=== PATIENT | female | born 1965 | race Caucasian/White ===

== ENCOUNTER 2018-02-27 11:59 | Outpatient (RCR) | payer OTHER, SELFPAY ==
--- NOTE | 2018-02-27 11:30 | IE_ITS ---
Date: February 27, 2018 Referring: Sam Stubbs M.D. Diagnosis: R shoulder pain P.T. Diagnosis: SUBJECTIVE: History of Present Illness: Patient is currently being seen for L shoulder pain after L bicep tenodesis performed in July. Over the last 2 months she has begun experiencing R shoulder pain. Patient feels that the R shoulder has become more problematic as she is using it more while she rehabs her L shoulder. She states she she seems to rely significantly on the R UE and uses it more than she had previously that has created stress. She particularly notices this during work duties where she performs all reaching and lifting activities with the R UE. She states she has a distance history of issues with that shoulder back in 2010. She had a rotator cuff repair performed by Dr. Jackson. She states she had no pain to speak of since surgery, however about 2 months ago she began noticing discomfort through the front of the shoulder, which seem to worsen as time has gone on. She has been performing a strengthening program to rehabilitate the L shoulder and states that after exercise she does note some muscle fatigue, although no significant pain. Pain symptoms with sustained mousing at her desk despite multiple alterations to her work station set up. She also has pain when reaching overhead, and reaching behind her back. Pain Rating: Moderate and consistent pain Pain Location: R anterior shoulder, extending down through the biceps region. She also reports pain through the superior shoulder, extending up into her neck. She denies numbness or tingling. Prior Level of Function: Active and independent. 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 She is currently on modified duty doing primarily office tasks due to her L shoulder injury. Current Level of Function: Patient unable to reach behind her back to tuck in her shirt, has pain with any overhead activity including putting items on shelves, donning/doffing a shirt, etc. . . Previous Treatment: Extensive PT intervention with regards to L shoulder, on the R she had a R rotator cuff repair in 2010 without problem in the meantime. Social: Comorbidities: Chronic headaches, anxiety, Latex allergy, osteoporosis. Falls in the last year: __X__ No ____Yes - How many? ____ - (if over 2, balance SM needs to be completed) Reported hospitalizations in the last year - __X__ No ____ Yes - Dates of admission/reason: Medications: Prozac, Lovastatin. The patient had been placed on a Prednisone dose by Dr. Jackson about 4 weeks ago, and states while on the medication both of her shoulders felt significantly better. OBJECTIVE: Posture: In static standing, the patient has moderate rounded shoulder, forward head posturing. No protective positioning noted of either UE. Observation: (behavior, atrophy, skin color, etc.) Gait: Non-antalgic, non-ataxic Palpation: Patient has healed surgical incisions over both shoulders. She is exquisitely tender to palpation over the R longhead of the bicep tendon, and at the greater tuberosity. She has significant tightness noted through the R upper trap, she has exacerbation of headache symptoms with manipulation of the suboccipitals. ROM: Cervical flexion/extension are normal. Rotation allows 65 degrees bilaterally with R sided neck pain and end range R rotation. Cervical sidebending reproduces R sided neck pain to both sides, although allows 20 degrees bilaterally. Strength: Shoulder flexion 4/5 bilaterally with pain reproduction on the R. Abduction is 4-/5 R, 4/5 L, IR is 4/5 bilaterally, ER 4/5 bilaterally with (+) pain reproduction on the R. Biceps 4+/5 bilaterally without pain. Cooper Apprentice is strong and equal. Neuro: Dermatomes and myotomes are WNL. DTR's 2+ for biceps, triceps and brachioradialis. Special Test: Patient has a (+) empty can test for both pain and weakness, (+) Hawkin's Raymundo test on R, (+) Neer impingement sign, (+) painful arc, (+) cervical compression test for exacerbation of localized neck pain. Treatment: Consisted of evaluation of the R shoulder followed by manual mobilization. The patient received PROM through all planes, she does have impingement symptoms at 140 degrees of shoulder flexion. She received cross friction massage along the longhead of bicep tendon followed by grade 2 AP GH joint mobilizations. She received suboccipital release and trigger point release to the R upper trap. Post mobilization, she has improved symptoms with L rotation and sidebending, although continues with exacerbation of neck pain with R sidebending and R rotation. We reviewed appropriate treatment planning and goals, which patient is in agreement with. IE: [id number] Direct treatment time: 40 MINS Total treatment time: 40 MINS ASSESSMENT: Patient is a 52-year-old female, referred for PT services with the diagnosis of R shoulder pain. Patient presents with clinical signs and symptoms consistent with R rotator cuff tendinopathy and long head of bicep tendinitis. She does have a distance history of rotator cuff repair and is currently rehabilitating her L shoulder in a worker's compensation injury. She has demonstrated excellent compliance throughout her rehabilitation and is performing a strengthening based program at this time with good tolerance. She requires PT intervention to address R shoulder with modification to her L shoulder program as necessary to reduce further stress, as demonstrated by the following impairment level findings: 1: Decreased R shoulder ROM. 2: Decreased R UE strength 3: Soft tissue dysfunction. Impairments are contributing to the following functional limitations: 1: Decreased functional reach of the R UE. 2: Pain when reaching behind back limiting ADL's, particularly tucking in shirt. 3: Unable to perform overhead activities. 4: Sleep disruption. 5: Difficulty with work duties, particularly utilizing her mouse. Patient is assessed as: ____ Low 07941 __X__ Moderate [id number] ____ High 05585 complexity, based on the following: History: (list): Insidious onset of R shoulder pain, developing as she rehabilitates the L shoulder after a biceps tenodesis in a [employer] case. See comorbidities and social history. Examination: (list): X See above for functional limitations and impairments. Presentation: Stable . X Evolving Unstable Decision-Making: Low complexity X Moderate complexity High complexity % Disability based on . STG: __6__ weeks. 1: Full AROM of the R shoulder. 2: Patient able to tolerate introduction of strengthening efforts of R UE without exacerbation of pain. LTG: __12__ weeks. 1: Painfree work duties. 2: Patient able to sleep through the night. 3: Patient able to perform all ADL's without pain. PLAN: Will plan to continue with L shoulder rehabilitation. Patient has been completing a minimally supervised program (MSP) 2x a week and following up with me every 2 weeks for mobilization and progression. I would like to continue with this plan, however will begin addressing her R shoulder during this time as well, strengthening efforts which will be focused on scapular stabilization, and reducing stress to the rotator cuff with gentle strengthening as she is able to tolerate. Will also incorporate manual mobilizations to the R shoulder including GH and scap thoracic joint mobilizations, deep tissue mobilization techniques throughout the shoulder and scapular musculature, and ROM activities. She also follows up with Dr. Jackson next week. Thank you for this referral. Please do not hesitate to contact me with any questions or concerns regarding this patient's plan of care.
--- NOTE | 2018-03-03 13:30 | NT_ITS ---
03/03/18 Did not show for her scheduled appt SS/dl
== END 2018-03-14 23:59 | disposition home or self-care (01) ==
LOC: PT 11:59
PROVIDERS: PCP Nurse Practitioner Family; Referring Provider Orthopaedic Surgery; Visit Provider Orthopaedic Surgery
DX: Z47.89 Encounter for other orthopedic aftercare (principal); M75.22 Bicipital tendinitis, left shoulder; M25.511 Pain in right shoulder
CPT/HCPCS: 97162

== ENCOUNTER 2018-03-11 08:35 | Emergency (ER) | payer OTHER, SELFPAY ==
[2018-03-11] VITALS (29 sets, daily range): BP systolic 131–162; BP diastolic 74–96; PULSE 68–89; RESP 9–25; TEMP 36.6–36.9; O2SAT 93–99
--- NOTE | 2018-03-11 09:00 | DI.RPTCT_ITS ---
SYMPTOM/DIAGNOSIS: RETROSTERNAL CHEST PAIN, RT FLANK PAIN CTA CHEST,. ABDOMEN AND PELVIS: CT angiography was performed with multi slice acquisition and multi planar and 3D reconstruction. CT angiography of the chest, abdomen and pelvis was performed from the level of the aortic arch to the inguinal region. ABDOMEN AND PELVIS: Comparison is made with 09/29/16. There is diffuse decreased attenuation of the liver consistent with hepatic steatosis. The homogeneously hyperdense lesion in the caudal aspect of the right lobe of the liver appears stable. This likely reflects a hepatic hemangioma. No suspicious hepatic masses are seen. The gallbladder is negative. No biliary ductal dilatation is present. The pancreas and peripancreatic soft tissues are unremarkable as are the spleen and adrenal glands. The kidneys show normal and symmetric enhancement. No suspicious solid renal mass or obstruction is identified. The urinary bladder is intact. The patient appears to be status post hysterectomy. No significant abdominal or pelvic adenopathy, ascites or pneumoperitoneum is present. There is diverticulosis of the sigmoid colon but no evidence of acute diverticulitis. No evidence of bowel obstruction or inflammation is seen. No findings to suggest an acute appendicitis are present. There is mild atherosclerosis of the abdominal aorta but no aneurysmal dilatation is seen. No evidence of dissection is present. The celiac axis and mesenteric arteries are patent. The renal arteries are unremarkable. Mild degenerative changes are seen in the spine. Incidental note is a made of a small fat containing umbilical hernia. IMPRESSION: No evidence of arterial dissection or aneurysm. No evidence of an acute abdomen. Incidental findings in the abdomen and pelvis as described above. CHEST: There is mild atherosclerosis of the thoracic aorta but no aneurysmal dilatation or dissection is present. Heart size is within normal limits. No significant pericardial effusion is seen. The central pulmonary arteries are unremarkable without evidence of an embolus. The lung apices were not included. Dependent atelectatic changes are seen in the lungs. No focal consolidating infiltrates are seen. No pneumothorax or pleural effusion is identified. The tracheobronchial tree is unremarkable. Mild degenerative changes are seen in the spine. IMPRESSION: 1. No evidence of thoracic aortic dissection or aneurysm. 2. No evidence of a central pulmonary embolus. 3. No acute pulmonary process. These findings were discussed with the ER on the date of the examination.
[2018-03-11 09:25] LABS: Abs Immature Grans 0.08 k/cumm (0.0-0.09); HCT 44.9 % (36.0-46.0); HGB 14.9 g/dL (12.0-15.5); Mean Corp. HGB Concentration 33.2 g/dL (32.0-36.0); Mean Corpuscular Hemoglobin 31.8 pg (27.0-33.0); Mean Corpuscular Volume 95.9 fL (80-95); Mean Platelet Volume 10.3 fL (8.0-11.0); RBC 4.68 m/cumm (4.00-5.20); RBC Distribution Width 12.2 % (11.7-14.6); White Blood Cell Count 15.92 k/cumm (4.4-10.8)
--- NOTE | 2018-03-11 09:30 | ED.GENADUL_ITS ---
Disposition Clinical Impression: Chest pain Disposition: HOME Instructions: Chest Pain (ED) Additional Instructions: Please take tylenol (acetaminophen) 650 mg every 6 hours as needed for pain. Please follow-up with your primary care physician. He should have a stress test performed as soon as possible and ideally within the next 72 hours. Please call to schedule. Return to the emergency department immediately for any worsening or new concerning symptoms. Referrals: Martha Marrufo [Primary Care Provider] - Forms: Work Release Medical Decision Making - Lab Data Laboratory Tests 03/11/18 03/11/18 03/11/18 08:45 08:45 11:50 WBC 15.92 H RBC 4.68 Hgb 14.9 Hct 44.9 MCV 95.9 H MCH 31.8 MCHC 33.2 RDW 12.2 Plt Count 393 MPV 10.3 Immature Gran % 0.0 Neutrophils % 58.0 Lymphocytes % 30.0 Monocytes % 7.0 Eosinophils % 1.0 Basophils % 0.0 Absolute Neutrophils 9.23 H Absolute Lymphocytes 5.41 H Absolute Monocytes 1.11 H Absolute Eosinophils 0.16 Absolute Basophils 0.00 Differential Comment Manual differential Atypical Lymphocytes 4 RBC Morphology Normal Sodium 135 L Potassium 3.9 Chloride 100 Carbon Dioxide 29.1 Anion Gap 5.9 BUN 12 Creatinine 0.80 Estimated GFR/1.73 m2 >= 60.00 Glucose 91 Calcium 9.1 Magnesium 1.9 Total Bilirubin 0.4 AST 29 ALT 76 Alkaline Phosphatase 104 Troponin I < 0.02 < 0.02 Total Protein 7.8 Albumin 3.8 Results reviewed for labs ordered during visit: Yes - Medical Decision Making 10:00 --52-year-old female with history of gastric reflux and hyperlipidemia, smoker, presents with retrosternal chest pain over the past 3 days, pain is sharp and somewhat pleuritic, also with pain in her right upper abdomen/lateral flank. Patient is hypertensive. Patient saturating well in no respiratory distress. Consider aortic dissection versus gastric ulcer versus less likely pulmonary embolism. ECG reviewed and interpreted by me: Normal sinus rhythm 86 bpm, normal axis, no STEMI, nondiagnostic. 11:10 --CTA of the chest and abdomen pelvis interpreted by radiology: Negative. Labs reviewed: Leukocytosis noted, normal LFTs. Nondiagnostic. Suspect musculoskeletal etiology versus gastric reflux. Patient to be given Toradol IV for pain as well as Pepcid. 12:45 -- Labs reviewed and second trop neg. Pt reassessed and remains stable. --Pt advised to f/u with pcp and rter for any worsening or new concerning symptoms. Pt understands importance of timely followup. Pt verbalized understanding of instructions. History of Present Illness - General Chief complaint: Chest Pain Stated complaint: CHEST PAIN Time Seen by Provider: 03/11/18 08:45 Source: patient, RN notes reviewed Mode of arrival: ambulatory Limitations: no limitations - History of Present Illness Initial comments: 52yo f with multiple medical problems including COPD, gastric reflux, hyperlipidemia, presents with chief complaint of chest pain. Patient notes that 3 days ago she developed a headache, some dizziness and nausea as well as retrosternal chest pain and right lateral upper abdominal/flank pain. Headache resolved. 8 in her chest and flank has persisted. Pain in her chest is described as sharp, waxing and waning but persistent. Worse with deep inspiration. Pain is rated 8/10. Patient denies headache at this time. No numbness or weakness. - Related Data Inspirease 1 each MC Q4H PRN #1 each 11/19/13 Pantoprazole Sodium [Protonix] 40 mg PO daily prn #90 tab-cap 01/06/15 Fluticasone/Salmeterol [Advair HFA 115-21] 2 puff IH BID #3 inhaler 05/05/15 Atorvastatin Calcium 80 mg PO HS #90 tab-cap 07/14/15 Fluoxetine HCl [Prozac] 40 mg PO DAILY tab-cap 11/29/16 Acetaminophen [Tylenol Extra Strength] 1,000 mg PO Q6H PRN tab-cap 03/21/17 Levalbuterol [Xopenex Hfa] 200 puff IH PRN PRN 08/12/17 LamoTRIgine [LaMICtal] 25 mg PO DAILY 01/22/18 Allergies Allergy/AdvReac Type Severity Reaction Status Date / Time nicotine Allergy Severe PATCHES-REDNESS Unverified 03/11/18 08:48 & SWELLING chlorhexidine Allergy Mild Skin Rash Unverified 03/11/18 08:48 adhesive Allergy Skin Rash Unverified 03/11/18 08:48 bupropion AdvReac Severe AGITATION Unverified 03/11/18 08:48 duloxetine AdvReac Intermediate HEARING Unverified 03/11/18 08:48 THINGS hydrocodone AdvReac Intermediate Itching Unverified 03/11/18 08:48 pregabalin [From Lyrica] AdvReac Intermediate foggy brain Unverified 03/11/18 08 :48 trazodone AdvReac Intermediate ANXIETY Unverified 03/11/18 08:48 pravastatin AdvReac Mild HEADACHE Unverified 03/11/18 08:48 simvastatin AdvReac Mild LEG Unverified 03/11/18 08:48 CRAMPS; HEADACHE varenicline AdvReac Mild BEHAVIOR Unverified 03/11/18 08:48 CHANGES promethazine AdvReac Unknown ANXIETY Unverified 03/11/18 08:48 zolpidem AdvReac Unknown INCREASED Unverified 03/11/18 08:48 DEPRESSION Review of Systems Constitutional: denies: chills, fever Respiratory: denies: cough, shortness of breath Cardiovascular: chest pain. denies: palpitations, syncope Gastrointestinal: abdominal pain. denies: nausea, vomiting Neurological: as per HPI. denies: headache Comment: All other systems reviewed and negative Past Medical History - Past Medical History Medical history: COPD, GERD, hyperlipidemia fibromyalgia - Social History Smoking status: current everyday smoker Alcohol use: none Drug use: none General Exam - General Limitations: no limitations General appearance: alert, in no apparent distress - Eye Eye exam: Absent: scleral icterus, conjunctival injection - ENT ENT exam: Present: normal orophraynx, mucous membranes moist - Respiratory Respiratory exam: Present: normal lung sounds bilaterally - Cardiovascular Cardiovascular Exam: Present: regular rate, normal rhythm, normal heart sounds - GI/Abdominal GI/Abdominal exam: Present: soft, tenderness (Minimal epigastric), normal bowel sounds. Absent: distended, guarding, rebound, rigid - Extremities Exam Extremities exam: Absent: pedal edema, calf tenderness - Neurological Exam Neurological exam: Present: alert, normal gait. Absent: altered - Psychiatric Psychiatric exam: Present: normal affect - Skin Skin exam: Present: warm, dry, intact Course Vital Signs - 24 hr 03/11/18 03/11/18 03/11/18 08:41 08:42 08:46 Temperature 36.6 C Pulse 83 85 Respiratory 18 Rate Blood Pressure 162/93 157/93 Pulse Oximetry 97 97 97 03/11/18 03/11/18 03/11/18 08:50 09:00 09:01 Temperature Pulse 77 Respiratory 12 16 Rate Blood Pressure 136/91 Pulse Oximetry 97 93 L 96
[2018-03-11 09:36] LABS: ALT 76 U/L (12-78); AST 29 U/L (15-37); Albumin 3.8 g/dL (3.4-5.0); Alkaline Phosphatase 104 U/L (46-116); Anion Gap 5.9 mmol/L (3-11); BUN 12 mg/dL (7-18); Bilirubin, Total 0.4 mg/dL (0.2-1.0); CO2 29.1 mmol/L (21.0-32.0); Calcium 9.1 mg/dL (8.5-10.1); Chloride 100 mmol/L (98-107); Glucose 91 mg/dL (70-100); Magnesium 1.9 mg/dL (1.8-2.4); Potassium 3.9 mmol/L (3.5-5.1); Sodium 135 mmol/L (136-145); Total Protein 7.8 g/dL (6.4-8.2)
[2018-03-11 09:38] LABS: Absolute Eosinophil Count 0.16 k/cumm (0.0-0.7); Absolute Lymphocyte Count 5.41 k/cumm (1.2-3.4); Absolute Monocyte Count 1.11 k/cumm (0.11-0.7); Absolute Neutrophil Count 9.23 k/cumm (1.2-6.7); Atypical Lymphocytes % 4; Troponin I < 0.02 ng/mL (0.00-0.06)
[2018-03-11 09:39] LABS: Diff Comment Manual Differential; Platelet Count 393 x1000/uL (130-400); RBC Morphology Normal
[2018-03-11] MEDS: Omnipaque 350 MG/ML 100 ML BTL IJ (10:15)
[2018-03-11] MEDS: Ketorolac 15 MG/ML VIAL IVP (10:55)
[2018-03-11] MEDS: FAMOTIDINE 20 MG/50 ML BAG 100 MG IVPB (10:56)
[2018-03-11 12:16] LABS: Troponin I < 0.02 ng/mL (0.00-0.06)
== END 2018-03-11 13:24 | disposition home or self-care (01) ==
PROVIDERS: Emergency Provider Student in an Organized Health Care Education/Training Program; PCP Nurse Practitioner Family
DX: R07.9 Chest pain, unspecified (principal); R03.0 Elevated blood-pressure reading, without diagnosis of hypertension; J44.9 Chronic obstructive pulmonary disease, unspecified; F17.210 Nicotine dependence, cigarettes, uncomplicated
CPT/HCPCS: 36415; 74177; 80053; 93005; 96365; 96375; 99285; 83735; 84484; 85025; 93010; 99284; J1885; J3490

== ENCOUNTER 2018-03-13 00:41 | Outpatient (CLI) | payer OTHER, SELFPAY ==
--- NOTE | 2018-03-13 08:30 | ETT_ITS ---
*[facility]* [address] [place] [address] Stress Electrocardiography Silvano protocol Date of study: 03/13/2018 *PATIENT PRESENTATION* Height: 154.9cm (61in) Blood Pressure: Weight: 60.9kg (134lb) BSA: 1.63m^2 Ordering physician: Eulalio Carias Impressions: Normal study after maximal exercise. Summary: 1. Stress ECG conclusions: Wells treadmill score: 6. This score predicts a low risk of cardiac events. Indication: R07.9. History: Patient's presenting symptoms: atypical angina. REASON FOR VISIT: PATIENT VISIT TO ER ON TUESDAY 03/13 FOR C/O 8/10 SHARP AND DULL STERNAL CHEST PAIN. PAIN HAS BEEN VARIABLE SINCE SATURDAY, OCCURING AT REST AND WITH EXERTION, LASTING A MINUTE AT MOST WITH EACH OCCURENCE, RESOLVING WITHOUT INTERVENTION. ASSOCIATED SYMPTOMS INCLUDE HEADACHE, JAW PAIN, AND NAUSEA. ONE EPISODE OF VOMITING WITH CHEST PAIN ON SATURDAY. PAIN IS WORSE WITH DEEP BREATHING. TODAY PATIENT REPORTS 3/10 DULL, ACHY CHEST PAIN WORSE WITH DEEP INSPIRATION. PAST MEDICAL HISTORY: HYPERTENSION, COPD W/ EMPHYSEMA, GERD, DEPRESSION, HX OF CHRONIC LEUKOCYTOSIS. FAMILY HISTORY: FATHER AT 41 FROM MYOCARDIAL INFARCTION. SMOKING STATUS: 19 PACK YEAR HISTORY. EXERCISE ROUTINE: PHYSICAL THERAPY 2X/WEEK. PMH: COPD. Risk factors: Family history of coronary artery disease. Current tobacco use. Hypertension. Dyslipidemia. Cholesterol: 190mg/dl. HDL: 36mg/dl. LDL: 107mg/dl. Triglycerides: 214mg/dl. ALLERGIES: ADHESIVE, BUPROPION, CHLORHEXIDINE, DULOXETINE, HYDROCODONE, NICOTINE PATCH, PRAVASTATIN, PREGABALIN, PROMETHAZINE, SIMVASTATIN, TRAZODONE, VARENICLINE, ZOLPIDEM. MEDICATIONS: PREDNISONE TAPER 25MG, DAILY. ACETAMINOPHEN 1000MG PRN. ATORVASTATIN CALCIUM 80MG, DAILY. FLUOXETINE HCL 40MG, DAILY. FLUTICASONE/SALMETEROL 2 PUFF, BID. INSPIREASEL 1 EACH, PRN. LAMOTRIGINE 25MG, DAILY. LEVALBUTEROL INHALER, PRN. PANTOPRAZOLE SODIUM 40MG, DIALY. Protocol: Silvano protocol. Baseline ECG: SINUS RHYTHM. HEART RATE 76 BPM. Stress protocol: + +---+ + + !Stage !HR !BP (mmHg) !Symptoms ! + +---+ + + !Baseline supine !76 !136/82 (100)!3 out of 10 chest ! ! ! ! !discomfort ! + +---+ + + !Baseline standing !83 !132/80 (97) ! ! + +---+ + + !Stage I; 1.7mph, !110!142/88 (106)! ! !10degrees; 3 min ! ! ! ! + +---+ + + !Stage II; 2.5mph, !114!170/70 (103)! ! !12degrees; 3 min ! ! ! ! + +---+ + + !Stage III; 3.4mph, !124!182/84 (117)! ! !14degrees; 3 min ! ! ! ! + +---+ + + !Peak stress !162! ! ! + +---+ + + !Recovery; 1 min !128!192/90 (124)! ! + +---+ + + !Recovery; 3 min !88 !164/82 (109)! ! + +---+ + + !Recovery; 6 min !90 !140/74 (96) !Same as above ! + +---+ + + * Stress results: Maximal heart rate during stress was 162bpm (96% of maximal predicted heart rate). The maximal predicted heart rate was 169bpm. The target heart rate was achieved. The rate-pressure product for the peak heart rate and blood pressure was 57444rj Hg/min. Stress ECG: TREADMILL PORTION OF EXERCISE STRESS TEST ENDED IN 9MIN 58SEC DUE TO PATIENT FATIGUE. APPROPRIATE HEART RATE AND BLOOD PRESSURE RESPONSE TO EXERCISE. MAX HEART RATE 162BPM, 95% OF TARGET HEART RATE. APPROXIMATE METS ACHIEVED 11.74. 3/10 DULL, ACHY CHEST PAIN REPORTED AT BASELINE PRIOR TO TESTING. 3/10 CHEST PAIN CONTINUED THROUGH TESTING AND DURING RECOVERY. NO INCREASE IN CHEST PAIN REPORTED. NO SIGNIFICANT ST SEGMENT CHANGES NOTED. ABOVE AVERAGE FUNCTIONAL CAPACITY. Wells treadmill score: 6. This score predicts a low risk of cardiac events. Study data: Jaz Boucher MD supervised and was readily available during the procedure. This study was interpreted by [facility]. Study status: Routine. Consent: The risks, benefits, and alternatives to the procedure were explained to the patient and informed consent was obtained. Procedure: Initial setup. A baseline ECG was recorded. Surface ECG leads and manual cuff blood pressure measurements were monitored. Heart sounds: Murmur. Lung sounds: Normal. Treadmill exercise testing was performed using the Silvano protocol. Study completion: The patient tolerated the procedure well and was discharged from the lab. Discharge: The patient left the laboratory in stable condition. Birthdate: Patient birthdate: 1965. Sex: Gender: female. Study date: Study date: 03/13/2018. Study time: 08:30 AM. Signature Documentation: The Stress ECG portion of this study was interpreted by Jaz Boucher MD. Electronically signed by Jaz Boucher 03/13/2018 09:41
== END 2018-03-13 00:42 ==
PROVIDERS: PCP Nurse Practitioner Family; Visit Provider Student in an Organized Health Care Education/Training Program
DX: R07.89 Other chest pain (principal)
CPT/HCPCS: 93017

== ENCOUNTER 2018-04-20 12:11 | Emergency (ER) | payer OTHER, SELFPAY ==
[2018-04-20 12:17] VITALS: BP 163/89; PULSE 89; RESP 18; TEMP 36.7; O2SAT 98
--- NOTE | 2018-04-20 12:35 | W.ED.GENAD ---
Discharge Plan Disposition Patient Disposition: HOME Condition: Fair Discharge Details Chief Complaint: EarProblem Clinical Impression: Otitis externa Primary Care Provider: Martha Marrufo ED Provider: Yojana Ceja Home Meds and New Rx's Prescriptions: New ciprofloxacin-dexamethasone [Ciprodex] 0.3-0.1 % drops,suspension 3 drp OT TID Qty: 7.5 RF: 0 Continue INSPIREASE 1 EACH spacer 1 ea Miscellaneous Q4H PRN Qty: 1 RF: 1 pantoprazole [Protonix] 40 MG tablet,delayed release (DR/EC) 40 mg PO daily prn Qty: 90 RF: 3 fluticasone-salmeterol [Advair HFA] 8 GM HFA aerosol inhaler 2 puff Inhalation BID Qty: 3 RF: 4 atorvastatin 80 MG tablet 80 mg PO HS Qty: 90 RF: 4 fluoxetine [Prozac] 20 MG capsule 20 mg PO DAILY RF: 0 acetaminophen [Tylenol Extra Strength] 500 MG tablet 1,000 mg PO Q6H PRN RF: 0 lamotrigine [Lamictal] 25 MG tablet 50 mg PO DAILY RF: 0 levalbuterol tartrate [Xopenex HFA] 200 PUFF HFA aerosol inhaler 200 puff Inhalation PRN PRNRF: 0 Discharge Instructions Instructions: Otitis Externa (ED) Additional Instructions: Encourage hydration. Use Ciprodex drops as prescribed. When using these, please lie on your side for 15 minutes after instilling the medication. Please follow up with primary care in the next 2 days. If you develop increased pain, discharge, fevers/chills, redness of surrounding tissue or other new/worsening symptoms please seek care urgently once again. Referrals: Martha Marrufo [Primary Care Provider] - ([phone]) Discharge Data Discharge Date/Time-TO BE ENTERED AT DEPARTURE: 04/20/18 12:49 Medical Decision Making Patient is a 52 year old female with chief complaint of left ear pain. States that it began 3 days ago and has been progressively getting worse. Denies known fevers but states that she has felt slight chills. States that she has been having pain around the ear but that it primarily feels to be the inner ear. Prior to arrival, patient had been using Vicks in her ear and instilling with warm water. Denies change in hearing. No recent travel, no recent trauma. On exam, external canal is noted to be erythematous. No exudate. No swelling of the canal. TM is WNL. No pain over the mastoid process. Plan to treat for otitis externa. Patient will be treated with Ciprodex. Discussed new/worsening symptoms and when to seek care urgently once again. Encourage hydration. I am concerned that her pain seems to be out of proportion with findings of exam. No mastoid tenderness, no fevers, patient appears nontoxic. I have asked that she follow up closely with primary care for reevaluation. Was given strict return precautions. Just after the patient was discharged, we were contacted by the patient who advised she was unable to get the Ciprodex filled. Contacted her local pharmacy and called in a prescription for polymyxinB/neomycin/hydrocortisone instead as this was available and will cover for otitis externa. HPI General Mode of arrival: ambulatory. Date/Time Provider Initiated Documentation: 04/20/18 12:24. Limitations to Documentation: no limitations. Information obtained by: patient. History of Present Illness 52 year old F presents to the emergency department with the chief complaint of right ear pain, described as moderate, Quality is described as aching, and is localized to the face. Patient neck. Patient started experiencing this day(s) (3) and it has been constant. No relieving factors improve symptom(s), No exacerbating factors reported . Patient notes fever/chills; denies chest pain, cough, headaches, loss of appetite, nausea/vomiting, rash and shortness of breath. Patient did receive the following treatments prior to arrival, other (has been putting Vicks in her ear) Related Data Home Medications Medication Instructions Recorded Confirmed pantoprazole [Protonix] 40 mg PO daily prn #90 tab-cap 01/06/15 04/20/18 fluticasone-salmeterol [Advair HFA] 2 puff INHALATION BID #3 inhaler 05/05/15 04/20/18 atorvastatin 80 mg PO HS #90 tab-cap 07/14/15 04/20/18 fluoxetine [Prozac] 20 mg PO DAILY tab-cap 11/29/16 04/20/18 acetaminophen [Tylenol Extra 1,000 mg PO Q6H PRN tab-cap 03/21/17 04/20/18 Strength] levalbuterol tartrate [Xopenex HFA] 200 puff INHALATION PRN PRN 08/12/17 04/20/18 lamotrigine [Lamictal] 50 mg PO DAILY 01/22/18 04/20/18 ciprofloxacin-dexamethasone 3 drp OT TID #7.5 ml 04/20/18 [Ciprodex] Previous Rx's Medication Instructions Recorded ciprofloxacin-dexamethasone 3 drp OT TID #7.5 ml 04/20/18 [Ciprodex] Allergies Allergy/AdvReac Type Severity Reaction Status Date / Time nicotine Allergy Severe PATCHES-REDNESS Unverified 04/20/18 12:22 & SWELLING chlorhexidine Allergy Mild Skin Rash Unverified 04/20/18 12:22 adhesive Allergy Skin Rash Unverified 04/20/18 12:22 bupropion AdvReac Severe AGITATION Unverified 04/20/18 12:22 duloxetine AdvReac Intermediate HEARING Unverified 04/20/18 12:22 THINGS hydrocodone AdvReac Intermediate Itching Unverified 04/20/18 12:22 pregabalin [From Lyrica] AdvReac Intermediate foggy brain Unverified 04/20/18 12:22 trazodone AdvReac Intermediate ANXIETY Unverified 04/20/18 12:22 pravastatin AdvReac Mild HEADACHE Unverified 04/20/18 12:22 simvastatin AdvReac Mild LEG Unverified 04/20/18 12:22 CRAMPS; HEADACHE varenicline AdvReac Mild BEHAVIOR Unverified 04/20/18 12:22 CHANGES promethazine AdvReac Unknown ANXIETY Unverified 04/20/18 12:22 zolpidem AdvReac Unknown INCREASED Unverified 04/20/18 12:22 DEPRESSION General Stated Complaint: EarProblem NICOLAS: 3 Review of Systems Constitutional Reports as per HPI, Reports chills, Denies difficulty sleeping, Denies fever(s), Denies headache(s) and Denies poor appetite Eyes Denies change in vision, Denies irritation and Denies itchy eyes ENT Reports as per HPI, Denies vertigo, Denies dizziness, Denies ear discharge, Reports otalgia, Denies facial pain, Denies headache(s), Denies hearing loss, Denies nasal congestion, Denies nasal discharge, Reports neck pain (states that pain from right ear can radiate into the right lateral side of her neck), Denies nose pain, Denies post nasal drip, Denies sinus pain, Denies sinus pressure and Denies sore throat Cardiovascular Denies chest pain, Denies chest pain at rest, Denies dyspnea and Denies dyspnea on exertion Respiratory Denies cough, Denies dyspnea, Denies dyspnea on exertion and Denies wheezing Gastrointestinal Reports as per HPI, Denies abdominal pain, Denies change in stool character, Reports nausea and Denies vomiting Musculoskeletal Reports neck pain (states that pain from right ear can radiate into the right lateral side of her neck) Integumentary/Breasts Denies rash, Denies skin pain, Denies sores and Denies wounds Neurologic Denies vertigo, Denies dizziness and Denies headache(s) Allergic/Immunologic Denies itchy eyes and Denies wheezing PFSH Family History Mother Essential hypertension Diabetes Hyperlipidemia Father Heart disease Hyperlipidemia Myocardial infarction Sister Hyperlipidemia Brother No problems noted. Grandfather No problems noted. Grandfather No problems noted. Grandmother Personal history of malignant neoplasm Grandmother No problems noted. Social History Smoking/Tobacco Use Status: Current every day Surgical History Bilateral salpingectomy with oophorectomy Biopsy of breast (~2007) EGD - MAC Hysterectomy, Laproscopic Oophrectomy, Left Exam Const General: cooperative, healthy appearing, comfortable, no acute distress, well developed and well groomed Nutritional Appearance: average body habitus and well nourished Orientation: alert and awake [facility] Head: normal to inspection, normocephalic and atraumatic Ears: hearing grossly normal bilaterally, external ears abnormal (patient has erythema of the external canal, no discharge. No swelling noted. TM without abnormality.), TM's normal bilaterally, mastoids normal (no tenderness with palpation) and no periauricular adenopathy General nose exam: external nose normal and nares normal Face and sinus: normal facial exam, sinuses nontender and face symmetric Mouth: oral mucosae normal, lip normal, tongue normal, oropharynx normal, moist mucous membranes and no trismus Teeth and gingiva: dentition normal Throat: posterior oropharynx normal, tonsils normal and uvula midline Eyes General: appearance normal, both eyes and all related structures Neck Neck: normal visual inspection, full ROM, no lymphadenopathy and no meningeal signs Resp Effort & Inspection: normal respiratory effort, able to speak in complete sentences and no respiratory distress Auscultation: clear to auscultation bilaterally, no rales, no rhonchi and no wheezes Cardio Rate: regular rate Rhythm: regular rhythm Heart Sounds: S1 normal and S2 normal Skin General skin exam: no rashes or lesions noted Lesions: no lesions Rashes: no rashes Trauma: no lacerations or abrasions Neuro General: alert, awake and oriented x3 Cognition: normal cognition Speech: speech normal Gait: normal gait Psych Appearance: grossly normal and well kempt Mental Status: mental status grossly normal Speech and Movement: speech and movement normal Mood: congruent mood Course Vital Signs Temperature 36.7 C 04/20/18 12:17 Pulse 89 04/20/18 12:17 Respiratory Rate 18 04/20/18 12:17 Blood Pressure 163/89 H 04/20/18 12:17 Pulse Oximetry 98 04/20/18 12:17 Temperature 36.7 C 04/20/18 12:17 Temperature Source Temporal Artery Scan 04/20/18 12:17 Pulse 89 04/20/18 12:17 Respiratory Rate 18 04/20/18 12:17 Respiratory Effort Non-Labored 04/20/18 12:20 Blood Pressure 163/89 H 04/20/18 12:17 Blood Pressure Position Sitting 04/20/18 12:17 Pulse Oximetry 98 04/20/18 12:17 Oxygen Delivery Method Room Air 04/20/18 12:17 Oxygen Flow Rate 0 04/20/18 12:17 Pain Level 6 04/20/18 12:20 Comment 04/20/18 12:17
--- NOTE | 2018-04-20 14:55 | ED.GENADUL_ITS ---
Discharge Plan Disposition Patient Disposition: HOME Condition: Fair Discharge Details Chief Complaint: EarProblem Clinical Impression: Otitis externa Primary Care Provider: Martha Marrufo ED Provider: Yojana Ceja Home Meds and New Rx's Prescriptions: New ciprofloxacin-dexamethasone [Ciprodex] 0.3-0.1 % drops,suspension 3 drp OT TID Qty: 7.5 RF: 0 Continue INSPIREASE 1 EACH spacer 1 ea Miscellaneous Q4H PRN Qty: 1 RF: 1 pantoprazole [Protonix] 40 MG tablet,delayed release (DR/EC) 40 mg PO daily prn Qty: 90 RF: 3 fluticasone-salmeterol [Advair HFA] 8 GM HFA aerosol inhaler 2 puff Inhalation BID Qty: 3 RF: 4 atorvastatin 80 MG tablet 80 mg PO HS Qty: 90 RF: 4 fluoxetine [Prozac] 20 MG capsule 20 mg PO DAILY RF: 0 acetaminophen [Tylenol Extra Strength] 500 MG tablet 1,000 mg PO Q6H PRN RF: 0 lamotrigine [Lamictal] 25 MG tablet 50 mg PO DAILY RF: 0 levalbuterol tartrate [Xopenex HFA] 200 PUFF HFA aerosol inhaler 200 puff Inhalation PRN PRNRF: 0 Discharge Instructions Instructions: Otitis Externa (ED) Additional Instructions: Encourage hydration. Use Ciprodex drops as prescribed. When using these, please lie on your side for 15 minutes after instilling the medication. Please follow up with primary care in the next 2 days. If you develop increased pain, discharge, fevers/chills, redness of surrounding tissue or other new/worsening symptoms please seek care urgently once again. Referrals: Martha Marrufo [Primary Care Provider] - ([phone]) Discharge Data Discharge Date/Time-TO BE ENTERED AT DEPARTURE: 04/20/18 12:49 Medical Decision Making Patient is a 52 year old female with chief complaint of left ear pain. States that it began 3 days ago and has been progressively getting worse. Denies known fevers but states that she has felt slight chills. States that she has been having pain around the ear but that it primarily feels to be the inner ear. Prior to arrival, patient had been using Vicks in her ear and instilling with warm water. Denies change in hearing. No recent travel, no recent trauma. On exam, external canal is noted to be erythematous. No exudate. No swelling of the canal. TM is WNL. No pain over the mastoid process. Plan to treat for otitis externa. Patient will be treated with Ciprodex. Discussed new/ worsening symptoms and when to seek care urgently once again. Encourage hydration. I am concerned that her pain seems to be out of proportion with findings of exam. No mastoid tenderness, no fevers, patient appears nontoxic. I have asked that she follow up closely with primary care for reevaluation. Was given strict return precautions. Just after the patient was discharged, we were contacted by the patient who advised she was unable to get the Ciprodex filled. Contacted her local pharmacy and called in a prescription for polymyxinB/neomycin/hydrocortisone instead as this was available and will cover for otitis externa. HPI General Mode of arrival: ambulatory . Date/Time Provider Initiated Documentation: 04/20/18 12:24 . Limitations to Documentation: no limitations . Information obtained by: patient . History of Present Illness 52 year old F presents to the emergency department with the chief complaint of right ear pain, described as moderate, Quality is described as aching, and is localized to the face. Patient neck. Patient started experiencing this day(s) (3) and it has been constant. No relieving factors improve symptom(s), No exacerbating factors reported . Patient notes fever/chills; denies chest pain, cough, headaches, loss of appetite, nausea/vomiting, rash and shortness of breath. Patient did receive the following treatments prior to arrival, other (has been putting Vicks in her ear) Related Data Home Medications Medication Instructions Recorded Confirmed pantoprazole [Protonix] 40 mg PO daily prn #90 tab-cap 01/06/15 04/20/18 fluticasone-salmeterol [Advair HFA] 2 puff INHALATION BID #3 inhaler 05/05/15 atorvastatin 80 mg PO HS #90 tab-cap 07/14/15 04/20/18 fluoxetine [Prozac] 20 mg PO DAILY tab-cap 11/29/16 04/20/18 acetaminophen [Tylenol Extra 1,000 mg PO Q6H PRN tab-cap 03/21/17 04/20/18 Strength] levalbuterol tartrate [Xopenex HFA] 200 puff INHALATION PRN PRN 08/12/17 lamotrigine [Lamictal] 50 mg PO DAILY 01/22/18 04/20/18 ciprofloxacin-dexamethasone 3 drp OT TID #7.5 ml 04/20/18 [Ciprodex] Previous Rx's Medication Instructions Recorded ciprofloxacin-dexamethasone 3 drp OT TID #7.5 ml 04/20/18 [Ciprodex] Allergies Allergy/AdvReac Type Severity Reaction Status Date / Time nicotine Allergy Severe PATCHES-REDNESS Unverified 04/20/18 12:22 & SWELLING chlorhexidine Allergy Mild Skin Rash Unverified 04/20/18 12:22 adhesive Allergy Skin Rash Unverified 04/20/18 12:22 bupropion AdvReac Severe AGITATION Unverified 04/20/18 12:22 duloxetine AdvReac Intermediate HEARING Unverified 04/20/18 12:22 THINGS hydrocodone AdvReac Intermediate Itching Unverified 04/20/18 12:22 pregabalin [From Lyrica] AdvReac Intermediate foggy brain Unverified 04/20/18 12 :22 trazodone AdvReac Intermediate ANXIETY Unverified 04/20/18 12:22 pravastatin AdvReac Mild HEADACHE Unverified 04/20/18 12:22 simvastatin AdvReac Mild LEG Unverified 04/20/18 12:22 CRAMPS; HEADACHE varenicline AdvReac Mild BEHAVIOR Unverified 04/20/18 12:22 CHANGES promethazine AdvReac Unknown ANXIETY Unverified 04/20/18 12:22 zolpidem AdvReac Unknown INCREASED Unverified 04/20/18 12:22 DEPRESSION General Stated Complaint: EarProblem NICOLAS: 3 Review of Systems Constitutional Reports as per HPI, Reports chills, Denies difficulty sleeping, Denies fever(s) , Denies headache(s) and Denies poor appetite Eyes Denies change in vision, Denies irritation and Denies itchy eyes ENT Reports as per HPI, Denies vertigo, Denies dizziness, Denies ear discharge, Reports otalgia, Denies facial pain, Denies headache(s), Denies hearing loss, Denies nasal congestion, Denies nasal discharge, Reports neck pain (states that pain from right ear can radiate into the right lateral side of her neck), Denies nose pain, Denies post nasal drip, Denies sinus pain, Denies sinus pressure and Denies sore throat Cardiovascular Denies chest pain, Denies chest pain at rest, Denies dyspnea and Denies dyspnea on exertion Respiratory Denies cough, Denies dyspnea, Denies dyspnea on exertion and Denies wheezing Gastrointestinal Reports as per HPI, Denies abdominal pain, Denies change in stool character, Reports nausea and Denies vomiting Musculoskeletal Reports neck pain (states that pain from right ear can radiate into the right lateral side of her neck) Integumentary/Breasts Denies rash, Denies skin pain, Denies sores and Denies wounds Neurologic Denies vertigo, Denies dizziness and Denies headache(s) Allergic/Immunologic Denies itchy eyes and Denies wheezing PFSH Family History Mother Essential hypertension Diabetes Hyperlipidemia Father Heart disease Hyperlipidemia Myocardial infarction Sister Hyperlipidemia Brother No problems noted. Grandfather No problems noted. Grandfather No problems noted. Grandmother Personal history of malignant neoplasm Grandmother No problems noted. Social History Smoking/Tobacco Use Status: Current every day Surgical History Bilateral salpingectomy with oophorectomy Biopsy of breast (~2007) EGD - MAC Hysterectomy, Laproscopic Oophrectomy, Left Exam Const General: cooperative, healthy appearing, comfortable, no acute distress, well developed and well groomed Nutritional Appearance: average body habitus and well nourished Orientation: alert and awake [facility] Head: normal to inspection, normocephalic and atraumatic Ears: hearing grossly normal bilaterally, external ears abnormal (patient has erythema of the external canal, no discharge. No swelling noted. TM without abnormality.), TM's normal bilaterally, mastoids normal (no tenderness with palpation) and no periauricular adenopathy General nose exam: external nose normal and nares normal Face and sinus: normal facial exam, sinuses nontender and face symmetric Mouth: oral mucosae normal, lip normal, tongue normal, oropharynx normal, moist mucous membranes and no trismus Teeth and gingiva: dentition normal Throat: posterior oropharynx normal, tonsils normal and uvula midline Eyes General: appearance normal, both eyes and all related structures Neck Neck: normal visual inspection, full ROM, no lymphadenopathy and no meningeal signs Resp Effort & Inspection: normal respiratory effort, able to speak in complete sentences and no respiratory distress Auscultation: clear to auscultation bilaterally, no rales, no rhonchi and no wheezes Cardio Rate: regular rate Rhythm: regular rhythm Heart Sounds: S1 normal and S2 normal Skin General skin exam: no rashes or lesions noted Lesions: no lesions Rashes: no rashes Trauma: no lacerations or abrasions Neuro General: alert, awake and oriented x3 Cognition: normal cognition Speech: speech normal Gait: normal gait Psych Appearance: grossly normal and well kempt Mental Status: mental status grossly normal Speech and Movement: speech and movement normal Mood: congruent mood Course Vital Signs Temperature 36.7 C 04/20/18 12:17 Pulse 89 04/20/18 12:17 Respiratory Rate 18 04/20/18 12:17 Blood Pressure 163/89 H 04/20/18 12:17 Pulse Oximetry 98 04/20/18 12:17 Temperature 36.7 C 04/20/18 12:17 Temperature Source Temporal Artery Scan 04/20/18 12:17 Pulse 89 04/20/18 12:17 Respiratory Rate 18 04/20/18 12:17 Respiratory Effort Non-Labored 04/20/18 12:20 Blood Pressure 163/89 H 04/20/18 12:17 Blood Pressure Position Sitting 04/20/18 12:17 Pulse Oximetry 98 04/20/18 12:17 Oxygen Delivery Method Room Air 04/20/18 12:17 Oxygen Flow Rate 0 04/20/18 12:17 Pain Level 6 04/20/18 12:20 Comment 04/20/18 12:17
== END 2018-04-20 12:49 | disposition home or self-care (01) ==
PROVIDERS: Emergency Provider Physician Assistant; PCP Nurse Practitioner Family
DX: H60.92 Unspecified otitis externa, left ear (principal); F17.210 Nicotine dependence, cigarettes, uncomplicated
CPT/HCPCS: 99283

== ENCOUNTER 2018-04-21 11:27 | Emergency (ER) | payer OTHER, SELFPAY ==
--- NOTE | 2018-04-21 11:44 | DI.CT_ITS ---
SYMPTOM/DIAGNOSIS: MASTOID TENDERNESS WITH ASSOCIATED OTITIS EXTERNA NONCONTRAST HEAD CT: Comparison is made with 10/11/2006. A noncontrast cranial CT was performed. The ventricular system is normal in appearance. There is no evidence of an intracranial mass lesion. There is no evidence of a subdural or epidural hematoma. No focal areas of decreased attenuation are seen. CONCLUSION: Normal noncontrast Cranial CT. SINUS CT: The visualized paranasal sinuses are clear. The nasal septum is midline. The turbinates are unremarkable except for a left middle turbinate isai bullosa. The ostiomeatal complexes are unremarkable. The bones are intact. The mastoid air cells are well pneumatized. The middle ears are unremarkable as are the external ears. IMPRESSION: Negative CT of the sinuses. The findings were discussed with the ER on the date of the examination.
[2018-04-21 11:47] VITALS: BP 152/83; PULSE 89; RESP 16; TEMP 36.6; O2SAT 96
--- NOTE | 2018-04-21 11:47 | W.ED.GENAD ---
Discharge Plan Disposition Patient Disposition: HOME Condition: Fair Discharge Details Chief Complaint: EarProblem Clinical Impression: Otitis externa, Lymphadenopathy Primary Care Provider: Martha Marrufo ED Provider: Yojana Ceja Home Meds and New Rx's Prescriptions: Continue pantoprazole [Protonix] 40 MG tablet,delayed release (DR/EC) 40 mg PO daily prn Qty: 90 RF: 3 fluticasone-salmeterol [Advair HFA] 8 GM HFA aerosol inhaler 2 puff Inhalation BID Qty: 3 RF: 4 atorvastatin 80 MG tablet 80 mg PO HS Qty: 90 RF: 4 fluoxetine [Prozac] 20 MG capsule 20 mg PO DAILY RF: 0 acetaminophen [Tylenol Extra Strength] 500 MG tablet 1,000 mg PO Q6H PRN RF: 0 lamotrigine [Lamictal] 25 MG tablet 50 mg PO DAILY RF: 0 levalbuterol tartrate [Xopenex HFA] 200 PUFF HFA aerosol inhaler 200 puff Inhalation PRN PRNRF: 0 ciprofloxacin-dexamethasone [Ciprodex] 0.3-0.1 % drops,suspension 3 drp OT TID Qty: 7.5 RF: 0 No Action prednisone 5 mg tablet 5 mg PO DAILY RF: 0 Discharge Instructions Instructions: Otitis Externa (ED) Additional Instructions: Encourage hydration. Please continue with polymyxin drops as prescribed. Tylenol and/or ibuprofen as needed for discomfort. You may take your next dose of ibuprofen 8 PM please follow-up with primary care within the next week for reevaluation. If you develop fever/chills, increased pain no visual changes, discharge from the ear or other new/worsening symptoms please seek care urgently once again. Laboratory evaluation and CT of your head are all reassuring at this time Stand Alone Forms: Work Release Referrals: Martha Marrufo [Primary Care Provider] - Discharge Data Discharge Date/Time-TO BE ENTERED AT DEPARTURE: 04/21/18 14:22 Medical Decision Making Presents today with chief complaint of increased right ear pain. Patient was seen by myself yesterday with chief complaint of right ear pain. At that point, I noted the external canal to be erythematous concerning for otitis externa. No discharge or swelling was noted. At that point, patient was not exhibiting any mastoid tenderness. Patient was begun on antibiotics. Today, the patient presents for increased discomfort. She is reporting that the pain is particularly worse over the scalp. She is indicating the superior right side of the scalp is area of discomfort. Reports it is stabbing and comes electric shocks. At the time of my exam, no pain is elicited. No visualize any rash. No skin tenderness on the face. No cranial nerve abnormality. Patient is afebrile and nontoxic-appearing. She denies any fevers at home. Patient does appear quite anxious. Ear remains unchanged from yesterday. No mastoid tenderness. However, given the severity with which the patient is describing, I feel that imaging and laboratory evaluation is appropriate at this time. Will obtain CT of the patient's head and face to evaluate for any infectious spreading as well as baseline labs. Discussed this plan with the patient who is in agreement. We will give IV Toradol to help with discomfort Patient taken extra strength Tylenol this morning with no alleviation of her discomfort. She received 30 mg of IV Toradol today. However, she reports that this did not help with her discomfort. We will augment this with 2 mg of IV morphine. She was able to have a friend come to pick her up Improved after IV morphine. Was contacted by radiologist who advised no acute abnormality noted in the imaging Laboratory evaluation significant for slight elevation of the AST and ALT. AST is 76, ALT 149. White count is minimally elevated at 11.08. Advised that she would need follow-up regarding her liver enzymes with her primary care provider. At this point, I do not note any acute abnormalities. Unclear as to why the patient is having this sharp pain in her scalp. This discomfort did just begin today. Pain in the ear has remained unchanged. She did just begin the antibiotics yesterday afternoon. I feel that she should continue with the Ciprodex treatment. Advise close follow-up with her primary care particular given the level of discomfort. She will contact them today to schedule appointment. Patient did have singular enlarged node. I did advise that this may be some the source of her discomfort. Patient is frequently pressing on this area and palpating of the area of discomfort. Advised that she try to hold off on this as this may cause further irritation of the lymph node. We discussed new/worsening symptoms when to seek care urgently once again. All of her questions and concerns were addressed and she is in agreement this plan HPI General Mode of arrival: ambulatory. Date/Time Provider Initiated Documentation: 04/21/18 11:36. Limitations to Documentation: no limitations. Information obtained by: patient. History of Present Illness 52 year old F presents to the emergency department with the chief complaint of right ear pain, described as moderate, with intensity rated at 8. Quality is described as aching, and is localized to the head. Patient reports radiation to (radiates into her scalp). Patient started experiencing this day(s) (3) and it has been constant. No relieving factors improve symptom(s), No exacerbating factors reported . Patient notes no other symptoms.; denies confusion, chest pain, cough, fever/chills, headaches (endorses scalp pain but denies any HARRIS), loss of appetite, nausea/vomiting, rash and shortness of breath. Patient did receive the following treatments prior to arrival, NSAID Related Data Home Medications Medication Instructions Recorded Confirmed pantoprazole [Protonix] 40 mg PO daily prn #90 tab-cap 01/06/15 04/22/18 fluticasone-salmeterol [Advair HFA] 2 puff INHALATION BID #3 inhaler 05/05/15 04/22/18 atorvastatin 80 mg PO HS #90 tab-cap 07/14/15 04/22/18 fluoxetine [Prozac] 20 mg PO DAILY tab-cap 11/29/16 04/22/18 acetaminophen [Tylenol Extra 1,000 mg PO Q6H PRN tab-cap 03/21/17 04/22/18 Strength] levalbuterol tartrate [Xopenex HFA] 200 puff INHALATION PRN PRN 08/12/17 04/22/18 lamotrigine [Lamictal] 50 mg PO DAILY 01/22/18 04/22/18 ciprofloxacin-dexamethasone 3 drp OT TID #7.5 ml 04/20/18 04/22/18 [Ciprodex] prednisone 5 mg tablet 5 mg PO DAILY 04/22/18 04/22/18 Previous Rx's Medication Instructions Recorded ciprofloxacin-dexamethasone 3 drp OT TID #7.5 ml 04/20/18 [Ciprodex] Allergies Allergy/AdvReac Type Severity Reaction Status Date / Time nicotine Allergy Severe PATCHES-REDNESS Unverified 04/22/18 11:28 & SWELLING chlorhexidine Allergy Mild Skin Rash Unverified 04/22/18 11:28 adhesive Allergy Skin Rash Unverified 04/22/18 11:28 bupropion AdvReac Severe AGITATION Unverified 04/22/18 11:28 duloxetine AdvReac Intermediate HEARING Unverified 04/22/18 11:28 THINGS hydrocodone AdvReac Intermediate Itching Unverified 04/22/18 11:28 pregabalin [From Lyrica] AdvReac Intermediate foggy brain Unverified 04/22/18 11:28 trazodone AdvReac Intermediate ANXIETY Unverified 04/22/18 11:28 pravastatin AdvReac Mild HEADACHE Unverified 04/22/18 11:28 simvastatin AdvReac Mild LEG Unverified 04/22/18 11:28 CRAMPS; HEADACHE varenicline AdvReac Mild BEHAVIOR Unverified 04/22/18 11:28 CHANGES promethazine AdvReac Unknown ANXIETY Unverified 04/22/18 11:28 zolpidem AdvReac Unknown INCREASED Unverified 04/22/18 11:28 DEPRESSION General NICOLAS: 3 Review of Systems Constitutional Reports as per HPI and Denies headache(s) Eyes Denies blurry vision and Denies change in vision ENT Reports as per HPI, Denies vertigo, Denies dizziness, Denies dry mouth, Reports otalgia, Denies facial pain, Denies headache(s), Denies hearing loss, Denies epistaxis, Denies nasal congestion, Denies nasal discharge, Denies sinus pain, Denies sinus pressure and Denies sore throat Cardiovascular Denies chest pain and Denies dyspnea Respiratory Denies cough and Denies dyspnea Gastrointestinal Denies abdominal pain, Denies change in stool character, Denies nausea and Denies vomiting Musculoskeletal Denies back pain Integumentary/Breasts Denies rash and Reports skin pain Neurologic Denies vertigo, Denies dizziness and Denies headache(s) PFSH Family History Mother Essential hypertension Diabetes Hyperlipidemia Father Heart disease Hyperlipidemia Myocardial infarction Sister Hyperlipidemia Brother No problems noted. Grandfather No problems noted. Grandfather No problems noted. Grandmother Personal history of malignant neoplasm Grandmother No problems noted. Social History Smoking/Tobacco Use Status: Current every day Surgical History Bilateral salpingectomy with oophorectomy Biopsy of breast (~2007) EGD - MAC Hysterectomy, Laproscopic Oophrectomy, Left Exam Const General: cooperative, healthy appearing, comfortable, no acute distress, well developed and well groomed Nutritional Appearance: average body habitus and well nourished Orientation: alert and awake [facility] Head: normal to inspection, no palpable skull fracture, atraumatic, abrasion, no Rees's sign, no contusions and scalp tenderness Ears: hearing grossly normal bilaterally, external ears abnormal (Patient continues to have mild erythema in the posterior wall of the canal. Unable to appreciate any swelling, no discharge or exudate.), TM's normal bilaterally, mastoids normal and periauricular adenopathy noted (Singular enlarged node is palpable) General nose exam: external nose normal and nares normal Face and sinus: normal facial exam and sinuses nontender Mouth: oral mucosae normal, lip normal, tongue normal, oropharynx normal and moist mucous membranes Teeth and gingiva: dentition normal Throat: posterior oropharynx normal, tonsils normal and uvula midline Eyes General: appearance normal, both eyes and all related structures Alignment and Position: alignment normal Periorbital: periorbital findings normal Eyelids: eyelids normal Sclera: sclerae normal Cornea: corneas normal Pupils: PERRL EOM: EOM intact bilaterally Neck Neck: normal visual inspection, full ROM and no lymphadenopathy Resp Effort & Inspection: normal respiratory effort, able to speak in complete sentences and no respiratory distress Auscultation: clear to auscultation bilaterally, no rales, no rhonchi and no wheezes Cardio Rate: regular rate Rhythm: regular rhythm Heart Sounds: S1 normal and S2 normal Skin General skin exam: no rashes or lesions noted Lesions: no lesions Rashes: no rashes Trauma: no lacerations or abrasions Neuro General: alert, awake and oriented x3 Cranial Nerves: CN's II-XI intact bilaterally Cognition: normal cognition Speech: speech normal Gait: normal gait Motor: muscle tone normal throughout Sensory Exam: no sensory deficits noted Psych Appearance: grossly normal and well kempt Mental Status: mental status grossly normal Speech and Movement: speech and movement normal Mood: congruent mood
[2018-04-21] MEDS: Ketorolac 30 MG/ML VIAL IVP (12:45)
[2018-04-21] MEDS: Normal Saline 1,000 ML 1000 ML IV (12:45)
[2018-04-21 12:48] LABS: Abs Immature Grans 0.05 k/cumm (0.0-0.09); Absolute Lymphocyte Count 4.22 k/cumm (1.2-3.4); Absolute Monocyte Count 0.82 k/cumm (0.11-0.7); Basophils % 0.5; Eosinophils % 1.8; HCT 43.2 % (36.0-46.0); HGB 14.5 g/dL (12.0-15.5); Immature Grans % 0.5; Lymphocytes % 38.1; Mean Corp. HGB Concentration 33.6 g/dL (32.0-36.0); Mean Corpuscular Hemoglobin 32.2 pg (27.0-33.0); Mean Corpuscular Volume 95.8 fL (80-95); Mean Platelet Volume 9.9 fL (8.0-11.0); Monocytes % 7.4; Neutrophils % 51.7; Platelet Count 364 x1000/uL (130-400); RBC 4.51 m/cumm (4.00-5.20); RBC Distribution Width 12.4 % (11.7-14.6); White Blood Cell Count 11.08 k/cumm (4.4-10.8)
[2018-04-21 12:50] LABS: Absolute Basophil Count 0.06 k/cumm (0.0-0.2); Absolute Neutrophil Count 5.73 k/cumm (1.2-6.7)
[2018-04-21 13:03] LABS: ALT 149 U/L (12-78); AST 76 U/L (15-37); Albumin 3.8 g/dL (3.4-5.0); Alkaline Phosphatase 136 U/L (46-116); BUN 10 mg/dL (7-18); Bilirubin, Total 0.3 mg/dL (0.2-1.0); CREATININE 0.82 mg/dL (0.55-1.02); Calcium 9.2 mg/dL (8.5-10.1); Chloride 102 mmol/L (98-107); Glucose 103 mg/dL (70-100); Potassium 4.3 mmol/L (3.5-5.1); Sodium 138 mmol/L (136-145); Total Protein 7.7 g/dL (6.4-8.2)
--- NOTE | 2018-04-21 13:05 | ED.GENADUL_ITS ---
Discharge Plan Disposition Patient Disposition: HOME Condition: Fair Discharge Details Chief Complaint: EarProblem Clinical Impression: Otitis externa, Lymphadenopathy Primary Care Provider: Martha Marrufo ED Provider: Yojana Ceja Home Meds and New Rx's Prescriptions: Continue pantoprazole [Protonix] 40 MG tablet,delayed release (DR/EC) 40 mg PO daily prn Qty: 90 RF: 3 fluticasone-salmeterol [Advair HFA] 8 GM HFA aerosol inhaler 2 puff Inhalation BID Qty: 3 RF: 4 atorvastatin 80 MG tablet 80 mg PO HS Qty: 90 RF: 4 fluoxetine [Prozac] 20 MG capsule 20 mg PO DAILY RF: 0 acetaminophen [Tylenol Extra Strength] 500 MG tablet 1,000 mg PO Q6H PRN RF: 0 lamotrigine [Lamictal] 25 MG tablet 50 mg PO DAILY RF: 0 levalbuterol tartrate [Xopenex HFA] 200 PUFF HFA aerosol inhaler 200 puff Inhalation PRN PRNRF: 0 ciprofloxacin-dexamethasone [Ciprodex] 0.3-0.1 % drops,suspension 3 drp OT TID Qty: 7.5 RF: 0 No Action prednisone 5 mg tablet 5 mg PO DAILY RF: 0 Discharge Instructions Instructions: Otitis Externa (ED) Additional Instructions: Encourage hydration. Please continue with polymyxin drops as prescribed. Tylenol and/or ibuprofen as needed for discomfort. You may take your next dose of ibuprofen 8 PM please follow-up with primary care within the next week for reevaluation. If you develop fever/chills, increased pain no visual changes, discharge from the ear or other new/worsening symptoms please seek care urgently once again. Laboratory evaluation and CT of your head are all reassuring at this time Stand Alone Forms: Work Release Referrals: Martha Marrufo [Primary Care Provider] - Discharge Data Discharge Date/Time-TO BE ENTERED AT DEPARTURE: 04/21/18 14:22 Medical Decision Making Presents today with chief complaint of increased right ear pain. Patient was seen by myself yesterday with chief complaint of right ear pain. At that point , I noted the external canal to be erythematous concerning for otitis externa. No discharge or swelling was noted. At that point, patient was not exhibiting any mastoid tenderness. Patient was begun on antibiotics. Today, the patient presents for increased discomfort. She is reporting that the pain is particularly worse over the scalp. She is indicating the superior right side of the scalp is area of discomfort. Reports it is stabbing and comes electric shocks. At the time of my exam, no pain is elicited. No visualize any rash. No skin tenderness on the face. No cranial nerve abnormality. Patient is afebrile and nontoxic-appearing. She denies any fevers at home. Patient does appear quite anxious. Ear remains unchanged from yesterday. No mastoid tenderness. However, given the severity with which the patient is describing, I feel that imaging and laboratory evaluation is appropriate at this time. Will obtain CT of the patient's head and face to evaluate for any infectious spreading as well as baseline labs. Discussed this plan with the patient who is in agreement. We will give IV Toradol to help with discomfort Patient taken extra strength Tylenol this morning with no alleviation of her discomfort. She received 30 mg of IV Toradol today. However, she reports that this did not help with her discomfort. We will augment this with 2 mg of IV morphine. She was able to have a friend come to pick her up Improved after IV morphine. Was contacted by radiologist who advised no acute abnormality noted in the imaging Laboratory evaluation significant for slight elevation of the AST and ALT. AST is 76, ALT 149. White count is minimally elevated at 11.08. Advised that she would need follow-up regarding her liver enzymes with her primary care provider. At this point, I do not note any acute abnormalities. Unclear as to why the patient is having this sharp pain in her scalp. This discomfort did just begin today. Pain in the ear has remained unchanged. She did just begin the antibiotics yesterday afternoon. I feel that she should continue with the Ciprodex treatment. Advise close follow-up with her primary care particular given the level of discomfort. She will contact them today to schedule appointment. Patient did have singular enlarged node. I did advise that this may be some the source of her discomfort. Patient is frequently pressing on this area and palpating of the area of discomfort. Advised that she try to hold off on this as this may cause further irritation of the lymph node. We discussed new/worsening symptoms when to seek care urgently once again. All of her questions and concerns were addressed and she is in agreement this plan HPI General Mode of arrival: ambulatory . Date/Time Provider Initiated Documentation: 04/21/18 11:36 . Limitations to Documentation: no limitations . Information obtained by: patient . History of Present Illness 52 year old F presents to the emergency department with the chief complaint of right ear pain, described as moderate, with intensity rated at 8. Quality is described as aching, and is localized to the head. Patient reports radiation to (radiates into her scalp). Patient started experiencing this day( s) (3) and it has been constant. No relieving factors improve symptom(s), No exacerbating factors reported . Patient notes no other symptoms.; denies confusion, chest pain, cough, fever/chills, headaches (endorses scalp pain but denies any HARRIS), loss of appetite, nausea/vomiting, rash and shortness of breath. Patient did receive the following treatments prior to arrival, NSAID Related Data Home Medications Medication Instructions Recorded Confirmed pantoprazole [Protonix] 40 mg PO daily prn #90 tab-cap 01/06/15 04/22/18 fluticasone-salmeterol [Advair HFA] 2 puff INHALATION BID #3 inhaler 05/05/15 atorvastatin 80 mg PO HS #90 tab-cap 07/14/15 04/22/18 fluoxetine [Prozac] 20 mg PO DAILY tab-cap 11/29/16 04/22/18 acetaminophen [Tylenol Extra 1,000 mg PO Q6H PRN tab-cap 03/21/17 04/22/18 Strength] levalbuterol tartrate [Xopenex HFA] 200 puff INHALATION PRN PRN 08/12/17 lamotrigine [Lamictal] 50 mg PO DAILY 01/22/18 04/22/18 ciprofloxacin-dexamethasone 3 drp OT TID #7.5 ml 04/20/18 04/22/18 [Ciprodex] prednisone 5 mg tablet 5 mg PO DAILY 04/22/18 04/22/18 Previous Rx's Medication Instructions Recorded ciprofloxacin-dexamethasone 3 drp OT TID #7.5 ml 04/20/18 [Ciprodex] Allergies Allergy/AdvReac Type Severity Reaction Status Date / Time nicotine Allergy Severe PATCHES-REDNESS Unverified 04/22/18 11:28 & SWELLING chlorhexidine Allergy Mild Skin Rash Unverified 04/22/18 11:28 adhesive Allergy Skin Rash Unverified 04/22/18 11:28 bupropion AdvReac Severe AGITATION Unverified 04/22/18 11:28 duloxetine AdvReac Intermediate HEARING Unverified 04/22/18 11:28 THINGS hydrocodone AdvReac Intermediate Itching Unverified 04/22/18 11:28 pregabalin [From Lyrica] AdvReac Intermediate foggy brain Unverified 04/22/18 11 :28 trazodone AdvReac Intermediate ANXIETY Unverified 04/22/18 11:28 pravastatin AdvReac Mild HEADACHE Unverified 04/22/18 11:28 simvastatin AdvReac Mild LEG Unverified 04/22/18 11:28 CRAMPS; HEADACHE varenicline AdvReac Mild BEHAVIOR Unverified 04/22/18 11:28 CHANGES promethazine AdvReac Unknown ANXIETY Unverified 04/22/18 11:28 zolpidem AdvReac Unknown INCREASED Unverified 04/22/18 11:28 DEPRESSION General NICOLAS: 3 Review of Systems Constitutional Reports as per HPI and Denies headache(s) Eyes Denies blurry vision and Denies change in vision ENT Reports as per HPI, Denies vertigo, Denies dizziness, Denies dry mouth, Reports otalgia, Denies facial pain, Denies headache(s), Denies hearing loss, Denies epistaxis, Denies nasal congestion, Denies nasal discharge, Denies sinus pain, Denies sinus pressure and Denies sore throat Cardiovascular Denies chest pain and Denies dyspnea Respiratory Denies cough and Denies dyspnea Gastrointestinal Denies abdominal pain, Denies change in stool character, Denies nausea and Denies vomiting Musculoskeletal Denies back pain Integumentary/Breasts Denies rash and Reports skin pain Neurologic Denies vertigo, Denies dizziness and Denies headache(s) PFSH Family History Mother Essential hypertension Diabetes Hyperlipidemia Father Heart disease Hyperlipidemia Myocardial infarction Sister Hyperlipidemia Brother No problems noted. Grandfather No problems noted. Grandfather No problems noted. Grandmother Personal history of malignant neoplasm Grandmother No problems noted. Social History Smoking/Tobacco Use Status: Current every day Surgical History Bilateral salpingectomy with oophorectomy Biopsy of breast (~2007) EGD - MAC Hysterectomy, Laproscopic Oophrectomy, Left Exam Const General: cooperative, healthy appearing, comfortable, no acute distress, well developed and well groomed Nutritional Appearance: average body habitus and well nourished Orientation: alert and awake [facility] Head: normal to inspection, no palpable skull fracture, atraumatic, abrasion, no Rees's sign, no contusions and scalp tenderness Ears: hearing grossly normal bilaterally, external ears abnormal (Patient continues to have mild erythema in the posterior wall of the canal. Unable to appreciate any swelling, no discharge or exudate.), TM's normal bilaterally, mastoids normal and periauricular adenopathy noted (Singular enlarged node is palpable) General nose exam: external nose normal and nares normal Face and sinus: normal facial exam and sinuses nontender Mouth: oral mucosae normal, lip normal, tongue normal, oropharynx normal and moist mucous membranes Teeth and gingiva: dentition normal Throat: posterior oropharynx normal, tonsils normal and uvula midline Eyes General: appearance normal, both eyes and all related structures Alignment and Position: alignment normal Periorbital: periorbital findings normal Eyelids: eyelids normal Sclera: sclerae normal Cornea: corneas normal Pupils: PERRL EOM: EOM intact bilaterally Neck Neck: normal visual inspection, full ROM and no lymphadenopathy Resp Effort & Inspection: normal respiratory effort, able to speak in complete sentences and no respiratory distress Auscultation: clear to auscultation bilaterally, no rales, no rhonchi and no wheezes Cardio Rate: regular rate Rhythm: regular rhythm Heart Sounds: S1 normal and S2 normal Skin General skin exam: no rashes or lesions noted Lesions: no lesions Rashes: no rashes Trauma: no lacerations or abrasions Neuro General: alert, awake and oriented x3 Cranial Nerves: CN's II-XI intact bilaterally Cognition: normal cognition Speech: speech normal Gait: normal gait Motor: muscle tone normal throughout Sensory Exam: no sensory deficits noted Psych Appearance: grossly normal and well kempt Mental Status: mental status grossly normal Speech and Movement: speech and movement normal Mood: congruent mood
[2018-04-21] MEDS: MORPHine 10 MG/ML VIAL 2 MG IVP (13:09)
== END 2018-04-21 14:22 | disposition home or self-care (01) ==
PROVIDERS: Emergency Provider Physician Assistant; PCP Nurse Practitioner Family
DX: H60.91 Unspecified otitis externa, right ear (principal); R51 Headache
CPT/HCPCS: 36415; 80053; 96361; 96374; 96375; 99284; 70450; 70486; 85025; J1885; J2270

== ENCOUNTER 2018-04-30 09:01 | Outpatient (CLI) | payer OTHER, SELFPAY ==
[2018-04-30 09:41] LABS: Abs Immature Grans 0.03 k/cumm (0.0-0.09); Absolute Basophil Count 0.05 k/cumm (0.0-0.2); Absolute Eosinophil Count 0.19 k/cumm (0.0-0.7); Absolute Lymphocyte Count 3.45 k/cumm (1.2-3.4); Absolute Monocyte Count 0.77 k/cumm (0.11-0.7); Absolute Neutrophil Count 6.03 k/cumm (1.2-6.7); Basophils % 0.5; Eosinophils % 1.8; HCT 43.1 % (36.0-46.0); HGB 14.4 g/dL (12.0-15.5); Immature Grans % 0.3; Lymphocytes % 32.8; Mean Corp. HGB Concentration 33.4 g/dL (32.0-36.0); Mean Corpuscular Hemoglobin 31.6 pg (27.0-33.0); Mean Corpuscular Volume 94.7 fL (80-95); Mean Platelet Volume 9.9 fL (8.0-11.0); Monocytes % 7.3; Neutrophils % 57.3; Platelet Count 316 x1000/uL (130-400); RBC 4.55 m/cumm (4.00-5.20); RBC Distribution Width 12.5 % (11.7-14.6); White Blood Cell Count 10.52 k/cumm (4.4-10.8)
[2018-04-30 09:50] LABS: ALT 110 U/L (12-78); AST 57 U/L (15-37); Albumin 3.7 g/dL (3.4-5.0); Alkaline Phosphatase 116 U/L (46-116); BUN 13 mg/dL (7-18); Bilirubin, Total 0.4 mg/dL (0.2-1.0); CREATININE 0.95 mg/dL (0.55-1.02); Calcium 8.7 mg/dL (8.5-10.1); Chloride 102 mmol/L (98-107); Glucose 109 mg/dL (70-100); Potassium 4.5 mmol/L (3.5-5.1); Sodium 138 mmol/L (136-145); Total Protein 7.4 g/dL (6.4-8.2)
== END 2018-04-30 09:21 ==
PROVIDERS: PCP Nurse Practitioner Family; Visit Provider Internal Medicine Hematology & Oncology
DX: D72.829 Elevated white blood cell count, unspecified (principal)
CPT/HCPCS: 36415; 80053; 85025

== ENCOUNTER 2018-05-05 15:26 | Outpatient (REF) | payer OTHER, SELFPAY ==
[2018-05-05 21:36] LABS: ALT 121 U/L (12-78); AST 41 U/L (15-37); Albumin 4.1 g/dL (3.4-5.0); Alkaline Phosphatase 127 U/L (46-116); Anion Gap 10.3 mmol/L (3-11); BUN 21 mg/dL (7-18); Bilirubin, Total 0.3 mg/dL (0.2-1.0); CO2 26.7 mmol/L (21.0-32.0); CREATININE 0.97 mg/dL (0.55-1.02); Calcium 9.4 mg/dL (8.5-10.1); Chloride 99 mmol/L (98-107); Glucose 104 mg/dL (70-100); Potassium 4.4 mmol/L (3.5-5.1); Sodium 136 mmol/L (136-145); Total Protein 7.5 g/dL (6.4-8.2)
[2018-05-07 12:39] LABS: Hepatitis A Antibody IgM Negative (NEGAT); Hepatitis B Core Antibody Negative (NEGAT); Hepatitis B surface Ag Negative (NEGAT); Hepatitis C Ab w Rflx HCV PCR Negative (NEGAT)
== END 2018-05-05 15:46 ==
LOC: NCHCN 15:26
PROVIDERS: PCP Nurse Practitioner Family; Visit Provider Nurse Practitioner Family
DX: R74.0 Nonspecific elevation of levels of transaminase and lactic acid dehydrogenase [LDH] (principal); R31.21 Asymptomatic microscopic hematuria; B02.9 Zoster without complications; R03.0 Elevated blood-pressure reading, without diagnosis of hypertension; R51 Headache
CPT/HCPCS: 80053; 86704; 86709; 86803; 87340

== ENCOUNTER 2018-05-09 16:25 | Outpatient (REF) | payer OTHER, SELFPAY ==
[2018-05-12 10:23] LABS: HIV-1/2 Ag & Ab Screen Negative (NEGAT)
== END 2018-05-09 16:45 ==
LOC: NCHCN 16:25
PROVIDERS: PCP Nurse Practitioner Family; Visit Provider Nurse Practitioner
DX: Z11.4 Encounter for screening for human immunodeficiency virus [HIV] (principal)
CPT/HCPCS: 87389

== ENCOUNTER 2018-07-27 13:20 | Emergency (ER) | payer BC, SELFPAY ==
[2018-07-27 13:31] VITALS: BP 136/80; PULSE 95; RESP 17; TEMP 36.9; O2SAT 95
--- NOTE | 2018-07-27 13:32 | DI.CT_ITS ---
SYMPTOM/DIAGNOSIS: GLOSSITIS, DIFFICULTY SWALLOWING, PAIN IN ANTERIOR NECK CT NECK: A post contrast exam was performed. There is no evidence of abscess, tonsillar enlargement or mass. An incidental small nodule is seen on the right lobe of the thyroid. There is no adenopathy. The epiglottis appears normal. The visualized portions of the brain and lungs are unremarkable. IMPRESSION: Negative CT of the neck. Incidental thyroid nodule.
--- NOTE | 2018-07-27 13:34 | DI.RAD_ITS ---
SYMPTOM/DIAGNOSIS: SOB, HX COPD PORTABLE CHEST: Comparison is made with 04 Dec 2017. The heart size is normal. The lungs appear clear. No infiltrate or effusion is seen. IMPRESSION: Negative portable chest.
--- NOTE | 2018-07-27 14:06 | W.ED.GENAD ---
Discharge Plan Disposition Patient Disposition: HOME Condition: Good Discharge Details Chief Complaint: RespSymp Clinical Impression: Glossitis Primary Care Provider: Martha Marrufo ED Provider: Felix Wyman Home Meds and New Rx's Prescriptions: No Action gabapentin 300 mg capsule 300 mg PO HS RF: 0 pantoprazole [Protonix] 40 MG tablet,delayed release (DR/EC) 40 mg PO daily prn Qty: 90 RF: 3 Advair HFA 8 GM HFA aerosol inhaler 2 puff Inhalation BID Qty: 3 RF: 4 atorvastatin 80 MG tablet 80 mg PO HS Qty: 90 RF: 4 fluoxetine [Prozac] 20 MG capsule 20 mg PO DAILY RF: 0 acetaminophen [Tylenol Extra Strength] 500 MG tablet 1,000 mg PO Q6H PRN RF: 0 lamotrigine [Lamictal] 25 MG tablet 50 mg PO DAILY RF: 0 levalbuterol tartrate [Xopenex HFA] 200 PUFF HFA aerosol inhaler 200 puff Inhalation PRN PRNRF: 0 Discharge Instructions Additional Instructions: Please take a daily multivitamin. Please use Pepto-Bismol or Maalox for coating of your tongue if you have any continued burning on your tongue. Please follow-up with ENT doctor as directed when you are called for an appointment. If you notice any worsening of your symptoms, or any new symptoms such as vomiting, diarrhea, fever, chills, shortness of breath, chest pain, numbness, weakness, or fainting , please return immediately to the emergency department for reevaluation. Please follow up with your primary care provider as soon as possible for reassessment and reevaluation. As always, it was a pleasure participating in your medical care today. Referrals: Martha Marrufo [Primary Care Provider] - Medical Decision Making This is a 53-year-old female who presents with symptoms of glossitis, mild anterior neck pain as well as some symptoms of mild difficulty swallowing for the last 2-3 weeks. Symptoms are made worse with swallowing. She shows no red flags suggestive of meningitis, angioedema, airway compromise or other significant abnormality. Feel her symptoms may be secondary to vitamin deficiencies or is simply diet. However because of the patient's subjective symptoms we will get a CT scan to rule out any mass that she does have risk factors with her smoking use. 3:48 PM Patient's laboratory workup is relatively benign. She does have a slight increase in her white count however she was just on steroids for an upper respiratory infection prescribed by her PCP. The remainder of her laboratory workup was otherwise benign. She does have slight increase in AST and ALT, these levels appear to be chronic compared to old labs. Troponin negative, vitamin B12 normal. CT scan demonstrates no evidence of acute process. She does have 2 small thyroid nodules, however no acute abnormalities otherwise noted. Showing no signs of airway compromise, being able to tolerate food and drink well without any difficulty, I do feel that she can be safely discharged home with close follow-up with her PCP. We will schedule ENT follow-up as well for further evaluation. Recommending multivitamin at home, as well as coating with Pepto-Bismol at home if needed for the tongue. We discussed red flags which to return. I have extensively reviewed the treatment plan and discharge instructions with the patient. I have addressed all patient concerns at this time. The patient was made aware of what symptoms to monitor for that would warrant a return to the emergency department. Discussed the plan with the patient, they demonstrate verbal understanding and agreement with our assessment and plan at this time. EKG 13: 41 Rate 93, W[place] 152, QTc 465, sinus rhythm, no significant ST elevations or depressions, no T wave inversions, no Q waves. Normal EKG FINDINGS: Airway widely patent. No abnormal fluid collection. No radiopaque foreign body. 2 approximate 8 mm hypodensities within the right lobe of the thyroid which require no further evaluation. IMPRESSION: 1. No specific etiology identified for patient's symptoms. TECHNIQUE: XR of the chest, 1 view. COMPARISON: CR CHEST 2 VIEWS PA,LAT 12/04/2017 9:43 AM FINDINGS: The lung laws are clear bilaterally. No focal pulmonary consolidation is present. The cardiac silhouette is within normal limits. The costophrenic angles are sharp. The bony structures appear unremarkable. IMPRESSION: No evidence of acute cardiopulmonary disease. Dictated and Authenticated by: Casey Harper MD. HPI General Date/Time Provider Initiated Documentation: 07/27/18 13:22. HPI Narrative: This is a 53-year-old female with a past medical history of high cholesterol, COPD, and mood instability who presents today for evaluation of tongue pain, swelling, difficulty swallowing. The patient states that for the last 2-3 weeks since she has had mild and worsening tongue pain which she describes as a burning sensation. She has associated left anterior neck pain as well which is made worse with swallowing. She describes slight difficulty swallowing secondary to this pain. She also states that she feels like her tongue is swollen and big. She admits to a very mild headache in conjunction with this. Patient also complains of mild difficulty breathing with some shortness of breath. The symptoms are improved with her breathing treatments at home. She denies any chest pain, arm pain, or shoulder pain. Family history is positive for cardiac disease at a young age. Patient is not on an JARRETT inhibitor. She has no history of allergies at present like this. She denies any new medication changes. She has no other complaints at this time. She denies any neck stiffness, posterior neck pain, vomiting, diarrhea, fevers or chills. No other modifying factors. No other complaints at this time. Patient does smoke. She denies any IV or illicit drug use Related Data Home Medications Medication Instructions Recorded Confirmed pantoprazole [Protonix] 40 mg PO daily prn #90 tab-cap 01/06/15 07/27/18 Advair HFA 2 puff INHALATION BID #3 inhaler 05/05/15 07/27/18 atorvastatin 80 mg PO HS #90 tab-cap 07/14/15 06/03/18 fluoxetine [Prozac] 20 mg PO DAILY tab-cap 11/29/16 07/27/18 acetaminophen [Tylenol Extra 1,000 mg PO Q6H PRN tab-cap 03/21/17 06/03/18 Strength] levalbuterol tartrate [Xopenex HFA] 200 puff INHALATION PRN PRN 08/12/17 07/27/18 lamotrigine [Lamictal] 50 mg PO DAILY 01/22/18 07/27/18 gabapentin 300 mg capsule 300 mg PO HS cap 06/03/18 07/27/18 Allergies Allergy/AdvReac Type Severity Reaction Status Date / Time nicotine Allergy Severe PATCHES-REDNESS Unverified 07/27/18 13:34 & SWELLING chlorhexidine Allergy Mild Skin Rash Unverified 07/27/18 13:34 adhesive Allergy Skin Rash Unverified 07/27/18 13:34 bupropion AdvReac Severe AGITATION Unverified 07/27/18 13:34 duloxetine AdvReac Intermediate HEARING Unverified 07/27/18 13:34 THINGS hydrocodone AdvReac Intermediate Itching Unverified 07/27/18 13:34 pregabalin [From Lyrica] AdvReac Intermediate foggy brain Unverified 07/27/18 13:34 trazodone AdvReac Intermediate ANXIETY Unverified 07/27/18 13:34 pravastatin AdvReac Mild HEADACHE Unverified 07/27/18 13:34 simvastatin AdvReac Mild LEG Unverified 07/27/18 13:34 CRAMPS; HEADACHE varenicline AdvReac Mild BEHAVIOR Unverified 07/27/18 13:34 CHANGES promethazine AdvReac Unknown ANXIETY Unverified 07/27/18 13:34 zolpidem AdvReac Unknown INCREASED Unverified 07/27/18 13:34 DEPRESSION General Stated Complaint: ThroatFB NICOLAS: 3 Review of Systems Review of Systems All systems reviewed & are unremarkable except as noted in HPI and below PFSH Family History Mother Essential hypertension Diabetes Hyperlipidemia Father Heart disease Hyperlipidemia Myocardial infarction Sister Hyperlipidemia Brother No problems noted. Grandfather No problems noted. Grandfather No problems noted. Grandmother Personal history of malignant neoplasm Grandmother No problems noted. Social History Smoking/Tobacco Use Status: Current every day Exam Narrative Exam Narrative: 1.Const: Well-nourished, Well-developed, appearing stated age 2.Eyes: PERRL, no conjunctival injection, and symmetrical lids. 3.ENT: Atraumatic external nose and ears. Moist MM. Neck: Symmetric, trachea midline, No thyromegaly. Patient demonstrates good movement of cervical neck. There is no nuchal rigidity, no nuchal tenderness. Patient is able to flex the neck without any difficulty or significant pain. Negative Kernig's and Brudzinski sign. No significant swelling or evidence of angioedema on the patient's tongue. There are small little papules noted. No evidence of significant erythema in the posterior oropharynx. No evidence of tonsillar exudates. No neck stiffness. No evidence of swelling the anterior neck, or significant lymphadenopathy 4.CVS: +S1/S2, No murmurs or gallops. Peripheral pulses 2+ and equal in all extremities. Brisk capillary refill in all extremities. 5.RESP: Unlabored respiratory effort. Clear to auscultation bilaterally. No wheezes rales or rhonchi 6.GI: Soft, Nontender/Nondistended, No hepatosplenomegaly. No guarding or rebound. 7.MSK: Normocephalic/Atraumatic, Extremities w/o deformity or ttp No cyanosis or clubbing, Normal movement of all extremities 8.Skin: Warm, Dry. No rashes or lesions. 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 Sensation grossly intact, no focal neurologic deficits. 10.Psych: (AAO) x3. Appropriate mood and affect Course Vital Signs Temperature 36.9 C 07/27/18 13:31 Pulse 95 H 07/27/18 13:31 Respiratory Rate 17 07/27/18 13:31 Blood Pressure 136/80 07/27/18 13:31 Pulse Oximetry 95 07/27/18 13:31 Temperature 36.9 C 07/27/18 13:31 Temperature Source Skin 07/27/18 13:31 Pulse 95 H 07/27/18 13:31 Respiratory Rate 17 07/27/18 13:31 Blood Pressure 136/80 07/27/18 13:31 Blood Pressure Position Supine 07/27/18 13:31 Pulse Oximetry 95 07/27/18 13:31 Oxygen Delivery Method Room Air 07/27/18 13:31 Oxygen Flow Rate 0 07/27/18 13:31 Pain Level 5 07/27/18 13:31
[2018-07-27 14:30] LABS: Abs Immature Grans 0.06 k/cumm (0.0-0.09); Absolute Basophil Count 0.06 k/cumm (0.0-0.2); Absolute Eosinophil Count 0.19 k/cumm (0.0-0.7); Absolute Lymphocyte Count 4.41 k/cumm (1.2-3.4); Absolute Monocyte Count 1.13 k/cumm (0.11-0.7); Absolute Neutrophil Count 8.84 k/cumm (1.2-6.7); Basophils % 0.4; Eosinophils % 1.3; HCT 41.9 % (36.0-46.0); HGB 13.9 g/dL (12.0-15.5); Immature Grans % 0.4; Mean Corp. HGB Concentration 33.2 g/dL (32.0-36.0); Mean Corpuscular Hemoglobin 32.3 pg (27.0-33.0); Mean Corpuscular Volume 97.4 fL (80-95); Mean Platelet Volume 9.5 fL (8.0-11.0); Monocytes % 7.7; Neutrophils % 60.2; Platelet Count 354 x1000/uL (130-400); RBC Distribution Width 12.9 % (11.7-14.6); White Blood Cell Count 14.69 k/cumm (4.4-10.8)
[2018-07-27 14:45] LABS: ALT 284 U/L (12-78); AST 88 U/L (15-37); Albumin 3.7 g/dL (3.4-5.0); Alkaline Phosphatase 156 U/L (46-116); Anion Gap 8.9 mmol/L (3-11); BUN 14 mg/dL (7-18); Bilirubin, Total 0.5 mg/dL (0.2-1.0); CO2 26.1 mmol/L (21.0-32.0); CREATININE 0.98 mg/dL (0.55-1.02); Calcium 8.9 mg/dL (8.5-10.1); Chloride 100 mmol/L (98-107); Glucose 102 mg/dL (70-100); Magnesium 2.2 mg/dL (1.8-2.4); Potassium 4.1 mmol/L (3.5-5.1); Sodium 135 mmol/L (136-145); Total Protein 7.5 g/dL (6.4-8.2)
[2018-07-27 14:51] LABS: Troponin I < 0.02 ng/mL (0.00-0.06)
--- NOTE | 2018-07-27 15:05 | DI.VRAD_ITS ---
EXAM: XR Chest, 1 View EXAM DATE/TIME: 07/27/2018 1:35 PM CLINICAL HISTORY: 53 years old, female; Signs and symptoms; Other: SOB, HX copd TECHNIQUE: XR of the chest, 1 view. COMPARISON: CR CHEST 2 VIEWS PA,LAT 12/04/2017 9:43 AM FINDINGS: The lung laws are clear bilaterally. No focal pulmonary consolidation is present. The cardiac silhouette is within normal limits. The costophrenic angles are sharp. The bony structures appear unremarkable. IMPRESSION: No evidence of acute cardiopulmonary disease. Dictated and Authenticated by: Casey Harper MD. Ordering:DEYA Washington MD
[2018-07-27 15:25] LABS: Vitamin B12 730 pg/mL (193-986)
[2018-07-27] MEDS: Normal Saline Flush 10 ML SYR IVP (15:28)
[2018-07-27] MEDS: Omnipaque 350 MG/ML 100 ML BTL IJ (15:28)
--- NOTE | 2018-07-27 15:37 | DI.VRAD_ITS ---
EXAM: CT Neck With Contrast EXAM DATE/TIME: 07/27/2018 1:35 PM CLINICAL HISTORY: 53 years old, female; Signs and symptoms; Other: Glossitis, difficulty swallowing, pain in anterior neck TECHNIQUE: Axial computed tomography images of the neck with intravenous contrast. All CT scans at this facility use at least one of these dose optimization techniques: automated exposure control; mA and/or kV adjustment per patient size (includes targeted exams where dose is matched to clinical indication); or iterative reconstruction. Coronal and sagittal reformatted images were created and reviewed. CONTRAST: 100 ml of Omnipaque 350 administered intravenously. COMPARISON: No relevant prior studies available. FINDINGS: Airway widely patent. No abnormal fluid collection. No radiopaque foreign body. 2 approximate 8 mm hypodensities within the right lobe of the thyroid which require no further evaluation. IMPRESSION: 1. No specific etiology identified for patient's symptoms. Consistent with the [employer]?s Incidental Findings Committee Report (J Am Theo Radiol 2014): Unless the patient?s specific circumstances suggest otherwise, any thyroid nodule less than 1.0 cm not otherwise characterized in this report as possessing suspicious or indeterminate imaging features is highly likely to be benign and does not require follow-up imaging or biopsy Dictated and Authenticated by: Casey Harper MD. Ordering:DEYA Washington MD
[2018-07-27 15:55] VITALS: BP 135/95; PULSE 92; RESP 14; TEMP 37; O2SAT 95
--- NOTE | 2018-07-28 09:31 | PDOC.ERCMPRO ---
Care Management Progress Note 07/28-Dr. Wyman requested assistance with an ENT f/u within one month for glossitis, globus sensation. Referral faxed to ENT this am.
== END 2018-07-27 16:17 | disposition home or self-care (01) ==
PROVIDERS: Emergency Provider Student in an Organized Health Care Education/Training Program; PCP Nurse Practitioner Family
DX: K14.0 Glossitis (principal); E07.9 Disorder of thyroid, unspecified; R51 Headache; R06.9 Unspecified abnormalities of breathing; J44.9 Chronic obstructive pulmonary disease, unspecified; F17.210 Nicotine dependence, cigarettes, uncomplicated
CPT/HCPCS: 36415; 70491; 80053; 93005; 99285; 71045; 82607; 83735; 84484; 85025; 93010; 99284; J3490

== ENCOUNTER 2018-11-27 07:41 | Emergency (ER) | payer BC, SELFPAY ==
[2018-11-27] VITALS (13 sets, daily range): BP systolic 113–166; BP diastolic 67–88; PULSE 67–108; RESP 14–25; TEMP 36.8; O2SAT 98–99
--- NOTE | 2018-11-27 07:58 | W.ED.GENAD ---
Discharge Plan Disposition Patient Disposition: HOME Condition: Fair Discharge Details Chief Complaint: Abd Prob Clinical Impression: Gastritis, Acute duodenitis Primary Care Provider: Martha Marrufo ED Provider: Yojana Ceja Home Meds and New Rx's Prescriptions: New pantoprazole [Protonix] 40 mg tablet,delayed release (DR/EC) 40 mg PO DAILY Qty: 20 RF: 0 ondansetron 4 mg tablet,disintegrating 4 mg PO QID PRN (Reason: nausea and vomiting) Qty: 10 RF: 0 Continued gabapentin 300 mg capsule 300 mg PO HS RF: 0 pantoprazole [Protonix] 40 MG tablet,delayed release (DR/EC) 40 mg PO daily prn Qty: 90 RF: 3 Advair HFA 8 GM HFA aerosol inhaler 2 puff Inhalation BID Qty: 3 RF: 4 atorvastatin 80 MG tablet 80 mg PO HS Qty: 90 RF: 4 fluoxetine [Prozac] 20 MG capsule 20 mg PO DAILY RF: 0 acetaminophen [Tylenol Extra Strength] 500 MG tablet 1,000 mg PO Q6H PRN RF: 0 lamotrigine [Lamictal] 25 MG tablet 50 mg PO DAILY RF: 0 levalbuterol tartrate [Xopenex HFA] 200 PUFF HFA aerosol inhaler 200 puff Inhalation PRN PRNRF: 0 Discharge Instructions Instructions: Gastritis (ED) Additional Instructions: Encourage hydration. Please take Protonix daily as prescribed. You may use Zofran as prescribed to help with nausea. You may try Mylanta to help with symptomatic management. Please contact general surgery, number listed below to discuss follow-up appointment as soon as possible. If you are unable to stay hydrated, develop fever/chills, increased pain or other new/worsening symptoms please seek care urgently once again. Referrals: Martha Marrufo [Primary Care Provider] - Sammie Pollard MD [ [facility] STAFF PHYSICIAN] - Medical Decision Making Patient presents to the primary concern for right upper quadrant pain. Reports the pain is been over the past 4 days, worse postprandially. When patient's pain space, she reports the pain to radiate up into her chest and make her feel short of breath. At this time, she denies any chest pain or shortness of breath. On exam, she appears uncomfortable. Pain is maximal over the right upper quadrant and epigastric area. Abdomen appears slightly distended no peritoneal findings. Patient has a positive Gordon sign. Concern primarily for cholecystitis. Also considered ACS, although this seems unlikely with the postprandial increase in discomfort. Also concidered gastritis, gastroenteritis with hx of nausea and diarrhea. Will obtain ultrasound, laboratory evaluation. EKG was obtained by nursing staff, patient's normal sinus rhythm rate 79. EKG reviewed by Dr. Mondragon without acute abnormality noted. Will treat patient's pain and nausea. Patient did have a cup coffee this morning. Reports poor appetite. After having this small amount of fluid, she was pain increased. US reviewed by radiologist, discussed results. Noted fatty liver, 2.5cm unchanged lesion on liver. No GB abnormality, - murphies sign. Patient's pain unchanged after morphine. Her nausea is improved. Patient still endorses severe pain and looks uncomfortable on exam. Plan To move onto CT scan, primarily to evaluate for any abnormality with bowel, ?diverticulitis, ?gastroenteris, colitis. Labs are reassuring, patient has elevated LFT, this is typical for patient. Will give IV dilaudid. Discussed findings of the CT with the radiologist. They note thickening consistent with gastritis and duodenitis. This is consistent with the patient's history of nausea, vomiting and diarrhea. Patient is actively vomiting at this time. Will give Compazine and Benadryl as Zofran was unsuccessful and patient is allergic to Phenergan. Once this is been completed, plan to give GI cocktail as this may be of most benefit for her right upper quadrant epigastric pain. Patient reports that Compazine and Benadryl is improved. Consulted with general surgery. Discussed with the patient has melena and was for to gastroenterology and is scheduled for an endoscopy and colonoscopy in February. Per the patient's report, gastroenterology had advised stopping her Protonix. General surgeon here today recommends beginning this again and contact the office to see if the procedures may be done on a more expeditious manner here. Patient will be discharged home with a prescription for Protonix as well as Zofran. Encourage hydration. She is given strict return precautions. She will contact general surgery to schedule follow-up appointment. I have also asked our residential care facility manager help facilitate prompt follow-up. All of her questions and concerns were addressed and she is in agreement with this plan HPI General Mode of arrival: ambulatory. Date/Time Provider Initiated Documentation: 11/27/18 07:48. Limitations to Documentation: no limitations. Information obtained by: patient and RN notes reviewed. HPI Narrative: This is a 53-year-old female presents today with chief complaint of abdominal pain. She reports the pain began 4 days ago and is progressive and increasing. Ports the pain is in the right upper quadrant, particular worse after eating. Notes that she constantly has a low level of pain, rating at a 4 out of 10. However, after eating, the pain greatly increases at that time she rates the pain at a 10 out of 10. She states that the pain can radiate up into her chest and causes a feeling of shortness of breath. Surgical history pertinent for hysterectomy, appendectomy. Unclear she has had any fevers, patient reports that she is currently menopausal and often has hot flashes. Patient has history of angina, anxiety, COPD, depression, hyperlipidemia, ADELITA, fibromyalgia, leukocytosis, heart murmur, GERD. Patient is an active smoker Related Data Home Medications Medication Instructions Recorded Confirmed pantoprazole [Protonix] 40 mg PO daily prn #90 tab-cap 01/06/15 11/27/18 Advair HFA 2 puff INHALATION BID #3 inhaler 05/05/15 11/27/18 atorvastatin 80 mg PO HS #90 tab-cap 07/14/15 11/27/18 fluoxetine [Prozac] 20 mg PO DAILY tab-cap 11/29/16 11/27/18 acetaminophen [Tylenol Extra 1,000 mg PO Q6H PRN tab-cap 03/21/17 11/27/18 Strength] levalbuterol tartrate [Xopenex HFA] 200 puff INHALATION PRN PRN 08/12/17 11/27/18 lamotrigine [Lamictal] 50 mg PO DAILY 01/22/18 11/27/18 gabapentin 300 mg capsule 300 mg PO HS cap 06/03/18 11/27/18 ondansetron 4 mg PO QID PRN #10 tab 11/27/18 pantoprazole [Protonix] 40 mg PO DAILY #20 tab 11/27/18 Previous Rx's Medication Instructions Recorded ondansetron 4 mg PO QID PRN #10 tab 11/27/18 pantoprazole [Protonix] 40 mg PO DAILY #20 tab 11/27/18 Allergies Allergy/AdvReac Type Severity Reaction Status Date / Time nicotine Allergy Severe PATCHES-REDNESS Unverified 11/27/18 07:52 & SWELLING chlorhexidine Allergy Mild Skin Rash Unverified 11/27/18 07:52 adhesive Allergy Skin Rash Unverified 11/27/18 07:52 bupropion AdvReac Severe AGITATION Unverified 11/27/18 07:52 duloxetine AdvReac Intermediate HEARING Unverified 11/27/18 07:52 THINGS hydrocodone AdvReac Intermediate Itching Unverified 11/27/18 07:52 pregabalin [From Lyrica] AdvReac Intermediate foggy brain Unverified 11/27/18 07:52 trazodone AdvReac Intermediate ANXIETY Unverified 11/27/18 07:52 pravastatin AdvReac Mild HEADACHE Unverified 11/27/18 07:52 simvastatin AdvReac Mild LEG Unverified 11/27/18 07:52 CRAMPS; HEADACHE varenicline AdvReac Mild BEHAVIOR Unverified 11/27/18 07:52 CHANGES promethazine AdvReac Unknown ANXIETY Unverified 11/27/18 07:52 zolpidem AdvReac Unknown INCREASED Unverified 11/27/18 07:52 DEPRESSION General Stated Complaint: Abd Prob NICOLAS: 2 Review of Systems Constitutional Reports as per HPI, Denies chills, Denies fatigue, Denies fever(s), Denies headache(s) and Reports poor appetite ENT Denies headache(s) Cardiovascular Reports as per HPI, Reports chest pain (pain radiates into chest from RUQ after eating), Denies leg edema, Denies lightheadedness, Denies radiating jaw, neck or arm pain, Denies palpitations, Reports dyspnea (with abdominal pain) and Denies dyspnea on exertion Respiratory Reports as per HPI, Denies cough, Reports dyspnea (with abdominal pain) and Denies dyspnea on exertion Gastrointestinal Reports as per HPI, Reports abdominal pain, Reports melena (chronic, being evaluated at [facility], reports unchanged), Reports change in bowel habits (loose stools), Reports nausea and Denies vomiting Musculoskeletal Reports as per HPI and Denies back pain Integumentary/Breasts Reports as per HPI and Denies rash Neurologic Reports as per HPI and Denies headache(s) Endocrine Denies fatigue and Denies palpitations PFSH Medical History Smoker (Chronic) Shoulder pain, left (Chronic 05/25/14) Peptic reflux disease (Chronic) Low back pain with sciatica (Chronic 05/25/14) Joint pain (Chronic 07/30/14) Hyperlipidemia (Chronic) Fibromyalgia (Chronic 07/30/14) Depression (Chronic 07/30/14) COPD (chronic obstructive pulmonary disease) (Chronic 01/06/15) Surgical History Bilateral salpingectomy with oophorectomy Biopsy of breast (~2007) EGD - MAC Hysterectomy, Laproscopic Oophrectomy, Left Family History Mother Essential hypertension Diabetes Hyperlipidemia Father Heart disease Hyperlipidemia Myocardial infarction Sister Hyperlipidemia Brother No problems noted. Grandfather No problems noted. Grandfather No problems noted. Grandmother Personal history of malignant neoplasm Grandmother No problems noted. Social History Smoking/Tobacco Use Status: Current every day Drug use: Never Do you feel safe in your relationship?: Yes Exam Const General: cooperative, healthy appearing, uncomfortable (patient appears uncomfortable), no acute distress and well developed Nutritional Appearance: well nourished and overweight Orientation: alert and awake HENNE Head: normal to inspection Mouth: moist mucous membranes Resp Effort & Inspection: normal respiratory effort, able to speak in complete sentences and no respiratory distress Auscultation: clear to auscultation bilaterally, no rales, no rhonchi and no wheezes Cardio Rate: regular rate Rhythm: regular rhythm Heart Sounds: S1 normal and S2 normal GI Inspection: no abdominal wall ecchymosis, no edema, distended, obesity and no visible herniation Palpation: soft, no hepatosplenomegaly, no aortic enlargement, not firm, no guarding, no masses, no pulsatile masses, not rigid, tender in the RUQ and Gordon's sign positive; with no rebound tenderness and No ascites Percussion: normal to percussion Auscultation: normal bowel sounds Back/Spine/Pelvis Back: no CVA tenderness Skin General skin exam: no rashes or lesions noted Trauma: no lacerations or abrasions Neuro General: alert and awake Cognition: normal cognition Speech: speech normal Gait: normal gait Extrem General: normal to inspection, no pedal edema and no calf tenderness Psych Appearance: grossly normal and well kempt Mental Status: mental status grossly normal Speech and Movement: speech and movement normal Course Vital Signs Temperature 36.8 C 11/27/18 07:47 Pulse 84 11/27/18 07:47 Respiratory Rate 14 11/27/18 07:47 Temperature 36.8 C 11/27/18 07:47 Temperature Source Temporal Artery Scan 11/27/18 07:47 Pulse 84 11/27/18 07:47 Respiratory Rate 14 11/27/18 07:47 Pain Level 8 11/27/18 07:54
--- NOTE | 2018-11-27 08:11 | DI.US_ITS ---
SYMPTOM/DIAGNOSIS: RUQ PAIN, NAUSEA ABDOMEN ULTRASOUND: The visualized liver parenchyma is echogenic and shows decrease through transmission, these findings are consistent with hepatic steatosis. Portions of the liver were non visualized due to poor echo penetration. Gallbladder is normal in appearance. No gallbladder wall thickening. No cholelithiasis. No pericholecystic fluid collection. Negative sonographic Gordon's sign. The common bile duct is of normal diameter. Pancreas appears intact as visualized. Spleen appears normal. The kidneys are unremarkable in appearance bilaterally. Abdominal aorta and IVC are of normal diameter. Note is made of a focal 27 by 23 by 23 mm., low echogenicity hepatic mass in the right lobe, this appears to correspond with a mass seen on multiple previous CT examinations which date back to 2016 and the size of the lesion is unchanged in comparison with the previous examinations. The findings are nonspecific and this may represent an atypical hemangioma. Other etiologies not excluded but malignancy is unlikely due to the lack of increase in size over a 3 year period. CONCLUSION: No evidence of cholecystitis or cholelithiasis. Incidental stable liver lesion as described.
--- NOTE | 2018-11-27 08:19 | ED.GENADUL_ITS ---
Discharge Plan Disposition Patient Disposition: HOME Condition: Fair Discharge Details Chief Complaint: Abd Prob Clinical Impression: Gastritis, Acute duodenitis Primary Care Provider: Martha Marrufo ED Provider: Yojana Ceja Home Meds and New Rx's Prescriptions: New pantoprazole [Protonix] 40 mg tablet,delayed release (DR/EC) 40 mg PO DAILY Qty: 20 RF: 0 ondansetron 4 mg tablet,disintegrating 4 mg PO QID PRN (Reason: nausea and vomiting) Qty: 10 RF: 0 Continued gabapentin 300 mg capsule 300 mg PO HS RF: 0 pantoprazole [Protonix] 40 MG tablet,delayed release (DR/EC) 40 mg PO daily prn Qty: 90 RF: 3 Advair HFA 8 GM HFA aerosol inhaler 2 puff Inhalation BID Qty: 3 RF: 4 atorvastatin 80 MG tablet 80 mg PO HS Qty: 90 RF: 4 fluoxetine [Prozac] 20 MG capsule 20 mg PO DAILY RF: 0 acetaminophen [Tylenol Extra Strength] 500 MG tablet 1,000 mg PO Q6H PRN RF: 0 lamotrigine [Lamictal] 25 MG tablet 50 mg PO DAILY RF: 0 levalbuterol tartrate [Xopenex HFA] 200 PUFF HFA aerosol inhaler 200 puff Inhalation PRN PRNRF: 0 Discharge Instructions Instructions: Gastritis (ED) Additional Instructions: Encourage hydration. Please take Protonix daily as prescribed. You may use Zofran as prescribed to help with nausea. You may try Mylanta to help with symptomatic management. Please contact general surgery, number listed below to discuss follow-up appointment as soon as possible. If you are unable to stay hydrated, develop fever/chills, increased pain or other new/worsening symptoms please seek care urgently once again. Referrals: Martha Marrufo [Primary Care Provider] - Sammie Pollard MD [ [facility] STAFF PHYSICIAN] - Medical Decision Making Patient presents to the primary concern for right upper quadrant pain. Reports the pain is been over the past 4 days, worse postprandially. When patient's pain space, she reports the pain to radiate up into her chest and make her feel short of breath. At this time, she denies any chest pain or shortness of breath. On exam, she appears uncomfortable. Pain is maximal over the right upper quadrant and epigastric area. Abdomen appears slightly distended no peritoneal findings. Patient has a positive Gordon sign. Concern primarily for cholecystitis. Also considered ACS, although this seems unlikely with the postprandial increase in discomfort. Also concidered gastritis, gastroenteritis with hx of nausea and diarrhea. Will obtain ultrasound, laboratory evaluation. EKG was obtained by nursing staff, patient's normal sinus rhythm rate 79. EKG reviewed by Dr. Mondragon without acute abnormality noted. Will treat patient's pain and nausea. Patient did have a cup coffee this morning. Reports poor appetite. After having this small amount of fluid, she was pain increased. US reviewed by radiologist, discussed results. Noted fatty liver, 2.5cm unchanged lesion on liver. No GB abnormality, - murphies sign. Patient's pain unchanged after morphine. Her nausea is improved. Patient still endorses severe pain and looks uncomfortable on exam. Plan To move onto CT scan, primarily to evaluate for any abnormality with bowel, ?diverticulitis, ?gastroenteris, colitis. Labs are reassuring, patient has elevated LFT, this is typical for patient. Will give IV dilaudid. Discussed findings of the CT with the radiologist. They note thickening consistent with gastritis and duodenitis. This is consistent with the patient's history of nausea, vomiting and diarrhea. Patient is actively vomiting at this time. Will give Compazine and Benadryl as Zofran was unsuccessful and patient is allergic to Phenergan. Once this is been completed, plan to give GI cocktail as this may be of most benefit for her right upper quadrant epigastric pain. Patient reports that Compazine and Benadryl is improved. Consulted with general surgery. Discussed with the patient has melena and was for to gastroenterology and is scheduled for an endoscopy and colonoscopy in February. Per the patient's report, gastroenterology had advised stopping her Protonix. General surgeon here today recommends beginning this again and contact the office to see if the procedures may be done on a more expeditious manner here. Patient will be discharged home with a prescription for Protonix as well as Zofran. Encourage hydration. She is given strict return precautions. She will contact general surgery to schedule follow-up appointment. I have also asked our career placement specialist help facilitate prompt follow-up. All of her questions and concerns were addressed and she is in agreement with this plan HPI General Mode of arrival: ambulatory . Date/Time Provider Initiated Documentation: 11/27/18 07:48 . Limitations to Documentation: no limitations . Information obtained by: patient and RN notes reviewed . HPI Narrative: This is a 53-year-old female presents today with chief complaint of abdominal pain. She reports the pain began 4 days ago and is progressive and increasing. Ports the pain is in the right upper quadrant, particular worse after eating. Notes that she constantly has a low level of pain, rating at a 4 out of 10. However, after eating, the pain greatly increases at that time she rates the pain at a 10 out of 10. She states that the pain can radiate up into her chest and causes a feeling of shortness of breath. Surgical history pertinent for hysterectomy, appendectomy. Unclear she has had any fevers, patient reports that she is currently menopausal and often has hot flashes. Patient has history of angina, anxiety, COPD, depression, hyperlipidemia, ADELITA, fibromyalgia, leukocytosis, heart murmur, GERD. Patient is an active smoker Related Data Home Medications Medication Instructions Recorded Confirmed pantoprazole [Protonix] 40 mg PO daily prn #90 tab-cap 01/06/15 11/27/18 Advair HFA 2 puff INHALATION BID #3 inhaler 05/05/15 11/27/18 atorvastatin 80 mg PO HS #90 tab-cap 07/14/15 11/27/18 fluoxetine [Prozac] 20 mg PO DAILY tab-cap 11/29/16 11/27/18 acetaminophen [Tylenol Extra 1,000 mg PO Q6H PRN tab-cap 03/21/17 11/27/18 Strength] levalbuterol tartrate [Xopenex HFA] 200 puff INHALATION PRN PRN 08/12/17 11/27/18 lamotrigine [Lamictal] 50 mg PO DAILY 01/22/18 11/27/18 gabapentin 300 mg capsule 300 mg PO HS cap 06/03/18 11/27/18 ondansetron 4 mg PO QID PRN #10 tab 11/27/18 pantoprazole [Protonix] 40 mg PO DAILY #20 tab 11/27/18 Previous Rx's Medication Instructions Recorded ondansetron 4 mg PO QID PRN #10 tab 11/27/18 pantoprazole [Protonix] 40 mg PO DAILY #20 tab 11/27/18 Allergies Allergy/AdvReac Type Severity Reaction Status Date / Time nicotine Allergy Severe PATCHES-REDNESS Unverified 11/27/18 07:52 & SWELLING chlorhexidine Allergy Mild Skin Rash Unverified 11/27/18 07:52 adhesive Allergy Skin Rash Unverified 11/27/18 07:52 bupropion AdvReac Severe AGITATION Unverified 11/27/18 07:52 duloxetine AdvReac Intermediate HEARING Unverified 11/27/18 07:52 THINGS hydrocodone AdvReac Intermediate Itching Unverified 11/27/18 07:52 pregabalin [From Lyrica] AdvReac Intermediate foggy brain Unverified 11/27/18 07:52 trazodone AdvReac Intermediate ANXIETY Unverified 11/27/18 07:52 pravastatin AdvReac Mild HEADACHE Unverified 11/27/18 07:52 simvastatin AdvReac Mild LEG Unverified 11/27/18 07:52 CRAMPS; HEADACHE varenicline AdvReac Mild BEHAVIOR Unverified 11/27/18 07:52 CHANGES promethazine AdvReac Unknown ANXIETY Unverified 11/27/18 07:52 zolpidem AdvReac Unknown INCREASED Unverified 11/27/18 07:52 DEPRESSION General Stated Complaint: Abd Prob NICOLAS: 2 Review of Systems Constitutional Reports as per HPI, Denies chills, Denies fatigue, Denies fever(s), Denies headache(s) and Reports poor appetite ENT Denies headache(s) Cardiovascular Reports as per HPI, Reports chest pain (pain radiates into chest from RUQ after eating), Denies leg edema, Denies lightheadedness, Denies radiating jaw, neck or arm pain, Denies palpitations, Reports dyspnea (with abdominal pain) and Denies dyspnea on exertion Respiratory Reports as per HPI, Denies cough, Reports dyspnea (with abdominal pain) and Denies dyspnea on exertion Gastrointestinal Reports as per HPI, Reports abdominal pain, Reports melena (chronic, being evaluated at [facility], reports unchanged), Reports change in bowel habits (loose stools), Reports nausea and Denies vomiting Musculoskeletal Reports as per HPI and Denies back pain Integumentary/Breasts Reports as per HPI and Denies rash Neurologic Reports as per HPI and Denies headache(s) Endocrine Denies fatigue and Denies palpitations PFSH Medical History Smoker (Chronic) Shoulder pain, left (Chronic 05/25/14) Peptic reflux disease (Chronic) Low back pain with sciatica (Chronic 05/25/14) Joint pain (Chronic 07/30/14) Hyperlipidemia (Chronic) Fibromyalgia (Chronic 07/30/14) Depression (Chronic 07/30/14) COPD (chronic obstructive pulmonary disease) (Chronic 01/06/15) Surgical History Bilateral salpingectomy with oophorectomy Biopsy of breast (~2007) EGD - MAC Hysterectomy, Laproscopic Oophrectomy, Left Family History Mother Essential hypertension Diabetes Hyperlipidemia Father Heart disease Hyperlipidemia Myocardial infarction Sister Hyperlipidemia Brother No problems noted. Grandfather No problems noted. Grandfather No problems noted. Grandmother Personal history of malignant neoplasm Grandmother No problems noted. Social History Smoking/Tobacco Use Status: Current every day Drug use: Never Do you feel safe in your relationship?: Yes Exam Const General: cooperative, healthy appearing, uncomfortable (patient appears uncomfortable), no acute distress and well developed Nutritional Appearance: well nourished and overweight Orientation: alert and awake HENHI Head: normal to inspection Mouth: moist mucous membranes Resp Effort & Inspection: normal respiratory effort, able to speak in complete sentences and no respiratory distress Auscultation: clear to auscultation bilaterally, no rales, no rhonchi and no wheezes Cardio Rate: regular rate Rhythm: regular rhythm Heart Sounds: S1 normal and S2 normal GI Inspection: no abdominal wall ecchymosis, no edema, distended, obesity and no visible herniation Palpation: soft, no hepatosplenomegaly, no aortic enlargement, not firm, no guarding, no masses, no pulsatile masses, not rigid, tender in the RUQ and Gordon's sign positive; with no rebound tenderness and No ascites Percussion: normal to percussion Auscultation: normal bowel sounds Back/Spine/Pelvis Back: no CVA tenderness Skin General skin exam: no rashes or lesions noted Trauma: no lacerations or abrasions Neuro General: alert and awake Cognition: normal cognition Speech: speech normal Gait: normal gait Extrem General: normal to inspection, no pedal edema and no calf tenderness Psych Appearance: grossly normal and well kempt Mental Status: mental status grossly normal Speech and Movement: speech and movement normal Course Vital Signs Temperature 36.8 C 11/27/18 07:47 Pulse 84 11/27/18 07:47 Respiratory Rate 14 11/27/18 07:47 Temperature 36.8 C 11/27/18 07:47 Temperature Source Temporal Artery Scan 11/27/18 07:47 Pulse 84 11/27/18 07:47 Respiratory Rate 14 11/27/18 07:47 Pain Level 8 11/27/18 07:54
[2018-11-27 08:25] LABS: Abs Immature Grans 0.03 k/cumm (0.0-0.09); Absolute Basophil Count 0.05 k/cumm (0.0-0.2); Absolute Eosinophil Count 0.16 k/cumm (0.0-0.7); Absolute Lymphocyte Count 3.37 k/cumm (1.2-3.4); Absolute Monocyte Count 0.61 k/cumm (0.11-0.7); Absolute Neutrophil Count 6.58 k/cumm (1.2-6.7); Basophils % 0.5; Eosinophils % 1.5; HCT 42.5 % (36.0-46.0); HGB 14.3 g/dL (12.0-15.5); Immature Grans % 0.3; Lymphocytes % 31.2; Mean Corp. HGB Concentration 33.6 g/dL (32.0-36.0); Mean Corpuscular Volume 95.1 fL (80-95); Mean Platelet Volume 10.4 fL (8.0-11.0); Monocytes % 5.6; Neutrophils % 60.9; Platelet Count 312 x1000/uL (130-400); RBC 4.47 m/cumm (4.00-5.20); White Blood Cell Count 10.81 k/cumm (4.4-10.8)
[2018-11-27] MEDS: Normal Saline 1,000 ML 1000 ML IV (08:28)
[2018-11-27] MEDS: MORPHine 10 MG/ML VIAL 2 MG IVP (08:28)
[2018-11-27 08:34] LABS: Lipase 143 U/L (73-393); Magnesium 1.9 mg/dL (1.8-2.4)
[2018-11-27 08:41] LABS: ALT 107 U/L (12-78); AST 51 U/L (15-37); Albumin 3.8 g/dL (3.4-5.0); Alkaline Phosphatase 134 U/L (46-116); Anion Gap 10.6 mmol/L (3-11); BUN 14 mg/dL (7-18); Bilirubin, Total 0.3 mg/dL (0.2-1.0); CO2 25.4 mmol/L (21.0-32.0); CREATININE 0.85 mg/dL (0.55-1.02); Chloride 103 mmol/L (98-107); Glucose 111 mg/dL (70-100); Potassium 4.4 mmol/L (3.5-5.1); Sodium 139 mmol/L (136-145); Total Protein 7.5 g/dL (6.4-8.2)
[2018-11-27 08:42] LABS: Troponin I < 0.02 ng/mL (0.00-0.06)
[2018-11-27] MEDS: Ondansetron 4 MG/2 ML VIAL IVP (08:55)
[2018-11-27 09:05] LABS: Bilirubin Negative (Negative); Blood Trace-intact (Negative); Clarity Clear; Glucose Negative (Negative); Ketones Negative (Negative); Leukocyte Esterase Negative (Negative); Nitrite Negative (Negative); Urobilinogen 0.2 EU/dL (Up TO 0.2)
--- NOTE | 2018-11-27 09:09 | DI.CT_ITS ---
SYMPTOMS/DIAGNOSIS: RUQ PAIN ABDOMINAL AND PELVIC CT: CT examination of the abdomen and pelvis was performed with a bolus infusion of 93 cc's of Omnipaque 350. Images obtained through the lung bases are unremarkable with minimal atelectasis. There is a small hiatal hernia. There is question of wall thickening of the gastric antrum raising the possibility of gastritis. Proximal duodenal wall may be mildly thickened as well. Please correlate clinically. There is hepatic steatosis. A previously described 27 x 17 mm in diameter high attenuation lesion is seen in the right hepatic lobe unchanged in appearance in comparison with CT of 02/16/16. The gallbladder and bile ducts are CT normal. Pancreas appears normal. Spleen appears normal. The adrenals and kidneys are unremarkable in appearance with an incidental tiny right parapelvic cyst. The abdominal aorta is of normal diameter and major abdominal branches appear intact. No abdominal or pelvic adenopathy. Appendix appears normal. No evidence of diverticulitis or bowel obstruction. CONCLUSION: 1. Hepatic steatosis, stable right lobe 27 x 17 mm in diameter hepatic lesion. 2. Question gastric antral wall thickening which may represent antral gastritis. Possible duodenitis noted as well. 3. No significant additional findings.
[2018-11-27 09:17] LABS: Bacteria Few HPF (Negative); C & S Indicated? No; Casts Negative LPF (Negative); Crystals Negative HPF (Negative); Epithelial Cells Few HPF (Negative); Mucus Trace (Negative); RBC 0-2 (0-2); WBC 0-2 HPF (0-5)
[2018-11-27] MEDS: HYDROmorphone 2 MG/ML VIAL 1 MG IVP (09:30)
[2018-11-27] MEDS: Omnipaque 350 MG/ML 100 ML BTL IJ (10:24)
[2018-11-27] MEDS: diphenhydrAMINE 50 MG/ML VIAL 25 MG IVP (10:57)
[2018-11-27] MEDS: Prochlorperazine 10 MG/2 ML VIAL IVP (10:58)
--- NOTE | 2018-11-28 08:13 | PDOC.ERCMPRO ---
Care Management Progress Note 11/28-Yojana JAEGER requested assistance with a general surgery f/u in one week for epigastric pain. Referral faxed to [facility] this am.
--- NOTE | 2018-11-28 08:15 | CMPROGNOTE_ITS ---
Care Management Progress Note 11/28-Yojana JAEGER requested assistance with a general surgery f/u in one week for epigastric pain. Referral faxed to [facility] this am.
== END 2018-11-27 12:13 | disposition home or self-care (01) ==
PROVIDERS: Emergency Provider Physician Assistant; PCP Nurse Practitioner Family
DX: K29.00 Acute gastritis without bleeding (principal); K29.80 Duodenitis without bleeding; I10 Essential (primary) hypertension; J44.9 Chronic obstructive pulmonary disease, unspecified; F17.210 Nicotine dependence, cigarettes, uncomplicated
CPT/HCPCS: 36415; 80053; 83690; 93005; 96361; 96374; 96375; 99285; 74177; 76700; 81003; 81015; 83735; 84484; 85025; 93010; J0780; J1200; J2270; J2405; J3490

== ENCOUNTER 2019-03-02 08:35 | Outpatient (REF) | payer BC, SELFPAY ==
[2019-03-02 12:49] LABS: Glucose 126 mg/dL (70-100)
== END 2019-03-02 08:55 ==
LOC: NCHCN 08:35
PROVIDERS: PCP Nurse Practitioner Family; Visit Provider Nurse Practitioner Family
DX: R53.83 Other fatigue (principal); R51 Headache
CPT/HCPCS: 82947

== ENCOUNTER 2019-03-11 07:23 | Outpatient (CLI) | payer BC, SELFPAY ==
[2019-03-11 08:54] LABS: ALT 66 U/L (14-59); AST 33 U/L (15-37); Albumin 3.7 g/dL (3.4-5.0); Alkaline Phosphatase 127 U/L (46-116); Anion Gap 10.4 mmol/L (3-11); BUN 15 mg/dL (7-18); Bilirubin, Total 0.4 mg/dL (0.2-1.0); CO2 26.6 mmol/L (21.0-32.0); CREATININE 0.92 mg/dL (0.55-1.02); Calcium 9.1 mg/dL (8.5-10.1); Calculated LDL 118 mg/dL; Chloride 105 mmol/L (98-107); Cholesterol 183 mg/dL (50-200); Glucose 124 mg/dL (70-100); HDL Cholesterol 37 mg/dL (40-60); Potassium 4.7 mmol/L (3.5-5.1); Sodium 142 mmol/L (136-145); Triglyceride 143 mg/dL (30-150)
[2019-03-11 09:24] LABS: Hemoglobin A1C 6.2 % (4.5-6.2)
== END 2019-03-11 07:43 ==
PROVIDERS: PCP Nurse Practitioner Family; Visit Provider Nurse Practitioner Family
DX: R73.01 Impaired fasting glucose (principal); R74.0 Nonspecific elevation of levels of transaminase and lactic acid dehydrogenase [LDH]
CPT/HCPCS: 80053; 80061; 83721; 83036

== ENCOUNTER 2019-10-16 12:09 | Outpatient (CLI) | payer BC, SELFPAY ==
[2019-10-19 18:56] LABS: SARS-CoV-2 RNA Undetected (Undetected); SARS-CoV-2 Specimen Source Nasopharynx
== END 2019-10-16 12:29 ==
PROVIDERS: PCP Nurse Practitioner Family; Visit Provider Nurse Practitioner Family
DX: Z11.59 Encounter for screening for other viral diseases (principal)
CPT/HCPCS: U0003

== ENCOUNTER 2020-01-07 12:39 | Outpatient (REF) | payer BC, SELFPAY ==
[2020-01-07 20:50] LABS: Abs Immature Grans 0.04 k/cumm (0.0-0.09); Absolute Basophil Count 0.05 k/cumm (0.0-0.2); Absolute Lymphocyte Count 4.35 k/cumm (1.2-3.4); Absolute Monocyte Count 0.56 k/cumm (0.11-0.7); Basophils % 0.4; Eosinophils % 1.7; HCT 41.8 % (36.0-46.0); Immature Grans % 0.3 %; Lymphocytes % 36.4; Mean Corp. HGB Concentration 33.5 g/dL (32.0-36.0); Mean Corpuscular Hemoglobin 31.9 pg (27.0-33.0); Mean Corpuscular Volume 95.2 fL (80-95); Monocytes % 4.7; Neutrophils % 56.5; Platelet Count 395 x1000/uL (130-400); RBC 4.39 m/cumm (4.00-5.20); RBC Distribution Width 12.7 % (11.7-14.6); White Blood Cell Count 11.94 k/cumm (4.4-10.8)
[2020-01-07 20:52] LABS: Absolute Neutrophil Count 6.75 k/cumm (1.2-6.7)
[2020-01-07 21:12] LABS: Hemoglobin A1C 5.7 % (3.8-5.6)
[2020-01-07 21:36] LABS: ALT 56 U/L (14-59); AST 31 U/L (15-37); Albumin 4.3 g/dL (3.4-5.0); Alkaline Phosphatase 87 U/L (46-116); Anion Gap 11.5 mmol/L (3-11); BUN 13 mg/dL (7-18); Bilirubin, Total 0.3 mg/dL (0.2-1.0); CO2 26.5 mmol/L (21.0-32.0); CREATININE 1.01 mg/dL (0.55-1.02); Calcium 9.3 mg/dL (8.5-10.1); Chloride 103 mmol/L (98-107); Estimated GFR 57.34 (mL/min/1.73m2); Glucose 102 mg/dL (74-106); Magnesium 2.1 mg/dL (1.8-2.4); Potassium 4.1 mmol/L (3.5-5.1); Sodium 141 mmol/L (136-145); Total Protein 7.2 g/dL (6.4-8.2); Vitamin B12 402 pg/mL (193-986)
== END 2020-01-07 12:59 ==
LOC: NCHCN 12:39
PROVIDERS: PCP Nurse Practitioner Family; Visit Provider Nurse Practitioner Family
DX: I10 Essential (primary) hypertension (principal); R73.03 Prediabetes; D72.829 Elevated white blood cell count, unspecified; R42 Dizziness and giddiness; I45.81 Long QT syndrome; G47.33 Obstructive sleep apnea (adult) (pediatric)
CPT/HCPCS: 80053; 82607; 83036; 83735; 85025

== ENCOUNTER 2020-03-08 03:12 | Outpatient (CLI) | payer MEDICAID, SELFPAY ==
[2020-03-08 12:57] LABS: Anion Gap 8.2 mmol/L (3-11); BUN 14 mg/dL (7-18); CO2 26.8 mmol/L (21.0-32.0); CREATININE 0.98 mg/dL (0.55-1.02); Calcium 9.3 mg/dL (8.5-10.1); Chloride 104 mmol/L (98-107); Estimated GFR 59.37 (mL/min/1.73m2); Glucose 134 mg/dL (74-106); Potassium 3.4 mmol/L (3.5-5.1); Sodium 139 mmol/L (136-145)
== END 2020-03-08 03:32 ==
PROVIDERS: PCP Nurse Practitioner Family; Visit Provider Hospitalist
DX: E87.6 Hypokalemia (principal)
CPT/HCPCS: 36415; 80048

== ENCOUNTER 2020-03-08 16:02 | Outpatient (REF) | payer MEDICAID, SELFPAY ==
[2020-03-08 17:01] LABS: Bilirubin Negative (Negative); Blood Negative (Negative); Clarity Clear (Clear); Glucose Negative (Negative); Ketones Negative (Negative); Leukocyte Esterase Negative (Negative); Nitrite Negative (Negative); Urobilinogen 0.2 EU/dL (Up TO 0.2)
== END 2020-03-08 16:22 ==
LOC: LBN 16:02
PROVIDERS: PCP Nurse Practitioner Family; Visit Provider Nurse Practitioner Gerontology
DX: R31.29 Other microscopic hematuria (principal)
CPT/HCPCS: 81003

== ENCOUNTER 2020-03-16 10:13 | Emergency (ER) | payer MEDICAID, SELFPAY ==
--- NOTE | 2020-03-16 | DI.CT_ITS ---
EXAM: CT HEAD WO CLINICAL HISTORY: R/O SINUSITUS AND EVAL LYMPH NOD/MASS LEFT NECK. TECHNIQUE: Imaging Protocol: Axial computed tomography images with coronal and sagittal reformatted images were created and reviewed COMPARISON: CT CT head sinus wo from 04/21/2018 FINDINGS: Ventricles and Extra axial spaces: Normal in size and morphology for the patient's age. Hemorrhage: None. Cerebral parenchyma: Normal. Midline shift: None. Brainstem/Cerebellum: Normal. Calvarium: Normal. Visualized Paranasal sinuses/Mastoids: Clear. Soft Tissues: Unremarkable. IMPRESSION: No acute intracranial process. RADIATION DOSE DELIVERED: 643.93mGy.cm Total DLP DATA REPOSITORY: All CT scans at this facility are submitted to the National Radiology Data Registry (NRDR) Dose Index Registry (DIR) with the [employer] ([employer]). RADIATION OPTIMIZATION: All CT scans at this facility use at least one of these dose optimization te chniques: automated exposure control; mA and/or kV adjustment per patient size (includes targeted exa ms where dose is matched to clinical indication); or iterative reconstruction.
--- NOTE | 2020-03-16 10:15 | RT.EKG_ITS ---
APPROVED REPORT Exam: Resting ECG Patient Location: E HR:71 bpm ECG Measurements Heart Rate 71 AXIS LA 183 P 49 QRSd 98 QRS 86 QT 451 T 48 QTc 490 Conclusion EKG 10: 35 Rate 71, sinus rhythm, questionable incomplete right bundle branch block, nonspecific flattening of T waves in V3, inverted T wave in V1 V2, those are present on prior EKGs. No evidence of STEMI.
[2020-03-16 10:22] VITALS: BP 145/77; PULSE 83; RESP 16; TEMP 36.5; O2SAT 99
--- NOTE | 2020-03-16 10:54 | DI.CT_ITS ---
EXAM: CT NECK W CLINICAL HISTORY: R/O sinusitis and eval lymphnode/mass left neck. TECHNIQUE: Imaging Protocol: Axial computed tomography images with coronal and sagittal reformatted images were created and reviewed. CONTRAST MATERIAL: Intravenous: Omnipaque 350 Contrast volume:100 mL contrast route:IV - Oral: No COMPARISON: CT CT neck w from 07/27/2018 FINDINGS: Orbits and orbital soft tissues: Within normal limits. Visualized paranasal sinuses: Within normal limits. Nasopharynx: Within normal limits. Oropharynx: Within normal limits. Hypopharynx: Within normal limits. Larynx: Within normal limits. Retropharyngeal space: Within normal limits. Parotids/submandibular: Within normal limits. Thyroid gland: Less than 1 cm nodule in the right lobe. No further follow-up is recommended. Lymphadenopathy: There is scattered lymph nodes seen along the level one to level three all measurin g less than 8 mm in short axis diameter which are physiologic in nature. This includes a 1 cm lymph n ode in the posterior triangle on the left. This appears to account for the palpable abnormality. Trachea: Within normal limits. Lung apices: No acute abnormality. Bones: Degenerative changes in the spine. Carotids/Jugular: Atherosclerosis. Soft tissues: Within normal limits. IMPRESSION: 1 cm lymph node in the posterior triangle on the left which accounts for the palpable abnormality. Findings were discussed with the emergency department on the date of the examination. RADIATION DOSE DELIVERED: 201.56mGy.cm Total DLP 201.56mGy.cm Total DLP DATA REPOSITORY: All CT scans at this facility are submitted to the National Radiology Data Registry (NRDR) Dose Index Registry (DIR) with the [employer] (ACR). RADIATION OPTIMIZATION: All CT scans at this facility use at least one of these dose optimization te chniques: automated exposure control; mA and/or kV adjustment per patient size (includes targeted exa ms where dose is matched to clinical indication); or iterative reconstruction.
--- NOTE | 2020-03-16 10:58 | ED.GENADUL_ITS ---
Discharge Plan Disposition Patient Disposition: HOME Condition: Stable Discharge Details Chief Complaint: GenMedical Clinical Impression: Frontal sinus pain, Rash and nonspecific skin eruption Primary Care Provider: Martha Marrufo ED Provider: Yokasta Caro Home Meds and New Rx's Prescriptions: New triamcinolone acetonide 0.1 % cream 1 applic TP TID PRN (Reason: Rash and itching) 5 Days Qty: 15 RF: 0 amoxicillin-pot clavulanate [Augmentin] 875-125 mg tablet 1 tab PO BID 5 Days Qty: 10 RF: 0 No Action gabapentin 300 mg capsule 600 mg PO HS RF: 0 ondansetron 4 mg tablet,disintegrating 4 mg PO DAILY PRN (Reason: nausea and vomiting) Qty: 4 RF: 2 hydroxyzine HCl 25 mg tablet See Rx Instructions PO QID PRN (Reason: itching) Qty: 30 RF: 3 topiramate [Topamax] 50 mg tablet 50 mg PO QHS Qty: 90 RF: 3 atorvastatin 80 MG tablet 80 mg PO HS Qty: 90 RF: 4 fluoxetine [Prozac] 20 MG capsule 20 mg PO DAILY RF: 0 acetaminophen [Tylenol Extra Strength] 500 MG tablet 1,000 mg PO Q6H PRN RF: 0 meclizine 12.5 mg tablet 12.5 mg PO Q8H PRNRF: 0 hydrochlorothiazide 25 mg tablet 25 mg PO DAILY RF: 0 lamotrigine [Lamictal] 25 mg tablet 25 mg PO DAILY RF: 0 pantoprazole [Protonix] 40 mg tablet,delayed release (DR/EC) 40 mg PO QHS Qty: 90 RF: 3 benzonatate 100 mg capsule PO RF: 0 Spiriva with HandiHaler 18 mcg capsule, w/inhalation device 1 cap INHALATION DAILY RF: 0 levalbuterol tartrate [Xopenex HFA] 200 PUFF HFA aerosol inhaler 200 puff Inhalation PRN PRNRF: 0 Discharge Instructions Instructions: Acute Rash (ED), General Headache (ED) Additional Instructions: Take medications as prescribed. Please take Tylenol or Ibuprofen with food every 4-6 hours as needed for pain and swelling. Follow up with primary care provider in 3-5 days. Return to ED sooner if any worsening or concerns. Increase oral fluids. Referrals: Martha Marrufo [Primary Care Provider] - Discharge Data Discharge Date/Time-TO BE ENTERED AT DEPARTURE: 03/16/20 14:05 Medical Decision Making 54-year-old female presents to the ER with chief complaint of left-sided facial pain which is been present for approximately 1 week. Associated with cough productive of brownish thick sputum. She also reports a small tender nodule palpated to her left posterior neck and a posterior scalp rash which has been present for the same Amount of time. Patient reports using some ear antibiotic drops from her previous otitis externa last night due to the pain in her left ear. She reports to start with a C. She reports low-grade fever of 99.6. Generalized myalgias which she attributes to her history of fibromyalgia. Reports no nausea vomiting, did report diarrhea which is also at her baseline. She has a history of hyperlipidemia fibromyalgia, depression, COPD. She is a every day smoker. Time is largely benign she does have a approximately 1-1/2 cm palpable nodule to her posterior left cervical area could be a lymph node. She does have a small raised maculopapular rash noted to her posterior scalp. It is slightly erythemic. Bilateral tympanic membranes are within normal limits no erythema or bulging landmarks are identified. Posterior pharynx is somewhat erythemic no exudate noted tonsils are 1+ bilaterally uvula is midline. She is tender on her sinuses to palpation left frontal and left maxillary sinus tenderness. EXAM: CT NECK W CLINICAL HISTORY: R/O sinusitis and eval lymphnode/mass left neck. TECHNIQUE: Imaging Protocol: Axial computed tomography images with coronal and sagittal reformatted images were created and reviewed. CONTRAST MATERIAL: Intravenous: Omnipaque 350 Contrast volume:100 mL contrast route:IV - Oral: No COMPARISON: CT CT neck w from 07/27/2018 FINDINGS: Orbits and orbital soft tissues: Within normal limits. Visualized paranasal sinuses: Within normal limits. Nasopharynx: Within normal limits. Oropharynx: Within normal limits. Hypopharynx: Within normal limits. Larynx: Within normal limits. Retropharyngeal space: Within normal limits. Parotids/submandibular: Within normal limits. Thyroid gland: Less than 1 cm nodule in the right lobe. No further follow-up is recommended. Lymphadenopathy: There is scattered lymph nodes seen along the level one to level three all measuring less than 8 mm in short axis diameter which are physiologic in nature. This includes a 1 cm lymph node in the posterior triangle on the left. This appears to account for the palpable abnormality. Trachea: Within normal limits. Lung apices: No acute abnormality. Bones: Degenerative changes in the spine. Carotids/Jugular: Atherosclerosis. Soft tissues: Within normal limits. IMPRESSION: 1 cm lymph node in the posterior triangle on the left which accounts for the palpable abnormality. EXAM: XR CHEST 2V PA LATERAL CLINICAL HISTORY: Productive cough TECHNIQUE: 2D digital imaging was performed. COMPARISON: No exams were available for comparison FINDINGS: MEDIASTINUM: Normal. HEART: Normal. PULMONARY VASCULATURE: Normal. LUNGS: Clear. PLEURAL SPACE: No pleural effusion or pneumothorax. BONE:Within normal limits for the patient's age. OTHER FINDINGS:Normal. IMPRESSION: No acute pulmonary findings. EXAM: CT HEAD WO CLINICAL HISTORY: R/O SINUSITUS AND EVAL LYMPH NOD/MASS LEFT NECK. TECHNIQUE: Imaging Protocol: Axial computed tomography images with coronal and sagittal reformatted images were created and reviewed COMPARISON: CT CT head sinus wo from 04/21/2018 FINDINGS: Ventricles and Extra axial spaces: Normal in size and morphology for the patient's age. Hemorrhage: None. Cerebral parenchyma: Normal. Midline shift: None. Brainstem/Cerebellum: Normal. Calvarium: Normal. Visualized Paranasal sinuses/Mastoids: Clear. Soft Tissues: Unremarkable. IMPRESSION: No acute intracranial process. Discussed findings with patient, verbalized understanding. This time and is with her exam it is concerning for possible sinusitis although there is no mucosal thickening or fluid noted into her sinuses on CT. There is a lymph node noted on the CT of her neck which may be coming from the rash on the scalp. Prescription written for triamcinolone 1% topical cream to be applied to the rash area, will place patient on Augmentin for possible sinusitis. Differential diagnosis includes but not limited to, lupus, viral illness, migraine headache, CVA, trigeminal neuralgia, Instructed patient to follow-up with PCP and to return for any worsening. HPI General Mode of arrival: ambulatory . Date/Time Provider Initiated Documentation: 03/16/20 10:30 . Limitations to Documentation: no limitations . Information obtained by: patient . HPI Narrative: 54-year-old female presents to the ER with chief complaint of left-sided facial pain which is been present for approximately 1 week. Associated with cough productive of brownish thick sputum. She also reports a small tender nodule palpated to her left posterior neck and a posterior scalp rash which has been present for the same Amount of ti me. Patient reports using some ear antibiotic drops from her previous otitis externa last night due to the pain in her left ear. She reports to start with a C. She reports low-grade fever of 99.6. Generalized myalgias which she attributes to her history of fibromyalgia. Reports no nausea vomiting, did report diarrhea which is also at her baseline. She has a history of hyperlipidemia fibromyalgia, depression, COPD. She is a every day smoker. Related Data Home Medications Medication Instructions Recorded Confirmed atorvastatin 80 mg PO HS #90 tab-cap 07/14/15 03/16/20 fluoxetine [Prozac] 20 mg PO DAILY tab-cap 11/29/16 03/16/20 acetaminophen [Tylenol Extra 1,000 mg PO Q6H PRN tab-cap 03/21/17 03/16/20 Strength] levalbuterol tartrate [Xopenex HFA] 200 puff INHALATION PRN PRN 08/12/17 03/16/20 gabapentin 300 mg capsule 600 mg PO HS cap 06/03/18 03/16/20 hydrochlorothiazide 25 mg tablet 25 mg PO DAILY 06/08/19 03/16/20 meclizine 12.5 mg tablet 12.5 mg PO Q8H PRN tab 06/08/19 03/16/20 lamotrigine 25 mg tablet 25 mg PO DAILY tab 07/30/19 03/16/20 ondansetron 4 mg disintegrating 4 mg PO DAILY PRN #4 tab 09/07/19 03/16/20 tablet hydroxyzine HCl 25 mg tablet See Rx Instructions PO QID PRN #30 02/17/20 03/16/20 tab pantoprazole 40 mg tablet,delayed 40 mg PO QHS #90 tab-cap 02/17/20 03/16/20 release topiramate 50 mg tablet 50 mg PO QHS #90 tab 02/17/20 03/16/20 amoxicillin-pot clavulanate 1 tab PO BID 5 Days #10 tab 03/16/20 [Augmentin] benzonatate mg PO 03/16/20 tiotropium bromide [Spiriva with 1 cap INHALATION DAILY 03/16/20 03/16/20 HandiHaler] triamcinolone acetonide 1 applic TP TID PRN 5 Days #15 gm 03/16/20 Previous Rx's Medication Instructions Recorded ondansetron 4 mg disintegrating 4 mg PO DAILY PRN #4 tab 09/07/19 tablet hydroxyzine HCl 25 mg tablet See Rx Instructions PO QID PRN #30 02/17/20 tab topiramate 50 mg tablet 50 mg PO QHS #90 tab 02/17/20 amoxicillin-pot clavulanate 1 tab PO BID 5 Days #10 tab 03/16/20 [Augmentin] triamcinolone acetonide 1 applic TP TID PRN 5 Days #15 gm 03/16/20 Allergies Allergy/AdvReac Type Severity Reaction Status Date / Time nicotine Allergy Severe PATCHES-REDNESS Unverified 03/16/20 10:38 & SWELLING chlorhexidine Allergy Mild Skin Rash Unverified 03/16/20 10:38 adhesive Allergy Skin Rash Unverified 03/16/20 10:38 bupropion AdvReac Severe AGITATION Unverified 03/16/20 10:38 duloxetine AdvReac Intermediate HEARING Unverified 03/16/20 10:38 THINGS hydrocodone AdvReac Intermediate Itching Unverified 03/16/20 10:38 pregabalin [From Lyrica] AdvReac Intermediate foggy brain Unverified 03/16/20 10:38 trazodone AdvReac Intermediate ANXIETY Unverified 03/16/20 10:38 pravastatin AdvReac Mild HEADACHE Unverified 03/16/20 10:38 simvastatin AdvReac Mild LEG Unverified 03/16/20 10:38 CRAMPS; HEADACHE varenicline AdvReac Mild BEHAVIOR Unverified 02/17/20 13:04 CHANGES promethazine AdvReac Unknown ANXIETY Unverified 02/17/20 13:04 zolpidem AdvReac Unknown INCREASED Unverified 02/17/20 13:04 DEPRESSION General Stated Complaint: GenMedical NICOLAS: 3 Review of Systems Narrative: Constitutional: Negative for weight loss, alert and oriented, well groomed, normal body habitus, appears comfortable. Positive low-grade fever T- max 99. HEENT: Denies trauma, headaches, blurry vision, nasal discharge, sore throat, trouble swallowing. Chest: Denies chest pain, palpitations, irregular rhythm, hypertension. Respiratory: Denies Shortness of breath, hemoptysis. Positive cough with brown productive sputum. GI: Denies abdominal pain, nausea, vomiting, diarrhea, constipation. : Denies dysuria, hematuria, flank pain, rectal bleeding. Skin: Rash to the back of her scalp with a palpable lymph node noted to the left posterior neck. Neuro: Denies dizziness, blurry vision, weakness, syncope, or facial numbness. Positive left-sided headache Hematologic: Denies easy bruising, intolerance to heat or cold, hair loss. 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 Fibromyalgia (Chronic 07/30/14) Hyperlipidemia (Chronic) Hypertension (Chronic) Joint pain (Chronic 07/30/14) 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, recurrent [facility] [place] GARZA (nonalcoholic steatohepatitis) (Acute) Obstructive sleep apnea (Chronic) Peptic reflux disease (Chronic) 2012 EGD, mild gastritis 2014 [place] ([facility]) patchy gastritis Pre-diabetes (Acute) Shoulder pain, left (Chronic 05/25/14) 05/28 WC Smoker (Chronic) Surgical History Bilateral salpingectomy with oophorectomy Biopsy of breast (~2007) neg [place] [facility] [place] Hysterectomy, Laproscopic Oophrectomy, Left Family History Mother Essential hypertension Diabetes TYPE 2 Hyperlipidemia Father Heart disease Hyperlipidemia Myocardial infarction Sister Hyperlipidemia Brother No problems noted. Grandfather No problems noted. Grandfather No problems noted. Grandmother Personal history of malignant neoplasm BREAST Grandmother No problems noted. 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 Appears stated age. Normal body habitus. Head: Normocephalic, no trauma. Eyes: Pupils PERRLA, Red reflex noted, EOM's intact. Eyelids symmetrical without lesions, discharge, or swelling. ENT: Bilateral TM's WNL, External ear normal to inspection, no mastoid TTP, swelling, or erythema, does have a posterior cervical lymph node or nodule palpated. Tender to touch. Left-sided frontal and maxillary sinus are tender to touch. Nasal turbinates WNL, no nasal discharge. Normal dentition, Posterior pharynx erythemic no exudate. Chest: RRR, Normal S1, S2, distal pulses intact. Resp: Lungs clear to auscultation bilaterally, no wheezes, rales, or rhonchi. Musculoskeletal: Normal gait, 5/5 strength to all four extremities. Skin: No suspicious rashes or lesions. Capillary refill less than 2 sec. Neurologic: Cranial nerves II-XII intact. Alert and oriented x 3. DTR's intact. Hematologic/Lymphatic: No ecchymosis, posterior cervical lymphadenopathy noted on the left Course Vital Signs Vital signs: Vital Signs Temperature 36.5 C 03/16/20 10:22 Pulse 83 03/16/20 10:22 Respiratory Rate 16 03/16/20 10:22 Blood Pressure 145/77 H 03/16/20 10:22 Pulse Oximetry 99 03/16/20 10:22 Temperature 36.5 C 03/16/20 10:22 Temperature Source Skin 03/16/20 10:22 Pulse 83 03/16/20 10:22 Respiratory Rate 16 03/16/20 10:22 Respiratory Effort Non-Labored 03/16/20 10:43 Respiratory Depth Normal 03/16/20 10:43 Respiratory Pattern Normal 03/16/20 10:43 Blood Pressure 145/77 H 03/16/20 10:22 Blood Pressure Position Sitting 03/16/20 10:22 Pulse Oximetry 99 03/16/20 10:22 Oxygen Delivery Method Room Air 03/16/20 10:22 Oxygen Flow Rate 0 03/16/20 10:22 Pain Level 5 03/16/20 10:22 Lab/Test Results Lab/Test Results: 03/16/20 10:49 Blood Blood Culture - Pending 03/16/20 10:49 Blood Blood Culture - Pending
[2020-03-16 11:47] LABS: Abs Immature Grans 0.05 10^3/uL (0.0-0.06); Absolute Basophil Count 0.06 10^3/uL (0.0-0.2); Absolute Eosinophil Count 0.12 10^3/uL (0.0-0.7); Absolute Monocyte Count 0.58 10^3/uL (0.1-0.8); Basophils % 0.4; Eosinophils % 0.8; HCT 41.9 % (36.0-46.0); HGB 14.1 g/dL (11.2-15.7); Immature Grans % 0.3; Lymphocytes % 29.7; MCHC 33.7 % (32.0-36.0); MCV 92.1 fL (80-95); MPV 10.4 fL (8.0-11.0); Neutrophils % 64.8; Nucleated RBC 0 %; Platelet Count 323 10^3/uL (130-400); RBC 4.55 10^6/uL (3.93-5.22); RDW 11.8 % (11.7-14.6); RDW-SD 39.5 fL; WBC 14.59 10^3/uL (4.4-10.8)
[2020-03-16 11:53] LABS: Absolute Lymphocyte Count 4.33 10^3/uL (1.2-3.4); Absolute Neutrophil Count 9.45 10^3/uL (1.2-6.7)
[2020-03-16 11:55] LABS: Mono Screening Negative (Negative)
--- NOTE | 2020-03-16 12:00 | DI.RAD_ITS ---
EXAM: XR CHEST 2V PA LATERAL CLINICAL HISTORY: Productive cough TECHNIQUE: 2D digital imaging was performed. COMPARISON: No exams were available for comparison FINDINGS: MEDIASTINUM: Normal. HEART: Normal. PULMONARY VASCULATURE: Normal. LUNGS: Clear. PLEURAL SPACE: No pleural effusion or pneumothorax. BONE:Within normal limits for the patient's age. OTHER FINDINGS:Normal. IMPRESSION: No acute pulmonary findings. DATA REPOSITORY: RADIATION DOSE DELIVERED:
[2020-03-16 12:01] LABS: ALT 77 U/L (14-59); AST 34 U/L (15-37); Alkaline Phosphatase 104 U/L (46-116); Anion Gap 9.5 mmol/L (3-11); BUN 14 mg/dL (7-18); Bilirubin, Total 0.5 mg/dL (0.2-1.0); CO2 28.5 mmol/L (21.0-32.0); CREATININE 0.94 mg/dL (0.55-1.02); Calcium 9.1 mg/dL (8.5-10.1); Chloride 100 mmol/L (98-107); Glucose 117 mg/dL (74-106); Potassium 3.1 mmol/L (3.5-5.1); Sodium 138 mmol/L (136-145); Total Protein 7.6 g/dL (6.4-8.2)
[2020-03-16 12:02] LABS: Troponin I < 0.05 ng/mL (<0.06)
[2020-03-16] MEDS: Omnipaque 350 MG/ML 100 ML BTL IJ (12:44)
[2020-03-16] MEDS: cefTRIAXone 1 GM/50 ML BAG IVPB (13:10)
[2020-03-16 13:43] VITALS: BP 141/69; PULSE 69; RESP 18; TEMP 36.5; O2SAT 99
[2020-03-18 18:04] LABS: Patient Race White; SARS-CoV-2 RNA Undetected (Undetected); SARS-CoV-2 Specimen Source Nasopharynx
--- NOTE | 2020-03-22 08:17 | NUR.NOTE ---
Nursing Note: Pt left a voicemail on covid tents phone extension looking for covid results- pt was tested in the ED. Contacted patient via phone and patient states she was made aware of the negative results since then, but confirmed that patient had a negative test.
== END 2020-03-16 14:05 | disposition home or self-care (01) ==
PROVIDERS: Emergency Provider Registered Nurse Emergency; PCP Nurse Practitioner Family
DX: R51 Headache (principal); R21 Rash and other nonspecific skin eruption; J01.90 Acute sinusitis, unspecified; R50.9 Fever, unspecified; R05 Cough; Z11.59 Encounter for screening for other viral diseases; J44.9 Chronic obstructive pulmonary disease, unspecified; F17.210 Nicotine dependence, cigarettes, uncomplicated; I10 Essential (primary) hypertension
CPT/HCPCS: 36415; 70491; 80053; 87040; 87880; 93005; 96365; 99284; U0003; 70450; 71046; 83735; 84484; 85025; 86308; 87081; 93010; J0696; J3490

== ENCOUNTER 2020-06-14 00:47 | Outpatient (CLI) | payer MEDICAID, SELFPAY ==
--- NOTE | 2020-06-14 | DI.MRI_ITS ---
EXAM: MR LUMBAR SPINE WO INDICATION: LOW BACK PAIN,M54.5,PARESTHESIA,R20.2. COMPARISON: MR MRI - LUMBAR SPINE WO CONTRAST from 06/09/2013 TECHNIQUE: MR examination of the lumbosacral spine was performed according to the usual protocol. FINDINGS: MR examination lumbosacral spine was performed according to usual protocol. No significant bony sign al abnormality seen. The conus medullaris appears intact. There are facet hypertrophic changes at L5-S1. Left facet hypertrophy contributes to narrowing of th e left neural foramen at L5-S1. No bony central canal spinal stenosis identified at this level or el sewhere in the lumbar spine. No additional neural foraminal narrowing seen. There is a broad-based disc herniation at L5-S1 which is most prominent centrally but also laterally. There is posterior displacement of the left S1 nerve root by the disc herniation. Right S1 nerve r oot may also be impinged. Left disc herniation causes left lateral recess narrowing at this level an d contributes to narrowing of the neural foramen on the left at L5-S1. No additional disc herniation identified in the lumbar region. IMPRESSION: L5-S1 multi centric disc herniation, most prominent left lateral and central. Narrowing of left neur al foramen at L5-S1 secondary to facet hypertrophy and herniated disc. There is apparent impingement on the left S1 nerve root which is mildly posteriorly displaced, possib le impingement right S1 nerve root may also be present.
== END 2020-06-14 01:07 ==
PROVIDERS: PCP Nurse Practitioner Family; Visit Provider Nurse Practitioner Family
DX: M51.27 Other intervertebral disc displacement, lumbosacral region (principal)
CPT/HCPCS: 72148

== ENCOUNTER 2020-07-04 10:46 | Outpatient (CLI) | payer MEDICAID, SELFPAY ==
[2020-07-04 11:40] LABS: Abs Immature Grans 0.06 10^3/uL (0.0-0.06); Absolute Basophil Count 0.09 10^3/uL (0.0-0.2); Basophils % 0.6; Eosinophils % 1.2; HCT 43.8 % (36.0-46.0); HGB 15.1 g/dL (11.2-15.7); Immature Grans % 0.4; Lymphocytes % 36.2; MCH 30.9 pg (27.0-33.0); MCHC 34.5 % (32.0-36.0); MCV 89.8 fL (80-95); MPV 9.7 fL (8.0-11.0); Monocytes % 5.4; Neutrophils % 56.2; Nucleated RBC 0 %; Platelet Count 362 10^3/uL (130-400); RBC 4.88 10^6/uL (3.93-5.22); RDW 11.9 % (11.7-14.6); RDW-SD 38.8 fL; WBC 14.74 10^3/uL (4.4-10.8)
[2020-07-04 11:43] LABS: Absolute Eosinophil Count 0.18 10^3/uL (0.0-0.7); Absolute Lymphocyte Count 5.34 10^3/uL (1.2-3.4); Absolute Neutrophil Count 8.28 10^3/uL (1.2-6.7)
[2020-07-04 12:01] LABS: ALT 66 U/L (14-59); AST 30 U/L (15-37); Albumin 4.3 g/dL (3.4-5.0); Alkaline Phosphatase 113 U/L (46-116); Anion Gap 10.4 mmol/L (3-11); BUN 16 mg/dL (7-18); Bilirubin, Total 0.4 mg/dL (0.2-1.0); CO2 27.6 mmol/L (21.0-32.0); CREATININE 1.05 mg/dL (0.55-1.02); Calcium 9.4 mg/dL (8.5-10.1); Chloride 100 mmol/L (98-107); Estimated GFR 54.82 (mL/min/1.73m2); Glucose 113 mg/dL (74-106); Potassium 3.6 mmol/L (3.5-5.1); Sodium 138 mmol/L (136-145); TSH (W/Ref FT4) 1.45 uIU/mL (0.36-3.74); Total Protein 8.3 g/dL (6.4-8.2)
[2020-07-04 12:02] LABS: Diff Comment Diff Reviewed; RBC Morphology Normal; Troponin I < 0.05 ng/mL (<0.06)
== END 2020-07-04 11:06 ==
PROVIDERS: PCP Nurse Practitioner Family; Visit Provider Nurse Practitioner Family
DX: R07.9 Chest pain, unspecified (principal)
CPT/HCPCS: 36415; 80053; 84443; 84484; 85025

== ENCOUNTER 2020-08-08 16:08 | Outpatient (REF) | payer MEDICAID, SELFPAY ==
[2020-08-10 11:29] LABS: Hepatitis C Ab w Rflx HCV PCR Negative (Negative)
[2020-08-12 09:45] LABS: HIV-1/2 Ag & Ab Screen Negative (Negative)
== END 2020-08-08 16:28 ==
LOC: NCHCN 16:08
PROVIDERS: PCP Nurse Practitioner Family; Visit Provider Nurse Practitioner Family
DX: Z11.4 Encounter for screening for human immunodeficiency virus [HIV] (principal); Z11.59 Encounter for screening for other viral diseases; I10 Essential (primary) hypertension; R73.03 Prediabetes; R42 Dizziness and giddiness; R53.83 Other fatigue
CPT/HCPCS: 86803; 87389

== ENCOUNTER 2020-08-19 02:21 | Outpatient (CLI) | payer MEDICAID, SELFPAY ==
--- NOTE | 2020-08-19 | DI.MAMMO_ITS ---
EXAM: MG MAMMO SCREENING CLINICAL HISTORY: SCREENING, Z12.39 TECHNIQUE: Bilateral full field digital CC and MLO mammographic images were obtained with 3D tomosyn thesis and utilizing computer aided detection (CAD). COMPARISON: Available for comparison. FINDINGS: Masses/Architectural Distortion: None seen. A biopsy clip is again seen in the upper left breast. Microcalcifications: No suspicious pleomorphic-type are seen. Skin Thickening/Nipple Retraction: None. IMPRESSION: 1. No significant interval change with no specific features of malignancy noted. 2. Unless there is more urgent need, screening mammography is recommended, as per [employer] guidelines. BI-RADS Category 1 - Negative Breast Density - Category C - Heterogeneously dense Breast density category C or D implies that the patient has dense breast tissue. Dense breast tissue is very common and is not abnormal but dense breast tissue can make it harder to find cancer on a ma mmogram. Also, dense breast tissue may increase their breast cancer risk. This information about the result of the mammogram report was provided to the patient to raise their awareness. Use this report when you speak with the patient about their risks for breast cancer, which includes their family hist ory. At that time, you may recommend for more screening tests (Ultrasound or MRI) as they might be us eful based on their risk. A negative radiographic report should not delay biopsy if a dominant or clinically suspicious mass is present. Up to ten percent of cancers are not identified on mammography. A negative report may reinforce clinical impression. Adenosis and dense breasts may obscure an underlying neoplasm. False positive reports average 6 to 10%. Patient will receive a letter notifying them of these results.
== END 2020-08-19 02:22 | disposition home or self-care (01) ==
LOC: DI 02:21
PROVIDERS: PCP Nurse Practitioner Family; Visit Provider Nurse Practitioner Family
DX: Z12.31 Encounter for screening mammogram for malignant neoplasm of breast (principal)
CPT/HCPCS: 77063; 77067

== ENCOUNTER 2020-12-20 11:18 | Outpatient (REF) | payer MEDICAID, SELFPAY ==
[2020-12-20 13:35] LABS: Abs Immature Grans 0.05 10^3/uL (0.0-0.06); Absolute Basophil Count 0.08 10^3/uL (0.0-0.2); Absolute Eosinophil Count 0.08 10^3/uL (0.0-0.7); Absolute Lymphocyte Count 3.71 10^3/uL (1.2-3.4); Absolute Monocyte Count 0.62 10^3/uL (0.1-0.8); Basophils % 0.6; Eosinophils % 0.6; HCT 41.9 % (36.0-46.0); HGB 14.4 g/dL (11.2-15.7); Immature Grans % 0.4; Lymphocytes % 27.4; MCH 31.8 pg (27.0-33.0); MCHC 34.4 % (32.0-36.0); MCV 92.5 fL (80-95); MPV 10.9 fL (8.0-11.0); Monocytes % 4.6; Neutrophils % 66.4; Nucleated RBC 0 %; Platelet Count 379 10^3/uL (130-400); RBC 4.53 10^6/uL (3.93-5.22); RDW-SD 40.9 fL; WBC 13.54 10^3/uL (4.4-10.8)
[2020-12-20 13:37] LABS: Iron 65 ug/dL (50-170); Total Iron Binding Capacity 311 ug/dL (250-450); Transferrin Sat 21 % (15-50)
[2020-12-20 13:41] LABS: Absolute Neutrophil Count 8.99 10^3/uL (1.2-6.7)
[2020-12-20 13:52] LABS: Ferritin 184 ng/mL (8-252); TSH (W/Ref FT4) 0.73 uIU/mL (0.36-3.74)
== END 2020-12-20 11:19 | disposition home or self-care (01) ==
LOC: NCHCN 11:18
PROVIDERS: PCP Nurse Practitioner Family; Visit Provider Nurse Practitioner Family
DX: R74.01 Elevation of levels of liver transaminase levels (principal); R73.03 Prediabetes; F51.9 Sleep disorder not due to a substance or known physiological condition, unspecified; K21.9 Gastro-esophageal reflux disease without esophagitis; R41.3 Other amnesia; I45.81 Long QT syndrome; R42 Dizziness and giddiness
CPT/HCPCS: 82728; 83540; 83550; 84443; 85025

== ENCOUNTER 2020-12-29 01:07 | Outpatient (CLI) | payer MEDICAID, SELFPAY ==
--- NOTE | 2020-12-29 | DI.CT_ITS ---
Exam(s) CT ABDOMEN PELVIS W EXAM: CT ABDOMEN PELVIS W CLINICAL HISTORY: LEUKOCYTOSIS, D72.829,IRREGULAR BOWEL HABITS,R19.8. TECHNIQUE: Imaging Protocol: Axial computed tomography images with coronal and sagittal reformatted images were created and reviewed CONTRAST MATERIAL: Intravenous: Omnipaque 100cc Oral: Yes COMPARISON: CT CT ABDOMEN PELVIS W from 11/27/2018 FINDINGS: VISUALIZED LUNG BASES: No nodules nor pleural effusions evident. ABDOMEN: There is no ascites. LIVER: In the inferior aspect of the right hepatic lobe there is again noted an enhancing lesion whic h measures approximately 2.4 by 1.2 cm, not increased in size from 2 years ago (November 2018) and most pr obably a hemangioma. However, higher up in the medial aspect of the right hepatic lobe adjacent to t he interlobar fissure there is a subcapsular lesion now evident measuring approximately 1.5 x 1.6 cm, not evident on the prior November 2018 study. This either represents a significant lesion or possibly re mnant fatty liver, given that the amount of steatosis on the present study is somewhat less than was evident previously and this may represent an area which remains fatty relative to the surrounding par enchyma. Otherwise, there are 2 tiny cysts in the right hepatic lobe both measuring approximately 3 millimeter s. There are no significant focal findings in the left hepatic lobe. There is no dilatation of intr ahepatic ducts. GALLBLADDER/BILIARY: No obvious gallbladder pathology. CBD is not dilated. PANCREAS: No evidence of pancreatic mass nor dilatation of the pancreatic duct. SPLEEN: Spleen is not enlarged. No obvious intrasplenic lesions. Splenic and portal veins are paten t. ADRENALS: There are no significant adrenal masses. KIDNEYS:No cysts evident. No solid renal masses. No calculi nor hydronephrosis.. ABDOMINAL AORTA: Abdominal aorta is not enlarged. There is significant atherosclerotic disease of th e nonenlarged abdominal aorta and aortic bifurcation. There is heavy circumferential calcification o f the distal most abdominal aorta just above the bifurcation. LYMPH NODES:There is no retroperitineal nor paraaortic adenopathy. ABDOMINAL WALL: No evidence of significant anterior abdominal wall hernia. GI: The appearance of the cecum and ascending colon is somewhat irregular. Although this may be rela conner to insufficient oral contrast filling, given the history here recommend colonoscopy. Also appear s to be slight thickening of the terminal ileum. PELVIS: GI: The appendix is difficult to identify. No obvious acute appendicitis.There are a few sigmoid div erticuli. No obvious acute diverticulitis. LYMPH NODES: There is no intrapelvic nor inguinal adenopathy. REPRODUCTIVE: The uterus is surgically absent. There are no abnormal adnexal masses nor free fluid i n the pelvis. URINARY BLADDER: Urinary bladder is not distended. OSSEOUS: No significant osseous lesions. Vacuum phenomenon and disc space narrowing at L5-S1 level noted. IMPRESSION: 1. There is irregularity of the ascending colon wall noted. Although this may be related to insuffic ient oral contrast filling I recommend colonoscopy to the level of the terminal ileum, given that the re is also slight thickening of the terminal ileum here. 2. There are few sigmoid diverticuli. However, no evidence of acute diverticulitis. 3. Uterus is surgically absent. No adnexal masses nor free fluid. 4. Although there is relatively stable appearance of a right hepatic lobe lesion when compared to November 2018 (2 years and therefore probably a cavernous hemangioma), there is another lesion higher up in t he right hepatic lobe adjacent to the interlobar fissure as described above, more evident than previo us. For this reason I recommend MRI scan of the liver without and with IV contrast using hemangioma protocol. 5. Other findings as above RADIATION DOSE DELIVERED: 662.65mGy.cm Total DLP DATA REPOSITORY: All CT scans at this facility are submitted to the National Radiology Data Registry (NRDR) Dose Index Registry (DIR) with the [employer] ([employer]). RADIATION OPTIMIZATION: All CT scans at this facility use at least one of these dose optimization te chniques: automated exposure control; mA and/or kV adjustment per patient size (includes targeted exa ms where dose is matched to clinical indication); or iterative reconstruction.
[2020-12-29] MEDS: Breeza Beverage 473 ML BTL PO ×2 (13:38→13:39)
[2020-12-29 14:12] LABS: CREATININE 0.9 mg/dL (0.55-1.02)
[2020-12-29] MEDS: Omnipaque 350 MG/ML 100 ML BTL IJ (15:19)
[2020-12-29] MEDS: Normal Saline - Diluent 50 ML VIAL IV (15:20)
[2020-12-29] MEDS: Normal Saline Flush 10 ML SYR IVP (15:21)
== END 2020-12-29 01:27 ==
PROVIDERS: PCP Nurse Practitioner Family; Visit Provider Nurse Practitioner Family
DX: R19.4 Change in bowel habit (principal); D72.829 Elevated white blood cell count, unspecified; K63.89 Other specified diseases of intestine; K76.89 Other specified diseases of liver
CPT/HCPCS: 74177; 82565; J3490

== ENCOUNTER 2021-01-09 03:06 | Outpatient (CLI) | payer MEDICAID, SELFPAY ==
[2021-01-09 11:39] LABS: Source Nasal/Nares
[2021-01-09 14:11] LABS: COVID-19 PCR Negative (Negative)
== END 2021-01-09 03:07 | disposition home or self-care (01) ==
LOC: LBO 03:07
PROVIDERS: PCP Nurse Practitioner Family; Visit Provider Surgery
DX: Z20.822 Contact with and (suspected) exposure to COVID-19 (principal); Z01.818 Encounter for other preprocedural examination
CPT/HCPCS: 87635

== ENCOUNTER 2021-01-11 10:30 | Day surgery (SDC) | payer MEDICAID, SELFPAY ==
--- NOTE | 2021-01-11 06:54 | ENDO_ITS ---
Date of service: 01/11/21 Time of Service: 12:00 Endoscopy Report DATE OF PROCEDURE: 01/11/21 PRE-OP DIAGNOSIS: Abdominal pain, Nausea and vomiting POST-OP DIAGNOSIS: other (mild gastritis, mild esophagitis, mild diverticulosis, external hemorrhoids) PROCEDURE: 1. EGD with biopsies 2. Colonoscopy with biopsies SURGEON: Sammie Pollard ANESTHESIA TYPE: General:No Airway (ASA 2/ Cheryl Rothman, [place]) ESTIMATED BLOOD LOSS: 3 PATHOLOGY: other (Antrum and GE junction bx) COMPLICATIONS: None DISPOSITION: same day INDICATIONS: Ms Humphrey is a pleasant 55-year-old female who is here today to discuss a colonoscopy and upper endoscopy. She tells me that for the last 2 months she has had intermittent nausea and vomiting this happens mostly in the mornings. She also has been constipated which has never been the issue for her. She has needed to take stool softeners on a daily basis in order to have a bowel movement. She complains of lower abdominal pain as well. She just constantly feels uncomfortable. She has early satiety is only eating once a day and has had a bout a 20 pound weight loss. She has a history of GERD which was controlled on pantoprazole. Over the last 2 months she has had increased reflux and burping. She states that she can have acid come up into the back of her throat even when standing. She also complains of being fatigued. She smokes about half a pack a day or less. She does not drink any alcohol. Her last colonoscopy was about 2 years ago. She is not sure if the colonoscopies were done here or at [facility]. We will look those up. We discussed doing a colonoscopy to look for polyps inflammation or other reasons for her constipation. Also recommend an upper endoscopy to figure out why she has increased reflux. I did tell patient sometimes it is just that we need to change to a different medication but we will make sure that she does not have H. pylori infection, inflammation and ulcers. The patient is vaccinated. We will do a Covid test but she does not need to quarantine. Risks, benefits and complications have been reviewed. Complications include but are not limited to bleeding, pain, perforation, missed small lesion/polyp, sore throat, aspiration and adverse reaction to the medications. Questions were entertained and answered to their satisfaction and they wished to proceed. No guarantees were given or implied. Proceed with colonoscopy and upper endoscopy under sedation : PREP: Miralax/Dulcolax PROCEDURE START TIME: 11:20 PROCEDURE END TIME: 11:48 COLONOSCOPY RETRACTION TIME: 11 minutes FINDINGS: mild gastritis and esophagitis. No ulcers mild sigmoid diverticulosis Grade 1 internal hemorrhoids PROCEDURE DESCRIPTION: After informed consent was obtained the patient was take to the procedure room and placed in a supine position. Monitors were applied and a time out was done. The patients name, date of , procedure type, allergies to medications and metal in their body was reviewed. A bite block was placed and the patient was sedated. Once sedated and comfortable the gastroscope was advanced through the oropharynx which was grossly normal into the esophagus. The proximal and mid- esophagus were normal. In the distal esophagus there was mild inflammation noted. The scope was advanced into the stomach and through the pylorus into the 3rd portion of the duodenum. The duodenum was noted to be normal. The scope was retracted back into the stomach. There was mild inflammation noted in the antrum. Biopsies were done to rule out H. pylori. There were no ulcers. The scope was retro-flexed. The cardia and fundus were noted to be normal. There was no hiatal hernia noted. The scope was retracted back into the esophagus and biopsies were done of the GE junction to rule out Gomez's. The Z line was regular. The GE junction was at 39 cm. While the patient was still sedated they were placed in a left decubitous position. A rectal exam was done. External exam was normal. Internal exam revealed a normal sphincter tone and no palpable masses. The scope was then introduced and retro-flexed. Grade 1 internal hemorrhoids were identified on retro-flexion. No masses or polyps were identified on retroflexion. The scope was then advanced to the cecum without difficulty. The ileocecal valve and appendiceal orifice were identified. The prep was good. The scope was then slowly retracted over 11 minutes back into the rectum. There were no polyps. There was mild diverticulosis noted in the sigmoid colon. The scope was removed and the patient was woken up and taken back to Same day surgery in stable condition. The patient tolerated the procedure well and there were no immediate complications. Follow up: 5 years
--- NOTE | 2021-01-11 06:56 | PDOC.DSDIS_ITS ---
Discharge Plan Disposition Patient Disposition: HOME Condition: Good Discharge Details Reason For Visit: colo/egd Attending Provider: Sammie Pollard Primary Care Provider: Martha Marrufo Home Meds and New Rx's Prescriptions: Continued gabapentin 300 mg capsule 300 mg PO DIRECTED RF: 0 ondansetron 4 mg tablet,disintegrating 4 mg PO DAILY PRN (Reason: nausea and vomiting) Qty: 4 RF: 2 lidocaine [Lidoderm] 5 % adhesive patch,medicated 1 patch topical DAILY RF: 0 ipratropium bromide 0.03 % spray,non-aerosol 2 spray intranasal BID RF: 0 hydroxyzine HCl 25 mg tablet See Rx Instructions PO QID PRN (Reason: itching) Qty: 30 RF: 3 aspirin [Adult Aspirin Regimen] 81 mg tablet,delayed release (DR/EC) 81 mg PO DAILY RF: 0 docusate sodium [Colace] 100 mg capsule 100 mg PO ONCE RF: 0 (DME) TENS units Device See Rx Instructions .ROUTE .MEDSUPPLY Qty: 1 RF: 0 atorvastatin 80 MG tablet 80 mg PO HS Qty: 90 RF: 4 acetaminophen [Tylenol Extra Strength] 500 MG tablet 1,000 mg PO Q6H PRN RF: 0 meclizine 12.5 mg tablet 12.5 mg PO Q8H PRNRF: 0 hydrochlorothiazide 25 mg tablet 25 mg PO DAILY RF: 0 lamotrigine [Lamictal] 25 mg tablet 150 mg PO DAILY RF: 0 pantoprazole [Protonix] 40 mg tablet,delayed release (DR/EC) 40 mg PO QHS Qty: 90 RF: 3 fluoxetine [Prozac] 20 mg capsule 40 mg PO DAILY RF: 0 topiramate [Topamax] 100 mg tablet 100 mg PO QHS Qty: 90 RF: 3 benzonatate 100 mg capsule 100 mg PO HS PRNRF: 0 Spiriva with HandiHaler 18 mcg capsule, w/inhalation device 1 cap INHALATION DAILY RF: 0 levalbuterol tartrate [Xopenex HFA] 200 PUFF HFA aerosol inhaler 2 puff Inhalation PRN PRNRF: 0 topiramate [Topamax] 50 mg tablet 150 mg PO HS RF: 0 Discontinued bisacodyl [Dulcolax (bisacodyl)] 5 mg tablet,delayed release (DR/EC) 5 mg PO ONCE Qty: 4 RF: 0 polyethylene glycol 3350 17 gram powder in packet 255 g PO DAILY Qty: 15 RF: 0 Discharge Instructions Instructions: Diet for Stomach Ulcers and Gastritis (ED), Gastritis (DC), Esophagitis (DC), Diverticulosis (DC), Hemorrhoids (DC) Additional Instructions: Findings: small external hemorrhoids, mild diverticulosis mild inflammation of the stomach and esophagus. No ulcers Follow up: 2 weeks in the office Please call if you develop: fevers >101.5 Nausea or Vomiting Abdominal pain that is not transient Rectal bleeding that is more then a tbsp A hard abdomen and inability to pass gas DAY SURGERY UNIT POST ENDOSCOPY INSTRUCTIONS Instructions for everyone who is given Anesthesia: For your safety, please do the following for the next 24 Hours: a. Do not drive or operate dangerous equipment b. Do not drink alcohol beverages or use any recreational drugs for the first 24 hours or while taking pain medications. The medications in your body may have a reaction that can be dangerous. c. Do not make any important decisions or sign any important papers 1. Generally there are no restrictions on your activity after a day or so has gone by, but you may feel a bit fatigued for a few days. 2. After you arrive home you may have a light meal and return to a normal diet as you can tolerate it without feeling sick to your stomach. 3. After surgery, you may feel pain or discomfort. This should be only tra nsient, but if it persists please contact your doctor. 4. If there are any questions regarding the findings of your procedure, please feel free to contact your doctor. 6. If you are unable to contact your doctor with a problem, contact the hospital at [phone]. 7. Continue all your regular medications unless directed otherwise. I understand the above instructions and have no questions. Signature of Patient or Responsible Adult Escort Date/Time Name of Responsible Adult Escort Signature of Nurse Date/Time Referrals: Sammie Pollard MD [ [facility] STAFF PHYSICIAN] - 01/24/21 10:00 am Activity:: Activity as Tolerated Diet:: low acid and high fiber Discharge Orders Discharge Orders: Discharge Order (Routine); Ordered 01/11/21 Ordered By: Sammie Pollard
[2021-01-11 10:35] VITALS: BP 126/91; PULSE 103; RESP 18; TEMP 36.4; O2SAT 96
--- NOTE | 2021-01-11 10:49 | ANES.PREOP_ITS ---
General Info Date of Service Date Performed: 01/11/21 Height: 5 ft 1 in Weight: 56.897 kg Body Mass Index (BMI): 23.7 Surgical Procedure: Operation Date: 01/11/21 11:05 Proposed Procedures Side Surgeon p Colonoscopy/Gastroscopy Sammie Pollard MD Actual Procedures Side Surgeon p Colonoscopy/Gastroscopy Not Applicable Sammie Pollard MD Meds Allergies and Home Medications Allergies Allergy/AdvReac Type Severity Reaction Status Date / Time nicotine Allergy Severe PATCHES-REDNESS Unverified 01/11/21 10:48 & SWELLING chlorhexidine Allergy Mild Skin Rash Unverified 01/11/21 10:48 adhesive Allergy Skin Rash Unverified 01/11/21 10:48 bupropion AdvReac Severe AGITATION Unverified 01/11/21 10:48 duloxetine AdvReac Intermediate HEARING Unverified 01/11/21 10:48 THINGS hydrocodone AdvReac Intermediate Itching Unverified 01/11/21 10:48 pregabalin [From Lyrica] AdvReac Intermediate foggy brain Unverified 01/11/21 10:48 trazodone AdvReac Intermediate ANXIETY Unverified 01/11/21 10:48 pravastatin AdvReac Mild HEADACHE Unverified 01/11/21 10:48 simvastatin AdvReac Mild LEG Unverified 01/11/21 10:48 CRAMPS; HEADACHE varenicline AdvReac Mild BEHAVIOR Unverified 01/11/21 10:48 CHANGES promethazine AdvReac Unknown ANXIETY Unverified 01/11/21 10:48 zolpidem AdvReac Unknown INCREASED Unverified 01/11/21 10:48 DEPRESSION Home Medication Medication Instructions Recorded atorvastatin 80 mg PO HS #90 tab-cap 07/14/15 acetaminophen [Tylenol Extra 1,000 mg PO Q6H PRN tab-cap 03/21/17 Strength] levalbuterol tartrate [Xopenex HFA] 200 puff INHALATION PRN PRN 08/12/17 hydrochlorothiazide 25 mg tablet 25 mg PO DAILY 06/08/19 meclizine 12.5 mg tablet 12.5 mg PO Q8H PRN tab 06/08/19 lamotrigine 25 mg tablet 25 mg PO DAILY tab 07/30/19 ondansetron 4 mg disintegrating 4 mg PO DAILY PRN #4 tab 09/07/19 tablet pantoprazole 40 mg tablet,delayed 40 mg PO QHS #90 tab-cap 02/17/20 release benzonatate 100 mg PO HS PRN 03/16/20 tiotropium bromide [Spiriva with 1 cap INHALATION DAILY 03/16/20 HandiHaler] fluoxetine 20 mg capsule 40 mg PO DAILY tab-cap 06/15/20 gabapentin 300 mg capsule 300 mg PO DIRECTED cap 06/15/20 hydroxyzine HCl 25 mg tablet See Rx Instructions PO QID PRN #30 06/15/20 tab ipratropium bromide 21 mcg (0.03 2 spray INTRANASAL BID 06/15/20 %) nasal spray lidocaine 5 % topical patch 1 patch TOPICAL DAILY 06/15/20 TENS units #1 ea 08/01/20 topiramate 100 mg tablet 100 mg PO QHS #90 tab 11/24/20 aspirin 81 mg tablet,delayed 81 mg PO DAILY 01/05/21 release bisacodyl 5 mg tablet,delayed 5 mg PO ONCE #4 tab 01/05/21 release docusate sodium 100 mg capsule 100 mg PO ONCE cap 01/05/21 polyethylene glycol 3350 17 gram 255 g PO DAILY #15 ea 01/05/21 oral powder packet topiramate [Topamax] 150 mg PO HS 01/11/21 Current Visit Medications: Current Medications Generic Name Dose Route Start Last Admin Trade Name Freq PRN Reason Stop Dose Admin Hyoscyamine Sulfate 0.125 mg 01/11/21 06:57 Hyoscyamine 0.125 Mg Sl/Oral/Chew SL DIRECTED PRN Ringer's Solution 1,000 mls @ 80 mls/hr 01/11/21 06:00 IV 02/09/21 23:59 INFUSION [facility] IV Miscellaneous Supplies 1 each 01/11/21 06:00 Iv Access IV 02/09/21 23:59 DIRECTED [facility] Ondansetron HCl 4 mg 01/11/21 06:57 Ondansetron 4 Mg/2 Ml Vial IVP Q4H PRN PRN Nausea / Vomiting Sodium Chloride 0 ml 01/11/21 06:00 Normal Saline Flush 10 Ml Syr IV 02/09/21 23:59 PRN PRN Sodium Chloride 0 ml 01/11/21 06:00 Normal Saline 10 Ml Vial IJ 07/29/21 23:59 DIRECTED PRN Sterile Water 0 ml 01/11/21 06:00 Water,Injection,Sterile 10 Ml Vial IJ 02/09/21 23:59 DIRECTED PRN PFSH Active Problems Active Problems: Problem Status Onset Code Tremor R25.1 Migraine headache without aura G43.009 Microscopic hematuria R31.29 Cervicalgia M54.2 Prolonged QT interval R94.31 Chronic headache R51 Anxiety F41.9 Smoker F17.200 Shoulder pain, left 05/25/14 M25.512 Peptic reflux disease K21.9 Low back pain with sciatica 05/25/14 M54.40 Joint pain 07/30/14 M25.50 Hyperlipidemia E78.5 Fibromyalgia 07/30/14 M79.7 Depression 07/30/14 F32.9 COPD (chronic obstructive pulmonary disease) 01/06/15 J44.9 Medical History Medical History Anxiety Chronic headache COPD (chronic obstructive pulmonary disease) (01/06/15) DDD (degenerative disc disease) Depression (07/30/14) anxiety fatigue Fatty degeneration heart fatty infiltration of RV Fibromyalgia (07/30/14) Hyperlipidemia Hypertension Joint pain (07/30/14) Low back pain with sciatica (05/25/14) chronic, recurrent [facility] pain clinic 2014 GARZA (nonalcoholic steatohepatitis) pt. is unaware of this Obstructive sleep apnea Peptic reflux disease 2012 EGD, mild gastritis 2014 [place] ([facility]) patchy gastritis Post traumatic stress disorder (PTSD) Pre-diabetes Shoulder pain, left (05/25/14) 05/28 WC Smoker Surgical History Surgical History Bilateral salpingectomy with oophorectomy Biopsy of breast (~2007) neg EGD - [facility] 2014-[facility] Hysterectomy, Laproscopic Oophrectomy, Left Tobacco Smoking/Tobacco Use Status: Current every day Tobacco Type: cigarettes Alcohol Alcohol Intake: current Alcohol intake frequency: holidays/special occasions only Substance Use Substance use: Never Substance use type: does not use Vital Signs and Lab Results Vital Signs Most Recent Vital Signs in EMR: Most Recent Vital Signs Temp Pulse Resp BP Pulse Ox 36.4 C L 103 H 18 126/91 H 96 01/11/21 10:35 01/11/21 10:35 01/11/21 10:35 01/11/21 10:35 01/11/21 10:35 Lab Results Blood Type / Crossmatch: No Data to Display Complete Blood Count: White Blood Count 13.54 10^3/uL (4.4-10.8) H 12/20/20 10:00 12/20/20 Red Blood Count 4.53 10^6/uL (3.93-5.22) 12/20/20 10:00 12/20/20 Hemoglobin 14.4 g/dL (11.2-15.7) 12/20/20 10:00 12/20/20 Hematocrit 41.9 % (36.0-46.0) 12/20/20 10:00 12/20/20 Platelet Count 379 10^3/uL (130-400) 12/20/20 10:00 12/20/20 Complete Metabolic Panel: Creatinine 0.9 mg/dL (0.55-1.02) 12/29/20 13:55 12/29/20 Estimated GFR/1.73 m2 >= 60.00 (mL/min/1.73m2) 12/29/20 13:55 12/29/20 Liver Function Panel: No Data to Display Coagulation Panel: No Data to Display Cardiac Panel: No Data to Display Arterial Blood Gas: No Data to Display Venous Blood Gas: No Data to Display Pancreas Panel: No Data to Display Thyroid Panel: Thyroid Stimulating Hormone (TSH) 0.73 uIU/mL (0.36-3.74) 12/20/20 10:00 12/20/20 Infectious Disease: Coronavirus (COVID-19)(PCR) Negative (Negative) 01/09/21 08:54 01/09/21 Coronavirus 2019 Source Nasal/Nares 01/09/21 08:54 01/09/21 Blood Cultures: No Data to Display Toxicology Panel: No Data to Display Panel: No Data to Display Imaging and Studies Imaging and Studies EKG Summary: Rate 71, sinus rhythm, questionable incomplete right bundle branch block, nonspecific flattening of T waves in V3, inverted T wave in V1 V2, those are present on prior EKGs. No evidence of STEMI. 03/16/20 Stress Test Summary: Impressions: Normal study after maximal exercise. Summary: 1. Stress ECG conclusions: Wells treadmill score: 6. This score predicts a low risk of cardiac events. 03/13/18 Anesthesia Assessment and Plan Anesthesia History Personal History: PONV and Delayed Emergence Family History: No Family History of Anesthesia Complications Exercise Tolerance Exercise Tolerance: Metabolic Equivalents<4 Pertinent Negatives Pertinent Negatives: No Major Pulmonary Symptoms or Complaints (Recent dry cough) Cardiac & Pulmonary Exam Cardiac Exam: Normal S1/S2 Heart Sounds Pulmonary Exam: Clear Bilateral Breath Sounds Cardiac and Pulmonary Comment:: ADELITA, does not use use device consistently Airway Exam Known Difficult Airway: No Mallampati Class: 2 Mouth Opening: Normal (> 3cm) Thyromental Distance: Greater than 3 cm Neck Range of Motion: Full ROM Neck Circumference: Normal Teeth Condition: Normal Dentition and Removable Dentures/Plates Upper (front teeth partial) ASA Classification ASA Score: ASA 3 Emergency Case?: No NPO Status NPO Status: NPO Clears >2 hours, Solids >8 hours Status Status: History of Hysterectomy and Pt. refuses testing, she was counseled on anesthesia risks Anesthesia Plan Resuscitation Status: Full Code Anesthesia Technique: General Anesthesia Airway Planned: Natural Airway Monitors Used: Standard Monitors
[2021-01-11] MEDS: Lactated Ringers 1,000 ML 80 ML IV (10:54)
[2021-01-11 11:01] VITALS: BMI 23.7
--- NOTE | 2021-01-11 11:25 | STOM_PTH ---
PATIENT: Connie Humphrey LOC: [facility] U#:[id number] AGE/SX: 55/F ROOM: RE01/11/[address]: Sammie Pollard MD : 1965 BED: DIS: 01/11/2021 SPEC #: [id number] RECD: 01/11/21 12:44 STATUS: CARYN REEulalia #: [id number] OSVALDO: 01/11/21 11:[address]: Sammie Pollard DEPT: Surgical Specimen RECD BY: Casandra Whyte ENTERED: 01/11/21 12:44 SP TYPE: STOMACH OTHR DR: Martha Marrufo Tissues: 1 - STOMACH BIOPSY 2 - ESOPHAGUS BIOPSY Procedures: GROSS AND MICRO LEVEL 4 Comments: [id number]
[2021-01-11 11:55] VITALS: BP 114/66; PULSE 80; RESP 24; TEMP 36.2; O2SAT 93
--- NOTE | 2021-01-11 12:10 | W.ANESPOSTOP ---
Postoperative Evaluation Date, Time and Location Date Performed: 01/11/21 Time Performed: 11:55 Patient Location: Day Surgery Unit Vital Signs Most Recent Imported Vital Signs: Most Recent Vital Signs Temp Pulse Resp BP Pulse Ox 36.2 C L 80 24 114/66 93 01/11/21 11:55 01/11/21 11:55 01/11/21 11:55 01/11/21 11:55 01/11/21 11:55 Pain Score Most Recent Pain Score: Most Recent Pain Score Pain Level 0 01/11/21 11:55 Assessment Mental Status: Awake (Alert & Oriented to Patient Baseline) Airway and Respiratory Function: Patent airway with normal (patient baseline) respiratory exam Cardiovascular Function: Hemodynamically Stable Hydration Status: Adequately Hydrated Nausea & Vomiting: No Nausea or Vomiting Pain: Pain is tolerable per patient (Per pt. no real pain just tightness at the incision sites) Peripheral Nerve Block: Patient did not receive a nerve block
[2021-01-11] MEDS: Ketorolac 30 MG/ML VIAL IVP (12:34)
[2021-01-11 12:36] VITALS: BP 120/62; PULSE 68; RESP 16; TEMP 36.4; O2SAT 97
== END 2021-01-11 13:27 | disposition home or self-care (01) ==
LOC: SUR 10:31
PROVIDERS: PCP Nurse Practitioner Family; Visit Provider Surgery
PROC: (CPT 43239; principal; 2021-01-11 11:00)
DX: R10.9 Unspecified abdominal pain (principal); R11.2 Nausea with vomiting, unspecified; K21.00 Gastro-esophageal reflux disease with esophagitis, without bleeding; K29.70 Gastritis, unspecified, without bleeding; K64.0 First degree hemorrhoids; K57.30 Diverticulosis of large intestine without perforation or abscess without bleeding; R68.81 Early satiety; R63.4 Abnormal weight loss; R53.83 Other fatigue; F17.210 Nicotine dependence, cigarettes, uncomplicated
CPT/HCPCS: 43239; 45378; 88305; J1885; J2001; J2405

== ENCOUNTER 2021-01-24 02:35 | Outpatient (CLI) | payer MEDICAID, SELFPAY ==
[2021-01-24] MEDS: Gadoterate meglumine 20 ML VIAL 10 ML IVP (08:39)
--- NOTE | 2021-01-24 09:10 | DI.MRI_ITS ---
Exam(s) MR ABDOMEN WO/W EXAM: MR ABDOMEN WO/W CLINICAL HISTORY: LIVER MASS,K76.89,HEMANGIOMA TECHNIQUE: Multiplanar multisequence MRA of the Abdomen was performed. CONTRAST MATERIAL: IV Contrast: mL of Dotarem contrast administered. COMPARISON: US ABDOMEN ULTRASOUND from 09/09/2008 US ABDOMEN ULTRASOUND from 09/09/2008 CT UPPER ABD WITH CONTRAST (P) from 09/21/2008 CT UPPER ABD WITH CONTRAST (P) from 09/21/2008 CT ABD PELVIS WITH CONTRAST from 10/31/2011 CT ABD PELVIS WITH CONTRAST from 10/31/2011 CT ABD PELVIS WITH CONTRAST from 03/27/2012 CT ABD PELVIS WITH CONTRAST from 03/27/2012 CT ABD PELVIS WITH CONTRAST from 02/16/2016 CT ABD PELVIS WITH CONTRAST from 02/16/2016 CT ABD PELVIS WITH CONTRAST from 09/29/2016 CT ABD PELVIS WITH CONTRAST from 09/29/[address] ABDOMEN PELVIS W from 11/27/[address] ABDOMEN PELVIS W from 11/27/[address] ABDOMEN PELVIS W from 12/29/[address] ABDOMEN PELVIS W from 12/29/2020 FINDINGS: Liver: The area in question in the inferior anterior right lobe near the falciform ligament shows sig nal dropout on opposed phase images, consistent with an area focal fatty infiltration. It is not vis ible on most sequences. There is no enhancement. This could be seen on older CT examinations. The lesion in the inferior right lobe is consistent with a hemangioma. A few tiny cysts are seen. Pancreas: Unremarkable. Gallbladder and Bile Ducts: Unremarkable. Adrenals: Unremarkable. Kidneys: Small cyst lower pole right kidney. Spleen: Unremarkable. Aorta: Unremarkable. Soft Tissues: Unremarkable. Bone: Unremarkable. Lymph Nodes: Unremarkable. IMPRESSION: Liver lesion lesion in question on the recent CT examination near the falciform ligament is consisten t with an area of focal fat. The lesion seen inferiorly in the right lobe is stable or multiple CT e xaminations and is consistent with a hemangioma. DATA REPOSITORY:
== END 2021-01-24 02:55 ==
PROVIDERS: PCP Nurse Practitioner Family; Visit Provider Nurse Practitioner Family
DX: K76.89 Other specified diseases of liver (principal)
CPT/HCPCS: 74183

== ENCOUNTER 2021-02-16 10:21 | Outpatient (REF) | payer MEDICAID, SELFPAY ==
[2021-02-17 11:48] LABS: COVID-19 RT-PCR UVMMC Result Negative (Negative)
== END 2021-02-16 10:22 | disposition home or self-care (01) ==
LOC: LBN 10:21
PROVIDERS: PCP Nurse Practitioner Family; Visit Provider Physician Assistant Medical
DX: Z20.822 Contact with and (suspected) exposure to COVID-19 (principal); J06.9 Acute upper respiratory infection, unspecified
CPT/HCPCS: U0003

== ENCOUNTER 2021-02-16 10:32 | Outpatient (CLI) | payer MEDICAID, SELFPAY ==
--- NOTE | 2021-02-16 | DI.RAD_ITS ---
Exam(s) XR CHEST 2V PA LATERAL EXAM: XR CHEST 2V PA LATERAL CLINICAL HISTORY: COUGH, R05. TECHNIQUE: 2D digital imaging was performed. COMPARISON: CR XR PORTABLE CHEST AP from 07/27/2018 CR XR PORTABLE CHEST AP from 07/27/2018 CR XR CHEST 2V PA LATERAL from 03/16/2020 FINDINGS: Heart size is normal. The mediastinum is not widened. There are no infiltrates nor pleural effusions. No pulmonary edema. No pneumothorax. There is, how ever, a density in the right side below the hemidiaphragm on the frontal view noted which was not pre viously present, this of lenticular shaped and measuring 5.5 x 2.5 cm. This does not appear to be in the lung bases on the lateral view. Questionable significance. There is evidence of previous surgery of both shoulders. IMPRESSION: No acute pulmonary findings nor pleural effusions.However, there is a possible density in the upper r ight abdomen as described above which is more evident than on prior studies. If clinically indicated further studied with CT scan can be performed. DATA REPOSITORY: RADIATION DOSE DELIVERED:
== END 2021-02-16 10:52 ==
PROVIDERS: PCP Nurse Practitioner Family; Visit Provider Physician Assistant Medical
DX: R05 Cough (principal)
CPT/HCPCS: 71046

== ENCOUNTER 2021-02-24 03:06 | Outpatient (CLI) | payer MEDICAID, SELFPAY ==
--- NOTE | 2021-02-24 06:30 | DI.US_ITS ---
Exam(s) US ABDOMEN EXAM: US ABDOMEN CLINICAL HISTORY: NAUSEA,VOMITING MOSTLY AM, LOSS OF APPETITE,ABD PAIN,R11.2,R10.9 TECHNIQUE: Ultrasound abdomen performed using standard protocol. COMPARISON: US US ABDOMEN from 11/27/2018 FINDINGS: ABDOMINAL AORTA AND IVC: Visualized portions normal caliber. PANCREAS: Normal where visualized. LIVER: Increased echogenicity of the liver consistent with fatty infiltration. There is a stable hyp oechoic mass in the right lobe of the liver. This is shown to be a hemangioma on prior examinations. No new hepatic masses are seen. Hepatopedal flow in the Portal Vein. GALLBLADDER: No evidence of cholelithiasis. No evidence of wall thickening. No pericholecystic fluid identified. BILIARY SYSTEM: Common bile duct measures < 7 mm. No intrahepatic biliary ductal dilation. CAO'S SIGN: Negative. KIDNEYS: Kidneys are symmetric in size. No evidence of renal calculi. No evidence of hydronephrosis. No renal mass or cyst identified. SPLEEN: Not enlarged. ASCITES: None seen. IMPRESSION: 1. Stable hepatic mass previously shown to be a hepatic hemangioma. 2. Fatty infiltration of the liver. DATA REPOSITORY:
== END 2021-02-24 03:26 ==
PROVIDERS: PCP Nurse Practitioner Family; Visit Provider Surgery
DX: K76.0 Fatty (change of) liver, not elsewhere classified (principal); D18.09 Hemangioma of other sites
CPT/HCPCS: 76700

== ENCOUNTER 2021-03-21 16:20 | Outpatient (REF) | payer MEDICAID, SELFPAY ==
[2021-03-23 17:20] LABS: COVID-19 RT-PCR UVMMC Result Negative (Negative)
== END 2021-03-21 16:21 | disposition home or self-care (01) ==
LOC: NCHCN 16:20
PROVIDERS: PCP Nurse Practitioner Family; Referring Provider Nurse Practitioner Family; Visit Provider Nurse Practitioner Family
DX: Z20.822 Contact with and (suspected) exposure to COVID-19 (principal); R05 Cough
CPT/HCPCS: U0003

== ENCOUNTER 2021-04-11 09:38 | Emergency (ER) | payer MEDICAID, SELFPAY ==
--- NOTE | 2021-04-11 09:30 | RT.EKG_ITS ---
APPROVED REPORT Exam: Resting ECG Reason for Exam: chest pain Patient Location: E HR:82 bpm ECG Measurements Heart Rate 82 AXIS NJ 162 P 71 QRSd 101 QRS 80 QT 397 T 62 QTc 465 Conclusion Sinus rhythm...normal P axis, V-rate 60- 99
--- NOTE | 2021-04-11 09:45 | DI.RAD_ITS ---
Exam(s) XR CHEST 2V PA LATERAL EXAM: XR CHEST 2V PA LATERAL CLINICAL HISTORY: CHest pain TECHNIQUE: 2D digital imaging was performed of the chest. Two images were obtained. PA and lateral views were obtained. COMPARISON: No exams were available for comparison FINDINGS: MEDIASTINUM: Normal. HEART: Normal. PULMONARY VASCULATURE: Normal. LUNGS: Clear. PLEURAL SPACE: No pleural effusion or pneumothorax. BONE:Within normal limits for the patient's age. OTHER FINDINGS:Normal. IMPRESSION: No acute pulmonary findings. DATA REPOSITORY: RADIATION DOSE DELIVERED:
[2021-04-11 09:47] VITALS: BP 152/94; PULSE 89; RESP 14; TEMP 36.8; O2SAT 100
--- NOTE | 2021-04-11 10:00 | W.ED.GENAD ---
Discharge Plan Disposition Patient Disposition: HOME Condition: Improving Discharge Details Clinical Impression: Myalgia Primary Care Provider: Martha Marrufo ED Provider: Blas Mayo Home Meds and New Rx's Prescriptions: New methocarbamol 500 mg tablet 500 mg PO Q6H PRN (Reason: Back pain or spasm) Qty: 14 RF: 0 Continued gabapentin 300 mg capsule 300 mg PO DIRECTED RF: 0 lidocaine [Lidoderm] 5 % adhesive patch,medicated 1 patch topical DAILY RF: 0 ipratropium bromide 0.03 % spray,non-aerosol 2 spray intranasal BID RF: 0 hydroxyzine HCl 25 mg tablet See Rx Instructions PO QID PRN (Reason: itching) Qty: 30 RF: 3 aspirin [Adult Aspirin Regimen] 81 mg tablet,delayed release (DR/EC) 81 mg PO DAILY RF: 0 docusate sodium [Colace] 100 mg capsule 100 mg PO ONCE RF: 0 (DME) TENS units Device See Rx Instructions .ROUTE .MEDSUPPLY Qty: 1 RF: 0 B12 Active 1,000 mcg tablet,chewable 1,000 mcg PO DAILY RF: 0 Emgality Pen 120 mg/mL pen injector 120 mg subcut ONCE Qty: 1 RF: 3 atorvastatin 80 MG tablet 80 mg PO HS Qty: 90 RF: 4 acetaminophen [Tylenol Extra Strength] 500 MG tablet 1,000 mg PO Q6H PRN RF: 0 meclizine 12.5 mg tablet 12.5 mg PO Q8H PRNRF: 0 hydrochlorothiazide 25 mg tablet 25 mg PO DAILY RF: 0 pantoprazole [Protonix] 40 mg tablet,delayed release (DR/EC) 40 mg PO QHS Qty: 90 RF: 3 fluoxetine [Prozac] 20 mg capsule 60 mg PO DAILY RF: 0 ondansetron HCl [Zofran] 4 mg tablet 4 mg PO Q8H RF: 0 nicotine (polacrilex) 4 mg gum 4 mg buccal Q2H RF: 0 Flovent HFA 110 mcg/actuation HFA aerosol inhaler 2 puff inhalation BID RF: 0 benzonatate 100 mg capsule 100 mg PO HS PRNRF: 0 Spiriva with HandiHaler 18 mcg capsule, w/inhalation device 1 cap INHALATION DAILY RF: 0 levalbuterol tartrate [Xopenex HFA] 200 PUFF HFA aerosol inhaler 2 puff Inhalation PRN PRNRF: 0 topiramate [Topamax] 50 mg tablet 150 mg PO HS RF: 0 Discharge Instructions Instructions: Musculoskeletal Pain (ED) Additional Instructions: You may use the provided methocarbamol 500 to 1000 mg every 6 hours. This was electronically transmitted to your pharmacy. Tylenol and/or ibuprofen as needed for pain as well. May apply warm compress to area to reduce discomfort. Continue your regular medications. Return to the ER for any acute concerns. Medical Decision Making 55-year-old female presents from home. States she had uneventful administration of the flu vaccine to her left deltoid yesterday. She was awakened at 11 PM with anterior chest discomfort this been constant, dull, without significant modifying factors. She has COPD and a chronic cough which is unchanged. She has not had a fever or production of sputum. She will note that her father of the massive ND at the age of 41. Patient arrives over 152/94, pulse 89, afebrile with 100% sat on room air. She has reproducible left anterior wall chest pain on exam. Differential diagnosis includes myalgias from flu vaccine, chest wall pain, ACS, must exclude PE. Patient IV access established, screening labs and EKG obtained. Referred for chest x-ray. Diagnostic studies: White count of 12 with a history of mildly elevated white blood cell counts in the past, otherwise unremarkable CBC. D-dimer 252, troponin negative, chemistries notable only for mild elevation of ALT at 65. Chest x-ray without acute pulmonary findings. Patient served on monitoring engineer and repeat troponin obtained and negative. Given the reproducible pain will treat with methocarbamol for myalgias. Discussed with her maintaining surveillance for eruption of a rash. Does not appear to be shingles at this time. She is stable and appropriate for discharge HPI General Mode of arrival: ambulatory. Date/Time Provider Initiated Documentation: 04/11/21 09:42. Limitations to Documentation: no limitations. History of Present Illness 55 year old F presents to the emergency department with the chief complaint of Left anterior chest pain since 11 PM, described as moderate, Quality is described as dull and constant, and is localized to the chest and left. Patient reports no radiation. Patient started experiencing this hour(s) and it has been constant. No relieving factors improve symptom(s), No exacerbating factors reported . Patient notes chest pain and cough; denies fever/chills and shortness of breath. Patient did receive the following treatments prior to arrival, none Related Data Home Medications Medication Instructions Recorded Confirmed atorvastatin 80 mg PO HS #90 tab-cap 07/14/15 04/04/21 acetaminophen [Tylenol Extra 1,000 mg PO Q6H PRN tab-cap 03/21/17 04/04/21 Strength] levalbuterol tartrate [Xopenex HFA] 2 puff INHALATION PRN PRN 08/12/17 04/04/21 hydrochlorothiazide 25 mg tablet 25 mg PO DAILY 06/08/19 04/04/21 meclizine 12.5 mg tablet 12.5 mg PO Q8H PRN tab 06/08/19 04/04/21 pantoprazole 40 mg tablet,delayed 40 mg PO QHS #90 tab-cap 02/17/20 04/04/21 release Spiriva with HandiHaler 1 cap INHALATION DAILY 03/16/20 04/04/21 benzonatate 100 mg PO HS PRN 03/16/20 04/04/21 gabapentin 300 mg capsule 300 mg PO DIRECTED cap 06/15/20 04/04/21 hydroxyzine HCl 25 mg tablet See Rx Instructions PO QID PRN #30 06/15/20 04/04/21 tab ipratropium bromide 21 mcg (0.03 2 spray INTRANASAL BID 06/15/20 04/04/21 %) nasal spray lidocaine 5 % topical patch 1 patch TOPICAL DAILY 06/15/20 04/04/21 TENS units #1 ea 08/01/20 04/04/21 aspirin 81 mg tablet,delayed 81 mg PO DAILY 01/05/21 04/04/21 release docusate sodium 100 mg capsule 100 mg PO ONCE cap 01/05/21 04/04/21 topiramate [Topamax] 150 mg PO HS 01/11/21 04/04/21 fluoxetine 20 mg capsule 60 mg PO DAILY tab-cap 01/24/21 04/04/21 mecobalamin (vitamin B12) 1,000 1,000 mcg PO DAILY 01/24/21 04/04/21 mcg chewable tablet galcanezumab-gnlm 120 mg/mL 120 mg SUBCUT ONCE #1 ml 02/07/21 04/04/21 subcutaneous pen injector fluticasone propionate 110 2 puff INHALATION BID 03/20/21 04/04/21 mcg/actuation HFA aerosol inhaler nicotine (polacrilex) 4 mg gum 4 mg BUCCAL Q2H 03/20/21 04/04/21 ondansetron HCl 4 mg tablet 4 mg PO Q8H 03/20/21 04/04/21 methocarbamol 500 mg PO Q6H PRN #14 tab 04/11/21 Previous Rx's Medication Instructions Recorded hydroxyzine HCl 25 mg tablet See Rx Instructions PO QID PRN #30 06/15/20 tab galcanezumab-gnlm 120 mg/mL 120 mg SUBCUT ONCE #1 ml 02/07/21 subcutaneous pen injector methocarbamol 500 mg PO Q6H PRN #14 tab 04/11/21 Allergies Allergy/AdvReac Type Severity Reaction Status Date / Time nicotine Allergy Severe PATCHES-REDNESS Unverified 04/11/21 09:52 & SWELLING chlorhexidine Allergy Mild Skin Rash Unverified 04/11/21 09:52 adhesive Allergy Skin Rash Unverified 04/11/21 09:52 amitriptyline Allergy Verified 04/11/21 09:52 doxycycline Allergy Verified 04/11/21 09:52 bupropion AdvReac Severe AGITATION Unverified 04/11/21 09:52 duloxetine AdvReac Intermediate HEARING Unverified 04/11/21 09:52 THINGS hydrocodone AdvReac Intermediate Itching Unverified 04/11/21 09:52 pregabalin [From Lyrica] AdvReac Intermediate foggy brain Unverified 04/11/21 09:52 trazodone AdvReac Intermediate ANXIETY Unverified 04/11/21 09:52 pravastatin AdvReac Mild HEADACHE Unverified 04/11/21 09:52 simvastatin AdvReac Mild LEG Unverified 04/11/21 09:52 CRAMPS; HEADACHE varenicline AdvReac Mild BEHAVIOR Unverified 04/11/21 09:52 CHANGES promethazine AdvReac Unknown ANXIETY Unverified 04/11/21 09:52 zolpidem AdvReac Unknown INCREASED Unverified 04/11/21 09:52 DEPRESSION General Stated Complaint: Chest Pain NICOLAS: 2 Review of Systems Narrative: Received flu shot left deltoid yesterday. Fully immunized against COVID-19. No recent illness. States she has a chronic cough. Some increased discomfort with breathing. No shortness of breath or wheezing. 8 systems reviewed and otherwise negative. [facility] Medical History Anxiety Bruxism Chest pain Chronic headache Chronic pain COPD (chronic obstructive pulmonary disease) (01/06/15) Cough DDD (degenerative disc disease) Depression (07/30/14) anxiety fatigue Dizziness Elevated transaminase level Fatigue Fatty degeneration heart fatty infiltration of RV Fibromyalgia (07/30/14) GERD (gastroesophageal reflux disease) Hip pain History of prediabetes Hyperlipidemia Hypertension Irregular bowel habits Joint pain (07/30/14) Left-sided temporomandibular joint pain-dysfunction syndrome Leukocytosis Low back pain with sciatica (05/25/14) chronic, recurrent [facility] pain [facility] 2014 Lymph nodes enlarged Memory loss GARZA (nonalcoholic steatohepatitis) pt. is unaware of this Obstructive sleep apnea Paresthesia Peptic reflux disease 2012 EGD, mild gastritis 2014 [place] ([facility]) patchy gastritis Periodic limb movement Post traumatic stress disorder (PTSD) Pre-diabetes Pulmonary nodule Seasonal allergies Sensorineural hearing loss, bilateral Shoulder pain, left (05/25/14) 05/28 WC Shoulder pain, right Sinusitis Smoker Sore throat Transient neurological symptoms Vasomotor symptoms due to menopause Surgical History Bilateral salpingectomy with oophorectomy Biopsy of breast (~2007) neg EGD - [facility] [place] History of colonoscopy (~12/2020) History of esophagogastroduodenoscopy (EGD) (~12/2020) History of tonsillectomy and adenoidectomy Hysterectomy, Laproscopic Oophrectomy, Left Family History Mother Essential hypertension Diabetes TYPE 2 Hyperlipidemia Father Heart disease Hyperlipidemia Myocardial infarction Sister Hyperlipidemia Brother No problems noted. Grandfather No problems noted. Grandfather No problems noted. Grandmother Personal history of malignant neoplasm BREAST Grandmother No problems noted. 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 Pleasant, well groomed, interactive. HEAD: Normocephalic, atraumatic ENT: Mucous membranes moist, oropharynx unremarkable, External ear exam unremarkable EYES: PERRL, EOMI NECK: Full ROM, no JOEL, no menigismus CHEST/RESP: Left anterior chest wall tender to palpation, no rash or crepitus,, clear to auscultation bilateral, no wheeze/rhonchi/rales CARDIOVASCULAR: RRR, no murmur, rub maribel. 2+ Rad pulse bilateral ABDOMEN: Soft, nontender, no mass. +Bowel sounds EXT: Full ROM, no edema, no rash, no erythema, no swelling Neuro: Grossly normal neurologic exam, conversant, interactive. Psych: Speech fluent, thoughts congruent, affect normal Course Vital Signs Vital signs: Vital Signs Temperature 36.8 C 04/11/21 09:47 Pulse 89 04/11/21 09:47 Respiratory Rate 14 04/11/21 09:47 Blood Pressure 152/94 H 04/11/21 09:47 Pulse Oximetry 100 04/11/21 09:47 Temperature 36.8 C 04/11/21 09:47 Temperature Source Oral 04/11/21 09:47 Pulse 89 04/11/21 09:47 Respiratory Rate 14 04/11/21 09:47 Respiratory Effort 04/11/21 09:50 Blood Pressure 152/94 H 04/11/21 09:47 Blood Pressure Position Supine 04/11/21 09:47 Pulse Oximetry 100 04/11/21 09:47 Oxygen Delivery Method Room Air 04/11/21 09:47 Oxygen Flow Rate 0 04/11/21 09:47 Pain Level 7 04/11/21 09:47
[2021-04-11 10:03] LABS: Abs Immature Grans 0.07 10^3/uL (0.0-0.06); Absolute Basophil Count 0.07 10^3/uL (0.0-0.2); Absolute Eosinophil Count 0.12 10^3/uL (0.0-0.7); Absolute Lymphocyte Count 3.25 10^3/uL (1.2-3.4); Absolute Monocyte Count 0.94 10^3/uL (0.1-0.8); Basophils % 0.6; HCT 43.2 % (36.0-46.0); HGB 14.7 g/dL (11.2-15.7); Immature Grans % 0.6; Lymphocytes % 26.7; MCH 31.7 pg (27.0-33.0); MCV 93.3 fL (80-95); MPV 9.3 fL (8.0-11.0); Monocytes % 7.7; Neutrophils % 63.4; Nucleated RBC 0 %; Platelet Count 362 10^3/uL (130-400); RBC 4.63 10^6/uL (3.93-5.22); RDW 12.5 % (11.7-14.6); RDW-SD 42.8 fL; WBC 12.18 10^3/uL (4.4-10.8)
[2021-04-11 10:06] LABS: Absolute Neutrophil Count 7.72 10^3/uL (1.2-6.7)
[2021-04-11 10:19] LABS: ALT 65 U/L (14-59); AST 22 U/L (15-37); Alkaline Phosphatase 106 U/L (46-116); Anion Gap 7.8 mmol/L (3-11); BUN 14 mg/dL (7-18); Bilirubin, Total 0.4 mg/dL (0.2-1.0); CO2 28.2 mmol/L (21.0-32.0); CREATININE 0.9 mg/dL (0.55-1.02); Calcium 9.2 mg/dL (8.5-10.1); Chloride 102 mmol/L (98-107); Glucose 93 mg/dL (74-106); Magnesium 2.1 mg/dL (1.8-2.4); Potassium 3.5 mmol/L (3.5-5.1); Sodium 138 mmol/L (136-145); Troponin I < 0.05 ng/mL (<0.06)
[2021-04-11] MEDS: Ketorolac 15 MG/ML VIAL IVP (10:20)
[2021-04-11 10:54] LABS: D-Dimer 252 ng/mlFEU (<500)
--- NOTE | 2021-04-11 11:30 | RT.EKG_ITS ---
APPROVED REPORT Exam: Resting ECG Reason for Exam: chest pain Patient Location: E HR:71 bpm ECG Measurements Heart Rate 71 AXIS [place] 179 P 68 QRSd 105 QRS 81 QT 442 T 47 QTc 480 Conclusion Sinus rhythm...normal P axis, V-rate 60- 99
[2021-04-11] MEDS: Acetaminophen 500 MG TAB 1000 MG PO (11:33)
[2021-04-11 13:27] LABS: Troponin I < 0.05 ng/mL (<0.06)
[2021-04-11 13:29] VITALS: RESP 16
[2021-04-11 13:44] VITALS: BP 152/94; PULSE 89; RESP 16; TEMP 36.8; O2SAT 100
== END 2021-04-11 13:44 | disposition home or self-care (01) ==
PROVIDERS: Emergency Provider Emergency Medicine; PCP Nurse Practitioner Family
DX: R07.89 Other chest pain (principal); M79.10 Myalgia, unspecified site
CPT/HCPCS: 36415; 80053; 93005; 96374; 99285; 71046; 83735; 84484; 85025; 85379; 93010; 99284; J1885

== ENCOUNTER 2021-07-10 03:12 | Outpatient (CLI) | payer MEDICAID, SELFPAY ==
--- NOTE | 2021-07-10 13:00 | DI.CTLCSR_ITS ---
Exam(s) CT CHEST LUNG CANCER SCREEN EXAM: CT CHEST LUNG CANCER SCREEN CLINICAL HISTORY: FORMER SMOKER, Z87.891; PULMONARY NODULE, J98.4; ENLARGED LYMPH NODES,R59.9. TECHNIQUE: Imaging Protocol: Low Dose Technique CONTRAST MATERIAL: None COMPARISON: CR XR CHEST 2V PA LATERAL from 04/11/2021 FINDINGS: CHEST: LUNGS: Biapical scarring. There is a small calcified granuloma in the right upper lobe measuring 4 m illimeters. There are no other significant focal findings in the right lung and no pleural effusion. The opposite-left lung there is tiny 2 millimeter calcified granuloma in the anterior basal segment of the left lower lobe. Also platelike atelectasis inferior lingular segment. Another small 3 mill imeter calcified granuloma in the anterior segment left upper lobe.. There are no confluent infiltra [place]. No pleural effusions. MEDIASTINUM: There is no obvious hilar nor mediastinal adenopathy. There is an 8 x 9 millimeter nodu le high in the right thyroid lobe. This is either thyroid nodule or parathyroid nodule. Similar fin dings not seen on the left side. CARDIAC: Heart size is normal. There is no pericardial effusion.Caliber of the thoracic aorta is wit hin normal limits. OTHER: Coronary artery calcification noted. OSSEOUS: No significant osseous lesions.. IMPRESSION: 1. There are no ominous pulmonary nodules. Calcified granulomas are noted bilaterally. No pleural e ffusions nor obvious intrathoracic adenopathy. 2. There is an 8 x 9 millimeter right-sided nodule behind the right thyroid lobe, either a thyroid no dule or parathyroid nodule. This can be further studied with ultrasound. 3. Lung RADS Cat 2S - Benign Appearance / Behavior: Nodules with a very low likelihood of becoming a clinically active cancer due to size or lack of growth THYROID-PARATHYROID FINDING DESCRIBED ABOVE. Lung-RADS 1.0 CATEGORIES: Category 0 - Prior chest CT exam(s) being located for comparison. Category 1 - Annual screening in 12 months. No nodules or definitely benign nodules. Category 2 - Annual screening in 12 months. Benign appearance. Nodules with low likelihood of becomin g active cancer. Category 3 - 6-month follow-up. Probably benign. Short-term follow-up suggested. Nodules with low lik elihood of becoming active cancer. Category 4A - 3-month follow-up and CT/PET if >8 mm in size. Suspicious finding. Findings which requi re additional testing. Category 4B - Findings which require additional testing and tissue sampling. Modifier S- Potentially clinically significant findings (non lung cancer) RADIATION DOSE DELIVERED: 72.23mGy.cm Total DLP 1.84mGy CTDIvol DATA REPOSITORY: All CT scans at this facility are submitted to the National Radiology Data Registry (NRDR) Dose Index Registry (DIR) with the [employer] (ACR). RADIATION OPTIMIZATION: All CT scans at this facility use at least one of these dose optimization te chniques: automated exposure control; mA and/or kV adjustment per patient size (includes targeted exa ms where dose is matched to clinical indication); or iterative reconstruction.
== END 2021-07-10 03:32 ==
PROVIDERS: PCP Nurse Practitioner Family; Visit Provider Nurse Practitioner Family
DX: Z12.2 Encounter for screening for malignant neoplasm of respiratory organs (principal); F17.210 Nicotine dependence, cigarettes, uncomplicated; R91.8 Other nonspecific abnormal finding of lung field
CPT/HCPCS: 71271

== ENCOUNTER 2021-08-04 12:13 | Outpatient (REF) | payer MEDICAID, SELFPAY ==
[2021-08-05 13:57] LABS: COVID-19 RT-PCR UVMMC Result Negative (Negative)
== END 2021-08-04 12:14 | disposition home or self-care (01) ==
LOC: NCHCN 12:13
PROVIDERS: PCP Nurse Practitioner Family; Visit Provider Nurse Practitioner Family
DX: Z20.822 Contact with and (suspected) exposure to COVID-19 (principal); J02.9 Acute pharyngitis, unspecified
CPT/HCPCS: U0003

== ENCOUNTER 2021-08-09 12:43 | Outpatient (REF) | payer MEDICAID, SELFPAY ==
[2021-08-09 14:48] LABS: Abs Immature Grans 0.02 10^3/uL (0.0-0.06); Absolute Eosinophil Count 0.15 10^3/uL (0.0-0.7); Absolute Lymphocyte Count 3.65 10^3/uL (1.2-3.4); Absolute Neutrophil Count 4.51 10^3/uL (1.2-6.7); Basophils % 1.1; Eosinophils % 1.7; HCT 42.7 % (36.0-46.0); HGB 13.9 g/dL (11.2-15.7); Immature Grans % 0.2; Lymphocytes % 40.9; MCH 30.1 pg (27.0-33.0); MCHC 32.6 % (32.0-36.0); MCV 92.4 fL (80-95); MPV 10.2 fL (8.0-11.0); Monocytes % 5.6; Neutrophils % 50.5; Nucleated RBC 0 %; Platelet Count 376 10^3/uL (130-400); RBC 4.62 10^6/uL (3.93-5.22); RDW 12.1 % (11.7-14.6); RDW-SD 41.1 fL; WBC 8.93 10^3/uL (4.4-10.8)
[2021-08-09 15:27] LABS: Hemoglobin A1C 5.7 % (<5.7)
[2021-08-09 15:53] LABS: Calculated LDL 213 mg/dL (<100); Cholesterol 318 mg/dL (<200); HDL Cholesterol 44 mg/dL (40-60); Magnesium 2.1 mg/dL (1.8-2.4); TSH 1.02 uIU/mL (0.36-3.74); Triglyceride 308 mg/dL (<150); Vitamin B12 781 pg/mL (193-986)
[2021-08-09 16:21] LABS: FREE T4 0.84 ng/dL (0.76-1.46)
[2021-08-09 21:51] LABS: T3,Free 3.1 pg/mL (2.8-5.3)
[2021-08-10 16:36] LABS: ALT 165 U/L (14-59); AST 55 U/L (15-37); Albumin 4.3 g/dL (3.4-5.0); Alkaline Phosphatase 95 U/L (46-116); BUN 20 mg/dL (7-18); Bilirubin, Total 0.4 mg/dL (0.2-1.0); CREATININE 1.1 mg/dL (0.55-1.02); Calcium 9.9 mg/dL (8.5-10.1); Chloride 103 mmol/L (98-107); Estimated GFR 51.57 (mL/min/1.73m2); Glucose 112 mg/dL (74-106); Potassium 4.7 mmol/L (3.5-5.1); Sodium 140 mmol/L (136-145); Total Protein 7.8 g/dL (6.4-8.2)
== END 2021-08-09 12:44 | disposition home or self-care (01) ==
LOC: NCHCN 12:43
PROVIDERS: PCP Nurse Practitioner Family; Visit Provider Nurse Practitioner Family
DX: I10 Essential (primary) hypertension (principal); E78.5 Hyperlipidemia, unspecified; K76.0 Fatty (change of) liver, not elsewhere classified; R74.01 Elevation of levels of liver transaminase levels; R73.03 Prediabetes; E04.1 Nontoxic single thyroid nodule; K76.89 Other specified diseases of liver
CPT/HCPCS: 80053; 80061; 82607; 83036; 83735; 84439; 84443; 84481; 85025

== ENCOUNTER 2021-09-06 00:39 | Outpatient (CLI) | payer MEDICAID, SELFPAY ==
--- NOTE | 2021-09-06 | DI.US_ITS ---
Exam(s) US THYROID EXAM: US THYROID CLINICAL HISTORY: THYROID NODULE E04.1. TECHNIQUE: Ultrasound thyroid performed using standard protocol. CT CT neck w from 07/27/[address] NECK W from 03/16/[address] CHEST LUNG CANCER SCREEN from 07/10/2021 FINDINGS: ISTHMUS: 2 mm RIGHT LOBE: Size: 3.7 x 1.5 x 1.3 cm Echogenicity: Normal. Vascularity: Normal. Nodules: 1.3 x 1.0 by 0.9 millimeter nodule posterior lower pole right thyroid lobe is not well image d on this exam. It is hypoechoic, wider than tall and smoothly modular marginated. The composition in echogenic foci could not be reliably evaluated. It appears unchanged in size from CT neck exams f 2018 and 2019. LEFT LOBE: Size: 3.3 x 1.3 x 1.4 cm Echogenicity: Normal. Vascularity: Normal. Nodules: 1.0 x 0.7 x 0.6 centimeter spongiform nodule with comet tail artifacts. TR 1 OTHER FINDINGS: None. IMPRESSION: One. Stable size nodule 1.3 cm inferior right lobe of the thyroid a compared with prior CTs. The le jameson was not well imaged on the current ultrasound. Patient could return for repeat evaluation of th is nodule no additional charge. Two. Spongiform nodule left lobe, not seen on previous exams. TI-RADS 1. DATA REPOSITORY:
== END 2021-09-06 00:59 ==
PROVIDERS: PCP Nurse Practitioner Family; Visit Provider Nurse Practitioner Family
DX: E04.1 Nontoxic single thyroid nodule (principal); R91.8 Other nonspecific abnormal finding of lung field
CPT/HCPCS: 76536

== ENCOUNTER → 2022-01-30 00:19 | Outpatient (CLI) | payer MEDICAID, SELFPAY ==
--- NOTE | 2022-01-30 | DI.US_ITS ---
Exam(s) US ABDOMEN LIMITED EXAM: US ABDOMEN LIMITED CLINICAL HISTORY: ALCOHOLIC CIRRHOSIS OF LIVER, K70.30,HCC SCREENING TECHNIQUE: Ultrasound abdomen performed using standard protocol. COMPARISON: Prior ultrasound 02/24/2021 FINDINGS: There is no ascites evident. LIVER: There is hyperechoic indicating steatosis. The previously described GALLBLADDER/BILIARY: There are no gallstones. No gallbladder wall edema nor pericholecystic fluid. The common hepatic duct isnot dilated, measuring 3-4mm at the level of lorraine hepatis. PANCREAS: There is no evidence of pancreatic mass nor dilatation of the pancreatic duct. RIGHT KIDNEY:No evidence of solid mass, calculus, nor hydronephrosis. No cortical cysts evident. ABDOMINAL AORTA AND IVC: Visualized portions exhibit normal caliber. IMPRESSION: 1. No evidence of cholelithiasis nor dilatation of the biliary tree. 2. No other significant ultrasound findings in the right upper quadrant. 3. The previous described hepatic hemangioma described on prior ultrasound examination February 2021 i s not evident on the present images. There is no ascites. DATA REPOSITORY:
== END ==
PROVIDERS: PCP Nurse Practitioner Family; Visit Provider Student in an Organized Health Care Education/Training Program
DX: Z12.89 Encounter for screening for malignant neoplasm of other sites (principal); K70.30 Alcoholic cirrhosis of liver without ascites
CPT/HCPCS: 76705

== ENCOUNTER 2022-03-06 18:32 | Outpatient (REF) | payer MEDICAID, SELFPAY ==
[2022-03-06 17:16] LABS: Abs Immature Grans 0.02 10^3/uL (0.0-0.06); Absolute Basophil Count 0.08 10^3/uL (0.0-0.2); Absolute Eosinophil Count 0.12 10^3/uL (0.0-0.7); Absolute Lymphocyte Count 3.29 10^3/uL (1.2-3.4); Absolute Monocyte Count 0.48 10^3/uL (0.1-0.8); Absolute Neutrophil Count 3.82 10^3/uL (1.2-6.7); Eosinophils % 1.5; HCT 40.2 % (36.0-46.0); HGB 14.1 g/dL (11.2-15.7); Immature Grans % 0.3; Lymphocytes % 42.1; MCH 31.9 pg (27.0-33.0); MCHC 35.1 % (32.0-36.0); MCV 91 fL (80-95); MPV 11.1 fL (8.0-11.0); Monocytes % 6.1; Platelet Count 327 10^3/uL (130-400); RBC 4.42 10^6/uL (3.93-5.22); RDW 11.5 % (11.7-14.6); RDW-SD 38.5 fL; WBC 7.81 10^3/uL (4.4-10.8)
[2022-03-06 17:36] LABS: ALT 123 U/L (14-59); AST 51 U/L (15-37); Albumin 4.1 g/dL (3.4-5.0); Alkaline Phosphatase 93 U/L (46-116); Amylase 65 U/L (25-115); Anion Gap 9.7 mmol/L (3-11); BUN 19 mg/dL (7-18); Bilirubin, Total 0.5 mg/dL (0.2-1.0); CO2 28.3 mmol/L (21.0-32.0); CREATININE 1.1 mg/dL (0.55-1.02); Calcium 9.4 mg/dL (8.5-10.1); Chloride 100 mmol/L (98-107); Estimated GFR 51.57 (mL/min/1.73m2); Glucose 122 mg/dL (74-106); Lipase 167 U/L (73-393); Potassium 3.8 mmol/L (3.5-5.1); Sodium 138 mmol/L (136-145); Total Protein 7.6 g/dL (6.4-8.2)
== END 2022-03-06 18:33 | disposition home or self-care (01) ==
LOC: NCHCN 18:32
PROVIDERS: PCP Nurse Practitioner Family; Visit Provider Nurse Practitioner Family
DX: R10.11 Right upper quadrant pain (principal)
CPT/HCPCS: 80053; 83690; 82150; 85025

== ENCOUNTER → 2022-03-15 04:23 | Outpatient (CLI) | payer MEDICAID, SELFPAY ==
--- NOTE | 2022-03-15 | DI.US_ITS ---
Exam(s) US ABDOMEN LIMITED EXAM: US ABDOMEN LIMITED CLINICAL HISTORY: RUQ ABD PAIN R10.11 TECHNIQUE: Ultrasound abdomen performed using standard protocol. COMPARISON: CT CT ABDOMEN PELVIS W from 12/29/2020 MR MR ABDOMEN WO/W from 01/24/2021 US US ABDOMEN from 02/24/2021 FINDINGS: No obvious ascites. LIVER: Liver is again noted be hyperechoic indicating steatosis. The previously described hyperechoi c lesion in the right lobe liver is again noted on the present study, measuring 1.4 x 1.5 x 1.3 cm., unchanged. GALLBLADDER/BILIARY: Subtle suggestion of a small 8 millimeter calculus in the gallbladder neck regio n. The gallbladder is not distended nor edematous. There is no pericholecystic fluid The common hepatic duct isnot dilated, measuring 3-4mm at the level of lorraine hepatis. PANCREAS: There is no evidence of pancreatic mass nor dilatation of the pancreatic duct. RIGHT KIDNEY:No evidence of solid mass, calculus, nor hydronephrosis. No cortical cysts evident. IMPRESSION: 1. Cholelithiasis. There appears to be a single 8 millimeter gallstone the region the gallbladder n reinaldo. The gallbladder is not distended nor edematous. However, patient apparently tender over this a clarice during scanning today. CBD diameter is normal. Pancreas unremarkable. 2. Hepatic steatosis again noted. In addition, there is an unchanged 14 x 15 x 13 millimeter nodule in the right hepatic lobe which is unchanged in appearance and size from prior ultrasound examinatio n of February 2021. DATA REPOSITORY:
== END ==
PROVIDERS: PCP Nurse Practitioner Family; Visit Provider Nurse Practitioner Family
DX: K80.20 Calculus of gallbladder without cholecystitis without obstruction (principal); K76.0 Fatty (change of) liver, not elsewhere classified
CPT/HCPCS: 76705

== ENCOUNTER 2022-04-06 06:07 | Day surgery (SDC) | payer MEDICAID, SELFPAY ==
--- NOTE | 2022-04-05 17:07 | W.PM.DSUDISC ---
Discharge Plan Disposition Patient Disposition: HOME Condition: Good Discharge Details Reason For Visit: Laparoscopic cholecystectomy Attending Provider: Dennis Saavedra Primary Care Provider: Martha Marrufo Home Meds and New Rx's Prescriptions: New oxycodone 5 mg tablet 5 mg PO Q8H MDD 3 tabs PRN (Reason: pain) Qty: 9 0RF Rx Instructions: take one tablet by mouth as needed for severe pain. This is highly addictive and should be used with great caution Continued lidocaine [Lidoderm] 5 % adhesive patch,medicated 1 patch topical DAILY Rx Instructions: leave on most painful area for up to 12 hrs aspirin [Adult Aspirin Regimen] 81 mg tablet,delayed release (DR/EC) 81 mg PO DAILY lovastatin 20 mg tablet 20 mg PO QPM Botox 200 unit recon soln 200 unit IM ONCE (DME) TENS units Device See Rx Instructions .ROUTE .MEDSUPPLY Qty: 1 Rx Instructions: As directed montelukast [Singulair] 10 mg tablet 10 mg PO DAILY levomefolate calcium [L-Methylfolate] 15 mg tablet 15 mg PO DAILY loratadine [Claritin] 10 mg tablet 10 mg PO DAILY lorazepam [Ativan] 0.5 mg tablet 0.5 mg PO DAILY PRN PNV 119-iron fum-folic acid 29 mg iron- 1 mg tablet 1 tab PO DAILY B-complex with vitamin C Capsule 1 cap PO DAILY acetaminophen [Tylenol Extra Strength] 500 MG tablet 1,000 mg PO Q6H PRN meclizine 12.5 mg tablet 12.5 mg PO Q8H PRN hydrochlorothiazide 25 mg tablet 25 mg PO DAILY ondansetron HCl [Zofran] 4 mg tablet 4 mg PO Q8H fluticasone propionate [Flovent HFA] 110 mcg/actuation HFA aerosol inhaler 2 puff inhalation BID PRN hydroxyzine HCl 25 mg tablet See Rx Instructions PO QID PRN (Reason: itching) Qty: 30 3RF Rx Instructions: Take 25-50 mg every 6 hours as needed for headaches. pantoprazole [Protonix] 40 mg tablet,delayed release (DR/EC) 80 mg PO QHS Qty: 90 Nurtec ODT 75 mg tablet,disintegrating 75 mg PO ONCE PRN (Reason: migraine headache) Qty: 15 3RF Rx Instructions: as a single dose, no more than one dose in 24 hours, no more than 15 doses per month. acetylcysteine [NAC] 600 mg capsule 600 mg PO HS buspirone 10 mg tablet 10 mg PO DAILY lamotrigine 25 mg tablet 50 mg PO HS benzonatate 100 mg capsule 100 mg PO HS PRN Label Comments: TAKE 1 CAPSULE BY MOUTH EVERY 8 HOURS IF NEEDED Spiriva with HandiHaler 18 mcg capsule, w/inhalation device 1 cap INHALATION DAILY Label Comments: INL THE CONTENTS OF 1 C VIA INHALATION DEVICE D levalbuterol tartrate [Xopenex HFA] 200 PUFF HFA aerosol inhaler 2 puff Inhalation PRN PRN topiramate [Topamax] 50 mg tablet 50 mg PO BID Discharge Instructions Instructions: Laparoscopic Cholecystectomy (DC) Additional Instructions: 1. Resume all of your medications. 2. Okay to use tylenol and ibuprofen over the counter as needed. 3. Use oxycodone as needed for severe pain. 4. Leave bandage in place for 24 hours, then remove. 5. Shower with warm soapy water. Pat dry. Use a bandaid if needed to protect your clothing. 6. No soaking or tub baths until I see you in the office. 7. No heavy lifting until I see you in the office. 8.Call the office (or go directly to the emergency room after hours) if you notice any of the following: Develop chills (warm to touch), or if you have a thermometer and your temperature is above 101 Difficulty breathing or difficultly swallowing Persistent vomiting Any bleeding ? exceeding one tablespoon 6. Call your physician if the site where your intravenous was started becomes red, swollen, painful, and warm to touch. Referrals: Dennis Saavedra MD [ [facility] STAFF PHYSICIAN] - (Follow up 10-14 days) Activity:: Activity as Tolerated Remove Dressings/Wound Care:: 24 hours Shower/Bathe:: 24 hours Diet:: As Tolerated Discharge Orders Discharge Orders: Discharge Order (Routine); Ordered 04/05/22 Ordered By: Dennis Saavedra
--- NOTE | 2022-04-05 17:09 | W.PM.OP ---
Date of service: 04/06/22 Time of Service: 08:54 Operative Note Operative Note DATE OF PROCEDURE: 04/06/22 PRE-OP DIAGNOSIS: Symptomatic cholelithiasis POST-OP DIAGNOSIS: same PROCEDURE: Laparoscopic cholecystectomy SURGEON: Dennis Saavedra WIRE DRAWING DIE MAKER: Sonya Robertson ANESTHESIA TYPE: General LMA/ETT Refer to Anesthesia Record PATHOLOGY: other (gallbladder) COMPLICATIONS: None Patient was transported to: PACU Patient's condition: stable Indications: She is 56 years old and complains of several weeks of ongoing right upper quadrant pain.? She underwent an ultrasound that demonstrated gallstones without evidence of acute cholecystitis.? She tells me that the pain is in the midepigastrium and right upper quadrant.? It is worse with meals, particularly with coffee (with sugar and cream) and beans (ground with butter).? She says the pain is sharp, stabbing, and a bit gnawing.? She denies any nausea or vomiting. Procedure Description: After satisfactory induction of general anesthesia, I prepped and draped the abdomen in usual fashion. Next, I began with a periumbilical incision. I dissected down to the fascia and elevated it with Tera clamps. I incised it sharply. Next, I passed a 12 mm operating port in the umbilical site. I secured it to the fascia with 0 Vicryl stitches. I then insufflated the peritoneal cavity. Next I inserted a 5 mm 0 degree scope and examined the underlying viscera. There was no evidence of injury created upon entry. I then placed the patient in some reverse Trendelenburg and left side down positioning. Then, with the assistance of the laparoscope, I used local anesthetic to anesthetize the midepigastric and 2 right upper quadrant port sites. Under the vision of the laparoscope, I passed 3 more 5 mm ports. I then grasped the gallbladder fundus and elevated cephalad. I began by dissecting the gallbladder infundibulum. I worked in a lateral to medial fashion. Once I skeletonized the cystic duct and cystic artery, with a satisfactory critical view of safety, I doubly clipped and divided them. I then used electrocautery to dissect the gallbladder off the gallbladder fossa. I passed the gallbladder into an Endo Catch bag and removed it by way of the umbilical site. I examined the surgical field. It was hemostatic. I then removed the 5 mm ports under the vision of the laparoscope. Finally, I removed the umbilical port site and closed the fascia with Vicryl stitches. Sites were irrigated, and the skin was closed with subcuticular stitches. Bandages were applied, patient was awakened from anesthesia, and transferred to the recovery unit.
[2022-04-06] VITALS (9 sets, daily range): BP systolic 99–169; BP diastolic 73–108; PULSE 77–94; RESP 11–18; TEMP 36.3–36.7; O2SAT 93–99; BMI 26.6
[2022-04-06] MEDS: Celecoxib 200 MG CAP PO (07:04)
[2022-04-06] MEDS: Acetaminophen 500 MG TAB 1000 MG PO (07:04)
[2022-04-06] MEDS: Lactated Ringers 1,000 ML 80 ML IV (07:10)
--- NOTE | 2022-04-06 07:25 | ANES.PREOP_ITS ---
General Info Date of Service Date Performed: 04/06/22 Height: 5 ft 1 in Weight: 63.8 kg Body Mass Index (BMI): 26.6 Surgical Procedure: Operation Date: 04/06/22 07:40 Proposed Procedure Side Surgeon p Cholecystectomy Laparoscopic Dennis Saavedra MD Meds Allergies and Home Medications Allergies Allergy/AdvReac Type Severity Reaction Status Date / Time nicotine Allergy Severe PATCHES-REDNESS Verified 04/06/22 07:16 & SWELLING chlorhexidine Allergy Mild Skin Rash Verified 04/06/22 07:16 adhesive Allergy Skin Rash Verified 04/06/22 07:16 amitriptyline Allergy Verified 04/06/22 07:16 doxycycline Allergy Verified 04/06/22 07:16 bupropion AdvReac Severe AGITATION Verified 04/06/22 07:16 duloxetine AdvReac Intermediate HEARING Verified 04/06/22 07:16 THINGS hydrocodone AdvReac Intermediate Itching Verified 04/06/22 07:16 pregabalin [From Lyrica] AdvReac Intermediate foggy brain Verified 04/06/22 07:16 trazodone AdvReac Intermediate ANXIETY Verified 04/06/22 07:16 pravastatin AdvReac Mild HEADACHE Verified 04/06/22 07:16 simvastatin AdvReac Mild LEG Verified 04/06/22 07:16 CRAMPS; HEADACHE varenicline AdvReac Mild BEHAVIOR Verified 04/06/22 07:16 CHANGES promethazine AdvReac Unknown ANXIETY Verified 04/06/22 07:16 zolpidem AdvReac Unknown INCREASED Verified 04/06/22 07:16 DEPRESSION Home Medication Medication Instructions Recorded acetaminophen 500 mg tablet 1,000 mg PO Q6H PRN 03/21/17 (Tylenol Extra Strength) levalbuterol tartrate 45 2 puff inhalation PRN PRN 08/12/17 mcg/actuation aerosol inhaler (Xopenex HFA) hydrochlorothiazide 25 mg tablet 25 mg PO DAILY 06/08/19 meclizine 12.5 mg tablet 12.5 mg PO Q8H PRN 06/08/19 benzonatate 100 mg capsule 100 mg PO HS PRN 03/16/20 tiotropium bromide 18 mcg capsule 1 cap inhalation DAILY 03/16/20 with inhalation device (Spiriva with HandiHaler) lidocaine 5 % topical patch 1 patch topical DAILY 06/15/20 (Lidoderm) TENS units #1 ea 08/01/20 aspirin 81 mg tablet,delayed 81 mg PO DAILY 01/05/21 release (Adult Aspirin Regimen) ondansetron HCl 4 mg tablet 4 mg PO Q8H 03/20/21 (Zofran) fluticasone propionate 110 2 puff inhalation BID PRN 08/16/21 mcg/actuation HFA aerosol inhaler (Flovent HFA) lovastatin 20 mg tablet 20 mg PO QPM 08/16/21 topiramate 50 mg tablet (Topamax) 50 mg PO BID 08/16/21 hydroxyzine HCl 25 mg tablet See Rx Instructions PO QID PRN 09/05/21 itching #30 tabs pantoprazole 40 mg tablet,delayed 80 mg PO QHS #90 tab-caps 10/18/21 release (Protonix) onabotulinumtoxinA 200 unit 200 unit IM ONCE 01/23/22 solution for injection (Botox) rimegepant 75 mg disintegrating 75 mg PO ONCE PRN migraine 02/06/22 tablet (Nurtec ODT) headache #15 tabs levomefolate calcium 15 mg tablet 15 mg PO DAILY 03/20/22 (L-Methylfolate) loratadine 10 mg tablet (Claritin) 10 mg PO DAILY 03/20/22 lorazepam 0.5 mg tablet (Ativan) 0.5 mg PO DAILY PRN 03/20/22 montelukast 10 mg tablet 10 mg PO DAILY 03/20/22 (Singulair) B-complex with vitamin C 1 cap PO DAILY 03/21/22 vitamins no.119-iron 1 tab PO DAILY 03/21/22 fumarate 29 mg-folic acid 1 mg tablet acetylcysteine 600 mg capsule (NAC) 600 mg PO HS 04/04/22 buspirone 10 mg tablet 10 mg PO DAILY 04/04/22 lamotrigine 25 mg tablet 50 mg PO HS 04/04/22 Current Visit Medications: Current Medications Generic Name Dose Route Start Last Admin Trade Name Freq PRN Reason Stop Dose Admin Acetaminophen 1,000 mg 04/06/22 06:00 04/06/22 07:04 Acetaminophen 500 Mg Tab PO 04/06/22 23:59 1,000 mg PREOP CHRISTA Administration Acetaminophen 650 mg 04/05/22 17:12 Acetaminophen 325 Mg Tab PO Q4H PRN PRN Celecoxib 200 mg 04/06/22 06:00 04/06/22 07:04 Celecoxib 200 Mg Cap PO 04/06/22 16:00 200 mg PREOP CHRISTA Administration Ringer's Solution 1,000 mls @ 80 mls/hr 04/06/22 06:00 04/06/22 07:10 IV 04/06/22 23:59 80 mls/hr INFUSION CHRISTA Administration Ondansetron HCl 8 mg/ Sodium 54 mls @ 200 mls/hr 04/05/22 17:12 Chloride IVPB Q6H PRN PRN IV Miscellaneous Supplies 1 each 04/06/22 06:00 Iv Access IV 04/06/22 23:59 DIRECTED CHRISTA Morphine Sulfate 2 mg 04/05/22 17:18 Morphine 2 Mg/Ml Syr IVP Q1H PRN PRN Oxycodone HCl 5 mg 04/05/22 17:12 Oxycodone 5 Mg Tab PO Q3H PRN PRN Pain Sodium Chloride 0 ml 04/06/22 06:00 Normal Saline Flush 10 Ml Syr IV 04/06/22 23:59 PRN PRN Sodium Chloride 0 ml 04/06/22 06:00 Normal Saline 10 Ml Vial IJ 04/06/22 23:59 DIRECTED PRN Sterile Water 0 ml 04/06/22 06:00 Water,Injection,Sterile 10 Ml Vial IJ 04/06/22 23:59 DIRECTED PRN PFSH Active Problems Active Problems: Problem Status Onset Code COPD (chronic obstructive pulmonary disease) 01/06/15 J44.9 Depression 07/30/14 F32.9 Fibromyalgia 07/30/14 M79.7 Hyperlipidemia E78.5 Joint pain 07/30/14 M25.50 Low back pain with sciatica 05/25/14 M54.40 Peptic reflux disease K21.9 Shoulder pain, left 05/25/14 M25.512 Smoker F17.200 Tremor R25.1 Chronic headache R51 Migraine headache without aura G43.009 Anxiety F41.9 Microscopic hematuria R31.29 Cervicalgia M54.2 Prolonged QT interval R94.31 Gastritis ~12/2020 K29.70 Cough R05 Memory loss R41.3 Seasonal allergies J30.2 Dizziness R42 Transient neurological symptoms R29.818 History of prediabetes Z87.898 Elevated transaminase level R74.01 Lymph nodes enlarged R59.9 Pulmonary nodule R91.1 Sinusitis J32.9 Vasomotor symptoms due to menopause N95.1 Fatigue R53.83 Chest pain R07.9 Irregular bowel habits R19.8 GERD (gastroesophageal reflux disease) K21.9 Sore throat J02.9 Leukocytosis D72.829 Chronic pain G89.29 Bruxism F45.8 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 is unaware of this Obstructive sleep apnea Post traumatic stress disorder (PTSD) Pre-diabetes Thyroid nodule Medical History Comments:: PONV; pt states scopolamine patches help some; stops the vomiting Surgical History Surgical History (Updated 04/06/22 @ 06:42 by Pooja Mcintosh) Bilateral salpingectomy with oophorectomy Biopsy of breast (~2007) neg EGD - MAC 2014-[facility] History of bunionectomy right History of colonoscopy (~12/2020) History of esophagogastroduodenoscopy (EGD) (~12/2020) History of tonsillectomy and adenoidectomy Hx of rotator cuff surgery bilateral Hysterectomy, Laproscopic Oophrectomy, Left B Tobacco Smoking/Tobacco Use Status: Former Tobacco Use Alcohol Alcohol Intake: former Substance Use Substance use: Never Substance use type: does not use Vital Signs and Lab Results Vital Signs Most Recent Vital Signs in EMR: Most Recent Vital Signs Temp Pulse Resp BP Pulse Ox 36.7 C 88 16 143/92 H 97 04/06/22 06:49 04/06/22 06:49 04/06/22 06:49 04/06/22 06:49 04/06/22 06:49 Lab Results Blood Type / Crossmatch: No Data to Display Complete Blood Count: No Data to Display Complete Metabolic Panel: No Data to Display Liver Function Panel: No Data to Display Coagulation Panel: No Data to Display Cardiac Panel: No Data to Display Arterial Blood Gas: No Data to Display Venous Blood Gas: No Data to Display Pancreas Panel: No Data to Display Thyroid Panel: No Data to Display Infectious Disease: No Data to Display Blood Cultures: No Data to Display Toxicology Panel: No Data to Display Imaging and Studies Imaging and Studies Study information below may be from another EMR and interpreted by another provider. Please see original notes in EMR for more complete details. EKG Summary: Rate 71, sinus rhythm, questionable incomplete right bundle branch block, nonspecific flattening of T waves in V3, inverted T wave in V1 V2, those are present on prior EKGs. No evidence of STEMI. 03/16/20 Stress Test Summary: Impressions: Normal study after maximal exercise. Summary: 1. Stress ECG conclusions: Wells treadmill score: 6. This score predicts a low risk of cardiac events. 03/13/18 Anesthesia Assessment and Plan Anesthesia History Personal History: PONV Family History: No Family History of Anesthesia Complications Exercise Tolerance Exercise Tolerance: Metabolic Equivalents<4 Pertinent Negatives Pertinent Negatives: No Symptoms of GERD (Well controlled with medication ), No Major Cardiovascular Symptoms or Complaints (See cardiology note), No Major Pulmonary Symptoms or Complaints (Quit Mar 22, 2021 cigarettes ppd, ADELITA does not wear CPAP, COPD, Emphysema ) and No History of CVA/TIA Cardiac & Pulmonary Exam Cardiac Exam: Normal S1/S2 Heart Sounds Pulmonary Exam: Clear Bilateral Breath Sounds Implantable Cardiac Device Does patient have a Pacemaker or an ICD?: No Airway Exam Known Difficult Airway: No Mallampati Class: 2 Mouth Opening: Normal (> 3cm) Thyromental Distance: Greater than 3 cm Neck Range of Motion: Full ROM Neck Circumference: Normal Teeth Condition: Generalized Poor Dentition and Removable Dentures/Plates Upper ASA Classification ASA Score: ASA 3 Emergency Case?: No NPO Status NPO Status: NPO Clears >2 hours, Solids >8 hours Anesthesia Plan Resuscitation Status: Full Code Anesthesia Technique: General Anesthesia Airway Planned: Endotracheal Tube Monitors Used: Standard Monitors
--- NOTE | 2022-04-06 08:36 | GB_PTH ---
PATIENT: Connie Humphrey LOC: [facility] U#:[id number] AGE/SX: 56/F ROOM: RE04/06/[address]: eDnnis Saavedra MD : [id number] BED: DIS: 04/06/2022 SPEC #: [id number] RECD: 04/06/22 12:29 STATUS: CARYN RE #: [id number] OSVALDO: 04/06/22 08:[address]: Dennis Saavedra DEPT: Surgical Specimen RECD BY: Casandra Whyte ENTERED: 04/06/22 12:30 SP TYPE: GB OTHR DR: Martha Marrufo Tissues: 1 - GALLBLADDER Procedures: GROSS AND MICRO LEVEL 3 Comments: [id number]
[2022-04-06] MEDS: Bupivacaine 0.25% Pres-Free 30 ML VIAL (08:43)
[2022-04-06] MEDS: fentaNYL 100 MCG/2 ML VIAL IVP (09:20)
[2022-04-06] MEDS: oxyCODONE 5 MG TAB PO (10:25)
--- NOTE | 2022-04-06 12:56 | W.ANESPOSTOP ---
Postoperative Evaluation Date, Time and Location Date Performed: 04/06/22 Time Performed: 12:01 Patient Location: Day Surgery Unit Vital Signs Most Recent Imported Vital Signs: Most Recent Vital Signs Temp Pulse Resp BP Pulse Ox 36.4 C L 92 H 17 120/76 97 04/06/22 11:34 04/06/22 11:34 04/06/22 11:34 04/06/22 11:34 04/06/22 11:34 Pain Score Most Recent Pain Score: Most Recent Pain Score Pain Level 7 04/06/22 11:34 Assessment Mental Status: Awake (Alert & Oriented to Patient Baseline) Airway and Respiratory Function: Patent airway with normal (patient baseline) respiratory exam Cardiovascular Function: Hemodynamically Stable Hydration Status: Adequately Hydrated Nausea & Vomiting: No Nausea or Vomiting Pain: Pt. Denies Any Pain Peripheral Nerve Block: Patient did not receive a nerve block
== END 2022-04-06 12:15 | disposition home or self-care (01) ==
PROVIDERS: PCP Nurse Practitioner Family; Visit Provider Surgery
PROC: 0FT44ZZ Resection of Gallbladder, Percutaneous Endoscopic Approach (ICD-10-PCS; CPT 47562; principal; 2022-04-06 07:30)
DX: K80.10 Calculus of gallbladder with chronic cholecystitis without obstruction (principal); R73.03 Prediabetes; J44.9 Chronic obstructive pulmonary disease, unspecified
CPT/HCPCS: 47562; 88304; J0131; J0690; J1100; J1200; J1885; J2001; J2250; J2405; J3010

== ENCOUNTER 2022-05-02 09:14 | Outpatient (REF) | payer MEDICAID, SELFPAY ==
[2022-05-02 15:24] LABS: ALT 91 U/L (14-59); AST 46 U/L (15-37); Alkaline Phosphatase 122 U/L (46-116); Anion Gap 10.4 mmol/L (3-11); BUN 22 mg/dL (7-18); Bilirubin, Total 0.3 mg/dL (0.2-1.0); CO2 26.6 mmol/L (21.0-32.0); CREATININE 1.1 mg/dL (0.55-1.02); Calcium 9.6 mg/dL (8.5-10.1); Chloride 104 mmol/L (98-107); Cholesterol 272 mg/dL (<200); Estimated GFR 59.34 (mL/min/1.73m2); Glucose 144 mg/dL (74-106); HDL Cholesterol 43 mg/dL (40-60); Potassium 4.3 mmol/L (3.5-5.1); Sodium 141 mmol/L (136-145); TSH (W/Ref FT4) 1.77 uIU/mL (0.36-3.74); Total Protein 7.3 g/dL (6.4-8.2); Triglyceride 404 mg/dL (<150)
[2022-05-02 16:17] LABS: LDL CHOLESTEROL 121 mg/dL (<100)
== END 2022-05-02 09:15 | disposition home or self-care (01) ==
LOC: NCHCN 09:14
PROVIDERS: PCP Nurse Practitioner Family; Visit Provider Nurse Practitioner Family
DX: E04.1 Nontoxic single thyroid nodule (principal); I10 Essential (primary) hypertension; E78.5 Hyperlipidemia, unspecified; R73.03 Prediabetes; R74.01 Elevation of levels of liver transaminase levels; N28.9 Disorder of kidney and ureter, unspecified
CPT/HCPCS: 80053; 80061; 83721; 84443

== ENCOUNTER → 2022-05-28 03:20 | Outpatient (CLI) | payer MEDICAID, SELFPAY ==
--- NOTE | 2022-05-28 08:30 | DI.MRI_ITS ---
Exam(s) MR LUMBAR SPINE WO EXAM: MR LUMBAR SPINE WO CLINICAL HISTORY: LUMBAR HNP, M51.26. TECHNIQUE: Multiplanar multisequence MRI of the Lumbar spine was performed. COMPARISON: CT CT ABDOMEN PELVIS W from 11/27/2018 MR MR LUMBAR SPINE WO from 06/14/[address] ABDOMEN PELVIS W from 12/29/2020 MR MR ABDOMEN WO/W from 01/24/2021 CR XR CHEST 2V PA LATERAL from 04/11/2021 FINDINGS: Bones: The last intervertebral disc space is designated the L5/S1 level for the numbering purpose of this examination. The vertebral body heights are well maintained. Alignment is satisfactory. The ma rrow signal characteristics are unremarkable. Cord: The conus tip ends at the T12 level. It is of normal size and signal intensity. T12-L1: No disc herniations or bulges are present. No central spinal canal or neural foraminal stenos is. L1-2: No disc herniations or bulges are present. No central spinal canal or neural foraminal stenosis . L2-3: No disc herniations or bulges are present. No central spinal canal or neural foraminal stenosis . L3-4: No disc herniations or bulges are present. No central spinal canal or neural foraminal stenosis . L4-5: No disc herniations or bulges are present. No central spinal canal or neural foraminal stenosis . L5-S1: No change in size or appearance of left paracentral disc protrusion. Stable left neural lloyd inal narrowing. No change in apparent change in of the left S1 nerve root. Mild facet degenerative changes.. The visualized SI joints and sacrum are well maintained. Soft tissues: Metallic artifacts in the posterior soft tissues the lower lumbar level, related to yosvany or surgery. IMPRESSION: Stable appearance of left paracentral disc herniation at L5-S1. No new abnormalities. DATA REPOSITORY:
== END ==
PROVIDERS: PCP Nurse Practitioner Family; Visit Provider Urology
DX: M51.26 Other intervertebral disc displacement, lumbar region (principal)
CPT/HCPCS: 72148

== ENCOUNTER 2022-07-12 01:43 | Outpatient (CLI) | payer MEDICAID, SELFPAY ==
--- NOTE | 2022-07-12 | DI.US_ITS ---
Exam(s) US THYROID EXAM: US THYROID CLINICAL HISTORY: THYROID NODULE, E04.1. TECHNIQUE: Ultrasound thyroid performed using standard protocol. COMPARISON: US US THYROID from 09/06/2021 US US ABDOMEN LIMITED from 03/15/2022 FINDINGS: Both thyroid lobes as well as the isthmus again exhibit normal size. There is a single nodule noted in each lobe. There are no nodules in the isthmus. RIGHT THYROID LOBE: Measures 1.8 cm AP x 1.6 cm wide x 4.8 cm craniocaudal Single nodule is located inferiorly. Specifics for this nodule are as follows: Size: Measures 1.2 by 1.0 x 0.8 cm Composition: Solid-2 points Echogenicity: Hypoechoic, more so than strap muscles-3 points Shape: In the transverse plane this nodule is wider than taller-0 points Margin: Smooth- 0 points Echogenic Foci: None-0 points Total Points for this nodule: 5 ACR Ti-Rads Category: TR4 This nodule can be followed as it measures less than 1.5 cm LEFT THYROID LOBE: Measures 1.4 cm AP x 1.3 wide x 4.3 cm craniocaudal Single nodule in this lobe is located inferiorly. Specifics for this nodule are as follows: Size: Measures 1.0 x 0.8 x 0.8 cm Composition: Mixed [id number]-3 point Echogenicity: Hypoechoic-2 points Shape: In the transverse plane this nodule is wider than taller-0 points Margin: Smooth-0 points Echogenic Foci: Appears to contain punctate foci-3 points Total points for this nodule: 6; ACR Ti-Rads Category: 4 This nodule can be followed as it measures less than 1.5 cm. This nodule exhibits minimal change from 09/06/2021 LYMPH NODES: Small benign-appearing right-sided lymph nodes. There is slightly larger lymph nodes in left side of the neck measuring up to 1.2 cm but these do not exhibit ominous appearance.. IMPRESSION: 1. There is a single nodule in each lobe, as described above. These are both TiRads 4 nodules and can be followed given that they measure less than 1.5 cm (which is the cutoff fo r ultrasound-guided FNA in this category). Follow-up ultrasound in 1 year recommended. 2. There is no significant lymphadenopathy. DATA REPOSITORY:
--- NOTE | 2022-07-12 | DI.CTLCSR_ITS ---
Exam(s) CT CHEST LUNG CANCER SCREEN EXAM: CT CHEST LUNG CANCER SCREEN CLINICAL HISTORY: SCREENING FOR LUNG CA, FORMER SMOKER, Z87.891. TECHNIQUE: Imaging Protocol: Low Dose Technique CONTRAST MATERIAL: None COMPARISON: CT CT CHEST LUNG CANCER SCREEN from 07/10/2021 FINDINGS: CHEST: LUNGS: There are no new ominous pulmonary nodules. Benign calcified granulomas are again noted in bot h lungs. Mild atelectasis in the lingular segment left lung is unchanged. No pleural effusions. MEDIASTINUM: There is no obvious hilar nor mediastinal adenopathy. CARDIAC: Heart size is normal. There is no pericardial effusion.Caliber of the thoracic aorta is wit hin normal limits. OTHER: Previous cholecystectomy. OSSEOUS: No significant osseous lesions.. IMPRESSION: 1. No significant new pulmonary nodules. Benign granulomas again noted bilaterally. 2. No pleural effusions nor intrathoracic adenopathy. 3. Lung RADS Cat 2 - Benign Appearance / Behavior: Nodules with a very low likelihood of becoming a c linically active cancer due to size or lack of growth Lung-RADS 1.0 CATEGORIES: Category 0 - Prior chest CT exam(s) being located for comparison. Category 1 - Annual screening in 12 months. No nodules or definitely benign nodules. Category 2 - Annual screening in 12 months. Benign appearance. Nodules with low likelihood of becomin g active cancer. Category 3 - 6-month follow-up. Probably benign. Short-term follow-up suggested. Nodules with low lik elihood of becoming active cancer. Category 4A - 3-month follow-up and CT/PET if >8 mm in size. Suspicious finding. Findings which requi re additional testing. Category 4B - Findings which require additional testing and tissue sampling. Category 4X - Category 3 or 4 nodules with additional features or imaging findings that increases the suspicion of malignancy. Modifier S- Potentially clinically significant findings (non lung cancer) RADIATION DOSE DELIVERED: 74.84mGy.cm Total DLP DATA REPOSITORY: All CT scans at this facility are submitted to the National Radiology Data Registry (NRDR) Dose Index Registry (DIR) with the [employer] (ACR). RADIATION OPTIMIZATION: All CT scans at this facility use at least one of these dose optimization te chniques: automated exposure control; mA and/or kV adjustment per patient size (includes targeted exa ms where dose is matched to clinical indication); or iterative reconstruction.
== END 2022-07-12 02:03 ==
PROVIDERS: PCP Nurse Practitioner Family; Visit Provider Nurse Practitioner Family
DX: Z12.2 Encounter for screening for malignant neoplasm of respiratory organs (principal); Z98.891 History of uterine scar from previous surgery; E04.1 Nontoxic single thyroid nodule
CPT/HCPCS: 71271; 76536

== ENCOUNTER 2022-08-03 16:25 | Outpatient (REF) | payer MEDICAID, SELFPAY ==
[2022-08-03 21:14] LABS: Abs Immature Grans 0.04 10^3/uL (0.0-0.06); Absolute Basophil Count 0.06 10^3/uL (0.0-0.2); Absolute Eosinophil Count 0.15 10^3/uL (0.0-0.7); Absolute Lymphocyte Count 4.62 10^3/uL (1.2-3.4); Absolute Monocyte Count 0.56 10^3/uL (0.1-0.8); Absolute Neutrophil Count 6.45 10^3/uL (1.2-6.7); Basophils % 0.5; Eosinophils % 1.3; HCT 42.4 % (36.0-46.0); HGB 14.5 g/dL (11.2-15.7); Immature Grans % 0.3; Lymphocytes % 38.9; MCH 31.7 pg (27.0-33.0); MCHC 34.2 % (32.0-36.0); MCV 93 fL (80-95); MPV 11.3 fL (8.0-11.0); Monocytes % 4.7; Neutrophils % 54.3; Platelet Count 323 10^3/uL (130-400); RBC 4.58 10^6/uL (3.93-5.22); RDW 11.7 % (11.7-14.6); RDW-SD 39.8 fL; WBC 11.88 10^3/uL (4.4-10.8)
[2022-08-03 21:18] LABS: ESR 24 mm/hr (0-30)
[2022-08-03 21:38] LABS: ALT 70 U/L (14-59); AST 36 U/L (15-37); Albumin 4.3 g/dL (3.4-5.0); Alkaline Phosphatase 114 U/L (46-116); Anion Gap 9.5 mmol/L (3-11); BUN 21 mg/dL (7-18); Bilirubin, Total 0.4 mg/dL (0.2-1.0); C-Reactive Protein 0.45 mg/dL (0.0-0.3); CO2 26.5 mmol/L (21.0-32.0); CREATININE 1.1 mg/dL (0.55-1.02); Calcium 9.5 mg/dL (8.5-10.1); Chloride 104 mmol/L (98-107); Estimated GFR 58.97 (mL/min/1.73m2); Glucose 143 mg/dL (74-106); Potassium 3.7 mmol/L (3.5-5.1); Sodium 140 mmol/L (136-145); TSH (W/Ref FT4) 1.14 uIU/mL (0.36-3.74); Total Protein 7.7 g/dL (6.4-8.2)
[2022-08-06 10:09] LABS: Lyme Ab w Rflx to Lyme Confirm Negative (Negative)
[2022-08-06 14:00] LABS: ANA Interpretation Negative (Negative)
[2022-08-08 19:08] LABS: Anaplasma phagocytophilum Negative (Negative); B. miyamotoi PCR Negative (Negative); Babesia divergens/MO-1 Negative (Negative); Babesia duncani Negative (Negative); Babesia microti Negative (Negative); Ehrlichia chaffeensis Negative (Negative); Ehrlichia ewingii/canis Negative (Negative); Ehrlichia muris eauclairensis Negative (Negative)
== END 2022-08-03 16:26 | disposition home or self-care (01) ==
LOC: NCHCN 16:25
PROVIDERS: PCP Nurse Practitioner Family; Visit Provider Nurse Practitioner Family
DX: E04.1 Nontoxic single thyroid nodule (principal); K76.0 Fatty (change of) liver, not elsewhere classified; I10 Essential (primary) hypertension; K21.9 Gastro-esophageal reflux disease without esophagitis; E78.5 Hyperlipidemia, unspecified; R61 Generalized hyperhidrosis
CPT/HCPCS: 80053; 85652; 87798; 84443; 85025; 86038; 86140; 86618

== ENCOUNTER 2022-08-27 15:00 | Outpatient (REF) | payer MEDICAID, SELFPAY | END 2022-08-27 15:01 | disposition home or self-care (01) | LOC: NCHCN 15:00 | PROVIDERS: PCP Nurse Practitioner Family; Visit Provider Nurse Practitioner Family | DX: R30.0 Dysuria (principal) | CPT/HCPCS: 87086 ==

== ENCOUNTER 2022-09-03 15:57 | Outpatient (CLI) | payer MEDICAID, SELFPAY ==
--- NOTE | 2022-09-03 14:07 | DI.RAD_ITS ---
Exam(s) XR CHEST 2V PA LATERAL EXAM: XR CHEST 2V PA LATERALz CLINICAL HISTORY: ACUTE URI-[id number] TECHNIQUE: 2D digital imaging was performed. COMPARISON: CR XR CHEST 2V PA LATERAL from 04/11/[address] CHEST LUNG CANCER SCREEN from 07/12/2022 FINDINGS: HEART: Normal size. Aorta: Not dilated. PULMONARY VASCULATURE: Normal. LUNGS: Clear. PLEURAL SPACE: No pleural effusion or pneumothorax. BONE:Unremarkable for age. IMPRESSION: No acute abnormality. DATA REPOSITORY: RADIATION DOSE DELIVERED:
== END 2022-09-03 16:17 ==
LOC: DI 15:58
PROVIDERS: PCP Nurse Practitioner Family; Visit Provider Nurse Practitioner Family
DX: J06.9 Acute upper respiratory infection, unspecified (principal)
CPT/HCPCS: 71046

== ENCOUNTER 2022-11-01 08:24 | Emergency (ER) | payer MEDICAID, SELFPAY ==
[2022-11-01] VITALS (21 sets, daily range): BP systolic 116–166; BP diastolic 61–101; PULSE 69–103; RESP 10–25; TEMP 36.8; O2SAT 92–98
--- NOTE | 2022-11-01 08:15 | RT.EKG_ITS ---
APPROVED REPORT Exam: Resting ECG Reason for Exam: chest pain Patient Location: E HR:95 bpm ECG Measurements Heart Rate 95 AXIS OH 183 P 51 QRSd 98 QRS 92 QT 391 T 59 QTc 492 Conclusion Sinus rhythm...normal P axis, V-rate 60- 99 normal sinus rhtyhm, normal axis, RBBB unchanged, non ischemic
--- NOTE | 2022-11-01 08:45 | ED.GENADUL_ITS ---
Discharge Plan Disposition Patient Disposition: Home Condition: Improving Discharge Details Chief Complaint: Chest Pain Clinical Impression: Chest pain Primary Care Provider: Martha Marrufo ED Provider: Mando Baker Meds and New Rx's Prescriptions: No Action lidocaine [Lidoderm] 5 % adhesive patch,medicated 1 patch topical DAILY Rx Instructions: leave on most painful area for up to 12 hrs aspirin [Adult Aspirin Regimen] 81 mg tablet,delayed release (DR/EC) 81 mg PO DAILY lovastatin 20 mg tablet 20 mg PO QPM Botox 200 unit recon soln 200 unit IM ONCE benzonatate 100 mg capsule 100 mg PO HS PRN (Reason: cough) Qty: 20 0RF levalbuterol tartrate [Xopenex HFA] 45 mcg/actuation HFA aerosol inhaler 2 puff Inhalation PRN PRN (Reason: URI) Qty: 15 0RF Rx Instructions: 2 puffs every 4-6 hours as needed for cough, sob, or wheeze (DME) Aerochamber MV Spacer See Rx Instructions .Route Qty: 1 0RF Rx Instructions: As directed (DME) TENS units Device See Rx Instructions .ROUTE .MEDSUPPLY Qty: 1 Rx Instructions: As directed montelukast [Singulair] 10 mg tablet 10 mg PO DAILY levomefolate calcium [L-Methylfolate] 15 mg tablet 15 mg PO DAILY loratadine [Claritin] 10 mg tablet 10 mg PO DAILY PRN lorazepam [Ativan] 0.5 mg tablet 0.5 mg PO DAILY PRN Patient Comments: not taking PNV 119-iron fum-folic acid 29 mg iron- 1 mg tablet 1 tab PO DAILY Patient Comments: not taking B-complex with vitamin C Capsule 1 cap PO DAILY acetaminophen [Tylenol Extra Strength] 500 MG tablet 1,000 mg PO Q6H PRN meclizine 12.5 mg tablet 12.5 mg PO Q8H PRN hydrochlorothiazide 25 mg tablet 25 mg PO DAILY ondansetron HCl [Zofran] 4 mg tablet 4 mg PO Q8H Patient Comments: not taking fluticasone propionate [Flovent HFA] 110 mcg/actuation HFA aerosol inhaler 2 puff inhalation BID PRN pantoprazole [Protonix] 40 mg tablet,delayed release (DR/EC) 80 mg PO QHS Qty: 90 Nurtec ODT 75 mg tablet,disintegrating 75 mg PO ONCE PRN (Reason: migraine headache) Qty: 15 3RF Rx Instructions: as a single dose, no more than one dose in 24 hours, no more than 15 doses per month. acetylcysteine [NAC] 600 mg capsule 600 mg PO HS Patient Comments: not taking buspirone 10 mg tablet 30 mg PO TID lamotrigine 25 mg tablet 50 mg PO HS hydroxyzine HCl 25 mg tablet See Rx Instructions PO QID PRN (Reason: itching) Qty: 30 3RF Rx Instructions: Take 25-50 mg every 6 hours as needed for headaches. Spiriva with HandiHaler 18 mcg capsule, w/inhalation device 1 cap INHALATION DAILY Patient Comments: INL THE CONTENTS OF 1 C VIA INHALATION DEVICE D fluoxetine [Prozac] 40 mg Capsule 40 mg PO DAILY topiramate [Topamax] 50 mg tablet 100 mg PO BID oxycodone 5 mg tablet 5 mg PO Q8H MDD 3 tabs PRN (Reason: pain) Qty: 9 0RF Patient Comments: not taking Rx Instructions: take one tablet by mouth as needed for severe pain. This is highly addictive and should be used with great caution Discharge Instructions Instructions: Chest Pain (ED) Additional Instructions: Please follow with your primary care physician Medical Decision Making 57-year-old female history of GERD presents with epigastric discomfort radiating to chest pressure-like in nature that she noticed around 3 AM while in bed, no shortness of breath no nausea no vomiting no diaphoresis, patient is afebrile nontoxic no respiratory stress lungs clear bilaterally, strong radial pulses bilaterally, abdomen soft nontender nondistended no guarding or rebounding, no peripheral edema, EKG normal sinus rhythm with right bundle branch block unchanged from prior, nonischemic. Consider GERD versus gastritis versus musculoskeletal versus anxiety versus must consider ACS however patient is low risk heart score, low suspicion for PE or aortic pathology. Trial of GI cocktail, aspirin, fluids, screening x-ray, labs including 2 troponin. Disposition likely home with close follow-up 13: 20 patient resting comfortably no acute distress. 2 troponins negative. Patient will follow-up closely with her primary care physician HPI General Date/Time Provider Initiated Documentation: 11/01/22 08:25 . HPI Narrative: 57-year-old female presents with anterior chest pain that awoke her from sleep around 3 AM this morning, radiates from epigastrium and right upper quadrant into chest. Dull and pressure-like in nature. History of cholecystectomy appendectomy and hysterectomy. Patient does have a history of GERD. No history of thromboembolic disease, no exogenous estrogen, no history of [place] PCI or CABG Related Data Home Medications Medication Instructions Recorded Confirmed acetaminophen 500 mg tablet 1,000 mg PO Q6H PRN 03/21/17 11/01/22 (Tylenol Extra Strength) hydrochlorothiazide 25 mg tablet 25 mg PO DAILY 06/08/19 11/01/22 meclizine 12.5 mg tablet 12.5 mg PO Q8H PRN 06/08/19 11/01/22 tiotropium bromide 18 mcg capsule 1 cap inhalation DAILY 03/16/20 11/01/22 with inhalation device (Spiriva with HandiHaler) lidocaine 5 % topical patch 1 patch topical DAILY 06/15/20 11/01/22 (Lidoderm) TENS units #1 ea 08/01/20 04/26/22 aspirin 81 mg tablet,delayed 81 mg PO DAILY 01/05/21 11/01/22 release (Adult Aspirin Regimen) ondansetron HCl 4 mg tablet 4 mg PO Q8H 03/20/21 04/26/22 (Zofran) fluticasone propionate 110 2 puff inhalation BID PRN 08/16/21 11/01/22 mcg/actuation HFA aerosol inhaler (Flovent HFA) lovastatin 20 mg tablet 20 mg PO QPM 08/16/21 11/01/22 topiramate 50 mg tablet (Topamax) 100 mg PO BID 08/16/21 11/01/22 pantoprazole 40 mg tablet,delayed 80 mg PO QHS #90 tab-caps 10/18/21 11/01/22 release (Protonix) onabotulinumtoxinA 200 unit 200 unit IM ONCE 01/23/22 11/01/22 solution for injection (Botox) rimegepant 75 mg disintegrating 75 mg PO ONCE PRN migraine 02/06/22 11/01/22 tablet (Nurtec ODT) headache #15 tabs levomefolate calcium 15 mg tablet 15 mg PO DAILY 03/20/22 11/01/22 (L-Methylfolate) loratadine 10 mg tablet (Claritin) 10 mg PO DAILY PRN 03/20/22 11/01/22 lorazepam 0.5 mg tablet (Ativan) 0.5 mg PO DAILY PRN 03/20/22 04/26/22 montelukast 10 mg tablet 10 mg PO DAILY 03/20/22 11/01/22 (Singulair) B-complex with vitamin C 1 cap PO DAILY 03/21/22 11/01/22 vitamins no.119-iron 1 tab PO DAILY 03/21/22 04/26/22 fumarate 29 mg-folic acid 1 mg tablet acetylcysteine 600 mg capsule (NAC) 600 mg PO HS 04/04/22 04/26/22 buspirone 10 mg tablet 30 mg PO TID 04/04/22 11/01/22 lamotrigine 25 mg tablet 50 mg PO HS 04/04/22 11/01/22 oxycodone 5 mg tablet 5 mg PO Q8H PRN pain #9 tabs 04/06/22 04/26/22 hydroxyzine HCl 25 mg tablet See Rx Instructions PO QID PRN 05/07/22 11/01/22 itching #30 tabs benzonatate 100 mg capsule 100 mg PO HS PRN cough #20 caps 09/03/22 11/01/22 inhalational spacing device #1 ea 09/03/22 09/03/22 (Aerochamber MV spacer) levalbuterol tartrate 45 2 puff inhalation PRN PRN URI #15 09/03/22 11/01/22 mcg/actuation aerosol inhaler grams (Xopenex HFA) fluoxetine 40 mg capsule (Prozac) 40 mg PO DAILY 11/01/22 11/01/22 Previous Rx's Medication Instructions Recorded rimegepant 75 mg disintegrating 75 mg PO ONCE PRN migraine 02/06/22 tablet (Nurtec ODT) headache #15 tabs oxycodone 5 mg tablet 5 mg PO Q8H PRN pain #9 tabs 04/06/22 hydroxyzine HCl 25 mg tablet See Rx Instructions PO QID PRN 05/07/22 itching #30 tabs benzonatate 100 mg capsule 100 mg PO HS PRN cough #20 caps 09/03/22 inhalational spacing device #1 ea 09/03/22 (Aerochamber MV spacer) levalbuterol tartrate 45 2 puff inhalation PRN PRN URI #15 09/03/22 mcg/actuation aerosol inhaler grams (Xopenex HFA) Allergies Allergy/AdvReac Type Severity Reaction Status Date / Time nicotine Allergy Severe PATCHES-REDNESS Verified 11/01/22 08:33 & SWELLING chlorhexidine Allergy Mild Skin Rash Verified 11/01/22 08:33 adhesive Allergy Skin Rash Verified 11/01/22 08:33 amitriptyline Allergy Verified 11/01/22 08:33 doxycycline Allergy Verified 11/01/22 08:33 bupropion AdvReac Severe AGITATION Verified 11/01/22 08:33 duloxetine AdvReac Intermediate HEARING Verified 11/01/22 08:33 THINGS hydrocodone AdvReac Intermediate Itching Verified 11/01/22 08:33 pregabalin [From Lyrica] AdvReac Intermediate foggy brain Verified 11/01/22 08:33 trazodone AdvReac Intermediate ANXIETY Verified 11/01/22 08:33 pravastatin AdvReac Mild HEADACHE Verified 11/01/22 08:33 simvastatin AdvReac Mild LEG Verified 11/01/22 08:33 CRAMPS; HEADACHE varenicline AdvReac Mild BEHAVIOR Verified 11/01/22 08:33 CHANGES promethazine AdvReac Unknown ANXIETY Verified 11/01/22 08:33 zolpidem AdvReac Unknown INCREASED Verified 11/01/22 08:33 DEPRESSION General Stated Complaint: Chest Pain NICOLAS: 2 Review of Systems Narrative: Review of Systems Constitutional: negative Eyes: negative ENT: negative Cardiovascular: negative Respiratory: negative Gastrointestinal: negative : negative Musculoskeletal: negative Skin: negative Neurologic: negative Psych: negative PFSH All Active Problems (Updated 11/01/22 @ 13:29 by Mando Baker MD) Chest pain (Acute) COPD (chronic obstructive pulmonary disease) (Chronic 01/06/15) Depression (Chronic 07/30/14) anxiety fatigue Fibromyalgia (Chronic 07/30/14) Hyperlipidemia (Chronic) Joint pain (Chronic 07/30/14) 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, recurrent [facility] [place] 2014 Peptic reflux disease (Chronic) 2012 EGD, mild gastritis 2014 [place] ([facility]) patchy gastritis Shoulder pain, left (Chronic 05/25/14) 05/28 WC Smoker (Chronic) Tremor (Acute) Chronic headache (Acute) Migraine headache without aura (Acute) Anxiety (Chronic) Microscopic hematuria (Acute) Cervicalgia (Acute) Prolonged QT interval (Acute) Gastritis (Acute ~12/2020) mild Cough (Acute) Memory loss (Acute) Seasonal allergies (Acute) Dizziness (Acute) Transient neurological symptoms (Acute) History of prediabetes (Acute) Elevated transaminase level (Acute) Lymph nodes enlarged (Acute) Pulmonary nodule (Acute) Sinusitis (Acute) Vasomotor symptoms due to menopause (Acute) Fatigue (Acute) Chest pain (Acute) Irregular bowel habits (Acute) GERD (gastroesophageal reflux disease) (Chronic) Sore throat (Acute) Leukocytosis (Acute) Chronic pain (Chronic) Bruxism (Acute) Left-sided temporomandibular joint pain-dysfunction syndrome (Acute) Paresthesia (Acute) Hip pain (Acute) Shoulder pain, right (Acute) Periodic limb movement (Acute) Sensorineural hearing loss, bilateral (Acute) Myalgia (Acute) Oral ulceration (Acute) Jaw pain (Acute) Gall stone (Acute) RUQ pain (Acute) Hearing loss (Acute) Liver lesion (Acute) Medical History Colon polyps DDD (degenerative disc disease) Fatty degeneration heart fatty infiltration of RV Hypertension Migraine with aura GARZA (nonalcoholic steatohepatitis) pt. is unaware of this Obstructive sleep apnea Post traumatic stress disorder (PTSD) Pre-diabetes Thyroid nodule Surgical History Bilateral salpingectomy with oophorectomy [place] (~2007) [place] [facility] History of bunionectomy right History of cholecystectomy (~04/05/22) History of colonoscopy (~12/2020) History of esophagogastroduodenoscopy (EGD) (~12/2020) History of tonsillectomy and adenoidectomy Hx of rotator cuff surgery bilateral Hysterectomy, Laproscopic Oophrectomy, Left B Family History Mother Essential hypertension Diabetes TYPE 2 Hyperlipidemia Father Heart disease Hyperlipidemia Myocardial infarction Sister Hyperlipidemia Brother No problems noted. Grandfather No problems noted. Grandfather No problems noted. Grandmother Personal history of malignant neoplasm BREAST Grandmother No problems noted. 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 Do you feel safe at home: Yes Do you feel safe in your relationship?: Yes Exam Narrative Exam Narrative: Resting comfortably no acute distress, no respiratory stress lungs clear bilaterally, no heart murmurs appreciated, strong radial pulses bilaterally, no peripheral edema abdomen soft nontender nondistended nonperitoneal Course Vital Signs Vital signs: Vital Signs Pulse 100 H 11/01/22 08:28 Respiratory Rate 18 11/01/22 08:28 Blood Pressure 166/89 H 11/01/22 08:28 Pulse Oximetry 96 11/01/22 08:28 Pulse 100 H 11/01/22 08:28 Respiratory Rate 18 11/01/22 08:34 Respiratory Effort Short of Breath 11/01/22 08:34 Respiratory Depth Normal 11/01/22 08:34 Respiratory Pattern Normal 11/01/22 08:34 Blood Pressure 166/89 H 11/01/22 08:28 Blood Pressure Position Sitting 11/01/22 08:28 Pulse Oximetry 96 11/01/22 08:28 Oxygen Delivery Method Room Air 11/01/22 08:28 Oxygen Flow Rate 0 11/01/22 08:28
[2022-11-01] MEDS: Mylanta Suspension 30 ML CUP PO (08:48)
[2022-11-01] MEDS: Lidocaine 2% Viscous 15 ML CUP PO (08:48)
[2022-11-01] MEDS: Aspirin 81 MG CHEW 324 MG CH (08:49)
[2022-11-01] MEDS: Ondansetron 4 MG/2 ML VIAL IVP (08:50)
[2022-11-01] MEDS: Famotidine 20 MG/2 ML VIAL IVP (08:50)
[2022-11-01] MEDS: Normal Saline 500 ML 1000 ML IV (08:52)
[2022-11-01 09:00] LABS: Abs Immature Grans 0.04 10^3/uL (0.0-0.06); Absolute Basophil Count 0.05 10^3/uL (0.0-0.2); Absolute Eosinophil Count 0.09 10^3/uL (0.0-0.7); Absolute Lymphocyte Count 3.65 10^3/uL (1.2-3.4); Absolute Monocyte Count 0.64 10^3/uL (0.1-0.8); Absolute Neutrophil Count 7.39 10^3/uL (1.2-6.7); Basophils % 0.4; Eosinophils % 0.8; HCT 42.1 % (36.0-46.0); HGB 14.5 g/dL (11.2-15.7); Immature Grans % 0.3; Lymphocytes % 30.8; MCH 31.5 pg (27.0-33.0); MCHC 34.4 % (32.0-36.0); MCV 92 fL (80-95); MPV 9.9 fL (8.0-11.0); Monocytes % 5.4; Neutrophils % 62.3; Platelet Count 362 10^3/uL (130-400); RDW 11.9 % (11.7-14.6); RDW-SD 40.3 fL; WBC 11.86 10^3/uL (4.4-10.8)
--- NOTE | 2022-11-01 09:09 | DI.RAD_ITS ---
Exam(s) XR CHEST 2V PA LATERAL EXAM: XR CHEST 2V PA LATERAL CLINICAL HISTORY: chest pain TECHNIQUE: 2D digital imaging was performed. COMPARISON: CR XR CHEST 2V PA LATERAL from 09/03/2022 FINDINGS: HEART: Normal size. Aorta: Not dilated. PULMONARY VASCULATURE: Normal. LUNGS: Clear. PLEURAL SPACE: No pleural effusion or pneumothorax. BONE:Unremarkable for age. IMPRESSION: No acute abnormality. DATA REPOSITORY: RADIATION DOSE DELIVERED:
[2022-11-01 09:13] LABS: INR 0.9 (0.9-1.1); PTT Activated 27.9 sec (21.5-31.9); Prothrombin Time 9.3 sec (9.3-11.0)
[2022-11-01 09:16] LABS: ALT 62 U/L (14-59); AST 25 U/L (15-37); Albumin 3.9 g/dL (3.4-5.0); Alkaline Phosphatase 104 U/L (46-116); Anion Gap 8.9 mmol/L (3-11); BUN 15 mg/dL (7-18); Bilirubin, Total 0.5 mg/dL (0.2-1.0); CO2 30.1 mmol/L (21.0-32.0); Calcium 9.6 mg/dL (8.5-10.1); Chloride 100 mmol/L (98-107); Estimated GFR 66.12 (mL/min/1.73m2); Glucose 134 mg/dL (74-106); Lipase 43 U/L (16-77); Potassium 3.2 mmol/L (3.5-5.1); Sodium 139 mmol/L (136-145); Total Protein 7.9 g/dL (6.4-8.2); Troponin I < 50 ng/L (<or=60)
[2022-11-01 12:05] LABS: Troponin I < 50 ng/L (<or=60)
== END 2022-11-01 13:42 | disposition home or self-care (01) ==
PROVIDERS: Emergency Provider Emergency Medicine; PCP Nurse Practitioner Family
DX: R07.89 Other chest pain (principal); J44.9 Chronic obstructive pulmonary disease, unspecified; I10 Essential (primary) hypertension; F17.210 Nicotine dependence, cigarettes, uncomplicated; Z90.49 Acquired absence of other specified parts of digestive tract; Z90.710 Acquired absence of both cervix and uterus; Z79.82 Long term (current) use of aspirin
CPT/HCPCS: 36415; 80053; 83690; 93005; 96374; 96375; 99285; 71046; 84484; 85025; 85610; 85730; 93010; 99284; J2405

== ENCOUNTER 2022-11-06 15:45 | Outpatient (REF) | payer MEDICAID, SELFPAY ==
[2022-11-06 20:49] LABS: ESR 22 mm/hr (0-30)
[2022-11-06 20:56] LABS: Anion Gap 7.6 mmol/L (3-11); BUN 11 mg/dL (7-18); CO2 29.4 mmol/L (21.0-32.0); Calcium 9.7 mg/dL (8.5-10.1); Chloride 102 mmol/L (98-107); Estimated GFR 66.12 (mL/min/1.73m2); Glucose 140 mg/dL (74-106); Potassium 3.2 mmol/L (3.5-5.1); Sodium 139 mmol/L (136-145)
== END 2022-11-06 15:46 | disposition home or self-care (01) ==
LOC: NCHCN 15:45
PROVIDERS: PCP Nurse Practitioner Family; Visit Provider Nurse Practitioner Family
DX: R07.89 Other chest pain (principal); E04.1 Nontoxic single thyroid nodule
CPT/HCPCS: 80048; 85652; 86140

== ENCOUNTER 2022-12-04 13:41 | Emergency (ER) | payer MEDICAID, SELFPAY ==
[2022-12-04 13:46] VITALS: BP 133/82; PULSE 94; RESP 18; TEMP 36.8; O2SAT 98
[2022-12-04 14:09] LABS: Bilirubin Negative (Negative); Blood Negative (Negative); Clarity Clear (Clear); Glucose Negative (Negative); Ketones Negative (Negative); Leukocyte Esterase Negative (Negative); Nitrite Negative (Negative); Specific Gravity >= 1.030 (1.005-1.025); Urobilinogen 0.2 mg/dL (Up to 0.2); pH 5.5 (5-8)
--- NOTE | 2022-12-04 14:45 | DI.CT_ITS ---
Exam(s) CT RENAL COLIC WO EXAM: CT RENAL COLIC WO CLINICAL HISTORY: right flank opain. TECHNIQUE: Imaging Protocol: Axial computed tomography images with coronal and sagittal reformatted images were created and reviewed. COMPARISON: CT CT ABDOMEN PELVIS W from 12/29/2020 FINDINGS: ABDOMEN: Lung Bases: There are calcified granuloma in the lungs. Liver: There is fatty infiltration of the liver. The liver is enlarged. No measurable mass. Gallbladder and biliary tract: Status post cholecystectomy. No significant biliary ductal dilatation . Pancreas: Normal density, no abnormal calcifications or inflammatory process. Spleen: Normal. Kidneys: Normal size, contour and axis.No radiodense stones or obstructive uropathy. No masses seen. Vascular calcifications are present. Adrenal glands: No mass is seen. Lymph nodes: Within normal limits. Abdominal Aorta: Abdominal portion non-dilated. Atherosclerosis. PELVIS: Bladder:Symmetric distention, no gross wall thickening. Bowel: There is diverticulosis of the colon, but no evidence of acute diverticulitis. There is no ev idence of bowel obstruction or bowel wall thickening. No evidence of appendicitis. Peritoneal cavity: No ascites, collection or mesenteric inflammatory response. No free air. Reproductive organs: Status post hysterectomy. Bones: Within normal limits. Soft Tissues: Within normal limits. IMPRESSION: 1. No evidence of nephrolithiasis or hydronephrosis. 2. Colonic diverticulosis but no evidence of acute diverticulitis. 3. No acute abdominal or pelvic process. 4. Fatty liver. Hepatomegaly. 5. Findings were discussed with the emergency department at on 12/04/2022 at 3:30 p.m.. RADIATION DOSE DELIVERED: 790.76mGy.cm Total DLP DATA REPOSITORY: All CT scans at this facility are submitted to the National Radiology Data Registry (NRDR) Dose Index Registry (DIR) with the [employer] (A[employer]). RADIATION OPTIMIZATION: All CT scans at this facility use at least one of these dose optimization te chniques: automated exposure control; mA and/or kV adjustment per patient size (includes targeted exa ms where dose is matched to clinical indication); or iterative reconstruction.
--- NOTE | 2022-12-04 14:52 | W.ED.GENAD ---
Discharge Plan Disposition Patient Disposition: Home Discharge Details Clinical Impression: Acute lumbar myofascial strain Primary Care Provider: Martha Marrufo ED Provider: Delon Juan Home Meds and New Rx's Prescriptions: New prednisone 10 mg tablets,dose pack 10 mg PO DIRECTED Qty: 21 0RF Rx Instructions: see taper instructions Continued lidocaine [Lidoderm] 5 % adhesive patch,medicated 1 patch topical DAILY Rx Instructions: leave on most painful area for up to 12 hrs aspirin [Adult Aspirin Regimen] 81 mg tablet,delayed release (DR/EC) 81 mg PO DAILY lovastatin 20 mg tablet 20 mg PO QPM Botox 200 unit recon soln 200 unit IM ONCE benzonatate 100 mg capsule 100 mg PO HS PRN (Reason: cough) Qty: 20 0RF levalbuterol tartrate [Xopenex HFA] 45 mcg/actuation HFA aerosol inhaler 2 puff Inhalation PRN PRN (Reason: URI) Qty: 15 0RF Rx Instructions: 2 puffs every 4-6 hours as needed for cough, sob, or wheeze (DME) Aerochamber MV Spacer See Rx Instructions .Route Qty: 1 0RF Rx Instructions: As directed (DME) TENS units Device See Rx Instructions .ROUTE .MEDSUPPLY Qty: 1 Rx Instructions: As directed montelukast [Singulair] 10 mg tablet 10 mg PO DAILY levomefolate calcium [L-Methylfolate] 15 mg tablet 15 mg PO DAILY loratadine [Claritin] 10 mg tablet 10 mg PO DAILY PRN lorazepam [Ativan] 0.5 mg tablet 0.5 mg PO DAILY PRN Patient Comments: not taking PNV 119-iron fum-folic acid 29 mg iron- 1 mg tablet 1 tab PO DAILY Patient Comments: not taking B-complex with vitamin C Capsule 1 cap PO DAILY acetaminophen [Tylenol Extra Strength] 500 MG tablet 1,000 mg PO Q6H PRN meclizine 12.5 mg tablet 12.5 mg PO Q8H PRN hydrochlorothiazide 25 mg tablet 25 mg PO DAILY ondansetron HCl [Zofran] 4 mg tablet 4 mg PO Q8H Patient Comments: not taking fluticasone propionate [Flovent HFA] 110 mcg/actuation HFA aerosol inhaler 2 puff inhalation BID PRN Nurtec ODT 75 mg tablet,disintegrating 75 mg PO ONCE PRN (Reason: migraine headache) Qty: 15 3RF Rx Instructions: as a single dose, no more than one dose in 24 hours, no more than 15 doses per month. acetylcysteine [NAC] 600 mg capsule 600 mg PO HS Patient Comments: not taking hydroxyzine HCl 25 mg tablet See Rx Instructions PO QID PRN (Reason: itching) Qty: 30 3RF Rx Instructions: Take 25-50 mg every 6 hours as needed for headaches. lamotrigine 25 mg tablet 25 mg PO HS buspirone 10 mg tablet 10 mg PO TID pantoprazole [Protonix] 40 mg tablet,delayed release (DR/EC) 40 mg PO QHS Qty: 90 liraglutide 0.6 mg/0.1 mL (18 mg/3 mL) pen injector 1.8 mg subcut DAILY topiramate [Topamax] 50 mg tablet 50 mg PO BID Spiriva with HandiHaler 18 mcg capsule, w/inhalation device 1 cap INHALATION DAILY Patient Comments: INL THE CONTENTS OF 1 C VIA INHALATION DEVICE D fluoxetine [Prozac] 40 mg Capsule 40 mg PO DAILY oxycodone 5 mg tablet 5 mg PO Q8H MDD 3 tabs PRN (Reason: pain) Qty: 9 0RF Patient Comments: not taking Rx Instructions: take one tablet by mouth as needed for severe pain. This is highly addictive and should be used with great caution Discharge Instructions Instructions: Muscle Strain (ED) Discharge Data Discharge Physician: Delon Juan Medical Decision Making Patient presented to emergency department complaining of right flank pain that radiated to her lower back and to the right side of the abdomen. Denies any nausea denies any vomiting denies urinary symptoms came concerned because she thought she might have a UTI. Patient is afebrile Labs were done which did not show a significant white count electrolytes are within normal limits and urinalysis is negative. CT scan of the abdomen and pelvis also done which does not show any acute intra-abdominal abnormality does not show any kidney stones. Patient is tender to palpation with a spasm of the thoracolumbar region on the right most likely from back strain. She was given Toradol with moderate improvement she states that she does not well with NSAIDs and she was giving a tapering dose of prednisone to go home with. Differential Diagnosis Differential Diagnosis: 1. Muscle spasm lower back 2. Renal colic 3. Pyelonephritis Medical Records Medical records reviewed: Yes I reviewed the patient's medical records. Imaging Data Radiologic Study: Attestation: I personally reviewed and interpreted this imaging study as follows: Imaging: CT Scan My impression: No acute abnormality of the abdominal cavity Radiologist's impression: Patient Name: Connie Humphrey Unit #: [id number] Loc: ER ? Ordering Provider:? Delon Juan M.D. Status: REG ER ? Primary Care Provider: Martha Marrufo Date of Exam: 12/04/22 Sex: F ? : 1965 Age: 57 ? Exam(s) a CT:CT renal colic wo Exam(s) CT RENAL COLIC WO EXAM:? CT RENAL COLIC WO CLINICAL HISTORY: ? right flank opain.? TECHNIQUE:? Imaging Protocol: Axial computed tomography images with coronal and sagittal reformatted images were created and reviewed. COMPARISON:? CT CT ABDOMEN ? PELVIS W from 12/29/2020 FINDINGS: ABDOMEN: Lung Bases: There are calcified granuloma in the lungs.? Liver: There is fatty infiltration of the liver.? The liver is enlarged.? No measurable mass. Gallbladder and biliary tract: Status post cholecystectomy.? No significant biliary ductal dilatation.? Pancreas: Normal density, no abnormal calcifications or inflammatory process. Spleen: Normal. Kidneys: Normal size, contour and axis.No radiodense stones or obstructive uropathy. No masses seen. Vascular calcifications are present. Adrenal glands: No mass is seen. Lymph nodes: Within normal limits.? Abdominal Aorta: Abdominal portion non-dilated. Atherosclerosis. PELVIS:? Bladder:Symmetric distention, no gross wall thickening. Bowel: There is diverticulosis of the colon, but no evidence of acute diverticulitis.? There is no evidence of bowel obstruction or bowel wall thickening.? No evidence of appendicitis.? Peritoneal cavity: No ascites, collection or mesenteric inflammatory response.? No free air.? Reproductive organs: Status post hysterectomy.? Bones: Within normal limits. Soft Tissues: Within normal limits. IMPRESSION: 1. No evidence of nephrolithiasis or hydronephrosis. 2. Colonic diverticulosis but no evidence of acute diverticulitis. 3. No acute abdominal or pelvic process. 4. Fatty liver.? Hepatomegaly. 5. Findings were discussed with the emergency department at on 12/04/2022 at 3:30 p.m..? RADIATION DOSE DELIVERED:? 790.76mGy.cm Total DLP DATA REPOSITORY:? All CT scans at this facility are submitted to the National Radiology Data Registry (NRDR) Dose Index Registry (DIR) with the [employer] (ACR). RADIATION OPTIMIZATION:? All CT scans at this facility use at least one of these dose optimization techniques: automated exposure control; mA and/or kV adjustment per patient size (includes targeted exams where dose is matched to clinical indication); or iterative reconstruction. [id number]: Total DLP =? ? 0.00 mGy-cm Ordered By:? Delon Juan M.D. CC: ? Lab Data Lab results reviewed: Yes I reviewed the patient's lab results. Labs: Test Result Flag Reference Verified WBC 11.31 H 4.4-10.8 10^3/uL 12/04/22 RBC 4.23 3.93-5.22 10^6/uL 12/04/22 HGB 13.6 11.2-15.7 g/dL 12/04/22 HCT 40.4 36.0-46.0 % 12/04/22 MCV 96 H 80-95 fL 12/04/22 MCH 32.2 27.0-33.0 pg 12/04/22 MCHC 33.7 32.0-36.0 % 12/04/22 RDW 11.7 11.7-14.6 % 12/04/22 Platelet Count 350 130-400 10^3/uL 12/04/22 MPV 10.6 8.0-11.0 fL 12/04/22 Result Flag Reference Verified Calcium 9.1 8.5-10.1 mg/dL 12/04/22 Glucose 120 H 74-106 mg/dL 12/04/22 BUN 14 7-18 mg/dL 12/04/22 Creatinine 0.9 0.55-1.02 mg/dL 12/04/22 Estimated GFR 75.03 mL/min/1.73m2 12/04/22 The eGFR is calculated from a serum creatinine using the CKD-EPI 2020 equation. Other variables required for the equation are gender and age; this equation does not include a race coefficient. This equation has similar overall performance to previous equations except values may differ, in particular, in patients with higher values of eGFR and younger-aged adults. Total Protein 7.5 6.4-8.2 g/dL 12/04/22 Albumin 3.7 3.4-5.0 g/dL 12/04/22 Bilirubin, Total 0.3 0.2-1.0 mg/dL 12/04/22 Alk Phos 112 46-116 U/L 12/04/22 Sodium 141 136-145 mmol/L 12/04/22 Potassium 3.5 3.5-5.1 mmol/L 12/04/22 Chloride 103 98-107 mmol/L 12/04/22 CO2 31.2 21.0-32.0 mmol/L 12/04/22 Anion Gap 6.8 3-11 mmol/L 12/04/22 AST 33 15-37 U/L 12/04/22 ALT 62 H 14-59 U/L 12/04/22 Color Yellow Yellow 12/04/22 Clarity Clear Clear 12/04/22 Specific [place] >= 1.030 H 1.005-1.025 12/04/22 pH 5.5 5-8 12/04/22 Leukocyte Esterase Negative Negative 12/04/22 Nitrite Negative Negative 12/04/22 Protein Negative Negative mg/dL 12/04/22 Glucose Negative Negative mg/dL 12/04/22 Ketones Negative Negative mg/dL 12/04/22 Urobilinogen 0.2 Up to 0.2 mg/dL 12/04/22-1409 Bilirubin Negative Negative 12/04/22-140 Blood Negative Negative 12/04/22-140 HPI General Date/Time Provider Initiated Documentation: 12/04/22 14:51. HPI Narrative: Patient presents to the emergency department complaining of right sided low back pain that started 2 days ago as a dull pain. 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 Denies any radiation of the pain. It is about a 7/10 worse when she moves around and turns. Denies any nausea denies any vomiting denies any hematuria. Related Data Home Medications Medication Instructions Recorded Confirmed acetaminophen 500 mg tablet 1,000 mg PO Q6H PRN 03/21/17 12/04/22 (Tylenol Extra Strength) hydrochlorothiazide 25 mg tablet 25 mg PO DAILY 06/08/19 12/04/22 meclizine 12.5 mg tablet 12.5 mg PO Q8H PRN 06/08/19 12/04/22 tiotropium bromide 18 mcg capsule 1 cap inhalation DAILY 03/16/20 12/04/22 with inhalation device (Spiriva with HandiHaler) lidocaine 5 % topical patch 1 patch topical DAILY 06/15/20 12/04/22 (Lidoderm) TENS units #1 ea 08/01/20 04/26/22 aspirin 81 mg tablet,delayed 81 mg PO DAILY 01/05/21 12/04/22 release (Adult Aspirin Regimen) ondansetron HCl 4 mg tablet 4 mg PO Q8H 03/20/21 04/26/22 (Zofran) fluticasone propionate 110 2 puff inhalation BID PRN 08/16/21 12/04/22 mcg/actuation HFA aerosol inhaler (Flovent HFA) lovastatin 20 mg tablet 20 mg PO QPM 08/16/21 12/04/22 onabotulinumtoxinA 200 unit 200 unit IM ONCE 01/23/22 12/04/22 solution for injection (Botox) rimegepant 75 mg disintegrating 75 mg PO ONCE PRN migraine 02/06/22 12/04/22 tablet (Nurtec ODT) headache #15 tabs levomefolate calcium 15 mg tablet 15 mg PO DAILY 03/20/22 11/01/22 (L-Methylfolate) loratadine 10 mg tablet (Claritin) 10 mg PO DAILY PRN 03/20/22 12/04/22 lorazepam 0.5 mg tablet (Ativan) 0.5 mg PO DAILY PRN 03/20/22 12/04/22 montelukast 10 mg tablet 10 mg PO DAILY 03/20/22 12/04/22 (Singulair) B-complex with vitamin C 1 cap PO DAILY 03/21/22 12/04/22 vitamins no.119-iron 1 tab PO DAILY 03/21/22 12/04/22 fumarate 29 mg-folic acid 1 mg tablet acetylcysteine 600 mg capsule (NAC) 600 mg PO HS 04/04/22 04/26/22 oxycodone 5 mg tablet 5 mg PO Q8H PRN pain #9 tabs 04/06/22 04/26/22 hydroxyzine HCl 25 mg tablet See Rx Instructions PO QID PRN 05/07/22 12/04/22 itching #30 tabs benzonatate 100 mg capsule 100 mg PO HS PRN cough #20 caps 09/03/22 11/01/22 inhalational spacing device #1 ea 09/03/22 09/03/22 (Aerochamber MV spacer) levalbuterol tartrate 45 2 puff inhalation PRN PRN URI #15 09/03/22 12/04/22 mcg/actuation aerosol inhaler grams (Xopenex HFA) fluoxetine 40 mg capsule (Prozac) 40 mg PO DAILY 11/01/22 12/04/22 buspirone 10 mg tablet 10 mg PO TID 11/14/22 12/04/22 lamotrigine 25 mg tablet 25 mg PO HS 11/14/22 12/04/22 liraglutide 0.6 mg/0.1 mL (18 mg/3 1.8 mg subcut DAILY 11/14/22 mL) subcutaneous pen injector pantoprazole 40 mg tablet,delayed 40 mg PO QHS #90 tab-caps 11/14/22 12/04/22 release (Protonix) topiramate 50 mg tablet (Topamax) 50 mg PO BID 11/14/22 12/04/22 prednisone 10 mg tablets in a dose 10 mg PO DIRECTED #21 dose pk 12/04/22 pack Previous Rx's Medication Instructions Recorded rimegepant 75 mg disintegrating 75 mg PO ONCE PRN migraine 02/06/22 tablet (Nurtec ODT) headache #15 tabs oxycodone 5 mg tablet 5 mg PO Q8H PRN pain #9 tabs 04/06/22 hydroxyzine HCl 25 mg tablet See Rx Instructions PO QID PRN 05/07/22 itching #30 tabs benzonatate 100 mg capsule 100 mg PO HS PRN cough #20 caps 09/03/22 inhalational spacing device #1 ea 09/03/22 (Aerochamber MV spacer) levalbuterol tartrate 45 2 puff inhalation PRN PRN URI #15 09/03/22 mcg/actuation aerosol inhaler grams (Xopenex HFA) prednisone 10 mg tablets in a dose 10 mg PO DIRECTED #21 dose pk 12/04/22 pack Allergies Allergy/AdvReac Type Severity Reaction Status Date / Time nicotine Allergy Severe PATCHES-REDNESS Verified 12/04/22 14:14 & SWELLING chlorhexidine Allergy Mild Skin Rash Verified 12/04/22 14:14 adhesive Allergy Skin Rash Verified 12/04/22 14:14 amitriptyline Allergy Verified 12/04/22 14:14 doxycycline Allergy Verified 12/04/22 14:14 bupropion AdvReac Severe AGITATION Verified 12/04/22 14:14 duloxetine AdvReac Intermediate HEARING Verified 12/04/22 14:14 THINGS hydrocodone AdvReac Intermediate Itching Verified 12/04/22 14:14 pregabalin [From Lyrica] AdvReac Intermediate foggy brain Verified 12/04/22 14:14 trazodone AdvReac Intermediate ANXIETY Verified 12/04/22 14:14 pravastatin AdvReac Mild HEADACHE Verified 12/04/22 14:14 simvastatin AdvReac Mild LEG Verified 12/04/22 14:14 CRAMPS; HEADACHE varenicline AdvReac Mild BEHAVIOR Verified 12/04/22 14:14 CHANGES promethazine AdvReac Unknown ANXIETY Verified 12/04/22 14:14 zolpidem AdvReac Unknown INCREASED Verified 12/04/22 14:14 DEPRESSION General Stated Complaint: Nk/Back Pain NICOLAS: 3 Review of Systems All systems reviewed & are unremarkable except as noted in HPI and below Eyes Eyes: Reports as per HPI and Reports system reviewed and no additional complaints, except as documented ENT Ears, Nose, Mouth, and Throat: Reports system reviewed and no additional complaints, except as documented and Reports as per HPI Cardiovascular Cardiovascular: Reports as per HPI and Reports system reviewed and no additional complaints, except as documented Respiratory Respiratory: Reports as per HPI and Reports system reviewed and no additional complaints, except as documented Gastrointestinal Gastrointestinal: Reports as per HPI and Reports system reviewed and no additional complaints, except as documented Genitourinary Genitourinary: Reports system reviewed and no additional complaints, except as documented and Reports as per HPI Musculoskeletal Musculoskeletal: Reports system reviewed and no additional complaints, except as documented and Reports as per HPI Neurologic Neurologic: Reports system reviewed and no additional complaints, except as documented and Reports as per HPI Psychiatric Psychiatric: Reports system reviewed and no additional complaints, except as documented and Reports as per HPI Endocrine Endocrine: Reports system reviewed and no additional complaints, except as documented PFSH All Active Problems (Updated 12/04/22 @ 16:48 by Delon Juan MD) Acute lumbar myofascial strain (Acute) COPD (chronic obstructive pulmonary disease) (Chronic 01/06/15) Depression (Chronic 07/30/14) anxiety fatigue Fibromyalgia (Chronic 07/30/14) Hyperlipidemia (Chronic) Joint pain (Chronic 07/30/14) 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, recurrent [facility] 2014 Peptic reflux disease (Chronic) 2011 EGD, mild gastritis 2014 [place] ([facility]) patchy gastritis Shoulder pain, left (Chronic 05/25/14) 05/28 WC Smoker (Chronic) Tremor (Acute) Chronic headache (Acute) Migraine headache without aura (Acute) Anxiety (Chronic) Microscopic hematuria (Acute) Cervicalgia (Acute) Prolonged QT interval (Acute) Gastritis (Acute ~12/2020) mild Cough (Acute) Memory loss (Acute) Seasonal allergies (Acute) Dizziness (Acute) Transient neurological symptoms (Acute) History of prediabetes (Acute) Elevated transaminase level (Acute) Lymph nodes enlarged (Acute) Pulmonary nodule (Acute) Sinusitis (Acute) Vasomotor symptoms due to menopause (Acute) Fatigue (Acute) Chest pain (Acute) Irregular bowel habits (Acute) GERD (gastroesophageal reflux disease) (Chronic) Sore throat (Acute) Leukocytosis (Acute) Chronic pain (Chronic) Bruxism (Acute) 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 is unaware of this Obstructive sleep apnea Post traumatic stress disorder (PTSD) Pre-diabetes Thyroid nodule Surgical History Bilateral salpingectomy with oophorectomy Biopsy of breast (~2007) neg EGD - [facility] 2014-[facility] History of bunionectomy right History of cholecystectomy (~04/05/22) History of colonoscopy (~12/2020) History of esophagogastroduodenoscopy (EGD) (~12/2020) History of tonsillectomy and adenoidectomy Hx of rotator cuff surgery bilateral Hysterectomy, Laproscopic Oophrectomy, Left B Status post breast biopsy Family History Mother Essential hypertension Diabetes TYPE 2 Hyperlipidemia Father Heart disease Hyperlipidemia Myocardial infarction Sister Hyperlipidemia Brother No problems noted. Grandfather No problems noted. Grandfather No problems noted. Grandmother Personal history of malignant neoplasm BREAST Grandmother No problems noted. 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 Do you feel safe at home: Yes Do you feel safe in your relationship?: Yes Exam Const General: cooperative, healthy appearing, comfortable and no acute distress HENMT Head: normal to inspection, no palpable skull fracture and normocephalic Eyes General: appearance normal, both eyes and all related structures Pupils: PERRL EOM: EOM intact bilaterally Direct ophthalmoscopy: normal light reflex Neck Neck: normal visual inspection, full ROM and no lymphadenopathy Chest Chest: normal inspection of the chest Resp Effort & Inspection: normal respiratory effort and able to speak in complete sentences Cardio Jugular venous pressure: no JVD Palpation: normal PMI Rate: regular rate Rhythm: regular rhythm GI Inspection: normal to inspection Back/Spine/Pelvis Back: CVA tenderness Thoracic/Lumbar Spine: paraspinal tenderness, thoraco-lumbar spasm and other (right sided spasm) Skin General skin exam: no rashes or lesions noted Lesions: no lesions Neuro General: patient alert and no meningeal signs Cranial Nerves: CN's II-XI intact bilaterally Cognition: normal cognition Speech: speech normal Gait: normal gait Extrem General: normal to inspection, full ROM and capillary refill normal Course Vital Signs Vital signs: Vital Signs Temperature 36.8 C 12/04/22 13:46 Pulse 94 H 12/04/22 13:46 Respiratory Rate 18 12/04/22 13:46 Blood Pressure 133/82 12/04/22 13:46 Pulse Oximetry 98 12/04/22 13:46 Temperature 36.8 C 12/04/22 13:46 Temperature Source Temporal Artery Scan 12/04/22 13:46 Pulse 94 H 12/04/22 13:46 Respiratory Rate 18 12/04/22 13:46 Respiratory Effort Normal, Non-Labored 12/04/22 13:49 Blood Pressure 133/82 12/04/22 13:46 Blood Pressure Position Sitting 12/04/22 13:46 Pulse Oximetry 98 12/04/22 13:46 Oxygen Delivery Method Room Air 12/04/22 13:46 Oxygen Flow Rate 0 12/04/22 13:46 Lab/Test Results Lab/Test Results: Laboratory Tests Range/Units 12/04/22 13:59 Urine Color (Yellow) Yellow Urine Clarity (Clear) Clear Urine pH (5-8) 5.5 Ur Specific [place] (1.005-1.025) >= 1.030 H Urine Protein (Negative) mg/dL Negative Urine Ketones (Negative) mg/dL Negative Urine Blood (Negative) Negative Urine Nitrite (Negative) Negative Urine Bilirubin (Negative) Negative Urine Urobilinogen (Up to 0.2) mg/dL 0.2 Ur Leukocyte Esterase (Negative) Negative Urine Glucose (Negative) mg/dL Negative
[2022-12-04] MEDS: Ketorolac 15 MG/ML VIAL IVP (15:06)
[2022-12-04 15:15] LABS: HCT 40.4 % (36.0-46.0); HGB 13.6 g/dL (11.2-15.7); MCH 32.2 pg (27.0-33.0); MCHC 33.7 % (32.0-36.0); MCV 96 fL (80-95); MPV 10.6 fL (8.0-11.0); Platelet Count 350 10^3/uL (130-400); RBC 4.23 10^6/uL (3.93-5.22); RDW 11.7 % (11.7-14.6); RDW-SD 40.8 fL; WBC 11.31 10^3/uL (4.4-10.8)
[2022-12-04 15:30] LABS: ALT 62 U/L (14-59); AST 33 U/L (15-37); Albumin 3.7 g/dL (3.4-5.0); Alkaline Phosphatase 112 U/L (46-116); Anion Gap 6.8 mmol/L (3-11); BUN 14 mg/dL (7-18); Bilirubin, Total 0.3 mg/dL (0.2-1.0); CO2 31.2 mmol/L (21.0-32.0); CREATININE 0.9 mg/dL (0.55-1.02); Calcium 9.1 mg/dL (8.5-10.1); Chloride 103 mmol/L (98-107); Estimated GFR 75.03 (mL/min/1.73m2); Glucose 120 mg/dL (74-106); Potassium 3.5 mmol/L (3.5-5.1); Sodium 141 mmol/L (136-145); Total Protein 7.5 g/dL (6.4-8.2)
[2022-12-04] MEDS: predniSONE 20 MG TAB 60 MG PO (16:48)
== END 2022-12-04 16:56 | disposition home or self-care (01) ==
PROVIDERS: Student in an Organized Health Care Education/Training Program; Emergency Provider Emergency Medicine Emergency Medical Services; PCP Nurse Practitioner Family
DX: S39.012A Strain of muscle, fascia and tendon of lower back, initial encounter (principal); X58.XXXA Exposure to other specified factors, initial encounter
CPT/HCPCS: 36415; 80053; 85027; 96374; 99284; 74176; 81003; J1885; J7512

== ENCOUNTER 2023-03-22 14:16 | Outpatient (REF) | payer MEDICAID, SELFPAY ==
[2023-03-22 16:21] LABS: HCT 41.7 % (36.0-46.0); HGB 14.2 g/dL (11.2-15.7); MCH 32.2 pg (27.0-33.0); MCHC 34.1 % (32.0-36.0); MCV 95 fL (80-95); MPV 10.5 fL (8.0-11.0); Platelet Count 381 10^3/uL (130-400); RBC 4.41 10^6/uL (3.93-5.22); RDW 11.9 % (11.7-14.6); RDW-SD 41.3 fL; WBC 16.01 10^3/uL (4.4-10.8)
[2023-03-22 17:02] LABS: ALT 59 U/L (14-59); AST 31 U/L (15-37); Albumin 4.1 g/dL (3.4-5.0); Alkaline Phosphatase 109 U/L (46-116); Anion Gap 12.3 mmol/L (3-11); BUN 19 mg/dL (7-18); Bilirubin, Total 0.3 mg/dL (0.2-1.0); CO2 25.7 mmol/L (21.0-32.0); Calcium 9.7 mg/dL (8.5-10.1); Chloride 101 mmol/L (98-107); Estimated GFR 66.12 (mL/min/1.73m2); Glucose 88 mg/dL (74-106); Magnesium 2.1 mg/dL (1.8-2.4); Potassium 3.6 mmol/L (3.5-5.1); Sodium 139 mmol/L (136-145); Total Protein 7.6 g/dL (6.4-8.2)
[2023-03-22 17:36] LABS: Hemoglobin A1C 5.9 % (<5.7)
== END 2023-03-22 14:17 | disposition home or self-care (01) ==
LOC: NCHCN 14:16
PROVIDERS: PCP Nurse Practitioner Family; Visit Provider Family Medicine
DX: D72.829 Elevated white blood cell count, unspecified (principal); R73.03 Prediabetes; I45.81 Long QT syndrome; R79.89 Other specified abnormal findings of blood chemistry
CPT/HCPCS: 80053; 85027; 83036; 83735

== ENCOUNTER → 2023-03-27 10:13 | Outpatient (CLI) | payer MEDICAID, SELFPAY ==
--- NOTE | 2023-03-27 | DI.RAD_ITS ---
Exam(s) XR CHEST 2V PA LATERAL EXAM: XR CHEST 2V PA LATERALz CLINICAL HISTORY: COUGH, R05.8,FATIGUE,R53.83,? PNEUMONIA TECHNIQUE: 2D digital imaging was performed. COMPARISON: CR XR CHEST 2V PA LATERAL from 11/01/2022 FINDINGS: HEART: Normal size. Aorta: Not dilated. PULMONARY VASCULATURE: Normal. LUNGS: Clear. PLEURAL SPACE: No pleural effusion or pneumothorax. BONE:Unremarkable for age. IMPRESSION: No acute abnormality. DATA REPOSITORY: RADIATION DOSE DELIVERED:
== END ==
PROVIDERS: PCP Nurse Practitioner Family; Visit Provider Internal Medicine
DX: R05.8 Other specified cough (principal); R53.83 Other fatigue
CPT/HCPCS: 71046

== ENCOUNTER 2023-03-27 18:44 | Outpatient (REF) | payer MEDICAID, SELFPAY ==
[2023-03-27 16:19] LABS: Abs Immature Grans 0.03 10^3/uL (0.0-0.06); Absolute Basophil Count 0.07 10^3/uL (0.0-0.2); Absolute Eosinophil Count 0.13 10^3/uL (0.0-0.7); Basophils % 0.5; HCT 42.1 % (36.0-46.0); HGB 14.3 g/dL (11.2-15.7); Immature Grans % 0.2; Lymphocytes % 29.1; MCH 31.9 pg (27.0-33.0); MCV 94 fL (80-95); MPV 11.1 fL (8.0-11.0); Monocytes % 5.4; Neutrophils % 63.8; Platelet Count 349 10^3/uL (130-400); RBC 4.48 10^6/uL (3.93-5.22); RDW 11.6 % (11.7-14.6); RDW-SD 39.5 fL; WBC 13.05 10^3/uL (4.4-10.8)
[2023-03-27 16:23] LABS: Absolute Neutrophil Count 8.33 10^3/uL (1.2-6.7)
[2023-03-27 16:52] LABS: ALT 58 U/L (14-59); AST 31 U/L (15-37); Albumin 4.1 g/dL (3.4-5.0); Alkaline Phosphatase 110 U/L (46-116); Anion Gap 10.8 mmol/L (3-11); BUN 14 mg/dL (7-18); Bilirubin, Total 0.4 mg/dL (0.2-1.0); CO2 28.2 mmol/L (21.0-32.0); Calcium 9.6 mg/dL (8.5-10.1); Chloride 100 mmol/L (98-107); Estimated GFR 66.12 (mL/min/1.73m2); Glucose 98 mg/dL (74-106); Potassium 3.7 mmol/L (3.5-5.1); Sodium 139 mmol/L (136-145); Total Protein 7.6 g/dL (6.4-8.2)
[2023-03-29 09:44] LABS: Lyme Ab w Rflx to Lyme Confirm Negative (Negative)
[2023-03-30 16:26] LABS: Anaplasma phagocytophilum Negative (Negative); Ehrlichia chaffeensis Negative (Negative); Ehrlichia ewingii/canis Negative (Negative); Ehrlichia muris eauclairensis Negative (Negative)
== END 2023-03-27 18:45 | disposition home or self-care (01) ==
LOC: NCHCN 18:44
PROVIDERS: PCP Nurse Practitioner Family; Visit Provider Family Medicine
DX: R53.83 Other fatigue (principal); R00.0 Tachycardia, unspecified
CPT/HCPCS: 80053; 85025; 86140; 86618; 87798

== ENCOUNTER 2023-05-02 21:21 | Outpatient (REF) | payer MEDICAID, SELFPAY ==
[2023-05-02 21:37] LABS: Bilirubin Negative (Negative); Blood Trace-intact (Negative); Clarity Clear (Clear); Glucose Negative (Negative); Ketones Negative (Negative); Leukocyte Esterase Negative (Negative); Nitrite Negative (Negative); Urobilinogen 0.2 mg/dL (Up to 0.2); pH 5.5 (5-8)
[2023-05-02 21:38] LABS: HCT 41.7 % (36.0-46.0); HGB 13.8 g/dL (11.2-15.7); MCH 31.8 pg (27.0-33.0); MCHC 33.1 % (32.0-36.0); MCV 96 fL (80-95); MPV 10.9 fL (8.0-11.0); Platelet Count 337 10^3/uL (130-400); RBC 4.34 10^6/uL (3.93-5.22); RDW 11.8 % (11.7-14.6); RDW-SD 41.8 fL; WBC 12.15 10^3/uL (4.4-10.8)
[2023-05-02 21:47] LABS: Bacteria Rare HPF (Negative); C & S Indicated? No; Casts Negative LPF (Negative); Crystals Negative HPF (Negative); Epithelial Cells Few HPF (Negative); Mucus Negative (Negative); RBC 0-2 HPF (0-2); WBC Negative HPF (0-5)
[2023-05-02 21:51] LABS: ALT 88 U/L (14-59); AST 38 U/L (15-37); Albumin 4.1 g/dL (3.4-5.0); Alkaline Phosphatase 135 U/L (46-116); BUN 19 mg/dL (7-18); Bilirubin, Total 0.3 mg/dL (0.2-1.0); Calcium 9.9 mg/dL (8.5-10.1); Chloride 100 mmol/L (98-107); Estimated GFR 66.12 (mL/min/1.73m2); Glucose 128 mg/dL (74-106); Potassium 4.1 mmol/L (3.5-5.1); Sodium 137 mmol/L (136-145); Total Protein 7.7 g/dL (6.4-8.2)
== END 2023-05-02 21:22 | disposition home or self-care (01) ==
LOC: NCHCN 21:21
PROVIDERS: PCP Nurse Practitioner Family; Visit Provider Nurse Practitioner Family
DX: M54.89 Other dorsalgia (principal)
CPT/HCPCS: 80053; 85027; 81003; 81015

== ENCOUNTER 2023-05-03 01:17 | Outpatient (CLI) | payer MEDICAID, SELFPAY ==
--- NOTE | 2023-05-03 09:54 | DI.CT_ITS ---
Exam(s) CT RENAL COLIC WO EXAM: CT RENAL COLIC WO CLINICAL HISTORY: acute back pain, m54.89,? nephrolithiasis. TECHNIQUE: Imaging Protocol: Axial computed tomography images with coronal and sagittal reformatted images were created and reviewed CONTRAST MATERIAL: Intravenous: none Oral: None COMPARISON: CT CT RENAL COLIC WO from 12/04/2022 FINDINGS: VISUALIZED LUNG BASES: No significant nodules nor pleural effusions evident. Tiny calcified granulom as noted in the right lower lobe ABDOMEN: GI: There is fat halo sign throughout significant part of the colon which may be related to chronic infla mmatory bowel disease.. There is no bowel obstruction. Appendix is surgically absent. There is no ascites. LIVER: Liver size is steatotic and slightly prominent size. There are no discrete focal hepatic lesi ons evident on this non few study. GALLBLADDER/BILIARY: Gallbladder surgically absent. CBD is not dilated. PANCREAS: No evidence of pancreatic mass nor dilatation of the pancreatic duct. SPLEEN: Spleen is not enlarged. No obvious intrasplenic lesions. ADRENALS: There are no significant adrenal masses. KIDNEYS:Calcification medial aspect of each kidney has appearance of vascular calcification. No obvi ous nephrolithiasis. No hydronephrosis. No hydroureter. No radiopaque calculi evident within nondi stended ureters nor in the collapsed urinary bladder. No solid renal masses evident. No cysts.. ABDOMINAL AORTA: Calcified but not enlarged. LYMPH NODES: There is no retroperitoneal nor paraaortic adenopathy. ABDOMINAL WALL: No evidence of significant anterior abdominal wall nor inguinal hernia. GI: There is no evidence of bowel obstruction, free air, nor abscess. Are a few sigmoid diverticuli but no evidence of diverticulitis. PELVIS: LYMPH NODES: There is no intrapelvic nor inguinal adenopathy. GI: Appendix surgically absent. URINARY BLADDER: No calculi nor obvious masses evident REPRODUCTIVE: Uterus is surgically absent. There are no abnormal adnexal masses. OSSEOUS: No significant osseous lesions. No fractures. Chronic disc space narrowing L5-S1 noted. IMPRESSION: 1. There are no obstructive urinary tract calculi evident. No hydronephrosis nor hydroureter. Urina ry bladder is collapsed but does not appear to contain radiopaque calculi. 2. There is evidence of previous appendectomy and cholecystectomy. 3. There is fat halo sign seen throughout the length of the colon. This is usually seen related to c hronic inflammatory bowel disease such as chronic ulcerative colitis or Crohn's. 4. There are few uncomplicated sigmoid diverticuli noted. No evidence of acute diverticulitis. 5. Other findings as above. RADIATION DOSE DELIVERED: Total DLP DATA REPOSITORY: All CT scans at this facility are submitted to the National Radiology Data Registry (NRDR) Dose Index Registry (DIR) with the [employer] (A[employer]). RADIATION OPTIMIZATION: All CT scans at this facility use at least one of these dose optimization te chniques: automated exposure control; mA and/or kV adjustment per patient size (includes targeted exa ms where dose is matched to clinical indication); or iterative reconstruction.
--- NOTE | 2023-05-03 10:16 | DI.MAMMO_ITS ---
Exam(s) MAMMO SCREENING EXAM: MAMMO SCREENING CLINICAL HISTORY: SCREENING, Z12.31. TECHNIQUE: Bilateral full field digital CC and MLO mammographic images were obtained with 3D tomosyn thesis and utilizing computer aided detection (CAD). COMPARISON: Prior mammograms were reviewed. FINDINGS: There has been no significant change in the appearance and distribution of the fibroglandular tissue. No new findings in the vicinity of the biopsy marker clip in the left breast. There are no new spiculated masses nor malignant appearing microcalcification groups. There is no significant architectural distortion nor skin thickening-retraction. IMPRESSION: No radiographic evidence of malignancy. BI-RADS Category 1 - Negative Breast Density - Category C - Heterogeneously dense Breast density Category C or D implies that the patient has dense breast tissue. Dense breast tissue can make it harder to find cancer on a mammogram. Dense breast tissue is also associated with an incr eased risk of breast cancer. This information about the result of the mammogram report was provided to the patient to raise their awareness. Use this report when you speak with the patient about their risks for breast cancer, which includes their family history. At that time, you may recommend additional screening tests (Ultrasoun d or MRI) as these tests may add significant information. A negative radiographic report should not delay biopsy if a dominant or clinically suspicious mass is present. Up to ten percent of cancers are not identified on mammography. A negative report may reinforce clinical impression. Adenosis and dense breasts may obscure an underlying neoplasm. False positive reports average 6 to 10%. Patient will receive a letter notifying them of these results.
== END 2023-05-03 01:37 ==
PROVIDERS: PCP Nurse Practitioner Family; Visit Provider Nurse Practitioner Family
DX: Z12.31 Encounter for screening mammogram for malignant neoplasm of breast (principal); Z90.49 Acquired absence of other specified parts of digestive tract; M54.89 Other dorsalgia
CPT/HCPCS: 77063; 77067; 74176

== ENCOUNTER 2023-05-08 12:04 | Outpatient (CLI) | payer MEDICAID, SELFPAY ==
[2023-05-08 12:30] LABS: Abs Immature Grans 0.06 10^3/uL (0.0-0.06); Absolute Basophil Count 0.07 10^3/uL (0.0-0.2); Absolute Lymphocyte Count 4.04 10^3/uL (1.2-3.4); Basophils % 0.5; Eosinophils % 1.3; HCT 41.2 % (36.0-46.0); HGB 13.7 g/dL (11.2-15.7); Immature Grans % 0.4; Lymphocytes % 28.2; MCH 31.9 pg (27.0-33.0); MCHC 33.3 % (32.0-36.0); MCV 96 fL (80-95); MPV 9.7 fL (8.0-11.0); Monocytes % 4.8; Neutrophils % 64.8; Platelet Count 333 10^3/uL (130-400); RDW 11.5 % (11.7-14.6); RDW-SD 40.7 fL; WBC 14.31 10^3/uL (4.4-10.8)
[2023-05-08 12:31] LABS: Absolute Eosinophil Count 0.19 10^3/uL (0.0-0.7); Absolute Monocyte Count 0.69 10^3/uL (0.1-0.8); Absolute Neutrophil Count 9.27 10^3/uL (1.2-6.7)
[2023-05-08 13:01] LABS: PTT Activated 30.1 sec (23.6-32.8); Prothrombin Time 9.6 sec (9.1-11.1)
[2023-05-08 13:03] LABS: ALT 51 U/L (14-59); AST 27 U/L (15-37); Alkaline Phosphatase 104 U/L (46-116); Anion Gap 9.7 mmol/L (3-11); BUN 16 mg/dL (7-18); Bilirubin, Total 0.4 mg/dL (0.2-1.0); CO2 26.3 mmol/L (21.0-32.0); Calcium 9.4 mg/dL (8.5-10.1); Chloride 102 mmol/L (98-107); Estimated GFR 66.12 (mL/min/1.73m2); Glucose 130 mg/dL (74-106); Potassium 3.9 mmol/L (3.5-5.1); Sodium 138 mmol/L (136-145); Total Protein 7.8 g/dL (6.4-8.2)
== END 2023-05-08 12:05 | disposition home or self-care (01) ==
LOC: LBO 12:06
PROVIDERS: PCP Nurse Practitioner Family; Visit Provider Physician Assistant
DX: M79.662 Pain in left lower leg (principal)
CPT/HCPCS: 36415; 80053; 85025; 85610; 85730

== ENCOUNTER → 2023-05-08 12:40 | Outpatient (CLI) | payer MEDICAID, SELFPAY ==
--- NOTE | 2023-05-08 10:30 | DI.US_ITS ---
Exam(s) US LOWER EXTREMITY VENOUS LT EXAM: US LOWER EXTREMITY VENOUS LT CLINICAL HISTORY: calf pain, pain in lt lower leg, M79.662 TECHNIQUE: Grayscale, color, and doppler imaging of the deep venous system of the left lower extremi ty was performed. COMPARISON: US US THYROID from 07/12/2022 FINDINGS: There is no evidence of intraluminal thrombus and there is normal compression and augmentation demons trated within the common femoral vein, femoral vein, and popliteal vein. In the ipsilateral calf the interrogated veins also exhibit normal compression/ augmentation properti es. The ipsilateral saphenofemoral junction is patent. IMPRESSION: 1. No evidence of DVT in the left lower extremity. DATA REPOSITORY:
== END ==
PROVIDERS: PCP Nurse Practitioner Family; Visit Provider Physician Assistant
DX: M79.662 Pain in left lower leg (principal)
CPT/HCPCS: 93971

== ENCOUNTER 2023-06-19 14:43 | Outpatient (CLI) | payer MEDICAID, SELFPAY ==
--- NOTE | 2023-06-19 13:45 | DI.RAD_ITS ---
Exam(s) XR SHOULDER RT COMPLETE 2+V EXAM: XR SHOULDER RT COMPLETE 2+V CLINICAL HISTORY: RIGHT SHOULDER PAIN. TECHNIQUE: 2D digital imaging was performed. Two views. COMPARISON: MR MRI - L UPPER JOINT WO CONT from 04/29/2017 FINDINGS: BONES: No acute fracture is present. No bony destructive lesion is seen. Metallic anchor in humeral head related to rotator cuff repair. JOINTS: No dislocation present. No significant spurring AC joint. Spurring at the undersurface of a cromion. Mild spurring at greater tuberosity. Glenohumeral joint space is maintained. Minimal spur ring at inferior glenoid. SOFT TISSUE: Normal. IMPRESSION: Prior rotator cuff repair. Mild degenerative changes. DATA REPOSITORY: RADIATION DOSE DELIVERED:
== END 2023-06-19 14:44 | disposition home or self-care (01) ==
LOC: DIORS 14:49
PROVIDERS: PCP Nurse Practitioner Family; Visit Provider Student in an Organized Health Care Education/Training Program
DX: M25.511 Pain in right shoulder (principal); M19.011 Primary osteoarthritis, right shoulder
CPT/HCPCS: 73030

== ENCOUNTER → 2023-07-03 03:27 | Outpatient (CLI) | payer MEDICAID, SELFPAY ==
--- NOTE | 2023-07-03 07:30 | DI.MRI_ITS ---
Exam(s) MR UPPER JOINT RT WO EXAM: MR UPPER JOINT RT WO CLINICAL HISTORY: R SHOULDER PAIN,traumatic tear rt rotator cuff,s46.011a TECHNIQUE: Multiplanar multisequence MRI of the shoulder was performed. COMPARISON: CR XR SHOULDER RT COMPLETE 2+V from 06/19/2023 FINDINGS: MARROW:There is evidence of previous surgery with an AP orientated fastener device at the mid humeral head level which appears to be related to biceps tenodesis. This appears intact. ROTATOR CUFF MECHANISM: AC JOINT/ACROMIUM: Mild degenerative changes in the AC joint.. There is no evidence of os acromiale. Supraspinatus: There is full-thickness tearing of the supraspinatus conjoined tendon region with a th in remaining strand but effectively full-thickness tear as there is fluid in the overlying subacromia l bursa. The AP width of this tear is 8 mm. Musculotendinous junction is mildly retracted. No obvi ous atrophy. Infraspinatus: Insertional tendinitis signal. No high-grade tear. Atrophy. Teres Minor: Intact. No evidence of tear nor muscle atrophy. Subscapularis/anterior cuff: Intact. No abnormal signal at the level of the multipennate insertional fibers. No significant tear nor atrophy. BICEPS TENDON: Intact appearing anterior humeral head tenodesis. No tenosynovitis. LABRUM: No labral tear identified. No evidence of paralabral cyst. GLENOHUMERAL JOINT: No joint effusion nor obvious loose intra-articular bodies. No chondral defects. No osteophytes. No degenerative subarticular cysts. No evidence of capsular tear. The inferior gle nohumeral ligament is intact. QUADRILATERAL SPACE: No evidence of mass in the region of the axillary nerve and dorsal circumflex hu meral vessels. Visualized triceps muscle at this level appears unremarkable. IMPRESSION: 1. There is an intact appearing biceps tenodesis site in the anterior humeral head. 2. There is a full-thickness tear of the supraspinatus tendon with a thin remaining strand but effect ively full-thickness tear with mild retraction and fluid in the overlying subacromial bursa. No atro phy. There is some insertional tendinitis signal in the infraspinatus but no high-grade tear. Anter ior cuff-subscapularis appears intact. 3. No labral tears evident. DATA REPOSITORY:
== END ==
PROVIDERS: PCP Nurse Practitioner Family; Visit Provider Student in an Organized Health Care Education/Training Program
DX: M75.121 Complete rotator cuff tear or rupture of right shoulder, not specified as traumatic (principal)
CPT/HCPCS: 73221

== ENCOUNTER 2023-07-19 09:28 | Emergency (ER) | payer MEDICAID, SELFPAY ==
[2023-07-19] VITALS (12 sets, daily range): BP systolic 109–150; BP diastolic 59–90; PULSE 89–105; RESP 18; TEMP 36.6–37.3; O2SAT 88–97
--- NOTE | 2023-07-19 09:47 | W.ED.GENAD ---
HPI General Stated Complaint: Abd Prob NICOLAS: 3 Date/Time Provider Initiated Documentation: 07/19/23 09:46. Limitations to Documentation: no limitations. Information obtained by: patient, family (signficant other) and RN notes reviewed. History of Present Illness nausea, vomiting, diarrhea, cough, congestion severe other (cramping pain in abdomen) abdomen reports no radiation hour(s) (began last night) constant No relieving factors improve symptom(s), No exacerbating factors reported cough, fever/chills, headaches, loss of appetite, malaise and nausea/vomiting; denies diaphoresis, rash and shortness of breath Related Data Home Medications Medication Instructions Recorded Confirmed acetaminophen 500 mg tablet 1,000 mg PO Q6H PRN 03/21/17 07/19/23 (Tylenol Extra Strength) hydrochlorothiazide 25 mg tablet 25 mg PO DAILY 06/08/19 07/19/23 meclizine 12.5 mg tablet 12.5 mg PO Q8H PRN 06/08/19 07/19/23 tiotropium bromide 18 mcg capsule 1 cap inhalation DAILY 03/16/20 07/19/23 with inhalation device (Spiriva with HandiHaler) lidocaine 5 % topical patch 1 patch topical DAILY 06/15/20 07/19/23 (Lidoderm) TENS units #1 ea 08/01/20 07/16/23 aspirin 81 mg tablet,delayed 81 mg PO DAILY 01/05/21 07/19/23 release (Adult Aspirin Regimen) lovastatin 20 mg tablet 20 mg PO QPM 08/16/21 07/19/23 rimegepant 75 mg disintegrating 75 mg PO ONCE PRN migraine 02/06/22 07/19/23 tablet (Nurtec ODT) headache #15 tabs levomefolate calcium 15 mg tablet 15 mg PO DAILY 03/20/22 07/19/23 (L-Methylfolate) loratadine 10 mg tablet (Claritin) 10 mg PO DAILY PRN 03/20/22 07/19/23 B-complex with vitamin C 1 cap PO DAILY 03/21/22 07/19/23 hydroxyzine HCl 25 mg tablet See Rx Instructions PO QID PRN 05/07/22 07/19/23 itching #30 tabs benzonatate 100 mg capsule 100 mg PO HS PRN cough #20 caps 09/03/22 07/19/23 inhalational spacing device #1 ea 09/03/22 07/16/23 (Aerochamber MV spacer) levalbuterol tartrate 45 2 puff inhalation PRN PRN URI #15 09/03/22 07/19/23 mcg/actuation aerosol inhaler grams (Xopenex HFA) fluoxetine 40 mg capsule (Prozac) 40 mg PO DAILY 11/01/22 07/19/23 buspirone 10 mg tablet 10 mg PO TID 11/14/22 07/19/23 lamotrigine 25 mg tablet 25 mg PO HS 11/14/22 07/19/23 pantoprazole 40 mg tablet,delayed 40 mg PO QHS #90 tab-caps 11/14/22 07/19/23 release (Protonix) montelukast 10 mg tablet 10 mg PO DAILY 07/16/23 07/19/23 (Singulair) hydromorphone 2 mg tablet 2 mg PO .Q8 PRN SHOULDER PAIN 07/19/23 07/19/23 (Dilaudid) ondansetron 4 mg disintegrating 4 mg PO Q6H PRN nausea and 07/19/23 tablet vomiting #10 tabs Previous Rx's Medication Instructions Recorded rimegepant 75 mg disintegrating 75 mg PO ONCE PRN migraine 02/06/22 tablet (Nurtec ODT) headache #15 tabs hydroxyzine HCl 25 mg tablet See Rx Instructions PO QID PRN 05/07/22 itching #30 tabs benzonatate 100 mg capsule 100 mg PO HS PRN cough #20 caps 09/03/22 inhalational spacing device #1 ea 09/03/22 (Aerochamber MV spacer) levalbuterol tartrate 45 2 puff inhalation PRN PRN URI #15 09/03/22 mcg/actuation aerosol inhaler grams (Xopenex HFA) ondansetron 4 mg disintegrating 4 mg PO Q6H PRN nausea and 07/19/23 tablet vomiting #10 tabs Allergies Allergy/AdvReac Type Severity Reaction Status Date / Time nicotine Allergy Severe PATCHES-REDNESS Verified 07/16/23 13:31 & SWELLING chlorhexidine Allergy Mild Skin Rash Verified 07/16/23 13:31 adhesive Allergy Skin Rash Verified 07/16/23 13:31 amitriptyline Allergy Verified 07/16/23 13:31 doxycycline Allergy Verified 07/16/23 13:31 bupropion AdvReac Severe AGITATION Verified 07/16/23 13:31 duloxetine AdvReac Intermediate HEARING Verified 07/16/23 13:31 THINGS hydrocodone AdvReac Intermediate Itching Verified 07/16/23 13:31 pregabalin [From Lyrica] AdvReac Intermediate foggy brain Verified 07/16/23 13:31 trazodone AdvReac Intermediate ANXIETY Verified 07/16/23 13:31 pravastatin AdvReac Mild HEADACHE Verified 07/16/23 13:31 simvastatin AdvReac Mild LEG Verified 07/16/23 13:31 CRAMPS; HEADACHE varenicline AdvReac Mild BEHAVIOR Verified 07/16/23 13:31 CHANGES promethazine AdvReac Unknown ANXIETY Verified 07/16/23 13:31 zolpidem AdvReac Unknown INCREASED Verified 07/16/23 13:31 DEPRESSION Review of Systems Constitutional Constitutional: Reports as per HPI and Denies chills ENT Ears, Nose, Mouth, and Throat: Reports nasal congestion and Reports nasal discharge Cardiovascular Cardiovascular: Reports as per HPI, Denies chest pain and Denies dyspnea Respiratory Respiratory: Reports as per HPI, Denies cough and Denies dyspnea Gastrointestinal Gastrointestinal: Reports as per HPI Musculoskeletal Musculoskeletal: Reports as per HPI and Denies back pain Integumentary/Breasts Skin/Breast: Reports as per HPI and Denies rash Neurologic Neurologic: Reports as per HPI PFSH All Active Problems (Updated 07/19/23 @ 11:15 by MIL Galaviz) URI (upper respiratory infection) (Acute) Leukocytosis (Acute) Elevated transaminase level (Acute) Nausea vomiting and diarrhea (Acute) Traumatic tear of right rotator cuff (Acute ~05/2023) Trochanteric bursitis, left hip (Acute) COPD (chronic obstructive pulmonary disease) (Chronic 01/06/15) Depression (Chronic 07/30/14) anxiety fatigue Fibromyalgia (Chronic 07/30/14) Hyperlipidemia (Chronic) Joint pain (Chronic 07/30/14) 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, recurrent [facility] pain [facility] 2014 Peptic reflux disease (Chronic) 2012 EGD, mild gastritis 2014 [place] ([facility]) patchy gastritis Shoulder pain, left (Chronic 05/25/14) 05/28 WC Smoker (Chronic) Tremor (Acute) Chronic headache (Acute) Migraine headache without aura (Acute) Anxiety (Chronic) Microscopic hematuria (Acute) Cervicalgia (Acute) Prolonged QT interval (Acute) Gastritis (Acute ~12/2020) mild Cough (Acute) Memory loss (Acute) Seasonal allergies (Acute) Dizziness (Acute) Transient neurological symptoms (Acute) History of prediabetes (Acute) Elevated transaminase level (Acute) Lymph nodes enlarged (Acute) Pulmonary nodule (Acute) Sinusitis (Acute) Vasomotor symptoms due to menopause (Acute) Fatigue (Acute) Chest pain (Acute) Irregular bowel habits (Acute) GERD (gastroesophageal reflux disease) (Chronic) Sore throat (Acute) Leukocytosis (Acute) Chronic pain (Chronic) Bruxism (Acute) Left-sided temporomandibular joint pain-dysfunction syndrome (Acute) Paresthesia (Acute) Hip pain (Acute) Shoulder pain, right (Acute) Periodic limb movement (Acute) Sensorineural hearing loss, bilateral (Acute) Myalgia (Acute) Oral ulceration (Acute) Jaw pain (Acute) Gall stone (Acute) RUQ pain (Acute) Hearing loss (Acute) Liver lesion (Acute) Medical History Family history of myocardial infarction (05/25/14) Colon polyps Thyroid nodule Migraine with aura Post traumatic stress disorder (PTSD) DDD (degenerative disc disease) 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 is unaware of this Pre-diabetes Obstructive sleep apnea Hypertension Surgical History Status post breast biopsy History of cholecystectomy (~04/05/22) History of bunionectomy right Hx of rotator cuff surgery bilateral History of tonsillectomy and adenoidectomy History of esophagogastroduodenoscopy (EGD) (~12/2020) History of colonoscopy (~12/2020) Oophrectomy, Left B Hysterectomy, Laproscopic EGD - [place] [id number] Biopsy of breast (~2007) neg Bilateral salpingectomy with oophorectomy Family History Mother Essential hypertension Diabetes TYPE 2 Hyperlipidemia Father Heart disease Hyperlipidemia Myocardial infarction Sister Hyperlipidemia Brother No problems noted. Grandfather No problems noted. Grandfather No problems noted. Grandmother Personal history of malignant neoplasm BREAST Grandmother No problems noted. Social History Smoking/Tobacco Use Status: Current every day Tobacco Type: cigarettes Smoking risk assessment performed?: Yes Alcohol Intake: former Drug use: Never Substance use type: does not use Household members: significant other and family current occupation: [employer] Do you feel safe at home: Yes Do you feel safe in your relationship?: Yes Exam Const General: cooperative, healthy appearing, comfortable, no acute distress, well developed and anxious Nutritional Appearance: average body habitus and well nourished Orientation: alert and awake HENMT Head: normal to inspection Mouth: oral mucosae normal, tongue normal and moist mucous membranes Throat: posterior oropharynx normal, tonsils normal and uvula midline Neck Neck: normal visual inspection and no lymphadenopathy Resp Effort & Inspection: normal respiratory effort, able to speak in complete sentences and no respiratory distress Auscultation: clear to auscultation bilaterally, no rales, no rhonchi and no wheezes Cardio Rate: regular rate Rhythm: regular rhythm Heart Sounds: S1 normal and S2 normal GI Inspection: normal to inspection Palpation: soft, no hepatosplenomegaly, not firm, no guarding, no masses, not rigid and tender (diffusely tender) with no rebound tenderness Back/Spine/Pelvis Back: no CVA tenderness Skin General skin exam: no rashes or lesions noted Trauma: no lacerations or abrasions Neuro General: patient alert and patient awake Cognition: normal cognition Speech: speech normal Gait: normal gait Psych Appearance: grossly normal and well kempt Mental Status: mental status grossly normal Speech and Movement: speech and movement normal Course Vital Signs Vital signs: Vital Signs Temperature 36.6 C 07/19/23 09:35 Pulse 105 H 07/19/23 09:35 Respiratory Rate 18 07/19/23 09:35 Blood Pressure 150/90 H 07/19/23 09:35 Pulse Oximetry 96 07/19/23 09:35 Temperature 36.6 C 07/19/23 09:35 Temperature Source Oral 07/19/23 09:35 Pulse 105 H 07/19/23 09:35 Respiratory Rate 18 07/19/23 09:35 Respiratory Effort Normal, Non-Labored 07/19/23 09:42 Blood Pressure 150/90 H 07/19/23 09:35 Pulse Oximetry 96 07/19/23 09:35 Oxygen Delivery Method Room Air 07/19/23 09:35 Oxygen Flow Rate 0 07/19/23 09:35 Medical Decision Making Patient is a pleasant 58-year-old female, companied by significant other, presenting with chief complaint of nausea, vomiting, diarrhea, abdominal discomfort, congestion and cough. She reports that the vomiting and diarrhea began yesterday and estimates about 20 episodes of emesis with small amounts of diarrhea with these. States that she had a Tmax of 100 ?F at home. Has not taken anything for her symptoms. No known sick contacts. Of note, patient did begin taking Dilaudid for shoulder pain yesterday. She has been on this medication in the past and has done well with it. States that she has had more of a chronic cough but is more acutely congestion, slightly sore throat. Past surgical history significant for cholecystectomy, appendectomy, radical hysterectomy with bilateral oophorectomy. past medical history significant for migraines, PTSD, nonalcoholic steatohepatitis, ADELITA, hypertension On exam, patient appears uncomfortable but nontoxic. Hemodynamically stable. Lungs are clear, normal cardiac exam. Abdominal exam is significant for diffuse tenderness but nonperitoneal with no guarding. Normal bowel sounds. While she initially reported right upper quadrant pain and nursing staff, she describes more of migratory pain was not really reproducible on exam, seems to be more intermittent cramping sensations that she is getting.\ The amount of vomiting and diarrhea, concern that the patient may be dehydrated. She was slightly tachycardic. Will begin hydration. Will give Zofran to help with nausea. This patient is typically on Dilaudid and is having some discomfort, will give half milligram IV. I considered electrolyte dysfunction given the patient's amount of vomiting and diarrhea, will obtain baseline labs. All of this has been nonbloody so doubt any significant anemias on exam with laboratory evaluation.. Patient feeling improved. Labs reviewed. No leukocytosis with a white count of 16.9, of note, the patient does have a chronic leukocytosis. CMP significant for elevated glucose, did discuss this with the patient. Her AST and ALT are mildly elevated but again, this appears to be baseline. Lipase within normal limits. Discussed these findings with the patient. She is not having focal tenderness, has known sick contacts and fairly diffuse symptoms, more consistent with viral pathology, I do not see need at this time for imaging. Patient remains hemodynamically stable. She received fluids and is able to hydrate orally here. Return precautions were discussed. We discussed supportive care. Will prescribe further Zofran. Return precautions discussed. Advise follow-up with primary care. All of her questions and concerns were addressed and she is in agreement this plan. Quality:[facility] Health Related Social Needs: No Data to Display Discharge Plan Disposition Patient Disposition: Home Condition: Improving Discharge Details Clinical Impression: Nausea vomiting and diarrhea, Elevated transaminase level, Leukocytosis, URI (upper respiratory infection) Primary Care Provider: Martha Marrufo ED Provider: Yojana Ceja Home Meds and New Rx's Prescriptions: New ondansetron 4 mg tablet,disintegrating 4 mg PO Q6H PRN (Reason: nausea and vomiting) Qty: 10 0RF Continued lidocaine [Lidoderm] 5 % adhesive patch,medicated 1 patch topical DAILY Rx Instructions: leave on most painful area for up to 12 hrs aspirin [Adult Aspirin Regimen] 81 mg tablet,delayed release (DR/EC) 81 mg PO DAILY lovastatin 20 mg tablet 20 mg PO QPM benzonatate 100 mg capsule 100 mg PO HS PRN (Reason: cough) Qty: 20 0RF levalbuterol tartrate [Xopenex HFA] 45 mcg/actuation HFA aerosol inhaler 2 puff Inhalation PRN PRN (Reason: URI) Qty: 15 0RF Rx Instructions: 2 puffs every 4-6 hours as needed for cough, sob, or wheeze (DME) Aerochamber MV Spacer See Rx Instructions .Route Qty: 1 0RF Rx Instructions: As directed montelukast [Singulair] 10 mg tablet 10 mg PO DAILY (DME) TENS units Device See Rx Instructions .ROUTE .MEDSUPPLY Qty: 1 Rx Instructions: As directed levomefolate calcium [L-Methylfolate] 15 mg tablet 15 mg PO DAILY loratadine [Claritin] 10 mg tablet 10 mg PO DAILY PRN B-complex with vitamin C Capsule 1 cap PO DAILY acetaminophen [Tylenol Extra Strength] 500 MG tablet 1,000 mg PO Q6H PRN meclizine 12.5 mg tablet 12.5 mg PO Q8H PRN hydrochlorothiazide 25 mg tablet 25 mg PO DAILY Nurtec ODT 75 mg tablet,disintegrating 75 mg PO ONCE PRN (Reason: migraine headache) Qty: 15 3RF Rx Instructions: as a single dose, no more than one dose in 24 hours, no more than 15 doses per month. hydroxyzine HCl 25 mg tablet See Rx Instructions PO QID PRN (Reason: itching) Qty: 30 3RF Rx Instructions: Take 25-50 mg every 6 hours as needed for headaches. lamotrigine 25 mg tablet 25 mg PO HS buspirone 10 mg tablet 10 mg PO TID pantoprazole [Protonix] 40 mg tablet,delayed release (DR/EC) 40 mg PO QHS Qty: 90 tiotropium bromide [Spiriva with HandiHaler] 18 mcg capsule, w/inhalation device 1 cap INHALATION DAILY Patient Comments: INL THE CONTENTS OF 1 C VIA INHALATION DEVICE D fluoxetine [Prozac] 40 mg Capsule 40 mg PO DAILY hydromorphone [Dilaudid] 2 mg tablet 2 mg PO .Q8 PRN (Reason: SHOULDER PAIN) Discharge Instructions Instructions: Upper Respiratory Infection (ED), Acute Nausea and Vomiting (ED) Additional Instructions: Your history and exam are most consistent with a viral illness. Particularly as you have been around sick people. Your labs are reassuring. Your white count slightly elevated which often goes along with pain and infection. Your liver enzymes are slightly elevated but consistent with how they have been elevated in the past. Please continue to encourage hydration. Frequent sips of fluids. May use the Zofran as prescribed to help with any recurrent nausea or vomiting. Please follow-up with your primary care in 1 week for reevaluation. If you develop increased pain, inability stay hydrated, have blood in your vomit or develop other new/worsening symptoms please seek care urgently once again. Referrals: Martha Marrufo [Primary Care Provider] -
[2023-07-19 10:16] LABS: Abs Immature Grans 0.07 10^3/uL (0.0-0.06); Absolute Eosinophil Count 0.05 10^3/uL (0.0-0.7); Absolute Lymphocyte Count 0.54 10^3/uL (1.2-3.4); Absolute Monocyte Count 0.56 10^3/uL (0.1-0.8); Basophils % 0.4; Eosinophils % 0.3; HCT 43.2 % (36.0-46.0); HGB 14.8 g/dL (11.2-15.7); Immature Grans % 0.4; Lymphocytes % 3.2; MCH 31.8 pg (27.0-33.0); MCHC 34.3 % (32.0-36.0); MCV 93 fL (80-95); MPV 9.6 fL (8.0-11.0); Monocytes % 3.3; Neutrophils % 92.4; Platelet Count 326 10^3/uL (130-400); RBC 4.66 10^6/uL (3.93-5.22); RDW 11.8 % (11.7-14.6); RDW-SD 40.1 fL; WBC 16.96 10^3/uL (4.4-10.8)
[2023-07-19 10:18] LABS: Absolute Basophil Count 0.07 10^3/uL (0.0-0.2); Absolute Neutrophil Count 15.67 10^3/uL (1.2-6.7)
[2023-07-19] MEDS: HYDROmorphone 2 MG/ML SYR 0.5 MG IVP (10:22)
[2023-07-19] MEDS: Ondansetron 4 MG/2 ML VIAL IVP (10:22)
[2023-07-19] MEDS: Lactated Ringers 1,000 ML 1000 ML IV (10:23)
[2023-07-19 10:36] LABS: ALT 91 U/L (14-59); AST 51 U/L (15-37); Albumin 3.9 g/dL (3.4-5.0); Alkaline Phosphatase 113 U/L (46-116); Anion Gap 10.3 mmol/L (3-11); BUN 26 mg/dL (7-18); Bilirubin, Total 0.6 mg/dL (0.2-1.0); CO2 27.7 mmol/L (21.0-32.0); Calcium 9.5 mg/dL (8.5-10.1); Chloride 101 mmol/L (98-107); Estimated GFR 65.71 (mL/min/1.73m2); Glucose 191 mg/dL (74-106); Lipase 23 U/L (16-77); Magnesium 1.8 mg/dL (1.8-2.4); Potassium 4.5 mmol/L (3.5-5.1); Sodium 139 mmol/L (136-145); Total Protein 7.9 g/dL (6.4-8.2)
[2023-07-19] MEDS: ACETAMINOPHEN 1,000 MG/100 ML BTL 400 MG IVPB (11:45)
== END 2023-07-19 23:06 | disposition home or self-care (01) ==
PROVIDERS: Emergency Provider Physician Assistant; PCP Nurse Practitioner Family
DX: R74.01 Elevation of levels of liver transaminase levels (principal); D72.829 Elevated white blood cell count, unspecified; J06.9 Acute upper respiratory infection, unspecified; I10 Essential (primary) hypertension; J44.9 Chronic obstructive pulmonary disease, unspecified; F17.210 Nicotine dependence, cigarettes, uncomplicated; Z79.82 Long term (current) use of aspirin
CPT/HCPCS: 80053; 83690; 96361; 96374; 96375; 99283; 83735; 85025; 99284; J0131; J1170; J2405

== ENCOUNTER 2023-07-19 18:32 | Inpatient (IN) | payer MEDICAID, SELFPAY ==
[2023-07-19] VITALS (55 sets, daily range): BP systolic 119–155; BP diastolic 65–92; PULSE 97–115; RESP 16–22; TEMP 36.7–36.8; O2SAT 91–99
--- NOTE | 2023-07-19 18:45 | RT.EKG_ITS ---
APPROVED REPORT Exam: Resting ECG Reason for Exam: CP Patient Location: I HR:110 bpm ECG Measurements Heart Rate 110 AXIS SC 183 P 68 QRSd 100 QRS 80 QT 355 T 25 QTc 480 Conclusion Sinus tachycardia...rate> 99 I have reviewed and interpreted ECG and agree with software generated interpretation.
--- NOTE | 2023-07-19 19:00 | DI.CT_ITS ---
Exam(s) CT ABDOMEN PELVIS W EXAM: CT ABDOMEN PELVIS W CLINICAL HISTORY: intractable vomiting, abdominal pain R side LUQ TECHNIQUE: Imaging Protocol: Axial computed tomography images with coronal and sagittal reformatted images were created and reviewed CONTRAST MATERIAL: Intravenous: Omnipaque contrast volume:98 mL Oral: No COMPARISON: CT CT ABDOMEN PELVIS W from 12/29/[address] RENAL COLIC WO from 12/04/[address] RENAL COLIC WO from 05/03/2023 FINDINGS: ABDOMEN: Lung Bases: There are bilateral basilar infiltrates right greater than left. Calcified granuloma are seen in the lung bases. Liver: There are few tiny hypodensities in the liver. They are too small for further characterizatio n but likely reflect small cysts. There are stable compared to the prior examinations. There is a s table 2.4 x 1.1 cm enhancing mass in the inferior aspect of the right lobe of the liver. This likely reflects a hemangioma. Portal, Superior Mesenteric, and Splenic Veins: Unremarkable. Gallbladder and Biliary Tract: Status post cholecystectomy. No significant biliary ductal dilatation . Pancreas: Normal density, no abnormal calcifications or inflammatory process. Spleen: Normal. Adrenals: No masses seen. Kidneys: Normal size, contour and axis. No radiodense stones or obstructive uropathy. There is a stab le simple cyst in the inferior pole of the right kidney. No follow-up is recommended. Abdominal Aorta: Abdominal portion non-dilated. Atherosclerosis. Bowel: There are few diverticula seen in the colon, but no evidence of diverticulitis. There is no e vidence of bowel obstruction or bowel wall thickening. Status post appendectomy. The stomach is inc ompletely distended limiting evaluation. Peritoneal Cavity: No ascites, collection or mesenteric inflammatory response. No free air. Lymph Nodes: Stable mildly prominent lymph nodes in the mesentery. Bones: Within normal limits for the patient's age. Soft Tissues: Unremarkable. PELVIS: Bladder: The urinary bladder is incompletely distended. This limits evaluation. No gross abnormalit ies identified. Reproductive Organs: Status post hysterectomy. Lymph Nodes: Within normal limits. Bones: Within normal limits for the patient's age. IMPRESSION: 1. Bilateral basilar infiltrates, right greater than left. The findings may reflect pneumonia. 2. No acute abdominal or pelvic process. RADIATION DOSE DELIVERED: 730.91mGy.cm Total DLP DATA REPOSITORY: All CT scans at this facility are submitted to the National Radiology Data Registry (NRDR) Dose Index Registry (DIR) with the [employer] (ACR). RADIATION OPTIMIZATION: All CT scans at this facility use at least one of these dose optimization te chniques: automated exposure control; mA and/or kV adjustment per patient size (includes targeted exa ms where dose is matched to clinical indication); or iterative reconstruction.
--- NOTE | 2023-07-19 19:09 | W.ED.GENAD ---
HPI General Stated Complaint: Nausea/Vomit/Diar NICOLAS: 3 Date/Time Provider Initiated Documentation: 07/19/23 18:51. HPI Narrative: 58 year-old female presents to ED today by EMS, discharged earlier today for vomiting, with a chief complaint of continued intractable vomiting with any PO intake, unable to keep her PO Zofran down- body aches, headache, liquid diarrhea, cough with onset of the GI symptoms last night. Quality described as just aches all over, nonstop yellow vomiting, no radiation to chest pain, syncope, endorses shortness of breath, denies focal abdominal pain, denies black/bloody stools. Severity is described as 8-9/10. Palliating factors include nothing specific. Provoking factors include nothing specific. Events leading up to the incident/Associated Symptoms: [ ]. Patient not anticoagulated. Related Data Home Medications Medication Instructions Recorded Confirmed acetaminophen 500 mg tablet 1,000 mg PO Q6H PRN 03/21/17 07/19/23 (Tylenol Extra Strength) hydrochlorothiazide 25 mg tablet 25 mg PO DAILY 06/08/19 07/19/23 meclizine 12.5 mg tablet 12.5 mg PO Q8H PRN 06/08/19 07/19/23 tiotropium bromide 18 mcg capsule 1 cap inhalation DAILY 03/16/20 07/19/23 with inhalation device (Spiriva with HandiHaler) lidocaine 5 % topical patch 1 patch topical DAILY 06/15/20 07/19/23 (Lidoderm) TENS units #1 ea 08/01/20 07/16/23 aspirin 81 mg tablet,delayed 81 mg PO DAILY 01/05/21 07/19/23 release (Adult Aspirin Regimen) lovastatin 20 mg tablet 20 mg PO QPM 08/16/21 07/19/23 rimegepant 75 mg disintegrating 75 mg PO ONCE PRN migraine 02/06/22 07/19/23 tablet (Nurtec ODT) headache #15 tabs levomefolate calcium 15 mg tablet 15 mg PO DAILY 03/20/22 07/19/23 (L-Methylfolate) loratadine 10 mg tablet (Claritin) 10 mg PO DAILY PRN 03/20/22 07/19/23 B-complex with vitamin C 1 cap PO DAILY 03/21/22 07/19/23 hydroxyzine HCl 25 mg tablet See Rx Instructions PO QID PRN 05/07/22 07/19/23 itching #30 tabs benzonatate 100 mg capsule 100 mg PO HS PRN cough #20 caps 09/03/22 07/19/23 inhalational spacing device #1 ea 09/03/22 07/19/23 (Aerochamber MV spacer) levalbuterol tartrate 45 2 puff inhalation PRN PRN URI #15 09/03/22 07/19/23 mcg/actuation aerosol inhaler grams (Xopenex HFA) fluoxetine 40 mg capsule (Prozac) 40 mg PO DAILY 11/01/22 07/19/23 buspirone 10 mg tablet 10 mg PO TID 11/14/22 07/19/23 lamotrigine 25 mg tablet 25 mg PO HS 11/14/22 07/19/23 pantoprazole 40 mg tablet,delayed 40 mg PO QHS #90 tab-caps 11/14/22 07/19/23 release (Protonix) montelukast 10 mg tablet 10 mg PO DAILY 07/16/23 07/19/23 (Singulair) hydromorphone 2 mg tablet 2 mg PO .Q8 PRN SHOULDER PAIN 07/19/23 07/19/23 (Dilaudid) ondansetron 4 mg disintegrating 4 mg PO Q6H PRN nausea and 07/19/23 07/19/23 tablet vomiting #10 tabs Previous Rx's Medication Instructions Recorded rimegepant 75 mg disintegrating 75 mg PO ONCE PRN migraine 02/06/22 tablet (Nurtec ODT) headache #15 tabs hydroxyzine HCl 25 mg tablet See Rx Instructions PO QID PRN 05/07/22 itching #30 tabs benzonatate 100 mg capsule 100 mg PO HS PRN cough #20 caps 09/03/22 inhalational spacing device #1 ea 09/03/22 (Aerochamber MV spacer) levalbuterol tartrate 45 2 puff inhalation PRN PRN URI #15 09/03/22 mcg/actuation aerosol inhaler grams (Xopenex HFA) ondansetron 4 mg disintegrating 4 mg PO Q6H PRN nausea and 07/19/23 tablet vomiting #10 tabs Allergies Allergy/AdvReac Type Severity Reaction Status Date / Time nicotine Allergy Severe PATCHES-REDNESS Verified 07/16/23 13:31 & SWELLING chlorhexidine Allergy Mild Skin Rash Verified 07/16/23 13:31 adhesive Allergy Skin Rash Verified 07/16/23 13:31 amitriptyline Allergy Verified 07/16/23 13:31 doxycycline Allergy Verified 07/16/23 13:31 bupropion AdvReac Severe AGITATION Verified 07/16/23 13:31 duloxetine AdvReac Intermediate HEARING Verified 07/16/23 13:31 THINGS hydrocodone AdvReac Intermediate Itching Verified 07/16/23 13:31 pregabalin [From Lyrica] AdvReac Intermediate foggy brain Verified 07/16/23 13:31 trazodone AdvReac Intermediate ANXIETY Verified 07/16/23 13:31 pravastatin AdvReac Mild HEADACHE Verified 07/16/23 13:31 simvastatin AdvReac Mild LEG Verified 07/16/23 13:31 CRAMPS; HEADACHE varenicline AdvReac Mild BEHAVIOR Verified 07/16/23 13:31 CHANGES promethazine AdvReac Unknown ANXIETY Verified 07/16/23 13:31 zolpidem AdvReac Unknown INCREASED Verified 07/16/23 13:31 DEPRESSION Review of Systems All systems reviewed & are unremarkable except as noted in HPI and below PFSH All Active Problems (Updated 07/19/23 @ 21:53 by Dilan Drew) Hypomagnesemia (Acute) Pneumonia (Acute) Intractable vomiting (Acute) URI (upper respiratory infection) (Acute) Leukocytosis (Acute) Elevated transaminase level (Acute) Nausea vomiting and diarrhea (Acute) Traumatic tear of right rotator cuff (Acute ~05/2023) Trochanteric bursitis, left hip (Acute) COPD (chronic obstructive pulmonary disease) (Chronic 01/06/15) Depression (Chronic 07/30/14) anxiety fatigue Fibromyalgia (Chronic 07/30/14) Hyperlipidemia (Chronic) Joint pain (Chronic 07/30/14) 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, recurrent [facility] pain [facility] 2014 Peptic reflux disease (Chronic) 2012 EGD, mild gastritis 2014 [place] ([facility]) patchy gastritis Shoulder pain, left (Chronic 05/25/14) 05/28 WC Smoker (Chronic) Tremor (Acute) Chronic headache (Acute) Migraine headache without aura (Acute) Anxiety (Chronic) Microscopic hematuria (Acute) Cervicalgia (Acute) Prolonged QT interval (Acute) Gastritis (Acute ~12/2020) mild Cough (Acute) Memory loss (Acute) Seasonal allergies (Acute) Dizziness (Acute) Transient neurological symptoms (Acute) History of prediabetes (Acute) Elevated transaminase level (Acute) Lymph nodes enlarged (Acute) Pulmonary nodule (Acute) Sinusitis (Acute) Vasomotor symptoms due to menopause (Acute) Fatigue (Acute) Chest pain (Acute) Irregular bowel habits (Acute) GERD (gastroesophageal reflux disease) (Chronic) Sore throat (Acute) Leukocytosis (Acute) Chronic pain (Chronic) Bruxism (Acute) Left-sided temporomandibular joint pain-dysfunction syndrome (Acute) Paresthesia (Acute) Hip pain (Acute) Shoulder pain, right (Acute) Periodic limb movement (Acute) Sensorineural hearing loss, bilateral (Acute) Myalgia (Acute) Oral ulceration (Acute) Jaw pain (Acute) Gall stone (Acute) RUQ pain (Acute) Hearing loss (Acute) Liver lesion (Acute) Medical History Family history of myocardial infarction (05/25/14) Colon polyps Thyroid nodule Migraine with aura Post traumatic stress disorder (PTSD) DDD (degenerative disc disease) 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 is unaware of this Pre-diabetes Obstructive sleep apnea Hypertension Surgical History Status post breast biopsy History of cholecystectomy (~04/05/22) History of bunionectomy right Hx of rotator cuff surgery bilateral History of tonsillectomy and adenoidectomy History of esophagogastroduodenoscopy (EGD) (~12/2020) History of colonoscopy (~12/2020) Oophrectomy, Left B Hysterectomy, Laproscopic EGD - [facility] 2014-[facility] Biopsy of breast (~2007) neg Bilateral salpingectomy with oophorectomy Family History Mother Essential hypertension Diabetes TYPE 2 Hyperlipidemia Father Heart disease Hyperlipidemia Myocardial infarction Sister Hyperlipidemia Brother No problems noted. Grandfather No problems noted. Grandfather No problems noted. Grandmother Personal history of malignant neoplasm BREAST Grandmother No problems noted. 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 SKIN: Warm, pink, dry, intact, without rashes/lesions/ulcerations. HEAD: Normocephalic, atraumatic, normal hair distribution for gender/age. EYES: Pupils PERRLA, EOMs intact without nystagmus, normal conjunctiva, no exudates on lids/lashes. ENT: Nares patent, no circumoral cyanosis, no facial swelling NECK: Supple, trachea midline, painless cervical ROM. LUNGS/CHEST: Lungs - rhonchi R base, labored respirations, normal A/P diameter, symmetrical expansion, no chest wall deformity HEART (CV/PV): Regular rate and rhythm without murmur, no peripheral edema, no JVD. ABDOMEN: Soft, non-distended, no guarding, LUQ tenderness, neg McBurney's point-tenderness, neg Gordon's, no Rovsing's. MSK: Normal ROM, no swelling/deformity to bilateral UEs or LEs, moving all extremities without weakness, no cyanosis, spine midline without tenderness, normal curvature. NEURO: Mental Status AAOx4 - alert to person, place, time, events No facial droop, no forehead involvement. Motor: No focal weakness - strength 5/5 in bilateral UEs and LEs, proximal and distal, symmetric. Sensory: sensation intact to light touch globally. Gait normal: patient ambulated without ataxia into ED room. PSYCH: euthymic, cooperative, pleasant, appropriate speech Course Vital Signs Vital signs: Vital Signs Temperature 36.7 C 07/19/23 18:36 Pulse 110 H 07/19/23 18:36 Respiratory Rate 18 07/19/23 18:36 Blood Pressure 134/71 07/19/23 18:36 Pulse Oximetry 95 07/19/23 18:36 Temperature 36.7 C 07/19/23 18:36 Temperature Source Oral 07/19/23 18:36 Pulse 115 H 07/19/23 18:53 Respiratory Rate 18 07/19/23 18:53 Blood Pressure 134/74 07/19/23 18:53 Blood Pressure Position Supine 07/19/23 18:36 Pulse Oximetry 93 07/19/23 18:53 Pain Level 9 07/19/23 18:53 Medical Decision Making This dictation utilizes [id number] dictation software and may contain unedited grammatical errors. 58 y/o F presents to ED today with a chief complaint of intractable nausea/vomiting, cough, headache, shortness of breath, body aches, liquid diarrhea- cough for days but GI symptoms onset last night. Patients states they've had some pneumonia in their house lately. Patients' medical history: migraine, pre-diabetes, GARZA. Family and social history: states no recent travel, poor PO intake lately. Pertinent exam findings / vital signs include LUQ TTP abdomen without peritoneal signs, R base rhonchorous, midway through visit displaying hypoxia at rest with 88%. Differential / pathologies of concern include Sepsis, Pneumonia, Diverticulitis, C. Difficile, Gastroenteritis. Diagnostic studies of: -CBC, CMP, Lipase, EKG, Mg++, Stool Studies, UA, CT ABD/Pelvis w Contrast, Covid/Flu/RSV PCR. -CBC shows leukocytosis at 13, improved from earlier today at 16 -Mg++ 1.7, repleting IV -UA benign -Covid/Flu/RSV neg -CT shows no acute abdominal pathology, does show a R lower lobe PNA, due to systemic symptoms, adding cultures and empiric ABX and CXR -CXR shows Interventions of: -IV LR, IV Magnesium, IV Toradol, IV Reglan, IV Benadryl, IV Ceftriaxone & Azithromycin. ED Course/Assessment/Plan: 58-year-old toxic appearing female presents for the second time today, was seen earlier today for intractable vomiting and was discharged as she was tolerating p.o. at that time, feels worse since then, was given 1 g IV Tylenol by EMS en route. Her laboratory workup is reassuring with improving leukocytosis, chronic baseline LFT elevation so a mild degree but her CT scan was performed due to her bounce back status and left upper quadrant tenderness, no acute abdominal pathology but does show right lower lobe pneumonia, added chest x-ray and blood cultures, the patient was noted to be hypoxic at rest at this time 88% on room air. Likely needs to be admitted for her pneumonia and intractable vomiting, consulted with hospitalist Dr. Drew. *Added VBG and Lactate Disposition of Pneumonia, Intractable Vomiting. Patient verbalized understanding of the plan and return to ED criteria and engaged in shared decision making. Medical Records Medical records reviewed: Yes I reviewed the patient's medical records. Imaging Data Radiologic Study: Imaging: CT Scan Radiologist's impression: Exam: CT Abdomen And Pelvis With Contrast Exam date and time: 07/19/2023 7:54 PM Age: 58 years old Clinical indication: Other: Intractable vomiting, abdominal pain R side \T\ luq TECHNIQUE: Imaging protocol: Computed tomography of the abdomen and pelvis with contrast. Contrast material: 350; Contrast volume: 100 ml; Contrast route: INTRAVENOUS (IV); COMPARISON: MR ABDOMEN WO/W 01/24/2021 8:20 AM FINDINGS: Lungs: Mild focal consolidation in the right lower lobe. Mild dependent atelectasis in the bilateral lower lobes. Liver: Normal. No mass. Gallbladder and bile ducts: Gallbladder is surgically absent. Pancreas: Normal. No ductal dilation. Spleen: Normal. No splenomegaly. Adrenal glands: Normal. No mass. Kidneys and ureters: Normal. No hydronephrosis. Stomach and bowel: Unremarkable. No obstruction. No mucosal thickening. Appendix: No evidence of appendicitis. Intraperitoneal space: Unremarkable. No free air. No significant fluid collection. Vasculature: Moderate atherosclerotic calcification of the distal aorta and iliac arteries. No evidence of aneurysm or dissection. Lymph nodes: Unremarkable. No enlarged lymph nodes. Urinary bladder: Unremarkable as visualized. Reproductive: Uterus is surgically absent. No adnexal abnormality. Bones/joints: Moderate degenerative disc space narrowing with disc bulge at the lumbosacral junction producing moderate central canal and bilateral neural foraminal stenosis. Soft tissues: Unremarkable. IMPRESSION: 1. Mild right lower lobe pneumonia 2. Chronic osseous and atherosclerotic changes as described Lab Data Lab results reviewed: Yes I reviewed the patient's lab results. Labs: 07/19/23 21:33 Blood Blood Culture - Pending 07/19/23 20:51 Blood Blood Culture - Pending 07/19/23 19:14 Stool Lactoferrin Latex Agglutination - Pending Laboratory Tests Range/Units 07/19/23 07/19/23 07/19/23 19:10 19:29 19:54 WBC (4.4-10.8) 10^3/uL 13.64 H RBC (3.93-5.22) 10^6/uL 4.16 Hgb (11.2-15.7) g/dL 13.3 Hct (36.0-46.0) % 38.2 MCV (80-95) fL 92 MCH (27.0-33.0) pg 32.0 MCHC (32.0-36.0) % 34.8 RDW (11.7-14.6) % 11.9 Plt Count (130-400) 10^3/uL 280 MPV (8.0-11.0) fL 9.8 Immature Gran % 0.4 Neutrophils % 90.2 Lymphocytes % 5.6 Monocytes % 3.5 Eosinophils % 0.1 Basophils % 0.2 Nucleated RBC % (0.0-0.3) % 0.0 Absolute Neutrophils (1.2-6.7) 10^3/uL 12.30 H Absolute Lymphocytes (1.2-3.4) 10^3/uL 0.76 L Absolute Monocytes (0.1-0.8) 10^3/uL 0.48 Absolute Eosinophils (0.0-0.7) 10^3/uL 0.01 Absolute Basophils (0.0-0.2) 10^3/uL 0.03 Sodium (136-145) mmol/L 137 Potassium (3.5-5.1) mmol/L 3.9 Chloride (98-107) mmol/L 102 Carbon Dioxide (21.0-32.0) mmol/L 27.2 Anion Gap (3-11) mmol/L 7.8 BUN (7-18) mg/dL 20 H Creatinine (0.55-1.02) mg/dL 0.9 Est GFR (CKD-EPI 2020) (mL/min/1.73m2) 74.57 Glucose (74-106) mg/dL 166 H Calcium (8.5-10.1) mg/dL 9.1 Magnesium (1.8-2.4) mg/dL 1.7 L Total Bilirubin (0.2-1.0) mg/dL 0.6 Conjugated Bilirubin (0.0-0.2) mg/dL 0.2 AST (15-37) U/L 31 ALT (14-59) U/L 77 H Alkaline Phosphatase (46-116) U/L 97 Troponin I (<or=60) ng/L < 50 Total Protein (6.4-8.2) g/dL 7.1 Albumin (3.4-5.0) g/dL 3.5 Urine Color (Yellow) Yellow Urine Clarity (Clear) Clear Urine pH (5-8) 5.5 Ur Specific [place] (1.005-1.025) 1.025 Urine Protein (Negative) mg/dL Negative Urine Ketones (Negative) mg/dL 40 H Urine Blood (Negative) Small H Urine Nitrite (Negative) Negative Urine Bilirubin (Negative) Negative Urine Urobilinogen (Up to 0.2) mg/dL 0.2 Ur Leukocyte Esterase (Negative) Negative Urine RBC (0-2) HPF 5-10 H Urine WBC (0-5) HPF 0-2 Ur Epithelial Cells (Negative) HPF Rare Urine Crystals (Negative) HPF Negative Urine Bacteria (Negative) HPF Negative Urine Mucus (Negative) Trace Ur Culture Indicated? No Urine Glucose (Negative) mg/dL Negative COVID-19 Source Nasopharynx SARS-CoV-2 (PCR) (Negative) Negative Influenza Type A (PCR) (Negative) Negative Influenza Type B (PCR) (Negative) Negative RSV (PCR) (Negative) Negative Quality:SDOH Health Related Social Needs: No Data to Display Discharge Plan Disposition Patient Disposition: Admit to [facility] Condition: Stable Discharge Details Clinical Impression: Intractable vomiting, Pneumonia Primary Care Provider: Martha Marrufo ED Provider: Felix Owens Home Meds and New Rx's Prescriptions: No Action lidocaine [Lidoderm] 5 % adhesive patch,medicated 1 patch topical DAILY Rx Instructions: leave on most painful area for up to 12 hrs aspirin [Adult Aspirin Regimen] 81 mg tablet,delayed release (DR/EC) 81 mg PO DAILY lovastatin 20 mg tablet 20 mg PO QPM benzonatate 100 mg capsule 100 mg PO HS PRN (Reason: cough) Qty: 20 0RF levalbuterol tartrate [Xopenex HFA] 45 mcg/actuation HFA aerosol inhaler 2 puff Inhalation PRN PRN (Reason: URI) Qty: 15 0RF Rx Instructions: 2 puffs every 4-6 hours as needed for cough, sob, or wheeze (DME) Aerochamber MV Spacer See Rx Instructions .Route Qty: 1 0RF Rx Instructions: As directed montelukast [Singulair] 10 mg tablet 10 mg PO DAILY (DME) TENS units Device See Rx Instructions .ROUTE .MEDSUPPLY Qty: 1 Rx Instructions: As directed levomefolate calcium [L-Methylfolate] 15 mg tablet 15 mg PO DAILY loratadine [Claritin] 10 mg tablet 10 mg PO DAILY PRN B-complex with vitamin C Capsule 1 cap PO DAILY acetaminophen [Tylenol Extra Strength] 500 MG tablet 1,000 mg PO Q6H PRN meclizine 12.5 mg tablet 12.5 mg PO Q8H PRN hydrochlorothiazide 25 mg tablet 25 mg PO DAILY Nurtec ODT 75 mg tablet,disintegrating 75 mg PO ONCE PRN (Reason: migraine headache) Qty: 15 3RF Rx Instructions: as a single dose, no more than one dose in 24 hours, no more than 15 doses per month. hydroxyzine HCl 25 mg tablet See Rx Instructions PO QID PRN (Reason: itching) Qty: 30 3RF Rx Instructions: Take 25-50 mg every 6 hours as needed for headaches. lamotrigine 25 mg tablet 25 mg PO HS buspirone 10 mg tablet 10 mg PO TID pantoprazole [Protonix] 40 mg tablet,delayed release (DR/EC) 40 mg PO QHS Qty: 90 tiotropium bromide [Spiriva with HandiHaler] 18 mcg capsule, w/inhalation device 1 cap INHALATION DAILY Patient Comments: INL THE CONTENTS OF 1 C VIA INHALATION DEVICE D fluoxetine [Prozac] 40 mg Capsule 40 mg PO DAILY hydromorphone [Dilaudid] 2 mg tablet 2 mg PO .Q8 PRN (Reason: SHOULDER PAIN) ondansetron 4 mg tablet,disintegrating 4 mg PO Q6H PRN (Reason: nausea and vomiting) Qty: 10 0RF
[2023-07-19 19:21] LABS: Abs Immature Grans 0.05 10^3/uL (0.0-0.06); Absolute Basophil Count 0.03 10^3/uL (0.0-0.2); Absolute Eosinophil Count 0.01 10^3/uL (0.0-0.7); Absolute Lymphocyte Count 0.76 10^3/uL (1.2-3.4); Absolute Monocyte Count 0.48 10^3/uL (0.1-0.8); Basophils % 0.2; Eosinophils % 0.1; HCT 38.2 % (36.0-46.0); HGB 13.3 g/dL (11.2-15.7); Immature Grans % 0.4; Lymphocytes % 5.6; MCHC 34.8 % (32.0-36.0); MCV 92 fL (80-95); MPV 9.8 fL (8.0-11.0); Monocytes % 3.5; Neutrophils % 90.2; Platelet Count 280 10^3/uL (130-400); RBC 4.16 10^6/uL (3.93-5.22); RDW 11.9 % (11.7-14.6); RDW-SD 40.1 fL; WBC 13.64 10^3/uL (4.4-10.8)
[2023-07-19 19:33] LABS: Bilirubin Negative (Negative); Blood Small (Negative); Clarity Clear (Clear); Glucose Negative (Negative); Ketones 40 mg/dL (Negative); Leukocyte Esterase Negative (Negative); Nitrite Negative (Negative); Specific Gravity 1.025 (1.005-1.025); Urobilinogen 0.2 mg/dL (Up to 0.2); pH 5.5 (5-8)
[2023-07-19 19:38] LABS: ALT 77 U/L (14-59); AST 31 U/L (15-37); Albumin 3.5 g/dL (3.4-5.0); Alkaline Phosphatase 97 U/L (46-116); Anion Gap 7.8 mmol/L (3-11); BUN 20 mg/dL (7-18); Bilirubin, Direct 0.2 mg/dL (0.0-0.2); Bilirubin, Total 0.6 mg/dL (0.2-1.0); CO2 27.2 mmol/L (21.0-32.0); CREATININE 0.9 mg/dL (0.55-1.02); Calcium 9.1 mg/dL (8.5-10.1); Chloride 102 mmol/L (98-107); Estimated GFR 74.57 (mL/min/1.73m2); Glucose 166 mg/dL (74-106); Magnesium 1.7 mg/dL (1.8-2.4); Potassium 3.9 mmol/L (3.5-5.1); Sodium 137 mmol/L (136-145); Total Protein 7.1 g/dL (6.4-8.2); Troponin I < 50 ng/L (<or=60)
[2023-07-19] MEDS: Lactated Ringers 1,000 ML 1000 ML IV (19:39)
[2023-07-19] MEDS: diphenhydrAMINE 50 MG/ML VIAL 25 MG IVP (19:40)
[2023-07-19] MEDS: Ketorolac 15 MG/ML VIAL IVP (19:40)
[2023-07-19] MEDS: Famotidine 20 MG/2 ML VIAL IVP (19:40)
[2023-07-19 19:42] LABS: Bacteria Negative HPF (Negative); Crystals Negative HPF (Negative); Epithelial Cells Rare HPF (Negative); WBC 0-2 HPF (0-5)
[2023-07-19 19:43] LABS: C & S Indicated? No; Mucus Trace (Negative)
[2023-07-19] MEDS: Normal Saline - Diluent 50 ML VIAL IJ (19:56)
[2023-07-19] MEDS: Omnipaque 350 MG/ML 100 ML BTL IJ (19:56)
[2023-07-19] MEDS: MAGNESIUM SULFATE 1 GM/100 ML BAG IVPB (20:18)
[2023-07-19 20:34] LABS: COVID-19 PCR Negative (Negative); Influenza A PCR Negative (Negative); Influenza B PCR Negative (Negative); RSV PCR Negative (Negative)
[2023-07-19 20:35] LABS: Source Nasopharynx
--- NOTE | 2023-07-19 20:42 | DI.VRAD_ITS ---
PROCEDURE INFORMATION: Exam: CT Abdomen And Pelvis With Contrast Exam date and time: 07/19/2023 7:54 PM Age: 58 years old Clinical indication: Other: Intractable vomiting, abdominal pain R side \T\ luq TECHNIQUE: Imaging protocol: Computed tomography of the abdomen and pelvis with contrast. Contrast material: 350; Contrast volume: 100 ml; Contrast route: INTRAVENOUS (IV); COMPARISON: MR ABDOMEN WO/W 01/24/2021 8:20 AM FINDINGS: Lungs: Mild focal consolidation in the right lower lobe. Mild dependent atelectasis in the bilateral lower lobes. Liver: Normal. No mass. Gallbladder and bile ducts: Gallbladder is surgically absent. Pancreas: Normal. No ductal dilation. Spleen: Normal. No splenomegaly. Adrenal glands: Normal. No mass. Kidneys and ureters: Normal. No hydronephrosis. Stomach and bowel: Unremarkable. No obstruction. No mucosal thickening. Appendix: No evidence of appendicitis. Intraperitoneal space: Unremarkable. No free air. No significant fluid collection. Vasculature: Moderate atherosclerotic calcification of the distal aorta and iliac arteries. No evidence of aneurysm or dissection. Lymph nodes: Unremarkable. No enlarged lymph nodes. Urinary bladder: Unremarkable as visualized. Reproductive: Uterus is surgically absent. No adnexal abnormality. Bones/joints: Moderate degenerative disc space narrowing with disc bulge at the lumbosacral junction producing moderate central canal and bilateral neural foraminal stenosis. Soft tissues: Unremarkable. IMPRESSION: 1. Mild right lower lobe pneumonia 2. Chronic osseous and atherosclerotic changes as described Dictated and Authenticated by: Tl Frank MD. Ordering:CAROLE Washington MD
--- NOTE | 2023-07-19 20:45 | DI.RAD_ITS ---
Exam(s) XR CHEST 2V PA LATERAL EXAM: XR CHEST 2V PA LATERAL CLINICAL HISTORY: R lower lobe PNA seen on CT ABD TECHNIQUE: 2D digital imaging was performed of the chest. Two images were obtained. PA and lateral views were obtained. COMPARISON: CR XR CHEST 2V PA LATERAL from 03/27/2023 FINDINGS: MEDIASTINUM: Normal. HEART: Normal. PULMONARY VASCULATURE: Normal. LUNGS: There is a right lower lobe infiltrate. PLEURAL SPACE: No pleural effusion or pneumothorax. BONE:Within normal limits for the patient's age. OTHER FINDINGS:Normal. IMPRESSION: Infiltrate in the right lower lobe suspicious for pneumonia. DATA REPOSITORY: RADIATION DOSE DELIVERED:
--- NOTE | 2023-07-19 21:05 | DI.VRAD_ITS ---
PROCEDURE INFORMATION: Exam: XR Chest Exam date and time: 07/19/2023 8:59 PM Age: 58 years old Clinical indication: Other: R lower lobe pna seen on CT abd TECHNIQUE: Imaging protocol: Radiologic exam of the chest. Views: 2 views. COMPARISON: CR XR CHEST 2V PA LATERAL 03/27/2023 9:44 AM FINDINGS: Lungs: Interval development of moderate right lower lobe. Left lung appears clear. Pleural spaces: Unremarkable. No pleural effusion. No pneumothorax. Heart/Mediastinum: Unremarkable. No cardiomegaly. Bones/joints: Unremarkable. IMPRESSION: Right lower lobe pneumonia Dictated and Authenticated by: Tl Frank MD. Ordering:CAROLE Washington MD
[2023-07-19] MEDS: Metoclopramide 10 MG/2 ML VIAL IVP (21:34)
--- NOTE | 2023-07-19 21:47 | W.PM.HP.N ---
Date of service: 07/19/23 Time of Service: 21:48 Assessment and Plan Assessment and plan (1) Pneumonia: Start date: 07/19/23 Status: Acute Assessment and plan: This is a 58-year-old lady who presented with acute abdominal symptoms with intractable nausea and vomiting as well as slight diarrhea after initiating Dilaudid for shoulder pain. She states she has never taken this medication in the past though the ED notes indicate she had no problem with this in the past. She will not be taking this medication again. She also has a slight migraine which began after her abdominal symptoms and this does persist. She is on treatment for this chronic as an outpatient. She was seen in the ED and felt slightly better going home and then returned with continued nausea and vomiting. She was found to have right lower lobe pneumonia which may be contributing to her abdominal symptoms. She does have a history of mild COPD. She admitted for IV antibiotic therapy and IV hydration. She also be treated symptomatically for her migraine headache. Her nausea is controlled with Zofran IV. There are some concerns of QT prolongation with her multiple psychiatric meds and she will be monitored on telemetry. She is a full code. Qualifiers: Laterality: right Lung location: lower lobe of lung Pneumonia type: due to unspecified organism Qualified Code(s): J18.9 - Pneumonia, unspecified organism (2) Intractable vomiting: Start date: 07/19/23 Status: Acute Assessment and plan: Persistent as outpatient and now being treated with IV Zofran and bowel rest with clear fluids and IV hydration. Monitor electrolytes. (3) Migraine with aura: Assessment and plan: Patient does have acute exacerbation and will be given her usual outpatient medical therapy. This seems to be improving with controlling her nausea off Dilaudid. Qualifiers: Status migrainosus presence: without status migrainosus Intractability: not intractable Qualified Code(s): G43.109 - Migraine with aura, not intractable, without status migrainosus (4) Traumatic tear of right rotator cuff: Status: Chronic Assessment and plan: Patient not be given Dilaudid for this pain but continue other pain management as needed. She does have planned surgery in early August 2023. Qualifiers: Rotator cuff tear extent: unspecified tear extent Encounter type: subsequent encounter Qualified Code(s): S46.011D - Strain of muscle(s) and tendon(s) of the rotator cuff of right shoulder, subsequent encounter (5) Hypomagnesemia: Start date: 07/19/23 Status: Acute Assessment and plan: Patient was repleted with IV magnesium and follow-up magnesium levels repletion as needed. She is on chronic her thiazide but is not hypokalemic. (6) COPD (chronic obstructive pulmonary disease): Status: Chronic Assessment and plan: Chronic mild disease on chronic inhalers with Spiriva and Xopenex as needed. DuoNeb nebulizer treatments while hospitalized with pneumonia with albuterol nebulizer treatments as needed. Patient is a daily smoker. Qualifiers: COPD type: COPD with acute lower respiratory infection Qualified Code(s): J44.0 - Chronic obstructive pulmonary disease with (acute) lower respiratory infection (7) Smoker: Status: Chronic Assessment and plan: Daily smoker patient encouraged to stop smoking long-term. As inpatient she will be offered nicotine lozenges or gum having allergies to adhesive so she does use lidocaine topical patches. (8) GARZA (nonalcoholic steatohepatitis): Assessment and plan: Monitor lab while inpatient. This. Be stable. (9) Obstructive sleep apnea: Assessment and plan: Patient states she does use CPAP at home and will be ordered CPAP with her home settings. She did not have this her first night of admission. She is on oxygen. She is not retaining CO2. (10) Post traumatic stress disorder (PTSD): Assessment and plan: Continue outpatient medical therapy watch for QT prolongation with acute treatment for her pneumonia. History of Present Illness History of Present Illness Chief Complaint: Intractable nausea with vomiting and slight diarrhea for 1 day Narrative: This is a 58-year-old female patient with a history of migraines and recently worsened right shoulder pain for which she was started on Dilaudid just prior to the presentation. She did have a significant rotator cuff tear in April 2023 with planned surgery in August 2023. After taking Dilaudid she began to have nausea and abdominal discomfort and a migraine headache began shortly afterwards. This can also cause nausea and dissipation. She was seen in the ED initially and felt better with treatment of nausea and hydration and was sent home. She returned because of intractable nausea and not able to keep Zofran down with her emesis even though it was dissolvable. Her diarrhea had stopped though she was having some slight diarrhea prior to her second presentation. Her headache persists and is 4-10. She usually takes hydroxyzine for her headaches and rimegepant sublingual though she has run out of this medication. The patient was found to have a right lower lobe infiltrate with pneumonia on imaging and this could be associated with abdominal symptoms as well. She was started on IV antibiotic therapy and will not be on Dilaudid as of December 04. Migraine progressing. She is a full code. Review of Systems Narrative: 13 point review of systems otherwise unrevealing or stable. Patient is slightly overweight and does have prediabetes with hyperglycemia at times. PFSH All Active Problems (Updated 07/20/23 @ 06:57 by Dilan Drew) Hypomagnesemia (Acute) Pneumonia (Acute) Intractable vomiting (Acute) URI (upper respiratory infection) (Acute) Leukocytosis (Acute) Elevated transaminase level (Acute) Nausea vomiting and diarrhea (Acute) Traumatic tear of right rotator cuff (Chronic ~05/2023) Trochanteric bursitis, left hip (Acute) COPD (chronic obstructive pulmonary disease) (Chronic 01/06/15) Depression (Chronic 07/30/14) anxiety fatigue Fibromyalgia (Chronic 07/30/14) Hyperlipidemia (Chronic) Joint pain (Chronic 07/30/14) 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, recurrent [facility] pain clinic 2014 Peptic reflux disease (Chronic) 2012 EGD, mild gastritis 2014 [place] ([facility]) patchy gastritis Shoulder pain, left (Chronic 05/25/14) 05/28 WC Smoker (Chronic) Tremor (Acute) Chronic headache (Acute) Migraine headache without aura (Acute) Anxiety (Chronic) Microscopic hematuria (Acute) Cervicalgia (Acute) Prolonged QT interval (Acute) Gastritis (Acute ~12/2020) mild Cough (Acute) Memory loss (Acute) Seasonal allergies (Acute) Dizziness (Acute) Transient neurological symptoms (Acute) History of prediabetes (Acute) Elevated transaminase level (Acute) Lymph nodes enlarged (Acute) Pulmonary nodule (Acute) Sinusitis (Acute) Vasomotor symptoms due to menopause (Acute) Fatigue (Acute) Chest pain (Acute) Irregular bowel habits (Acute) GERD (gastroesophageal reflux disease) (Chronic) Sore throat (Acute) Leukocytosis (Acute) Chronic pain (Chronic) Bruxism (Acute) Left-sided temporomandibular joint pain-dysfunction syndrome (Acute) Paresthesia (Acute) Hip pain (Acute) Shoulder pain, right (Acute) Periodic limb movement (Acute) Sensorineural hearing loss, bilateral (Acute) Myalgia (Acute) Oral ulceration (Acute) Jaw pain (Acute) Gall stone (Acute) RUQ pain (Acute) Hearing loss (Acute) Liver lesion (Acute) Medical History Family history of myocardial infarction (05/25/14) Colon polyps Thyroid nodule Migraine with aura Post traumatic stress disorder (PTSD) DDD (degenerative disc disease) 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 is unaware of this Pre-diabetes Obstructive sleep apnea Hypertension Surgical History Status post breast biopsy History of cholecystectomy (~04/05/22) History of bunionectomy right Hx of rotator cuff surgery bilateral History of tonsillectomy and adenoidectomy History of esophagogastroduodenoscopy (EGD) (~12/2020) History of colonoscopy (~12/2020) Oophrectomy, Left B Hysterectomy, Laproscopic EGD - [facility] [place]-[facility] Biopsy of breast (~2007) neg Bilateral salpingectomy with oophorectomy Family History Mother Essential hypertension Diabetes TYPE 2 Hyperlipidemia Father Heart disease Hyperlipidemia Myocardial infarction Sister Hyperlipidemia Brother No problems noted. Grandfather No problems noted. Grandfather No problems noted. Grandmother Personal history of malignant neoplasm BREAST Grandmother No problems noted. 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 Do you feel safe at home: Yes Do you feel safe in your relationship?: Yes Meds Allergies and Home Medications Allergies Allergy/AdvReac Type Severity Reaction Status Date / Time nicotine Allergy Severe PATCHES-REDNESS Verified 07/16/23 13:31 & SWELLING chlorhexidine Allergy Mild Skin Rash Verified 07/16/23 13:31 adhesive Allergy Skin Rash Verified 07/16/23 13:31 amitriptyline Allergy Verified 07/16/23 13:31 doxycycline Allergy Verified 07/16/23 13:31 bupropion AdvReac Severe AGITATION Verified 07/16/23 13:31 duloxetine AdvReac Intermediate HEARING Verified 07/16/23 13:31 THINGS hydrocodone AdvReac Intermediate Itching Verified 07/16/23 13:31 pregabalin [From Lyrica] AdvReac Intermediate foggy brain Verified 07/16/23 13:31 trazodone AdvReac Intermediate ANXIETY Verified 07/16/23 13:31 pravastatin AdvReac Mild HEADACHE Verified 07/16/23 13:31 simvastatin AdvReac Mild LEG Verified 07/16/23 13:31 CRAMPS; HEADACHE varenicline AdvReac Mild BEHAVIOR Verified 07/16/23 13:31 CHANGES promethazine AdvReac Unknown ANXIETY Verified 07/16/23 13:31 zolpidem AdvReac Unknown INCREASED Verified 07/16/23 13:31 DEPRESSION Home Medications Medication Instructions Recorded Confirmed Type acetaminophen 500 mg tablet 1,000 mg PO Q6H PRN 03/21/17 07/19/23 History (Tylenol Extra Strength) hydrochlorothiazide 25 mg tablet 25 mg PO DAILY 06/08/19 07/19/23 History meclizine 12.5 mg tablet 12.5 mg PO Q8H PRN 06/08/19 07/19/23 History tiotropium bromide 18 mcg capsule 1 cap inhalation DAILY 03/16/20 07/19/23 History with inhalation device (Spiriva with HandiHaler) lidocaine 5 % topical patch 1 patch topical DAILY 06/15/20 07/19/23 History (Lidoderm) TENS units #1 ea 08/01/20 07/16/23 History aspirin 81 mg tablet,delayed 81 mg PO DAILY 01/05/21 07/19/23 History release (Adult Aspirin Regimen) lovastatin 20 mg tablet 20 mg PO QPM 08/16/21 07/19/23 History rimegepant 75 mg disintegrating 75 mg PO ONCE PRN migraine 02/06/22 07/19/23 Rx tablet (Nurtec ODT) headache #15 tabs levomefolate calcium 15 mg tablet 15 mg PO DAILY 03/20/22 07/19/23 History (L-Methylfolate) loratadine 10 mg tablet (Claritin) 10 mg PO DAILY PRN 03/20/22 07/19/23 History B-complex with vitamin C 1 cap PO DAILY 03/21/22 07/19/23 History hydroxyzine HCl 25 mg tablet See Rx Instructions PO QID PRN 05/07/22 07/19/23 Rx itching #30 tabs benzonatate 100 mg capsule 100 mg PO HS PRN cough #20 caps 09/03/22 07/19/23 Rx inhalational spacing device #1 ea 09/03/22 07/19/23 Rx (Aerochamber MV spacer) levalbuterol tartrate 45 2 puff inhalation PRN PRN URI #15 09/03/22 07/19/23 Rx mcg/actuation aerosol inhaler grams (Xopenex HFA) fluoxetine 40 mg capsule (Prozac) 40 mg PO DAILY 11/01/22 07/19/23 History buspirone 10 mg tablet 10 mg PO TID 11/14/22 07/19/23 History lamotrigine 25 mg tablet 25 mg PO HS 11/14/22 07/19/23 History pantoprazole 40 mg tablet,delayed 40 mg PO QHS #90 tab-caps 11/14/22 07/19/23 History release (Protonix) montelukast 10 mg tablet 10 mg PO DAILY 07/16/23 07/19/23 History (Singulair) hydromorphone 2 mg tablet 2 mg PO .Q8 PRN SHOULDER PAIN 07/19/23 07/19/23 History (Dilaudid) ondansetron 4 mg disintegrating 4 mg PO Q6H PRN nausea and 07/19/23 07/19/23 Rx tablet vomiting #10 tabs Exam Narrative Exam Narrative: General: Patient appears older than stated age, alert and oriented x 3 and in mild distress from her headache. HEENT: Normocephalic, eyes with pupils equal react light symmetrically, extraocular movement intact and sclera anicteric oropharynx with slightly dry mucosa. Neck: Supple without JVD. Back: Kyphotic without CVA tenderness. Lungs: Coarse inspiratory crackles over the left base and midlung laws as well as crackles and rales over the right base with fair aeration. Normal respiratory expiratory phase ratio and only slight expiratory wheeze with cough. Breast: Exam deferred. Heart: Tachycardic rate with intermittent S2 gallop and no appreciable murmur. No rubs. Normal rhythm. Abdomen: Obese contour, soft and slightly tender to palpation mid abdomen without guarding or rebound. No focalizing tenderness. Bowel sounds positive all quadrants. No hepatosplenomegaly. No tympany to percussion. Genitalia/rectal: Exam deferred. Skin: Normal color, warm and dry. Actinic changes over sun exposed areas. Rough texture. Extremities: Without clubbing, cyanosis or pitting edema. Decreased range of motion right shoulder. Good capillary refill. Neuro: Cranial nerves II through XII grossly intact, no focal motor deficits. Patient complains of slight tremor which is on exam. Psych: Slightly anxious with depressed mood. Remote and recent memory appear to be grossly intact. No abnormal thought processes. Results Imaging Imaging Studies: Exam: XR Chest Exam date and time: 07/19/2023 8:59 PM Age: 58 years old Clinical indication: Other: R lower lobe pna seen on CT abd TECHNIQUE: Imaging protocol: Radiologic exam of the chest. Views: 2 views. COMPARISON: CR XR CHEST 2V PA LATERAL 03/27/2023 9:44 AM FINDINGS: Lungs: Interval development of moderate right lower lobe. Left lung appears clear. Pleural spaces: Unremarkable. No pleural effusion. No pneumothorax. Heart/Mediastinum: Unremarkable. No cardiomegaly. Bones/joints: Unremarkable. IMPRESSION: Right lower lobe pneumonia Exam: CT Abdomen And Pelvis With Contrast Exam date and time: 07/19/2023 7:54 PM Age: 58 years old Clinical indication: Other: Intractable vomiting, abdominal pain R side \T\ luq TECHNIQUE: Imaging protocol: Computed tomography of the abdomen and pelvis with contrast. Contrast material: 350; Contrast volume: 100 ml; Contrast route: INTRAVENOUS (IV); COMPARISON: MR ABDOMEN WO/W 01/24/2021 8:20 AM FINDINGS: Lungs: Mild focal consolidation in the right lower lobe. Mild dependent atelectasis in the bilateral lower lobes. Liver: Normal. No mass. Gallbladder and bile ducts: Gallbladder is surgically absent. Pancreas: Normal. No ductal dilation. Spleen: Normal. No splenomegaly. Adrenal glands: Normal. No mass. Kidneys and ureters: Normal. No hydronephrosis. Stomach and bowel: Unremarkable. No obstruction. No mucosal thickening. Appendix: No evidence of appendicitis. Intraperitoneal space: Unremarkable. No free air. No significant fluid collection. Vasculature: Moderate atherosclerotic calcification of the distal aorta and iliac arteries. No evidence of aneurysm or dissection. Lymph nodes: Unremarkable. No enlarged lymph nodes. Urinary bladder: Unremarkable as visualized. Reproductive: Uterus is surgically absent. No adnexal abnormality. Bones/joints: Moderate degenerative disc space narrowing with disc bulge at the lumbosacral junction producing moderate central canal and bilateral neural foraminal stenosis. Soft tissues: Unremarkable. IMPRESSION: 1. Mild right lower lobe pneumonia 2. Chronic osseous and atherosclerotic changes as described Labs 07/19/23 19:10 07/19/23 19:10 Labs: Laboratory Results - last 24 hr 07/19/23 07/19/23 07/19/23 19:10 19:29 19:54 WBC 13.64 H RBC 4.16 Hgb 13.3 Hct 38.2 MCV 92 MCH 32.0 MCHC 34.8 RDW 11.9 Plt Count 280 MPV 9.8 Immature Gran % 0.4 Neutrophils % 90.2 Lymphocytes % 5.6 Monocytes % 3.5 Eosinophils % 0.1 Basophils % 0.2 Nucleated RBC % 0.0 Absolute Neutrophils 12.30 H Absolute Lymphocytes 0.76 L Absolute Monocytes 0.48 Absolute Eosinophils 0.01 Absolute Basophils 0.03 Sodium 137 Potassium 3.9 Chloride 102 Carbon Dioxide 27.2 Anion Gap 7.8 BUN 20 H Creatinine 0.9 Est GFR (CKD-EPI 2020) 74.57 Glucose 166 H Calcium 9.1 Magnesium 1.7 L Total Bilirubin 0.6 Conjugated Bilirubin 0.2 AST 31 ALT 77 H Alkaline Phosphatase 97 Troponin I < 50 Total Protein 7.1 Albumin 3.5 Urine Color Yellow Urine Clarity Clear Urine pH 5.5 Ur Specific [place] 1.025 Urine Protein Negative Urine Ketones 40 H Urine Blood Small H Urine Nitrite Negative Urine Bilirubin Negative Urine Urobilinogen 0.2 Ur Leukocyte Esterase Negative Urine RBC 5-10 H Urine WBC 0-2 Ur Epithelial Cells Rare Urine Crystals Negative Urine Bacteria Negative Urine Mucus Trace Ur Culture Indicated? No Urine Glucose Negative COVID-19 Source Nasopharynx SARS-CoV-2 (PCR) Negative Influenza Type A (PCR) Negative Influenza Type B (PCR) Negative RSV (PCR) Negative Last Vital Signs Temp 36.7 C 01/05/24 18:36 Pulse 115 H 07/19/23 18:53 Resp 18 07/19/23 18:53 BP 134/74 07/19/23 18:53 Pulse Ox 93 07/19/23 18:53 Time Spent Time spent with Patient: >75 minutes Time was spent: preparing to see the patient(eg.review tests), obtaining and/or reviewing separately otained hiistory, ordering medications,tests, procedures, referring, communicating with other health home care consultant, indepentently interpreting results and counseling the patient
[2023-07-19 21:49] LABS: BE (Venous) 2 mmol/L (-2-3); HCO3 (Venous) 26 mmol/L (23-28); O2 Sat (Venous) 85 %; TCO2 (Venous) 24 mmol/L (24-29); pCO2 (Venous) 44 mmHg (41-51); pH (Venous) 7.39 (7.31-7.41); pO2 (Venous) 44 mmHg
[2023-07-19] MEDS: AZITHROMYCIN 500 MG in Normal Saline 250 ML 250 MG IVPB (22:03)
[2023-07-19] MEDS: cefTRIAXone 2 GM/50 ML BAG IVPB (22:03)
[2023-07-19] MEDS: Normal Saline Flush 10 ML SYR IVP ×2 (23:38→23:41)
[2023-07-19] MEDS: Normal Saline 1,000 ML 125 ML IV (23:39)
[2023-07-20] VITALS (11 sets, daily range): BP systolic 111–138; BP diastolic 64–78; PULSE 79–101; RESP 3–18; TEMP 36.7–37.2; O2SAT 91–97
[2023-07-20] MEDS: Albuterol/Ipratropium 3 ML UPD VIAL UPD ×3 (00:47→13:16)
[2023-07-20] MEDS: Acetaminophen 325 MG TAB 650 MG PO ×2 (00:48→08:04)
[2023-07-20] MEDS: Pantoprazole 40 MG VIAL IVP ×2 (00:48→22:21)
[2023-07-20] MEDS: Normal Saline Flush 10 ML SYR IVP ×3 (00:49→22:21)
[2023-07-20] MEDS: Heparin 5,000 UNITS/ML VIAL 5000 UNITS SC ×3 (05:16→22:22)
[2023-07-20 06:48] LABS: HCT 32.9 % (36.0-46.0); MCH 31.5 pg (27.0-33.0); MCHC 33.4 % (32.0-36.0); MCV 94 fL (80-95); Platelet Count 227 10^3/uL (130-400); RBC 3.49 10^6/uL (3.93-5.22); RDW 12.1 % (11.7-14.6); RDW-SD 41.9 fL; WBC 8.18 10^3/uL (4.4-10.8)
[2023-07-20 07:25] LABS: ALT 72 U/L (14-59); AST 39 U/L (15-37); Albumin 2.9 g/dL (3.4-5.0); Alkaline Phosphatase 79 U/L (46-116); Anion Gap 10.7 mmol/L (3-11); BUN 13 mg/dL (7-18); Bilirubin, Total 0.4 mg/dL (0.2-1.0); CO2 25.3 mmol/L (21.0-32.0); CREATININE 0.9 mg/dL (0.55-1.02); Calcium 8.4 mg/dL (8.5-10.1); Chloride 105 mmol/L (98-107); Estimated GFR 74.57 (mL/min/1.73m2); Glucose 168 mg/dL (74-106); Sodium 141 mmol/L (136-145)
[2023-07-20] MEDS: Aspirin E.C. 81 MG TABEC PO (08:04)
[2023-07-20] MEDS: FLUoxetine 20 MG CAP 40 MG PO (08:04)
[2023-07-20] MEDS: hydroCHLOROthiazide 25 MG TAB PO (08:04)
[2023-07-20] MEDS: busPIRone 5 MG TAB 10 MG PO ×3 (08:04→20:02)
[2023-07-20] MEDS: Montelukast 10 MG TAB PO (08:05)
[2023-07-20] MEDS: Lidocaine 5% Patch 1 PATCH TP (08:06)
[2023-07-20] MEDS: AMPICILLIN/SULBACTAM 3 GM in Normal Saline 100 ML IVPB ×3 (08:26→20:10)
[2023-07-20] MEDS: Normal Saline 1,000 ML 125 ML IV ×2 (08:27→15:36)
--- NOTE | 2023-07-20 09:16 | INITIAL_ITS ---
Date of service: 07/20/23 Time of Service: 09:28 Care Management Initial Assmt Initial Assessment REASON FOR HOSPITALIZATION:: RLL pneumonia, intractable emesis, hypomagnesemia PREVIOUS FUNCTIONAL STATUS/SOCIAL/FAMILY SUPPORTS:: Connie resides in [facility], with her significant other, Vimal. She provides an AFC home to an adult male who has paraplegia. 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 She remains independent at baseline. CURRENT FUNCTIONAL STATUS:: Forthcoming with information about her stay at [facility], process of admission and current home stressors, supports, family, medical updates. ADVANCE DIRECTIVES:: None on file. Has patient been provided with info about the portal/API?: Yes Did the patient sign up for the portal?: Yes CODE STATUS:: Full Code INSURANCE COVERAGE / FINANCIAL ISSUES:: [employer] CURRENT HOME/COMMUNITY SERVICES/EQUIPMENT:: None, currently PRIMARY CARE PHYSICIAN:: Martha Marrufo POTENTIAL DISCHARGE NEEDS:: Follow up appointments. PATIENT/FAMILY EDUCATION NEEDS:: Review discharge instructions, discuss Ask Me Three. ANTICIPATED BARRIERS TO DISCHARGE:: None identified. TRANSPORTATION:: Via private vehicle. PLAN:: Connie will return home when ready per MD, no additional services anticipated. She will follow up with her PCP and plan of care as prescribed. She will transport via private vehicle with Vimal. PFSH All Active Problems (Updated 07/20/23 @ 15:56 by Oanh Betancourt MD) Hypokalemia (Acute) Acute hypoxemic respiratory failure (Acute) Discharge planning issues (Acute) DVT prophylaxis (Acute) Aspiration pneumonia (Acute) Pneumonia (Acute) URI (upper respiratory infection) (Acute) Leukocytosis (Acute) Elevated transaminase level (Acute) Nausea vomiting and diarrhea (Acute) Traumatic tear of right rotator cuff (Chronic ~05/2023) Trochanteric bursitis, left hip (Acute) COPD (chronic obstructive pulmonary disease) (Chronic 01/06/15) Depression (Chronic 07/30/14) anxiety fatigue Fibromyalgia (Chronic 07/30/14) Hyperlipidemia (Chronic) Joint pain (Chronic 07/30/14) 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, recurrent [facility] [place] Peptic reflux disease (Chronic) 2011 EGD, mild gastritis 2014 [place] ([facility]) patchy gastritis Shoulder pain, left (Chronic 05/25/14) 05/28 WC Smoker (Chronic) Tremor (Acute) Chronic headache (Acute) Migraine headache without aura (Acute) Anxiety (Chronic) Microscopic hematuria (Acute) Cervicalgia (Acute) Prolonged QT interval (Acute) Gastritis (Acute ~12/2020) mild Cough (Acute) Memory loss (Acute) Seasonal allergies (Acute) Dizziness (Acute) Transient neurological symptoms (Acute) History of prediabetes (Acute) Elevated transaminase level (Acute) Lymph nodes enlarged (Acute) Pulmonary nodule (Acute) Sinusitis (Acute) Vasomotor symptoms due to menopause (Acute) Fatigue (Acute) Chest pain (Acute) Irregular bowel habits (Acute) GERD (gastroesophageal reflux disease) (Chronic) Sore throat (Acute) Leukocytosis (Acute) Chronic pain (Chronic) Bruxism (Acute) Left-sided temporomandibular joint pain-dysfunction syndrome (Acute) Paresthesia (Acute) Hip pain (Acute) Shoulder pain, right (Acute) Periodic limb movement (Acute) Sensorineural hearing loss, bilateral (Acute) Myalgia (Acute) Oral ulceration (Acute) Jaw pain (Acute) Gall stone (Acute) RUQ pain (Acute) Hearing loss (Acute) Liver lesion (Acute) Medical History (Updated 07/20/23 @ 15:56 by Oanh Betancourt MD) Family history of myocardial infarction (05/25/14) Colon polyps Thyroid nodule Migraine with aura Post traumatic stress disorder (PTSD) DDD (degenerative disc disease) 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 is unaware of this Pre-diabetes Obstructive sleep apnea Hypertension Surgical History Status post breast biopsy History of cholecystectomy (~04/05/22) History of bunionectomy right Hx of rotator cuff surgery bilateral History of tonsillectomy and adenoidectomy History of esophagogastroduodenoscopy (EGD) (~12/2020) History of colonoscopy (~12/2020) Oophrectomy, Left B Hysterectomy, Laproscopic EGD - [facility] [place] 2014-[facility] Biopsy of breast (~2007) neg Bilateral salpingectomy with oophorectomy Family History Mother Essential hypertension Diabetes TYPE 2 Hyperlipidemia Father Heart disease Hyperlipidemia Myocardial infarction Sister Hyperlipidemia Brother No problems noted. Grandfather No problems noted. Grandfather No problems noted. Grandmother Personal history of malignant neoplasm BREAST Grandmother No problems noted. Social History Smoking/Tobacco Use Status: Current every day Tobacco Type: cigarettes Smoking risk assessment performed?: Yes Alcohol Intake: former Drug use: Never Substance use type: does not use Household members: significant other and family Housing: house current occupation: [employer] Do you feel safe at home: Yes Do you feel safe in your relationship?: Yes SDOH(Care Management) Screening Will the Patient Participate in the Screening?: Yes Do you worry about having a steady place to live?: no In the past 12 months, have you had to go without electric, gas, oil or water in your home?: no Have you or anyone in your house had to go without enough food to eat?: no Has lack of transportation kept you from medical appointments or from doing things needed for daily living?: no Has anyone in your support network made you feel unsafe for any reason?: no
[2023-07-20] MEDS: POTASSIUM CHLORIDE 20 MEQ/100 ML BAG 50 MEQ IVPB (09:26)
[2023-07-20] MEDS: hydrOXYzine HCL 25 MG TAB PO (11:01)
[2023-07-20] MEDS: POTASSIUM CHLORIDE 20 MEQ/100 ML BAG 45 MEQ IVPB ×2 (12:26→14:38)
[2023-07-20] MEDS: Nicotine 2 MG GUM CH ×3 (13:02→16:32)
--- NOTE | 2023-07-20 13:22 | RESPIRATORY ---
Pt states she uses a CPAP machine at home, unsure of pressure settings. DME: Jose Hitchcock. RT offered pt to use hospital NIV machine during her stay, or for family to bring in her home machine. Pt states that she does not use her home machine often because she feels like it gags her. Pt declines offer to use hospital machine at this time.
--- NOTE | 2023-07-20 14:07 | PHACLINREV_ITS ---
Pharmacy Admission Review Admission Clinical Review Admission Pharmacy Review: (Updated 07/20/23 @ 06:57 by Dilan Drew) Hypomagnesemia (Acute) Pneumonia (Acute) Intractable vomiting (Acute) nicotine Allergy (Severe, Verified 07/16/23 13:31) PATCHES-REDNESS & SWELLING chlorhexidine Allergy (Mild, Verified 07/16/23 13:31) Skin Rash adhesive Allergy (Verified 07/16/23 13:31) Skin Rash amitriptyline Allergy (Verified 07/16/23 13:31) doxycycline Allergy (Verified 07/16/23 13:31) bupropion Adverse Reaction (Severe, Verified 07/16/23 13:31) AGITATION duloxetine Adverse Reaction (Intermediate, Verified 07/16/23 13:31) HEARING THINGS hydrocodone Adverse Reaction (Intermediate, Verified 07/16/23 13:31) Itching pregabalin [From Lyrica] Adverse Reaction (Intermediate, Verified 07/16/23 13:31) foggy brain trazodone Adverse Reaction (Intermediate, Verified 07/16/23 13:31) ANXIETY pravastatin Adverse Reaction (Mild, Verified 07/16/23 13:31) HEADACHE simvastatin Adverse Reaction (Mild, Verified 07/16/23 13:31) LEG CRAMPS; HEADACHE varenicline Adverse Reaction (Mild, Verified 07/16/23 13:31) BEHAVIOR CHANGES promethazine Adverse Reaction (Unknown, Verified 07/16/23 13:31) ANXIETY zolpidem Adverse Reaction (Unknown, Verified 07/16/23 13:31) INCREASED DEPRESSION Resuscitation Status Full Code Height 5 ft 1 in Weight 62.256 kg Comments Comments/Follow Ups: Flu/Covid/RSV negative, Micro blood pending, Legionella, Mycoplasma & Strep Pneumo pending. Chest Xray shows RLL infiltrate treating Aspiration Pneumonia w/Unasyn (Did receive Azithromycin IV and Ceftriaxone 1x in ED). Diarrhea w/stool samples pending. WBC down 8.18. Was in ED prior with A bdominal pain, N/V & Migraine administered Dilaudid for shoulder pain/rotator cuff tear. Was Requiring oxygen, now on room air, wears CPAP at home. No pain scale, has Acetaminophen prn Pharmacy Admission Review Renal Dosing Renal Dosing: BUN 13 mg/dL (7-18) 07/20/23 06:15 Creatinine 0.9 mg/dL (0.55-1.02) 07/20/23 06:15 CrCl~58ml/min Anticoagulation Anticoagulation: Hgb 11.0 g/dL (11.2-15.7) L D 07/20/23 06:15 Hct 32.9 % (36.0-46.0) L 07/20/23 06:15 Plt Count 227 10^3/uL (130-400) 07/20/23 06:15 Creatinine 0.9 mg/dL (0.55-1.02) 07/20/23 06:15 DVT Prophylaxis: Reviewed Medications: Heparin Relevant Labs Relevant Labs: Sodium 141 mmol/L (136-145) 07/20/23 06:15 Potassium 3.0 mmol/L (3.5-5.1) L 07/20/23 06:15 Chloride 105 mmol/L (98-107) 07/20/23 06:15 Magnesium 2.0 mg/dL (1.8-2.4) 07/20/23 06:15 Potassium being replaced 20meq IV x3 Lactate normal DM Control DM Control: No Diabetic medications at home. FSBS 144 this AM; pt refused Novolog dose of 1 units, lunch FSBS was 130, no insulin required Cardiac Review Cardiac Review: Troponin I < 50 ng/L (<or=60) 07/19/23 19:10 IV to PO Switch IV Medications: Reviewed (Has IV Protonix, Zofran) Home Meds Home Med List reviewed: Reviewed Relevent Home Meds Not ordered & why?: Patient's own L-Methylfolate and Nurtec will need to be brought in if needed, home inhalers not ordered at this time (Duonebs/Albuterol ordered) Current Meds Current Medication Order Review: Reviewed (HCTZ on hold due to electrolyte imbalance, Nicotine gum ordered) Pharmacy Antibiotic Review Pharmacy Antibiotic Activity: Reviewed, no change (Unasyn for Aspiration Pneumonia) Comments Comments/Follow Ups: Flu/Covid/RSV negative, Micro blood pending, Legionella, Mycoplasma & Strep Pneumo pending. Chest Xray shows RLL infiltrate treating Aspiration Pneumonia w/Unasyn (Did receive Azithromycin IV and Ceftriaxone 1x in ED). Diarrhea w/stool samples pending. WBC down 8.18. Was in ED prior with Abdominal pain, N/V & Migraine administered Dilaudid for shoulder pain/rotator cuff tear. Was Requiring oxygen, now on room air, wears CPAP at home. No pain scale, has Acetaminophen prn
--- NOTE | 2023-07-20 15:48 | PGE_ITS ---
Date of Service Date of service: 07/20/23 Time of Service: 15:49 Assessment and Plan Assessment and plan (1) Aspiration pneumonia: Status: Acute Assessment and plan: Abx changed to unasyn this am - continue. Given location of the pneumonia and history of vomiting yesterday, aspiration etiology makes the most sense. (2) Acute hypoxemic respiratory failure: Status: Acute Assessment and plan: In setting of pneumonia and likely COPD exacerbation. Continue treatment of pneumonia, schedule ipratropium, change albuterol to levalbuterol, Wean O2 as tolerated. Will order exercise oximetry for tomorrow am. (3) Intractable vomiting: Start date: 07/19/23 Status: Resolved Assessment and plan: Suspect adverse effect of hydromorphone in addition to a migraine. Nausea has resolved. Advance diet. (4) Hypokalemia: Status: Acute Assessment and plan: Replete, recheck in am (5) Migraine with aura: Assessment and plan: Resolved. Continue outpatient herapy. Qualifiers: Status migrainosus presence: without status migrainosus Intractability: not intractable Qualified Code(s): G43.109 - Migraine with aura, not intractable, without status migrainosus (6) Traumatic tear of right rotator cuff: Status: Chronic Assessment and plan: F/u with orthopedics as outpatient. Qualifiers: Rotator cuff tear extent: unspecified tear extent Encounter type: subsequent encounter Qualified Code(s): S46.011D - Strain of muscle(s) and tendon(s) of the rotator cuff of right shoulder, subsequent encounter (7) Hypomagnesemia: Start date: 07/19/23 Status: Resolved Assessment and plan: Recheck in am. (8) COPD (chronic obstructive pulmonary disease): Status: Chronic Assessment and plan: Continue ipratropium + xopenex as above. Consider addition of steroids. Qualifiers: COPD type: COPD with acute lower respiratory infection Qualified Code(s): J44.0 - Chronic obstructive pulmonary disease with (acute) lower respiratory infection (9) Smoker: Status: Chronic Assessment and plan: provide nicotine replacement. (10) GARZA (nonalcoholic steatohepatitis): Assessment and plan: F/u as outpatient. (11) Obstructive sleep apnea: Assessment and plan: Her CPAP was not brought in from home. I have asked RT to provide one of ours for tonight. (12) Post traumatic stress disorder (PTSD): Assessment and plan: Continue outpatient therapy (13) DVT prophylaxis: Status: Acute Assessment and plan: SC heparin (14) Discharge planning issues: Status: Acute Assessment and plan: Full code Anticipate discharge home tomorrow if no longer requires oxygen. Subjective Subjective Interval history since last seen: Feels a lot better. Denies dizziness, CP, SOB, nausea. Headache has resolved. She is saturating 92% on 2L now, but spent most of the day on RA, per nursing. We are checking what her O2 saturation is on RA. She tells me she gets diarrhea every other day at home and that she was about to have a colonoscopy in the workup of her diarrhea. Nausea, however, is unusual. Nursing reports impressive tremors and tachycardia with albuterol. Exam Narrative Exam Narrative: General: Pleasant middle-aged female who appears comfortable in bed, A&Ox3, took O2 off in front of me, no evidence of dyspnea/tachypnea/cyanosis HEENT: EOMI, MMM Heart: RRR, no m/r/g Lungs: Crackles at B bases. Abdomen: soft, nontender, nondistended Extremities: no edema BLEs Objective Last Vital Signs Temp 37.1 C 07/20/23 15:29 Pulse 97 H 07/20/23 15:29 Resp 16 07/20/23 15:29 BP 116/64 07/20/23 15:29 Pulse Ox 92 07/20/23 15:29 Laboratory Results - last 24 hr 07/19/23 07/19/23 07/19/23 19:10 19:14 19:29 WBC 13.64 H RBC 4.16 Hgb 13.3 Hct 38.2 MCV 92 MCH 32.0 MCHC 34.8 RDW 11.9 Plt Count 280 MPV 9.8 Immature Gran % 0.4 Neutrophils % 90.2 Lymphocytes % 5.6 Monocytes % 3.5 Eosinophils % 0.1 Basophils % 0.2 Nucleated RBC % 0.0 Absolute Neutrophils 12.30 H Absolute Lymphocytes 0.76 L Absolute Monocytes 0.48 Absolute Eosinophils 0.01 Absolute Basophils 0.03 VBG pH VBG pCO2 VBG pO2 VBG HCO3 VBG Total CO2 VBG O2 Saturation VBG Base Excess VBG Lactate Sodium 137 Potassium 3.9 Chloride 102 Carbon Dioxide 27.2 Anion Gap 7.8 BUN 20 H Creatinine 0.9 Est GFR (CKD-EPI 2020) 74.57 Glucose 166 H Calcium 9.1 Magnesium 1.7 L Total Bilirubin 0.6 Conjugated Bilirubin 0.2 AST 31 ALT 77 H Alkaline Phosphatase 97 Troponin I < 50 Total Protein 7.1 Albumin 3.5 Urine Color Yellow Urine Clarity Clear Urine pH 5.5 Ur Specific [place] 1.025 Urine Protein Negative Urine Ketones 40 H Urine Blood Small H Urine Nitrite Negative Urine Bilirubin Negative Urine Urobilinogen 0.2 Ur Leukocyte Esterase Negative Urine RBC 5-10 H Urine WBC 0-2 Ur Epithelial Cells Rare Urine Crystals Negative Urine Bacteria Negative Urine Mucus Trace Ur Culture Indicated? No Urine Glucose Negative Stl C.difficile Tox PCR Cancelled COVID-19 Source SARS-CoV-2 (PCR) Influenza Type A (PCR) Influenza Type B (PCR) RSV (PCR) 07/19/23 07/19/23 07/20/23 19:54 21:42 06:15 WBC 8.18 RBC 3.49 L Hgb 11.0 L D Hct 32.9 L MCV 94 MCH 31.5 MCHC 33.4 RDW 12.1 Plt Count 227 MPV 10.0 Immature Gran % Neutrophils % Lymphocytes % Monocytes % Eosinophils % Basophils % Nucleated RBC % Absolute Neutrophils Absolute Lymphocytes Absolute Monocytes Absolute Eosinophils Absolute Basophils VBG pH 7.39 VBG pCO2 44 VBG pO2 44 VBG HCO3 26 VBG Total CO2 24 VBG O2 Saturation 85 VBG Base Excess 2 VBG Lactate 1.0 Sodium 141 Potassium 3.0 L Chloride 105 Carbon Dioxide 25.3 Anion Gap 10.7 BUN 13 Creatinine 0.9 Est GFR (CKD-EPI 2020) 74.57 Glucose 168 H Calcium 8.4 L Magnesium 2.0 Total Bilirubin 0.4 Conjugated Bilirubin AST 39 H ALT 72 H Alkaline Phosphatase 79 Troponin I Total Protein 6.0 L Albumin 2.9 L Urine Color Urine Clarity Urine pH Ur Specific [place] Urine Protein Urine Ketones Urine Blood Urine Nitrite Urine Bilirubin Urine Urobilinogen Ur Leukocyte Esterase Urine RBC Urine WBC Ur Epithelial Cells Urine Crystals Urine Bacteria Urine Mucus Ur Culture Indicated? Urine Glucose Stl C.difficile Tox PCR COVID-19 Source Nasopharynx SARS-CoV-2 (PCR) Negative Influenza Type A (PCR) Negative Influenza Type B (PCR) Negative RSV (PCR) Negative Time Spent with Patient Time Spent with Patient: 35-49 minutes Time was spent: preparing to see the patient(eg.review tests), obtaining and/or reviewing separately otained hiistory, ordering medications,tests, procedures, referring, communicating with other health physician assistant primary care, indepentently interpreting results, counseling the patient and care coordination
[2023-07-20] MEDS: Benzocaine/Menthol LOZG 15/BOX 1 EACH SUC (16:33)
[2023-07-20] MEDS: Levalbuterol 1.25 MG/3 ML UPD VIAL UPD (17:17)
[2023-07-20] MEDS: Ipratropium 0.5 MG/2.5 ML UPD VIAL UPD (17:17)
[2023-07-20] MEDS: Lovastatin 20 MG TAB PO (20:01)
[2023-07-20] MEDS: lamoTRIgine 25 MG TAB PO (21:43)
[2023-07-21] MEDS: Normal Saline Flush 10 ML SYR IVP ×2 (00:09→07:45)
[2023-07-21] MEDS: AMPICILLIN/SULBACTAM 3 GM in Normal Saline 100 ML IVPB ×2 (01:50→07:45)
[2023-07-21 03:14] VITALS: BP 163/92; PULSE 101; RESP 18; TEMP 37.5; O2SAT 94
[2023-07-21] MEDS: Patch Removal 1 EACH TP (06:03)
[2023-07-21] MEDS: Heparin 5,000 UNITS/ML VIAL 5000 UNITS SC (06:03)
[2023-07-21 06:48] LABS: Abs Immature Grans 0.04 10^3/uL (0.0-0.06); Absolute Basophil Count 0.04 10^3/uL (0.0-0.2); Absolute Eosinophil Count 0.18 10^3/uL (0.0-0.7); Absolute Lymphocyte Count 2.79 10^3/uL (1.2-3.4); Absolute Monocyte Count 0.71 10^3/uL (0.1-0.8); Absolute Neutrophil Count 5.93 10^3/uL (1.2-6.7); Basophils % 0.4; Eosinophils % 1.9; HGB 11.8 g/dL (11.2-15.7); Immature Grans % 0.4; Lymphocytes % 28.8; MCH 31.6 pg (27.0-33.0); MCHC 33.7 % (32.0-36.0); MCV 94 fL (80-95); MPV 9.8 fL (8.0-11.0); Monocytes % 7.3; Neutrophils % 61.2; Platelet Count 295 10^3/uL (130-400); RBC 3.73 10^6/uL (3.93-5.22); RDW 11.9 % (11.7-14.6); RDW-SD 41.1 fL; WBC 9.69 10^3/uL (4.4-10.8)
[2023-07-21 07:16] LABS: Anion Gap 7.7 mmol/L (3-11); BUN 9 mg/dL (7-18); CO2 28.3 mmol/L (21.0-32.0); Calcium 9.4 mg/dL (8.5-10.1); Chloride 103 mmol/L (98-107); Estimated GFR 65.71 (mL/min/1.73m2); Glucose 123 mg/dL (74-106); Magnesium 1.9 mg/dL (1.8-2.4); Potassium 3.6 mmol/L (3.5-5.1); Sodium 139 mmol/L (136-145)
[2023-07-21 07:36] VITALS: BP 168/94; PULSE 98; RESP 18; TEMP 37.5; O2SAT 95
[2023-07-21] MEDS: hydrOXYzine HCL 25 MG TAB PO (07:46)
[2023-07-21] MEDS: FLUoxetine 20 MG CAP 40 MG PO (07:46)
[2023-07-21] MEDS: Montelukast 10 MG TAB PO (07:46)
[2023-07-21] MEDS: Acetaminophen 325 MG TAB 650 MG PO (07:46)
[2023-07-21] MEDS: Lidocaine 5% Patch 1 PATCH TP (07:46)
[2023-07-21] MEDS: Aspirin E.C. 81 MG TABEC PO (07:47)
[2023-07-21] MEDS: busPIRone 5 MG TAB 10 MG PO (07:47)
[2023-07-21 09:30] VITALS: PULSE 75; PULSE 78; PULSE 98; RESP 16; O2SAT 96; O2SAT 98
--- NOTE | 2023-07-21 10:56 | W.PM.DS.N ---
Date of service: 07/21/23 Time of Service: 10:56 DS: Diagnosis Discharge Diagnosis (1) Aspiration pneumonia: Status: Acute (2) Acute hypoxemic respiratory failure: Status: Acute (3) Intractable vomiting: Status: Resolved (4) Hypokalemia: Status: Acute (5) Migraine with aura: (6) Traumatic tear of right rotator cuff: Status: Chronic (7) Hypomagnesemia: Status: Resolved (8) COPD (chronic obstructive pulmonary disease): Status: Chronic (9) Smoker: Status: Chronic (10) GARZA (nonalcoholic steatohepatitis): (11) Obstructive sleep apnea: (12) Post traumatic stress disorder (PTSD): (13) DVT prophylaxis: Status: Acute (14) Discharge planning issues: Status: Acute Discharge Plan Disposition Patient Disposition: Home Condition: Stable Discharge Details Reason For Visit: RLL pneumonia, Intractable emesis, Hypomagnesemia Admit Date/Time: 07/19/23 21:54 Admit Provider: Dilan Drew Attending Provider: Dilan Drew Primary Care Provider: Martha Marrufo Hospital Course Hospital Course: This is a 58-year-old patient who presented to the emergency department with acute abdominal symptoms including nausea and vomiting after initiating Dilaudid for shoulder pain. Chest xry as part of her workup was concerning for right lower lobe pneumonia, she was also found to have oxygen requirements. She was started on Unasyn for suspicious of aspiration and admitted to the med/surg unit for further management. she responded well to treatment and was weaned off oxygen and is stable for discharge to home. Hospital course also included electrolyte repletion, migraine management. she is being discharged to home with no new services and will complete a course of augmentin. discussed with Dr Asia Sanchez Meds and New Rx's Prescriptions: New amoxicillin-pot clavulanate 875-125 mg tablet 1 tab PO BID Qty: 10 0RF Continued lidocaine [Lidoderm] 5 % adhesive patch,medicated 1 patch topical DAILY Rx Instructions: leave on most painful area for up to 12 hrs aspirin [Adult Aspirin Regimen] 81 mg tablet,delayed release (DR/EC) 81 mg PO DAILY lovastatin 20 mg tablet 20 mg PO QPM benzonatate 100 mg capsule 100 mg PO HS PRN (Reason: cough) Qty: 20 0RF levalbuterol tartrate [Xopenex HFA] 45 mcg/actuation HFA aerosol inhaler 2 puff Inhalation PRN PRN (Reason: URI) Qty: 15 0RF Rx Instructions: 2 puffs every 4-6 hours as needed for cough, sob, or wheeze (DME) Aerochamber MV Spacer See Rx Instructions .Route Qty: 1 0RF Rx Instructions: As directed montelukast [Singulair] 10 mg tablet 10 mg PO DAILY (DME) TENS units Device See Rx Instructions .ROUTE .MEDSUPPLY Qty: 1 Rx Instructions: As directed levomefolate calcium [L-Methylfolate] 15 mg tablet 15 mg PO DAILY loratadine [Claritin] 10 mg tablet 10 mg PO DAILY PRN B-complex with vitamin C Capsule 1 cap PO DAILY acetaminophen [Tylenol Extra Strength] 500 MG tablet 1,000 mg PO Q6H PRN meclizine 12.5 mg tablet 12.5 mg PO Q8H PRN hydrochlorothiazide 25 mg tablet 25 mg PO DAILY Nurtec ODT 75 mg tablet,disintegrating 75 mg PO ONCE PRN (Reason: migraine headache) Qty: 15 3RF Rx Instructions: as a single dose, no more than one dose in 24 hours, no more than 15 doses per month. hydroxyzine HCl 25 mg tablet See Rx Instructions PO QID PRN (Reason: itching) Qty: 30 3RF Rx Instructions: Take 25-50 mg every 6 hours as needed for headaches. lamotrigine 25 mg tablet 25 mg PO HS buspirone 10 mg tablet 10 mg PO TID pantoprazole [Protonix] 40 mg tablet,delayed release (DR/EC) 40 mg PO QHS Qty: 90 tiotropium bromide [Spiriva with HandiHaler] 18 mcg capsule, w/inhalation device 1 cap INHALATION DAILY Patient Comments: INL THE CONTENTS OF 1 C VIA INHALATION DEVICE D fluoxetine [Prozac] 40 mg Capsule 40 mg PO DAILY ondansetron 4 mg tablet,disintegrating 4 mg PO Q6H PRN (Reason: nausea and vomiting) Qty: 10 0RF Held hydromorphone [Dilaudid] 2 mg tablet 2 mg PO .Q8 PRN (Reason: SHOULDER PAIN) Hold Instructions: take only if tolerated and needed Discharge Instructions Instructions: How to Stop Smoking (DC), Cigarette Smoking and Your Health (GEN), Pneumonia (DC) Additional Instructions: drink 6-8 glasses of water daily to stay well hydrated take all your medication as prescribed continue deep breathing and coughing exercises, incentive spirometry and flutter valve as directed it would be in your best interest to stop smoking, please utilize resources to assist you Continue discharge instructions following your rotator cuff surgery. use non narcotic pain medications and other non pharmacologic methods for pain management (heat/ice) etc Stand Alone Forms: Nursing Discharge Form Referrals: Martha Marrufo [Primary Care Provider] - (Please call and make a follow up appointment with your primary care provider 1-2 weeks from discharge (07/21/23). ) Activity:: Activity as Tolerated Equipment/Supplies:: No Equipment Needed Diet:: As Tolerated Discharge Orders Discharge Orders: Discharge Order (Routine); Ordered 07/21/23 Ordered By: Abbey Miller DS: Summary Time Spent with Patient providing and/or coordinating discharge services: Less than 30 minutes Status at Discharge Functional status at discharge: independent ambulation Overall status at discharge: patient is back to baseline Mental Status: mental status grossly normal Speech and Movement: speech and movement normal Mood: congruent mood Affect: normal affect Quality:SDOH Health Related Social Needs: No Data to Display Exam Const General: cooperative, comfortable and no acute distress Nutritional Appearance: average body habitus Orientation: alert, awake and oriented x3 HENMT Head: normal to inspection, normocephalic and atraumatic Mouth: oral mucosae normal Neck Neck: normal visual inspection and full ROM Chest Chest: normal inspection of the chest Resp Effort & Inspection: normal respiratory effort Auscultation: clear to auscultation bilaterally Cardio Rate: regular rate Rhythm: regular rhythm GI Inspection: normal to inspection Palpation: soft Auscultation: normal bowel sounds Skin Rashes: no rashes Neuro General: patient alert, patient awake, patient oriented x3 and tone normal Extrem General: normal to inspection Psych Mental Status: mental status grossly normal Speech and Movement: speech and movement normal Mood: congruent mood Affect: normal affect DS: Data Vitals/I&O Vitals and I&O: Vital Signs Temperature 37.5 C 07/21/23 07:36 Temperature Source Tympanic 07/21/23 07:36 Pulse 98 H 07/21/23 07:36 Pulse Rhythm Regular 07/21/23 01:26 Respiratory Rate 18 07/21/23 07:36 Respiratory Effort Normal, Non-Labored 07/21/23 09:29 Respiratory Depth Normal 07/21/23 09:29 Respiratory Pattern Normal 07/21/23 09:29 Blood Pressure 168/94 H 07/21/23 07:36 Blood Pressure Position Supine 07/19/23 18:36 Pulse Oximetry 95 07/21/23 07:36 Oxygen Delivery Method Room Air 07/21/23 07:36 Oxygen Flow Rate 0 07/21/23 07:36 Pain Level 5 07/21/23 09:36 Intake & Output 07/20/23 07/20/23 07/21/23 11:59 23:59 11:59 Intake Total 1200.000 / 2637.333 1437.333 / 2637.333 310 / 310 Output Total 800 / 1200 400 / 1200 200 / 200 Balance 400.000 / 9104.420 2963.333 / 1437.333 110 / 110 Weight 66.2 kg Intake: IV 1200.000 / 2637.333 1437.333 / 2637.333 310 / 310 Output: Urine 800 / 1200 400 / 1200 Stool 200 / 200 Other: Urine Color Yellow Pale Urine Appearance Clear Clear Clear Urine Odor Normal None None Comment pt independently voids Stool Size Moderate Stool Characteristics Liquid Emesis Description None Voiding Methods Toilet Toilet Toilet Data Completed and Pending Labs on day of discharge: Labs from last 24 hours 07/21/23 07/21/23 07/20/23 09:07 06:15 13:00 WBC 9.69 RBC 3.73 L Hgb 11.8 Hct 35.0 L MCV 94 MCH 31.6 MCHC 33.7 RDW 11.9 Plt Count 295 MPV 9.8 Immature Gran % 0.4 Neutrophils % 61.2 Lymphocytes % 28.8 Monocytes % 7.3 Eosinophils % 1.9 Basophils % 0.4 Nucleated RBC % 0.0 Absolute Neutrophils 5.93 Absolute Lymphocytes 2.79 Absolute Monocytes 0.71 Absolute Eosinophils 0.18 Absolute Basophils 0.04 Sodium 139 Potassium 3.6 Chloride 103 Carbon Dioxide 28.3 Anion Gap 7.7 BUN 9 Creatinine 1.0 Est GFR (CKD-EPI 2020) 65.71 Glucose 123 H Calcium 9.4 Magnesium 1.9 Stool Description Pending Stool Campylobacter PCR Pending Stool Salmonella PCR Pending Stool Shigella PCR Pending Stool Ova & Parasites Pending Cryptosporidium/Giardia Pending Urine Legionella Ag Pending M. pneumoniae Source M. pneumoniae (PCR) Shiga Toxin (PCR) Pending Ur Strep pneumoniae Ag Pending 07/20/23 12:23 WBC RBC Hgb Hct MCV MCH MCHC RDW Plt Count MPV Immature Gran % Neutrophils % Lymphocytes % Monocytes % Eosinophils % Basophils % Nucleated RBC % Absolute Neutrophils Absolute Lymphocytes Absolute Monocytes Absolute Eosinophils Absolute Basophils Sodium Potassium Chloride Carbon Dioxide Anion Gap BUN Creatinine Est GFR (CKD-EPI 2020) Glucose Calcium Magnesium Stool Description Stool Campylobacter PCR Stool Salmonella PCR Stool Shigella PCR Stool Ova & Parasites Cryptosporidium/Giardia Urine Legionella Ag M. pneumoniae Source Pending M. pneumoniae (PCR) Pending Shiga Toxin (PCR) Ur Strep pneumoniae Ag Preliminary micro results at discharge 07/19/23 21:42 Blood Culture - Preliminary Blood NO GROWTH 24 HOURS 07/19/23 21:33 Blood Culture - Preliminary Blood NO GROWTH 24 HOURS PFSH All Active Problems (Updated 07/20/23 @ 15:56 by Oanh Betancourt MD) Hypokalemia (Acute) Acute hypoxemic respiratory failure (Acute) Discharge planning issues (Acute) DVT prophylaxis (Acute) Aspiration pneumonia (Acute) Pneumonia (Acute) URI (upper respiratory infection) (Acute) Leukocytosis (Acute) Elevated transaminase level (Acute) Nausea vomiting and diarrhea (Acute) Traumatic tear of right rotator cuff (Chronic ~05/2023) Trochanteric bursitis, left hip (Acute) COPD (chronic obstructive pulmonary disease) (Chronic 01/06/15) Depression (Chronic 07/30/14) anxiety fatigue Fibromyalgia (Chronic 07/30/14) Hyperlipidemia (Chronic) Joint pain (Chronic 07/30/14) 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, recurrent [facility] pain [facility] 2014 Peptic reflux disease (Chronic) 2012 EGD, mild gastritis Hakan Betancourt ([facility]) patchy gastritis Shoulder pain, left (Chronic 05/25/14) 05/28 WC Smoker (Chronic) Tremor (Acute) Chronic headache (Acute) Migraine headache without aura (Acute) Anxiety (Chronic) Microscopic hematuria (Acute) Cervicalgia (Acute) Prolonged QT interval (Acute) Gastritis (Acute ~12/2020) mild Cough (Acute) Memory loss (Acute) Seasonal allergies (Acute) Dizziness (Acute) Transient neurological symptoms (Acute) History of prediabetes (Acute) Elevated transaminase level (Acute) Lymph nodes enlarged (Acute) Pulmonary nodule (Acute) Sinusitis (Acute) Vasomotor symptoms due to menopause (Acute) Fatigue (Acute) Chest pain (Acute) Irregular bowel habits (Acute) GERD (gastroesophageal reflux disease) (Chronic) Sore throat (Acute) Leukocytosis (Acute) Chronic pain (Chronic) Bruxism (Acute) Left-sided temporomandibular joint pain-dysfunction syndrome (Acute) Paresthesia (Acute) Hip pain (Acute) Shoulder pain, right (Acute) Periodic limb movement (Acute) Sensorineural hearing loss, bilateral (Acute) Myalgia (Acute) Oral ulceration (Acute) Jaw pain (Acute) Gall stone (Acute) RUQ pain (Acute) Hearing loss (Acute) Liver lesion (Acute) Medical History (Updated 07/20/23 @ 15:56 by Oanh Betancourt MD) Family history of myocardial infarction (05/25/14) Colon polyps Thyroid nodule Migraine with aura Post traumatic stress disorder (PTSD) DDD (degenerative disc disease) 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 is unaware of this Pre-diabetes Obstructive sleep apnea Hypertension Surgical History Status post breast biopsy History of cholecystectomy (~04/05/22) History of bunionectomy right Hx of rotator cuff surgery bilateral History of tonsillectomy and adenoidectomy History of esophagogastroduodenoscopy (EGD) (~12/2020) History of colonoscopy (~12/2020) Oophrectomy, Left B Hysterectomy, Laproscopic EGD - [address] Biopsy of breast (~2007) neg Bilateral salpingectomy with oophorectomy Family History Mother Essential hypertension Diabetes TYPE 2 Hyperlipidemia Father Heart disease Hyperlipidemia Myocardial infarction Sister Hyperlipidemia Brother No problems noted. Grandfather No problems noted. Grandfather No problems noted. Grandmother Personal history of malignant neoplasm BREAST Grandmother No problems noted. 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
--- NOTE | 2023-07-21 15:00 | PDOC.CMDIS ---
Date of service: 07/21/23 Time of Service: 15:00 LACE Index Scoring Tool Questions: Length of Stay (in days): 2 Was the patient admitted via the E.D.?: Yes E.D. Visits: 3 Answers: Total Score: 8 Risk of Readmission: Low Risk Care Management Discharge Plan Reason for Hospitalization: RLL pneumonia, intractable emesis, hypomagnesemia Discharge Plan: Connie will return home with Vimal, and follow up with her PCP and surgeon (rotator cuff surgery planned 08/23/23). 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 Patient/Family Education Needs: Review discharge instructions, discuss Ask Me Three. SDOH Health Related Social Needs: No Data to Display
[2023-07-21 22:12] LABS: Legionella Ag Detection Urine Negative (Negative)
[2023-07-21 22:56] LABS: Campylobacter PCR Negative (Negative); Salmonella PCR Negative (Negative); Shiga Toxin PCR Negative (Negative); Shigella/Enteroinvasive Ecoli Negative (Negative)
[2023-07-23 16:43] LABS: Streptococcus Pneumoniae Ag, U Negative (Negative)
== END 2023-07-21 11:34 | disposition home or self-care (01) | DRG 177 ==
LOC: ER 22:16 → MS 23:00
PROVIDERS: Internal Medicine; Admitting Provider Family Medicine; Emergency Provider Physician Assistant; PCP Nurse Practitioner Family; Visit Provider Family Medicine
DX: J69.0 Pneumonitis due to inhalation of food and vomit (principal); J96.01 Acute respiratory failure with hypoxia; J44.1 Chronic obstructive pulmonary disease with (acute) exacerbation; R11.10 Vomiting, unspecified; G43.109 Migraine with aura, not intractable, without status migrainosus; E83.42 Hypomagnesemia; F17.210 Nicotine dependence, cigarettes, uncomplicated; G47.33 Obstructive sleep apnea (adult) (pediatric); F43.10 Post-traumatic stress disorder, unspecified; E87.6 Hypokalemia; K75.81 Nonalcoholic steatohepatitis (NASH); S46.011A Strain of muscle(s) and tendon(s) of the rotator cuff of right shoulder, initial encounter; R73.03 Prediabetes; E66.3 Overweight; R19.7 Diarrhea, unspecified; D72.829 Elevated white blood cell count, unspecified; M70.62 Trochanteric bursitis, left hip; F32.A Depression, unspecified; F41.9 Anxiety disorder, unspecified; R53.83 Other fatigue; M79.7 Fibromyalgia; E78.5 Hyperlipidemia, unspecified; M54.40 Lumbago with sciatica, unspecified side; K29.70 Gastritis, unspecified, without bleeding; R74.01 Elevation of levels of liver transaminase levels; K21.9 Gastro-esophageal reflux disease without esophagitis; H90.3 Sensorineural hearing loss, bilateral; I10 Essential (primary) hypertension; I51.5 Myocardial degeneration; Z68.27 Body mass index [BMI] 27.0-27.9, adult; X58.XXXA Exposure to other specified factors, initial encounter
CPT/HCPCS: 00123; 36415; 80048; 80053; 80076; 82805; 85027; 87040; 87329; 87449; 87493; 87505; 87637; 93005; 94618; 96365; 96367; 96368; 96375; 99285; 71046; 74177; 81003; 81015; 83605; 83630; 83735; 84484; 85025; 87070; 87177; 87205; 87581; 87899; 93010; 94640; 94760; 99223; 99232; 99238; J0295; J0456; J0696; J1200; J1644; J1815; J1885; J2470; J2765; J3475; J3480; J3490; J7614; J7620; J7644

== ENCOUNTER 2023-07-24 16:17 | Outpatient (REF) | payer MEDICAID, SELFPAY ==
[2023-07-24 21:45] LABS: Abs Immature Grans 0.07 10^3/uL (0.0-0.06); Absolute Basophil Count 0.08 10^3/uL (0.0-0.2); Absolute Eosinophil Count 0.19 10^3/uL (0.0-0.7); Absolute Lymphocyte Count 4.11 10^3/uL (1.2-3.4); Absolute Monocyte Count 0.81 10^3/uL (0.1-0.8); Basophils % 0.7; Eosinophils % 1.6; HCT 40.7 % (36.0-46.0); HGB 13.9 g/dL (11.2-15.7); Immature Grans % 0.6; Lymphocytes % 33.9; MCH 31.5 pg (27.0-33.0); MCHC 34.2 % (32.0-36.0); MCV 92 fL (80-95); MPV 10.6 fL (8.0-11.0); Monocytes % 6.7; Neutrophils % 56.5; Platelet Count 358 10^3/uL (130-400); RBC 4.41 10^6/uL (3.93-5.22); RDW 11.8 % (11.7-14.6); RDW-SD 39.6 fL; WBC 12.12 10^3/uL (4.4-10.8)
[2023-07-24 21:46] LABS: Absolute Neutrophil Count 6.85 10^3/uL (1.2-6.7)
[2023-07-24 21:51] LABS: Anion Gap 10.5 mmol/L (3-11); BUN 13 mg/dL (7-18); CO2 26.5 mmol/L (21.0-32.0); Calcium 9.8 mg/dL (8.5-10.1); Chloride 100 mmol/L (98-107); Estimated GFR 65.71 (mL/min/1.73m2); Glucose 112 mg/dL (74-106); Magnesium 1.8 mg/dL (1.8-2.4); Potassium 3.6 mmol/L (3.5-5.1); Sodium 137 mmol/L (136-145)
== END 2023-07-24 16:18 | disposition home or self-care (01) ==
LOC: LBN 16:17
PROVIDERS: PCP Nurse Practitioner Family; Visit Provider Family Medicine
DX: I10 Essential (primary) hypertension (principal); N18.2 Chronic kidney disease, stage 2 (mild); J18.9 Pneumonia, unspecified organism
CPT/HCPCS: 80048; 83735; 85025

== ENCOUNTER → 2023-07-25 03:08 | Outpatient (CLI) | payer MEDICAID, SELFPAY ==
--- NOTE | 2023-07-25 | DI.CTLCSR_ITS ---
Exam(s) CT CHEST LUNG CANCER SCREEN EXAM: CT CHEST LUNG CANCER SCREEN CLINICAL HISTORY: SCREENING FOR LUNG CA,CURRENT SMOKER, F17.200 TECHNIQUE: Imaging Protocol: Axial computed tomography images with coronal and sagittal reformatted images were created and reviewed COMPARISON: CT CT CHEST LUNG CANCER SCREEN from 07/12/[address] ABDOMEN PELVIS W from 07/19/2023 FINDINGS: Tracheobronchial tree: Patent where visualized. Pulmonary parenchyma: No consolidation or dominant measurable mass. No architectural distortion. Calc ified granuloma are present. Lung Nodules: Stable 3 mm nodule in the periphery of the left upper lobe (series 3, image 138). Ther e is a stable 3 mm nodule in the left lower lobe (series 3, image 212). No new pulmonary nodules. Mediastinum and Roshni: No dominant adenopathy or fluid collection. The esophagus is unremarkable. Thyroid gland: Unremarkable. Lymph nodes: Unremarkable. Pleura: No effusion or pneumothorax. Heart: The heart is not dilated. Coronary artery calcifications and/or stents. No pericardial effusi on. Aorta: Thoracic aorta non-dilated.Atherosclerosis is present. Upper abdomen: Unremarkable. Soft Tissues: Unremarkable. Bones: Within normal limits for the patient's age. IMPRESSION: Stable pulmonary nodules. No new pulmonary nodules. Lung RADS Cat 2 - Benign Appearance / Behavior: Nodules with a very low likelihood of becoming a clin ically active cancer due to size or lack of growth Lung-RADS 1.0 CATEGORIES: Category 0 - Prior chest CT exam(s) being located for comparison. Category 1 - Annual screening in 12 months. No nodules or definitely benign nodules. Category 2 - Annual screening in 12 months. Benign appearance. Nodules with low likelihood of becomin g active cancer. Category 3 - 6-month follow-up. Probably benign. Short-term follow-up suggested. Nodules with low lik elihood of becoming active cancer. Category 4A - 3-month follow-up and CT/PET if >8 mm in size. Suspicious finding. Findings which requi re additional testing. Category 4B - Findings which require additional testing and tissue sampling. Suspicious finding. Category 4X - Category 3 or 4 nodules with additional features or imaging findings that increases the suspicion of malignancy. Modifier S- Potentially clinically significant finding. (Non lung cancer) RADIATION DOSE DELIVERED: 66.4mGy.cm Total DLP 66.4mGy.cmTotal DLP DATA REPOSITORY: All CT scans at this facility are submitted to the National Radiology Data Registry (NRDR) Dose Index Registry (DIR) with the [employer] (ACR). RADIATION OPTIMIZATION: All CT scans at this facility use at least one of these dose optimization te chniques: automated exposure control; mA and/or kV adjustment per patient size (includes targeted exa ms where dose is matched to clinical indication); or iterative reconstruction.
--- NOTE | 2023-07-25 | DI.US_ITS ---
Exam(s) US THYROID EXAM: US THYROID CLINICAL HISTORY: NON TOXIC GOITER,E04.1. TECHNIQUE: Ultrasound thyroid performed using standard protocol. COMPARISON: Prior thyroid ultrasound of 07/12/2022. FINDINGS: Both thyroid lobes again exhibit normal size. RIGHT THYROID LOBE: Measures 1.8 cm AP x 1.8 cm wide x 5.2 cm craniocaudal Again noted is a previously described solid nodule in the inferior aspect of the right lobe. This nodule appears to have slightly increased in size. Previously measured 12 x 10 x 8 millimeters. Presently measures 13 x 11 x 10 mm. Composition: Solid-2 points Echogenicity: Hypoechoic, more so than strap muscles-3 points Shape: Now appears taller than wider in the transverse plane- 3 points Margin: Smooth- 0 points Echogenic Foci: None Total Points for this nodule: 8 ACR Ti-Rads Category: TR5-highly suspicious This TR5 nodule is suspicious and requires ultrasound-guided FNA as it measures greater than 1 cm. ISTHMUS: Normal thickness. There are no nodules in the isthmus. LEFT THYROID LOBE: Measures 1.4 cm AP x 1.7 wide x 0.3 cm craniocaudal Again noted is a solitary solid nodule towards the inferior aspect. This nodule presently measures 1 2 x 9 x 10 mm: Previously measured 10 x 8 x 8 mm Specifics for this nodule are as follows... Composition: Mixed [id number]-7 point Echogenicity: Hypoechoic-2 point Shape: Equal width and height in the transverse plane-0 points Margin: Smooth-0 points Echogenic Foci: Contains punctate echogenic foci-3 points Total points for this nodule: 6 ACR Ti-Rads Category: 4 This TR 4 level nodule can be followed as it measures less than 1.5 cm LYMPH NODES: Small benign-appearing lymph node noted in the right-side of the neck. No obvious lymph adenopathy.. IMPRESSION: 1. Compared to the prior ultrasound examination of June 2022 there is again noted a solitary nodu le in each lobe. No new nodules evident 2. The nodule in the inferior aspect of the right thyroid lobe has slightly increased in size and is now classified as a suspicious TR 5 level nodule and requires ultrasound FNA as it measures greater t velasco 1 cm size. 3. The nodule in the left lobe is TR 4 level and can be followed as it measures less than 1.5 cm. DATA REPOSITORY:
== END ==
PROVIDERS: PCP Nurse Practitioner Family; Visit Provider Nurse Practitioner Family
DX: E04.1 Nontoxic single thyroid nodule (principal)
CPT/HCPCS: 71271; 76536

== ENCOUNTER 2023-08-20 15:12 | Outpatient (REF) | payer MEDICAID, SELFPAY ==
[2023-08-20 16:11] LABS: Hemoglobin A1C 5.8 % (<5.7)
[2023-08-20 16:12] LABS: ALT 54 U/L (14-59); AST 30 U/L (15-37); Albumin 4.4 g/dL (3.4-5.0); Alkaline Phosphatase 107 U/L (46-116); Anion Gap 7.4 mmol/L (3-11); BUN 14 mg/dL (7-18); Bilirubin, Total 0.7 mg/dL (0.2-1.0); CO2 30.6 mmol/L (21.0-32.0); Calcium 10.5 mg/dL (8.5-10.1); Calculated LDL 217 mg/dL (<100); Chloride 101 mmol/L (98-107); Cholesterol 318 mg/dL (<200); Estimated GFR 65.71 (mL/min/1.73m2); Glucose 149 mg/dL (74-106); HDL Cholesterol 48 mg/dL (40-60); Potassium 4.5 mmol/L (3.5-5.1); Sodium 139 mmol/L (136-145); TSH (W/Ref FT4) 0.72 uIU/mL (0.36-3.74); Total Protein 8.1 g/dL (6.4-8.2); Triglyceride 269 mg/dL (<150)
== END 2023-08-20 15:13 | disposition home or self-care (01) ==
LOC: NCHCN 15:12
PROVIDERS: PCP Nurse Practitioner Family; Visit Provider Family Medicine
DX: N18.2 Chronic kidney disease, stage 2 (mild) (principal); R73.03 Prediabetes; E04.1 Nontoxic single thyroid nodule; E78.5 Hyperlipidemia, unspecified
CPT/HCPCS: 80053; 80061; 83036; 84443

== ENCOUNTER 2023-08-23 08:16 | Day surgery (SDC) | payer MEDICAID, SELFPAY ==
[2023-08-23] VITALS (9 sets, daily range): BP systolic 125–183; BP diastolic 59–99; PULSE 94–101; RESP 16–31; TEMP 36.3–36.7; O2SAT 91–98; BMI 27.6
--- NOTE | 2023-08-23 07:08 | W.ANESPRE ---
General Info Date of Service Date Performed: 08/23/23 Height: 5 ft 1 in Weight: 66.2 kg Body Mass Index (BMI): 27.6 Surgical Procedure: Operation Date: 08/23/23 10:10 Proposed Procedure Side Surgeon p Shoulder Rotator Cuff Arthroscopic w/Extensive Debridement, Subacromial Decompression Right Grant Morfin MD Meds Allergies and Home Medications Allergies Allergy/AdvReac Type Severity Reaction Status Date / Time nicotine Allergy Severe PATCHES-REDNESS Verified 08/23/23 08:52 & SWELLING chlorhexidine Allergy Mild Skin Rash Verified 08/23/23 08:52 adhesive Allergy Skin Rash Verified 08/23/23 08:52 amitriptyline Allergy Other (See Verified 08/23/23 08:52 Comment) doxycycline Allergy Other (See Verified 08/23/23 08:52 Comment) bupropion AdvReac Severe AGITATION Verified 08/23/23 08:52 duloxetine AdvReac Intermediate HEARING Verified 08/23/23 08:52 THINGS hydrocodone AdvReac Intermediate Itching Verified 08/23/23 08:52 pregabalin [From Lyrica] AdvReac Intermediate foggy brain Verified 08/23/23 08:52 trazodone AdvReac Intermediate ANXIETY Verified 08/23/23 08:52 pravastatin AdvReac Mild HEADACHE Verified 08/23/23 08:52 simvastatin AdvReac Mild LEG Verified 08/23/23 08:52 CRAMPS; HEADACHE varenicline AdvReac Mild BEHAVIOR Verified 08/23/23 08:52 CHANGES promethazine AdvReac Unknown ANXIETY Verified 08/23/23 08:52 zolpidem AdvReac Unknown INCREASED Verified 08/23/23 08:52 DEPRESSION Home Medication Medication Instructions Recorded acetaminophen 500 mg tablet 1,000 mg PO Q6H PRN 03/21/17 (Tylenol Extra Strength) hydrochlorothiazide 25 mg tablet 25 mg PO DAILY 06/08/19 meclizine 12.5 mg tablet 12.5 mg PO Q8H PRN 06/08/19 tiotropium bromide 18 mcg capsule 1 cap inhalation DAILY 03/16/20 with inhalation device (Spiriva with HandiHaler) lidocaine 5 % topical patch 1 patch topical DAILY 06/15/20 (Lidoderm) TENS units #1 ea 08/01/20 aspirin 81 mg tablet,delayed 81 mg PO DAILY 06/24/21 release (Adult Aspirin Regimen) lovastatin 20 mg tablet 20 mg PO QPM 08/16/21 rimegepant 75 mg disintegrating 75 mg PO ONCE PRN migraine 02/06/22 tablet (Nurtec ODT) headache #15 tabs levomefolate calcium 15 mg tablet 15 mg PO DAILY 03/20/22 (L-Methylfolate) loratadine 10 mg tablet (Claritin) 10 mg PO DAILY PRN 03/20/22 B-complex with vitamin C 1 cap PO DAILY 03/21/22 hydroxyzine HCl 25 mg tablet See Rx Instructions PO QID PRN 05/07/22 itching #30 tabs benzonatate 100 mg capsule 100 mg PO HS PRN cough #20 caps 09/03/22 inhalational spacing device #1 ea 09/03/22 (Aerochamber MV spacer) levalbuterol tartrate 45 2 puff inhalation PRN PRN URI #15 09/03/22 mcg/actuation aerosol inhaler grams (Xopenex HFA) fluoxetine 40 mg capsule (Prozac) 40 mg PO DAILY 11/01/22 buspirone 10 mg tablet 10 mg PO TID 11/14/22 lamotrigine 25 mg tablet 25 mg PO HS 11/14/22 pantoprazole 40 mg tablet,delayed 40 mg PO QHS #90 tab-caps 11/14/22 release (Protonix) montelukast 10 mg tablet 10 mg PO DAILY 07/16/23 (Singulair) hydromorphone 2 mg tablet 2 mg PO .Q8 PRN SHOULDER PAIN 07/19/23 (Dilaudid) ondansetron 4 mg disintegrating 4 mg PO Q6H PRN nausea and 07/19/23 tablet vomiting #10 tabs Current Visit Medications: Current Medications Generic Name Dose Route Start Last Admin Trade Name Freq PRN Reason Stop Dose Admin Ringer's Solution 1,000 mls @ 30 mls/hr 08/23/23 06:00 IV 08/23/23 23:59 INFUSION CHRISTA Cefazolin Sodium/Dextrose 2 gm in 50 mls @ 100 mls/hr 08/23/23 06:00 Ancef Duplex IVPB 08/23/23 23:59 PREOP CHRISTA IV Miscellaneous Supplies 1 each 08/23/23 06:00 Iv Access IV 08/23/23 23:59 DIRECTED CHRISTA Sodium Chloride 0 ml 02/09/24 06:00 Normal Saline Flush 10 Ml Syr IV 08/23/23 23:59 PRN PRN Sodium Chloride 0 ml 08/23/23 06:00 Normal Saline 10 Ml Vial IJ 08/23/23 23:59 DIRECTED PRN Sterile Water 0 ml 08/23/23 06:00 Water,Injection,Sterile 10 Ml Vial IJ 08/23/23 23:59 DIRECTED PRN PFSH Active Problems Active Problems: Problem Status Onset Code Hypokalemia E87.6 Acute hypoxemic respiratory failure J96.01 Aspiration pneumonia J69.0 Hypomagnesemia E83.42 Pneumonia J18.9 Intractable vomiting R11.10 URI (upper respiratory infection) J06.9 Leukocytosis D72.829 Elevated transaminase level R74.01 Nausea vomiting and diarrhea R11.2, R19.7 Traumatic tear of right rotator cuff ~05/2023 S46.011A Trochanteric bursitis, left hip M70.62 Liver lesion K76.9 Hearing loss H91.90 RUQ pain R10.11 Gall stone K80.20 Jaw pain R68.84 Oral ulceration K12.1 Myalgia M79.10 Sensorineural hearing loss, bilateral H90.3 Periodic limb movement G47.61 Shoulder pain, right M25.511 Hip pain M25.559 Paresthesia R20.2 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 Bruxism F45.8 Chronic pain G89.29 Leukocytosis D72.829 Sore throat J02.9 GERD (gastroesophageal reflux disease) K21.9 Irregular bowel habits R19.8 Chest pain R07.9 Fatigue R53.83 Vasomotor symptoms due to menopause N95.1 Sinusitis J32.9 Pulmonary nodule R91.1 Lymph nodes enlarged R59.9 Elevated transaminase level R74.01 History of prediabetes Z87.898 Transient neurological symptoms R29.818 Dizziness R42 Seasonal allergies J30.2 Memory loss R41.3 Cough R05 Gastritis ~12/2020 K29.70 Prolonged QT interval R94.31 Cervicalgia M54.2 Microscopic hematuria R31.29 Anxiety F41.9 Migraine headache without aura G43.009 Chronic headache R51 Tremor R25.1 Smoker F17.200 Shoulder pain, left 11/11/14 M25.512 Peptic reflux disease K21.9 Low back pain with sciatica 05/25/14 M54.40 Joint pain 07/30/14 M25.50 Hyperlipidemia E78.5 Fibromyalgia 07/30/14 M79.7 Depression 07/30/14 F32.9 COPD (chronic obstructive pulmonary disease) 01/06/15 J44.9 Medical History Medical History (Updated 08/21/23 @ 14:05 by Parth Landis) Stage 2 chronic kidney disease Family history of myocardial infarction (05/25/14) Colon polyps Thyroid nodule Migraine with aura Post traumatic stress disorder (PTSD) Pt. 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 is unaware of this Pre-diabetes Obstructive sleep apnea Hypertension Medical History Comments:: PONV; pt states scopolamine patches help some; stops the vomiting States she was told during one surgery to deep breathe and required more oxygen Surgical History Surgical History Status post breast biopsy History of cholecystectomy (~04/05/22) History of bunionectomy right Hx of rotator cuff surgery bilateral History of tonsillectomy and adenoidectomy History of esophagogastroduodenoscopy (EGD) (~12/2020) History of colonoscopy (~12/2020) Oophrectomy, Left B Hysterectomy, Laproscopic EGD - [facility] [place] 2014-[facility] [place] Biopsy of breast (~2007) neg Bilateral salpingectomy with oophorectomy Tobacco Smoking/Tobacco Use Status: Current every day Tobacco Type: cigarettes Alcohol Alcohol Intake: former Substance Use Substance use: Never Substance use type: does not use Vital Signs and Lab Results Vital Signs Most Recent Vital Signs in EMR: Temp Pulse Resp BP Pulse Ox 36.4 C L 101 H 16 183/94 H 98 08/23/23 08:41 08/23/23 08:41 08/23/23 08:41 08/23/23 08:41 08/23/23 08:41 Lab Results Blood Type / Crossmatch: No Data to Display Complete Blood Count: White Blood Count 12.12 10^3/uL (4.4-10.8) H 07/24/23 15:40 Red Blood Count 4.41 10^6/uL (3.93-5.22) 07/24/23 15:40 Hemoglobin 13.9 g/dL (11.2-15.7) 07/24/23 15:40 Hematocrit 40.7 % (36.0-46.0) 07/24/23 15:40 Platelet Count 358 10^3/uL (130-400) 07/24/23 15:40 Complete Metabolic Panel: Sodium 139 mmol/L (136-145) 08/20/23 09:30 Potassium 4.5 mmol/L (3.5-5.1) 08/20/23 09:30 Chloride 101 mmol/L (98-107) 08/20/23 09:30 Carbon Dioxide 30.6 mmol/L (21.0-32.0) 08/20/23 09:30 BUN 14 mg/dL (7-18) 08/20/23 09:30 Creatinine 1.0 mg/dL (0.55-1.02) 08/20/23 09:30 Est GFR (CKD-EPI 2020) 65.71 (mL/min/1.73m2) 08/20/23 09:30 Magnesium 1.8 mg/dL (1.8-2.4) 07/24/23 15:40 Calcium 10.5 mg/dL (8.5-10.1) H 08/20/23 09:30 Albumin 4.4 g/dL (3.4-5.0) 08/20/23 09:30 Glucose 149 mg/dL (74-106) H 08/20/23 09:30 Hemoglobin A1c 5.8 % (<5.7) H 08/20/23 09:30 Liver Function Panel: Alanine Aminotransferase (ALT/SGPT) 54 U/L (14-59) 08/20/23 09:30 Aspartate Amino Transf (AST/SGOT) 30 U/L (15-37) 08/20/23 09:30 Coagulation Panel: No Data to Display Cardiac Panel: No Data to Display Arterial Blood Gas: No Data to Display Venous Blood Gas: No Data to Display Pancreas Panel: No Data to Display Thyroid Panel: Thyroid Stimulating Hormone (TSH) 0.72 uIU/mL (0.36-3.74) 08/20/23 09:30 Infectious Disease: No Data to Display Blood Cultures: No Data to Display Toxicology Panel: No Data to Display Imaging and Studies Imaging and Studies Study information below may be from another EMR and interpreted by another provider. Please see original notes in EMR for more complete details. EKG Summary: 08/07: sinus tach. Stress Test Summary: Impressions: Normal study after maximal exercise. Summary: 1. Stress ECG conclusions: Wells treadmill score: 6. This score predicts a low risk of cardiac events. 03/13/18 Anesthesia Assessment and Plan Anesthesia History Personal History: PONV Family History: No Family History of Anesthesia Complications Exercise Tolerance Exercise Tolerance: Metabolic Equivalents>4 Cardiac & Pulmonary Exam Cardiac Exam: Normal S1/S2 Heart Sounds Pulmonary Exam: Clear Bilateral Breath Sounds Implantable Cardiac Device Does patient have a Pacemaker or an ICD?: No Airway Exam Known Difficult Airway: No Mallampati Class: 2 Mouth Opening: Normal (> 3cm) Thyromental Distance: Greater than 3 cm Neck Range of Motion: Full ROM Neck Circumference: Normal Teeth Condition: Generalized Poor Dentition and Removable Dentures/Plates Upper ASA Classification ASA Score: ASA 3 Emergency Case?: No NPO Status NPO Status: NPO Clears >2 hours, Solids >8 hours Anesthesia Plan Resuscitation Status: Full Code Anesthesia Technique: General Anesthesia Airway Planned: Endotracheal Tube Pain Management: Surgeon and patient request nerve block Monitors Used: Standard Monitors Preoperative Comments:: 58 yo female for RCR/shoulder scope. Sig PMHx: HTN, COPD, ADELITA, GERD/chest pain, GARZA, anxiety/fibromyalgia/depression/PTSD, CKDII, migraine, smoker, Previous Anes: - lap elba rosales 2 grade 1, scop patch. - EGD/colo, prop/Zofran, natural airway no issues. - Shoulder right, midaz 4 (for block), scop patch, mac 3 grade 3, easy mask with OPA. Block with 0.5% 15 mL, pain 8/10 on post op note. Extremely nervous related to the nerve block (and anesthesia in general). states last nerve block was very uncomfortable. Actively pulling away during IV placement also. Discussed nerve block, sedation, and GA. She would like to proceed with the block and understands that she can stop the procedure at any time. would like scop patch
--- NOTE | 2023-08-23 07:22 | W.PM.DSUDISC ---
Date of service: 08/23/23 Time of Service: 13:00 Discharge Plan Disposition Patient Disposition: Home Condition: Stable Discharge Details Attending Provider: Grant Morfin Primary Care Provider: Selam Fowler Home Meds and New Rx's Prescriptions: Continued lidocaine [Lidoderm] 5 % adhesive patch,medicated 1 patch topical DAILY Rx Instructions: leave on most painful area for up to 12 hrs aspirin [Adult Aspirin Regimen] 81 mg tablet,delayed release (DR/EC) 81 mg PO DAILY lovastatin 20 mg tablet 20 mg PO QPM benzonatate 100 mg capsule 100 mg PO HS PRN (Reason: cough) Qty: 20 0RF levalbuterol tartrate [Xopenex HFA] 45 mcg/actuation HFA aerosol inhaler 2 puff Inhalation PRN PRN (Reason: URI) Qty: 15 0RF Rx Instructions: 2 puffs every 4-6 hours as needed for cough, sob, or wheeze (DME) Aerochamber MV Spacer See Rx Instructions .Route Qty: 1 0RF Rx Instructions: As directed montelukast [Singulair] 10 mg tablet 10 mg PO DAILY (DME) TENS units Device See Rx Instructions .ROUTE .MEDSUPPLY Qty: 1 Rx Instructions: As directed levomefolate calcium [L-Methylfolate] 15 mg tablet 15 mg PO DAILY loratadine [Claritin] 10 mg tablet 10 mg PO DAILY PRN B-complex with vitamin C Capsule 1 cap PO DAILY acetaminophen [Tylenol Extra Strength] 500 MG tablet 1,000 mg PO Q6H PRN meclizine 12.5 mg tablet 12.5 mg PO Q8H PRN hydrochlorothiazide 25 mg tablet 25 mg PO DAILY Nurtec ODT 75 mg tablet,disintegrating 75 mg PO ONCE PRN (Reason: migraine headache) Qty: 15 3RF Rx Instructions: as a single dose, no more than one dose in 24 hours, no more than 15 doses per month. hydroxyzine HCl 25 mg tablet See Rx Instructions PO QID PRN (Reason: itching) Qty: 30 3RF Rx Instructions: Take 25-50 mg every 6 hours as needed for headaches. lamotrigine 25 mg tablet 25 mg PO HS buspirone 10 mg tablet 10 mg PO TID pantoprazole [Protonix] 40 mg tablet,delayed release (DR/EC) 40 mg PO QHS Qty: 90 tiotropium bromide [Spiriva with HandiHaler] 18 mcg capsule, w/inhalation device 1 cap INHALATION DAILY Patient Comments: INL THE CONTENTS OF 1 C VIA INHALATION DEVICE D fluoxetine [Prozac] 40 mg Capsule 40 mg PO DAILY ondansetron 4 mg tablet,disintegrating 4 mg PO Q6H PRN (Reason: nausea and vomiting) Qty: 10 0RF Discontinued hydromorphone [Dilaudid] 2 mg tablet 2 mg PO .Q8 PRN (Reason: SHOULDER PAIN) Hold Instructions: take only if tolerated and needed Patient Comments: 08/23/23 08:55am pt reports not taking, pt doesn't like it after taking half a dose on the day prescribed. Ruba RB Discharge Instructions Additional Instructions: Surgery: Right shoulder arthroscopy with revision rotator cuff repair, extensive debridement, and subacromial decompression. Activity: For 6 weeks, you should keep your arm at your side in a neutral position at all times except for physical therapy. Do not try to lift or raise your arm using your own muscles. You should use the sling whenever you are out of the house. You may have to adjust the abduction pillow or remove it for comfort. At home it is best to remove the sling and rest the arm on a pillow at your side or support the operative side with your other hand. You may allow the arm to dangle at your side. A physical therapy prescription will be sent electronically to begin in about 3 weeks. Prescriptions: Pain management per primary care doctor Resume home medications, tomorrow morning, acetaminophen/ Tylenol for mild to moderate pain. You may try [id number] diphenhydramine (Benadryl) 25-50 mg as needed for itchiness or rash Dressings: Remove shoulder bandage after 3 days. Leave the sticky Steri-Strips in place until they fall off or remove them after you shower. Cover the incisions with Band-Aids or leave them open to air. You may shower after 5 days. Follow-up: 10-[address] Morfin You may take off the leg compression stockings this evening at home. You may also leave them on a few days longer if you have a history of leg swelling or edema. Let us know right away if you develop any redness, drainage, fevers, chest pain, or trouble breathing. Do not drink alcohol or drive for at least 24 hours after anesthesia. Please call the office during business hours with any questions or concerns. Stand Alone Forms: Anesthesia Discharge Inst.[place].Nerve Block Instructions, Christina Andersen (DSU) Referrals: Grant oMrfin MD [ [facility] STAFF PHYSICIAN] - 09/04/23 1:15 pm Discharge Orders Discharge Orders: Discharge Order (Routine); Ordered 08/23/23 Ordered By: Mirela Martinez DS: Diagnosis Discharge Diagnosis (1) Traumatic tear of right rotator cuff: Status: Chronic
--- NOTE | 2023-08-23 07:36 | ROE_ITS ---
Date of service: 08/23/23 Time of Service: 10:30 Operative Note Operative Note DATE OF PROCEDURE: 08/23/23 PRE-OP DIAGNOSIS: Right: 1. Recurrent rotator cuff tear 2. Bursitis POST-OP DIAGNOSIS: same PROCEDURE: Right: 1. Revision rotator cuff repair, CPT# 05280. This involved revision repair of the supraspinatus using anchors and sutures to reattach the rotator cuff back to the footprint of the greater tuberosity. 2. Extensive debridement, CPT# 36026. This involved using arthroscopic hand instruments, power instruments, and radiofrequency instruments to release anterior capsular adhesions and debride areas of labral tearing, synovitis, and chondromalacia working within the glenohumeral joint anteriorly, superiorly and posteriorly. 3. Subacromial decompression with partial acromioplasty, CPT# 44212. This involved using arthroscopic power instruments and a radiofrequency wand to complete a bursectomy and remove adhesions from the undersurface of the acromion. The real estate executive assistant was medically required in order to help assist in techniques above, which require positioning the arm, holding the arthroscope, and manipulating multiple instruments and sutures at the same time. This cannot be done without the help of an experienced real estate executive assistant. SURGEON: Grant Morfin PHARMACY GENERAL MANAGER: Mirela Martinez ANESTHESIA TYPE: Local By Surgeon, General LMA/ETT and Primary Nerve Block Refer to Anesthesia Record ESTIMATED BLOOD LOSS: 5 PATHOLOGY: none sent COMPLICATIONS: None Patient was transported to: PACU Patient's condition: stable Implants: Arthrex: 4.75mm SwiveLocks x 2 Indications: The patient was diagnosed with the above conditions and appropriately indicated for surgical intervention. Please see complete medical record for details. Findings: Exam under anesthesia: Good range of motion with mildly limited external r otation, no instability Glenohumeral joint: Significant synovitis anteriorly and superiorly, notable anterior capsular thickening and and adhesions between the [facility] anterior capsule and subscapularis, moderate labral tearing and degenerative fraying anteriorly, superiorly, and posteriorly. Prior biceps tenodesis, no biceps in the joint. 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 Intact subscapularis. Obvious full-thickness defect in the central supraspinatus at the medial aspect of the footprint. Subacromial space: Moderate bursitis, moderate bursal and undersurface acromial adhesions from prior open surgery. Moderately sized full-thickness supraspinatus rotator cuff tear with delaminated articular and bursal layers. Tear was somewhat medial and trans tendinous, started centrally to medially with moderate least significant lateral tendon remnant. Procedure Description: In the operating room, general anesthesia was induced. Bilateral shoulders were examined. The patient was positioned in the beachchair position. All bony prominences were well-padded. Preoperative antibiotics were administered. The shoulder was prepped and draped in the usual sterile fashion. The correct patient, procedure, and side of the procedure were all verified prior to incision. Starting through the posterior portal a standard complete diagnostic arthroscopy was performed of the glenohumeral joint including inspection of the long head of the biceps, anterior and superior labrum, subscapularis tendon, supraspinatus and infraspinatus tendons, and axillary recess. The glenoid and humeral head cartilage as well as the posterior labrum were inspected from an superior anterior lateral viewing portal directed through the rotator cuff defect. Significant findings and interventions noted above. Of note, the anterior capsular adhesions were released as part of capsular release. Labral was debrided throughout anterior superior and posterior. Mild chondromalacia was lightly debrided as well. The rotator cuff defect and footprint was prepared viewing in the joint working through the cuff tear given the larger defect from this articular side and smaller defect on the bursal side to ensure proper preparation without having to enlarge the tear once in the subacromial space. Starting through the posterior portal, the arthroscope was directed into the subacromial space. A lateral 50 yard line lateral portal was created. A combination of power instruments and a radiofrequency ablator were used to debride bursitis anteriorly, posteriorly, and laterally as well as expose and release thickened adhesions on the undersurface of the acromion between the capsule and bursal rotator cuff. The coracoacromial ligament was partially released. The bursectomy was completed viewing laterally and working from posteriorly and the rotator cuff was thoroughly inspected with findings noted above. The bursal rotator cuff defect was lightly debrided. The cuff grasper was used to thoroughly inspect the largely 2 layer delaminated full-thickness supraspinatus tear and confirm appropriate prepared greater tuberosity bone for optimal tendon healing and reduce both layers over the footprint and from medial to the lateral tendon remnant. Working through the tear, a single medial row centrally 4.75 mm double loaded anchor preloaded with FiberTape was placed. The self retrieving scorpion suture passer was used to shuttle the FiberTape's individually through the medial aspect of the supraspinatus to the tear taking care to incorporate both layers of the delaminated tendon medially. The scorpion was then loaded with one of the sliding repair sutures from the anchor eyelet and used to place a simple repair stitch at the anterior aspect of the tear and secured with [facility] arthroscopic knot. This was repeated with the other sliding repair suture through the central to posterior aspect of the tear and similarly secured with [facility] arthroscopic knot. There was excellent closure of the defect from anterior to mostly posterior and from medial to lateral. There is a small rent more posteriorly towards the infraspinatus. A suture tape FiberLink was loaded on the scorpion and in cinch mode used to incorporate this tissue. The original FiberTape's and this additional link suture were brought out the lateral cannula and secured to a single lateral central 4.75 mm SwiveLock anchor. The repair was inspected with good reduction, fixation strength, and reapposition of tissue across the defect and from medial to la teral. It was stable through testing. The shoulder was drained of arthroscopic fluid. All portal sites were copiously irrigated. These incisions were closed using 3-0 Monocryl in a buried fashion and then covered with Mastisol, Steri-Strips, Xeroform, dry gauze, and ABDs. The dressings were covered and secured with Medipore tape. The operative extremity was placed into a sling for immobilization. The patient awoke from anesthesia without complication and was transferred to the recovery room in a stable condition.
[2023-08-23] MEDS: Lactated Ringers 1,000 ML 30 ML IV (09:32)
--- NOTE | 2023-08-23 09:56 | W.ANESNERVE ---
Nerve Block Single Injection Procedure Date and Time Date Performed: 08/23/23 Procedure Start: 09:48 Location Where Procedure Performed Procedure Location: Day Surgery Unit Reason Performed: Postoperative Analgesia Requesting Provider: Grant Morfin Timeout Performed Timeout Performed: Yes Monitoring Used ECG, Blood Pressure and SpO2 Sterility Sterility: Hand Hygiene, Surgical Cap, Surgical Mask, Sterile Gloves and Chlorhexidine Sedation Given During Procedure Sedation Given (Indicate Dose Given): Versed IV (3 mg + 2 mg) Dose:: 5 mg Patient Mental Status Patient Mental Status: Sedate with meaningful communication Nerve Block 1st Nerve Block: Laterality: Right Block Type: Interscalene Ultrasound Image Saved?: Yes Needle / Catheter Used: 100mm SonoPlex II Local Anesthetic Bolus (Indicate Dose Given): Lidocaine used for local infiltration of skin, Injected in 3-5ml increments after negative blood aspiration, Bupivacaine 0.5% Dose:: 10 mL and Exparel Dose:: 10 mL Additives (Indicate Dose Given): None Ultrasound: Sterile probe cover and gel used Nerve Stimulator: Primary Nerve Stimulator Technique and No twitch or parasthesia noted < 0.5 mA Paresthesia: None Procedure Tolerated: No Complications Procedure Outcome: Successful Procedure Comment: 3 mg midaz given, with some effect. positioned, and local placed. stating she needs more sedation. 2 mg midaz additional given. Performed By: Cy Smart
[2023-08-23] MEDS: ceFAZolin 2 GM/50 ML BAG IVPB (10:30)
[2023-08-23] MEDS: Normal Saline 100 ML (10:45)
[2023-08-23] MEDS: Tranexamic Acid 1,000 MG/10 ML VIAL 1000 MG (10:45)
[2023-08-23] MEDS: Bupivacaine 0.25% Pres-Free 30 ML VIAL (10:55)
[2023-08-23] MEDS: EPINEPHrine 10 MG/10 ML ML (11:15)
--- NOTE | 2023-08-23 12:41 | W.ANESPOSTOP ---
Postoperative Evaluation Date, Time and Location Date Performed: 08/23/23 Time Performed: 12:41 Patient Location: PACU Vital Signs Most Recent Imported Vital Signs: Most Recent Vital Signs Temp Pulse Resp BP Pulse Ox 36.3 C L 100 H 18 125/64 97 08/23/23 12:29 08/23/23 12:29 08/23/23 12:29 08/23/23 12:29 08/23/23 12:29 Pain Score Most Recent Pain Score: Most Recent Pain Score Pain Level 0 08/23/23 12:29 Assessment Mental Status: Awake (Alert & Oriented to Patient Baseline) Airway and Respiratory Function: Patent airway with normal (patient baseline) respiratory exam Cardiovascular Function: Hemodynamically Stable Hydration Status: Adequately Hydrated Nausea & Vomiting: No Nausea or Vomiting Pain: Pt. Denies Any Pain Peripheral Nerve Block: Regional nerve block not resolved at time of post operative discharge
== END 2023-08-23 13:39 | disposition home or self-care (01) ==
PROVIDERS: PCP Family Medicine; Visit Provider Student in an Organized Health Care Education/Training Program
PROC: (CPT 29827; principal; 2023-08-23 10:00)
DX: S46.011A Strain of muscle(s) and tendon(s) of the rotator cuff of right shoulder, initial encounter (principal); M75.51 Bursitis of right shoulder; R73.03 Prediabetes; N18.2 Chronic kidney disease, stage 2 (mild); G47.33 Obstructive sleep apnea (adult) (pediatric); I12.9 Hypertensive chronic kidney disease with stage 1 through stage 4 chronic kidney disease, or unspecified chronic kidney disease
CPT/HCPCS: 29827; 29826; 29823; 76942; C9290; J0665; J0690; J1100; J1200; J2001; J2250; J2371; J2405; J2704

== ENCOUNTER 2023-09-05 13:49 | Outpatient (CLI) | payer MEDICAID, SELFPAY | END 2023-09-05 13:50 | disposition home or self-care (01) | LOC: LBO 13:49 | PROVIDERS: PCP Family Medicine; Visit Provider Student in an Organized Health Care Education/Training Program | DX: E04.1 Nontoxic single thyroid nodule (principal) | CPT/HCPCS: 36415; 84443 ==

== ENCOUNTER 2023-10-31 08:56 | Emergency (ER) | payer MEDICAID, SELFPAY ==
[2023-10-31] VITALS (26 sets, daily range): BP systolic 131–183; BP diastolic 80–120; PULSE 88–124; RESP 13–27; TEMP 36.3; O2SAT 96–100
--- NOTE | 2023-10-31 08:45 | RT.EKG_ITS ---
APPROVED REPORT Exam: Resting ECG Reason for Exam: palpitations Patient Location: E HR:117 bpm ECG Measurements Heart Rate 117 AXIS [place] 154 P 64 QRSd 98 QRS 98 QT 339 T 21 QTc 472 Conclusion Sinus tachycardia...rate> 99 Low voltage, precordial leads...precordial leads <1.0mV Physician: no stemi
--- NOTE | 2023-10-31 09:12 | W.ED.GENAD ---
Discharge Plan Disposition Patient Disposition: Home Condition: Good Discharge Details Clinical Impression: UTI (urinary tract infection), Dehydration Primary Care Provider: Selam Fowler ED Provider: Felix Wyman Home Meds and New Rx's Prescriptions: New cephalexin 500 mg capsule 500 mg PO QID 7 Days Qty: 28 0RF No Action lidocaine [Lidoderm] 5 % adhesive patch,medicated 1 patch topical DAILY Rx Instructions: leave on most painful area for up to 12 hrs aspirin [Adult Aspirin Regimen] 81 mg tablet,delayed release (DR/EC) 81 mg PO DAILY lovastatin 20 mg tablet 20 mg PO QPM benzonatate 100 mg capsule 100 mg PO HS PRN (Reason: cough) Qty: 20 0RF levalbuterol tartrate [Xopenex HFA] 45 mcg/actuation HFA aerosol inhaler 2 puff Inhalation PRN PRN (Reason: URI) Qty: 15 0RF Rx Instructions: 2 puffs every 4-6 hours as needed for cough, sob, or wheeze (DME) Aerochamber MV Spacer See Rx Instructions .Route Qty: 1 0RF Rx Instructions: As directed montelukast [Singulair] 10 mg tablet 10 mg PO DAILY (DME) TENS units Device See Rx Instructions .ROUTE .MEDSUPPLY Qty: 1 Rx Instructions: As directed levomefolate calcium [L-Methylfolate] 15 mg tablet 15 mg PO DAILY loratadine [Claritin] 10 mg tablet 10 mg PO DAILY PRN B-complex with vitamin C Capsule 1 cap PO DAILY acetaminophen [Tylenol Extra Strength] 500 MG tablet 1,000 mg PO Q6H PRN meclizine 12.5 mg tablet 12.5 mg PO Q8H PRN hydrochlorothiazide 25 mg tablet 25 mg PO DAILY Nurtec ODT 75 mg tablet,disintegrating 75 mg PO ONCE PRN (Reason: migraine headache) Qty: 15 3RF Rx Instructions: as a single dose, no more than one dose in 24 hours, no more than 15 doses per month. hydroxyzine HCl 25 mg tablet See Rx Instructions PO QID PRN (Reason: itching) Qty: 30 3RF Rx Instructions: Take 25-50 mg every 6 hours as needed for headaches. lamotrigine 25 mg tablet 25 mg PO HS buspirone 10 mg tablet 10 mg PO TID pantoprazole [Protonix] 40 mg tablet,delayed release (DR/EC) 40 mg PO QHS Qty: 90 tiotropium bromide [Spiriva with HandiHaler] 18 mcg capsule, w/inhalation device 1 cap INHALATION DAILY Patient Comments: INL THE CONTENTS OF 1 C VIA INHALATION DEVICE D fluoxetine [Prozac] 40 mg Capsule 40 mg PO DAILY ondansetron 4 mg tablet,disintegrating 4 mg PO Q6H PRN (Reason: nausea and vomiting) Qty: 10 0RF Stiolto Respimat 2.5-2.5 mcg/actuation mist 2 puff INHALATION DAILY Patient Comments: INHALE TWO PUFFS BY MOUTH EVERY DAY FOR COPD Discharge Instructions Instructions: Dehydration (ED), Urinary Tract Infection in Women (ED) Additional Instructions: At this time you have evidence of urinary tract infection. Please take the Keflex antibiotic as directed. Thankfully your workup did not show any evidence of blood clot, pneumonia, heart attack, or other significant abnormality. You did have evidence of dehydration. Please continue to drink plenty of fluids and stay well-hydrated. If you notice any worsening of your symptoms, or any new symptoms such as vomiting, diarrhea, fever, chills, shortness of breath, chest pain, numbness, weakness, or fainting , please return immediately to the emergency department for reevaluation. Please follow up with your primary care provider as soon as possible for reassessment and reevaluation. As always, it was a pleasure participating in your medical care today. Referrals: Selam Fowler [Primary Care Provider] - [facility] General Date/Time Provider Initiated Documentation: 10/31/23 08:58. HPI Narrative: This is a pleasant 58-year-old female with a past medical history of hypertension, prediabetic, COPD/emphysema, previous lung nodules, previous thyroid nodules, high cholesterol, previous tobacco use, who presents today for evaluation of shortness of breath and tachycardia. Patient states that for the last week she has had a mild cough, yesterday last week she has had a mild, she developed a mild headache which went away on its own. She also developed mild shortness of breath, and mild pain with breathing. She also feels slightly weak compared to normal. This morning when she took a vital sign she noticed that she had continued shortness of breath and tachycardia and came to the ER for further assessment. She did have a surgical procedure months ago in her shoulder, she denies any recent long trips surgeries or procedures otherwise. No history of cardiac or pulmonary embolism. Patient has no other complaints at this time. No other modifying factors. No hemoptysis. No recent weight gain, calf tenderness or leg swelling. Related Data Home Medications Medication Instructions Recorded Confirmed acetaminophen 500 mg tablet 1,000 mg PO Q6H PRN 03/21/17 10/31/23 (Tylenol Extra Strength) hydrochlorothiazide 25 mg tablet 25 mg PO DAILY 06/08/19 10/31/23 meclizine 12.5 mg tablet 12.5 mg PO Q8H PRN 06/08/19 10/31/23 tiotropium bromide 18 mcg capsule 1 cap inhalation DAILY 03/16/20 10/31/23 with inhalation device (Spiriva with HandiHaler) lidocaine 5 % topical patch 1 patch topical DAILY 06/15/20 10/31/23 (Lidoderm) TENS units #1 ea 08/01/20 10/31/23 aspirin 81 mg tablet,delayed 81 mg PO DAILY 01/05/21 10/31/23 release (Adult Aspirin Regimen) lovastatin 20 mg tablet 20 mg PO QPM 08/16/21 10/31/23 rimegepant 75 mg disintegrating 75 mg PO ONCE PRN migraine 02/06/22 10/31/23 tablet (Nurtec ODT) headache #15 tabs levomefolate calcium 15 mg tablet 15 mg PO DAILY 03/20/22 10/31/23 (L-Methylfolate) loratadine 10 mg tablet (Claritin) 10 mg PO DAILY PRN 03/20/22 10/31/23 B-complex with vitamin C 1 cap PO DAILY 03/21/22 10/31/23 hydroxyzine HCl 25 mg tablet See Rx Instructions PO QID PRN 05/07/22 10/31/23 itching #30 tabs benzonatate 100 mg capsule 100 mg PO HS PRN cough #20 caps 09/03/22 10/31/23 inhalational spacing device #1 ea 09/03/22 10/31/23 (Aerochamber MV spacer) levalbuterol tartrate 45 2 puff inhalation PRN PRN URI #15 09/03/22 10/31/23 mcg/actuation aerosol inhaler grams (Xopenex HFA) fluoxetine 40 mg capsule (Prozac) 40 mg PO DAILY 11/01/22 10/31/23 buspirone 10 mg tablet 10 mg PO TID 11/14/22 10/31/23 lamotrigine 25 mg tablet 25 mg PO HS 11/14/22 10/31/23 pantoprazole 40 mg tablet,delayed 40 mg PO QHS #90 tab-caps 11/14/22 10/31/23 release (Protonix) montelukast 10 mg tablet 10 mg PO DAILY 07/16/23 10/31/23 (Singulair) ondansetron 4 mg disintegrating 4 mg PO Q6H PRN nausea and 07/19/23 10/31/23 tablet vomiting #10 tabs cephalexin 500 mg capsule 500 mg PO QID 7 days #28 caps 10/31/23 tiotropium 2.5 mcg-olodaterol 2.5 2 puff inhalation DAILY 10/31/23 10/31/23 mcg/actuation mist for inhalation (Stiolto Respimat) Previous Rx's Medication Instructions Recorded rimegepant 75 mg disintegrating 75 mg PO ONCE PRN migraine 02/06/22 tablet (Nurtec ODT) headache #15 tabs hydroxyzine HCl 25 mg tablet See Rx Instructions PO QID PRN 05/07/22 itching #30 tabs benzonatate 100 mg capsule 100 mg PO HS PRN cough #20 caps 09/03/22 inhalational spacing device #1 ea 09/03/22 (Aerochamber MV spacer) levalbuterol tartrate 45 2 puff inhalation PRN PRN URI #15 09/03/22 mcg/actuation aerosol inhaler grams (Xopenex HFA) ondansetron 4 mg disintegrating 4 mg PO Q6H PRN nausea and 07/19/23 tablet vomiting #10 tabs cephalexin 500 mg capsule 500 mg PO QID 7 days #28 caps 10/31/23 Allergies Allergy/AdvReac Type Severity Reaction Status Date / Time nicotine Allergy Severe PATCHES-REDNESS Verified 10/31/23 09:38 & SWELLING chlorhexidine Allergy Mild Skin Rash Verified 10/31/23 09:38 adhesive Allergy Skin Rash Verified 10/31/23 09:38 amitriptyline Allergy Other (See Verified 10/31/23 09:38 Comment) doxycycline Allergy Other (See Verified 10/31/23 09:38 Comment) bupropion AdvReac Severe AGITATION Verified 10/31/23 09:38 duloxetine AdvReac Intermediate HEARING Verified 10/31/23 09:38 THINGS hydrocodone AdvReac Intermediate Itching Verified 10/31/23 09:38 pregabalin [From Lyrica] AdvReac Intermediate foggy brain Verified 10/31/23 09:38 trazodone AdvReac Intermediate ANXIETY Verified 10/31/23 09:38 pravastatin AdvReac Mild HEADACHE Verified 10/31/23 09:38 simvastatin AdvReac Mild LEG Verified 10/31/23 09:38 CRAMPS; HEADACHE varenicline AdvReac Mild BEHAVIOR Verified 10/31/23 09:38 CHANGES promethazine AdvReac Unknown ANXIETY Verified 10/31/23 09:38 zolpidem AdvReac Unknown INCREASED Verified 10/31/23 09:38 DEPRESSION General Stated Complaint: Palpitatns NICOLAS: 2 Review of Systems All systems reviewed & are unremarkable except as noted in HPI and below Exam Narrative Exam Narrative: 1.Const: Well-nourished, Well-developed, appearing stated age 2.Eyes: PERRL, no conjunctival injection, and symmetrical lids. 3.ENT: Atraumatic external nose and ears. Moist MM. Neck: Symmetric, trachea midline, No thyromegaly. 4.CVS: +S1/S2, No murmurs or gallops. Peripheral pulses 2+ and equal in all extremities. Brisk capillary refill in all extremities. 5.RESP: Unlabored respiratory effort. Minimal crackle in the right lower lung field. No wheezes or rhonchi. 6.GI: Soft, Nontender/Nondistended, No hepatosplenomegaly. No guarding or rebound. 7.MSK: Normocephalic/Atraumatic, Extremities w/o deformity or ttp No cyanosis or clubbing, Normal movement of all extremities. No pitting edema in lower extremities, no calf tenderness. 8.Skin: Warm, Dry. No rashes or lesions. 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 Sensation grossly intact, no focal neurologic deficits. 10.Psych: (AAO) x3. Appropriate mood and affect Course Vital Signs Vital signs: Vital Signs Temperature 36.3 C L 10/31/23 09:06 Pulse 124 H 10/31/23 09:06 Respiratory Rate 18 10/31/23 09:06 Blood Pressure 145/120 H 10/31/23 09:06 Pulse Oximetry 99 10/31/23 09:06 Temperature 36.3 C L 10/31/23 09:06 Temperature Source Oral 10/31/23 09:06 Pulse 124 H 10/31/23 09:06 Respiratory Rate 18 10/31/23 09:06 Respiratory Effort Normal, Non-Labored 10/31/23 09:09 Blood Pressure 145/120 H 10/31/23 09:06 Blood Pressure Position Sitting 10/31/23 09:06 Pulse Oximetry 99 10/31/23 09:06 Oxygen Delivery Method Room Air 10/31/23 09:06 Oxygen Flow Rate 0 10/31/23 09:06 Lab/Test Results Lab/Test Results: 10/31/23 09:10 Blood Blood Culture - Pending 10/31/23 09:10 Blood Blood Culture - Pending Medical Decision Making This is a pleasant 58-year-old female with a past medical history of hypertension, prediabetic, COPD/emphysema, previous lung nodules, previous thyroid nodules, high cholesterol, previous tobacco use, who presents today for evaluation of shortness of breath and tachycardia. Patient states that for the last week she has had a mild cough, yesterday last week she has had a mild, she developed a mild headache which went away on its own. She also developed mild shortness of breath, and mild pain with breathing. She also feels slightly weak compared to normal. This morning when she took a vital sign she noticed that she had continued shortness of breath and tachycardia and came to the ER for further assessment. She did have a surgical procedure months ago in her shoulder, she denies any recent long trips surgeries or procedures otherwise. No history of cardiac or pulmonary embolism. Patient has no other complaints at this time. No other modifying factors. No hemoptysis. No recent weight gain, calf tenderness or leg swelling. Exam demonstrates well-appearing female, minimal crackle in the right lower lung field, patient is tachycardic. Blood pressure stable. EKG benign. No prolongation of her QT, normal ST segments. Differential includes PE, pneumonia, dehydration, electrolyte abnormality, thyroid dysfunction. Will rehydrate, check for infectious etiologies, get a CTA, monitor closely and reassess. 12:41 PM Laboratory workup has returned, patient had an elevated white count, no bandemia. Electrolytes normal, renal function normal, troponin x 2 normal, proBNP normal showing no signs of heart strain. CTA negative for evidence of pulmonary embolism. Bedside POCUS unremarkable, procalcitonin normal, TSH normal. Symptoms appear inconsistent with severe sepsis or septic shock. Patient did have a urinary tract infection with 20 WBCs, moderate leuk esterase. I feel that symptoms are likely secondary to dehydration and urinary tract infection. After 2 L of normal saline the patient's vital signs notably improved, heart rate went down, she feels much better. She was given 2 g of ceftriaxone. Will give her Keflex for home. COVID flu and RSV negative. No other abnormalities. Patient feels well. Patient stable for discharge and outpatient management. Discussed red flags for which to return. No evidence of PE, ACS, or other acute life-threatening etiology at this time. I have extensively reviewed the treatment plan and discharge instructions with the patient. I have addressed all patient concerns at this time. The patient was made aware of what symptoms to monitor for that would warrant a return to the emergency department. Discussed the plan with the patient, they demonstrate verbal understanding and agreement with our assessment and plan at this time. The documentation in this chart was dictated using [employer]ver dictation software. Please excuse any dictation errors. FINDINGS: Tracheobronchial tree: Patent where visualized. Pulmonary parenchyma: No consolidation or dominant measurable mass. No architectural distortion. There is a stable 3 mm nodule in the periphery of the left upper lobe (series 7, image 148). There is a stable cross the granuloma in the periphery of the left lower lobe. There are calcified granuloma seen in both lungs. There is a stable 3 mm nodule in the periphery of the right upper lobe (series 7, image 164). There are no new pulmonary nodules. Pulmonary Arteries: No evidence of filling defect to suggest pulmonary emboli. Mediastinum and Roshni: No dominant adenopathy or fluid collection. The esophagus is unremarkable. Stable mediastinal lymph nodes. Visualized thyroid gland: Unremarkable. Pleura: No effusion or pneumothorax. Heart: The heart is not dilated. Coronary artery calcifications are present. No pericardial effusion. Aorta: Thoracic aorta non-dilated. No evidence of dissection. Atherosclerotic calcification is present. Upper abdomen: Unremarkable. Soft tissues: Unremarkable. Bones: Within normal limits for the patient's age. IMPRESSION: 1. No evidence of pulmonary embolism, thoracic aortic dissection or aneurysm. 2. No acute pulmonary process. Quality:[facility] Related Social Needs: No Data to Display PFSH All Active Problems (Updated 10/31/23 @ 12:37 by Felix Wyman DO) Dehydration (Acute) UTI (urinary tract infection) (Acute) Hypokalemia (Acute) Acute hypoxemic respiratory failure (Acute) Aspiration pneumonia (Acute) Pneumonia (Acute) URI (upper respiratory infection) (Acute) Leukocytosis (Acute) Elevated transaminase level (Acute) Nausea vomiting and diarrhea (Acute) Traumatic tear of right rotator cuff (Chronic ~05/2023) Trochanteric bursitis, left hip (Acute) Liver lesion (Acute) Hearing loss (Acute) RUQ pain (Acute) Gall stone (Acute) Jaw pain (Acute) Oral ulceration (Acute) Myalgia (Acute) Sensorineural hearing loss, bilateral (Acute) Periodic limb movement (Acute) Shoulder pain, right (Acute) Hip pain (Acute) Paresthesia (Acute) Left-sided temporomandibular joint pain-dysfunction syndrome (Acute) Bruxism (Acute) Chronic pain (Chronic) Leukocytosis (Acute) Sore throat (Acute) GERD (gastroesophageal reflux disease) (Chronic) Irregular bowel habits (Acute) Chest pain (Acute) Fatigue (Acute) Vasomotor symptoms due to menopause (Acute) Sinusitis (Acute) Pulmonary nodule (Acute) Lymph nodes enlarged (Acute) Elevated transaminase level (Acute) History of prediabetes (Acute) Transient neurological symptoms (Acute) Dizziness (Acute) Seasonal allergies (Acute) Memory loss (Acute) Cough (Acute) Gastritis (Acute ~12/2020) mild Prolonged QT interval (Acute) Cervicalgia (Acute) Microscopic hematuria (Acute) Anxiety (Chronic) Migraine headache without aura (Acute) Chronic headache (Acute) Tremor (Acute) Smoker (Chronic) Shoulder pain, left (Chronic 05/25/14) 05/28 WC Peptic reflux disease (Chronic) 2011 EGD, mild gastritis 2013 [place] ([facility]) patchy gastritis 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, recurrent [facility] pain [facility] 2014 Joint pain (Chronic 07/30/14) Hyperlipidemia (Chronic) Fibromyalgia (Chronic 07/30/14) Depression (Chronic 07/30/14) anxiety fatigue COPD (chronic obstructive pulmonary disease) (Chronic 01/06/15) Medical History Stage 2 chronic kidney disease Family history of myocardial infarction (05/25/14) Colon polyps Thyroid nodule Migraine with aura Post traumatic stress disorder (PTSD) Pt. 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 is unaware of this Pre-diabetes Obstructive sleep apnea Hypertension Surgical History Status post breast biopsy History of cholecystectomy (~04/05/22) History of bunionectomy right Hx of rotator cuff surgery bilateral History of tonsillectomy and adenoidectomy History of esophagogastroduodenoscopy (EGD) (~12/2020) History of colonoscopy (~12/2020) Oophrectomy, Left B Hysterectomy, Laproscopic EGD - [facility] 2014-[facility] Biopsy of breast (~2007) neg Bilateral salpingectomy with oophorectomy Family History Mother Essential hypertension Diabetes TYPE 2 Hyperlipidemia Father Heart disease Hyperlipidemia Myocardial infarction Sister Hyperlipidemia Brother No problems noted. Grandfather No problems noted. Grandfather No problems noted. Grandmother Personal history of malignant neoplasm BREAST Grandmother No problems noted. 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
[2023-10-31 09:27] LABS: BE (Venous) 5 mmol/L (-2-3); HCO3 (Venous) 29 mmol/L (23-28); O2 Sat (Venous) 81 %; TCO2 (Venous) 26 mmol/L (24-29); pCO2 (Venous) 43 mmHg (41-51); pH (Venous) 7.44 (7.31-7.41); pO2 (Venous) 39 mmHg
[2023-10-31 09:29] LABS: Abs Immature Grans 0.06 10^3/uL (0.0-0.06); Absolute Basophil Count 0.07 10^3/uL (0.0-0.2); Absolute Lymphocyte Count 3.29 10^3/uL (1.2-3.4); Absolute Neutrophil Count 9.03 10^3/uL (1.2-6.7); Basophils % 0.5; Eosinophils % 1.5; HCT 41.9 % (36.0-46.0); HGB 14.6 g/dL (11.2-15.7); Immature Grans % 0.4; Lymphocytes % 24.6; MCH 31.9 pg (27.0-33.0); MCHC 34.8 % (32.0-36.0); MCV 92 fL (80-95); MPV 9.5 fL (8.0-11.0); Monocytes % 5.5; Neutrophils % 67.5; Platelet Count 400 10^3/uL (130-400); RBC 4.57 10^6/uL (3.93-5.22); RDW 11.9 % (11.7-14.6); RDW-SD 40.4 fL; WBC 13.38 10^3/uL (4.4-10.8)
[2023-10-31 09:30] LABS: Lactate 1.8 mmol/L (0.6-1.4)
[2023-10-31 09:32] LABS: Absolute Monocyte Count 0.74 10^3/uL (0.1-0.8)
[2023-10-31] MEDS: Lactated Ringers 1,000 ML 1000 ML IV (09:35)
[2023-10-31 09:42] LABS: PTT Activated 29.4 sec (23.6-32.8); Prothrombin Time 9.7 sec (9.1-11.1)
[2023-10-31 09:46] LABS: Bilirubin Small (Negative); Blood Negative (Negative); Clarity Cloudy (Clear); Glucose Negative (Negative); Ketones Trace mg/dL (Negative); Leukocyte Esterase Moderate (Negative); Nitrite Negative (Negative)
[2023-10-31 09:54] LABS: ALT 62 U/L (14-59); AST 26 U/L (15-37); Albumin 3.9 g/dL (3.4-5.0); Alkaline Phosphatase 133 U/L (46-116); Anion Gap 8.9 mmol/L (3-11); BUN 9 mg/dL (7-18); Bilirubin, Total 0.4 mg/dL (0.2-1.0); CO2 30.1 mmol/L (21.0-32.0); Calcium 9.5 mg/dL (8.5-10.1); Chloride 99 mmol/L (98-107); Estimated GFR 65.71 (mL/min/1.73m2); Glucose 158 mg/dL (74-106); NT-proBNP 50 pg/mL (<300); Potassium 3.4 mmol/L (3.5-5.1); Sodium 138 mmol/L (136-145); TSH (W/Ref FT4) 2.33 uIU/mL (0.36-3.74); Total Protein 8.1 g/dL (6.4-8.2)
[2023-10-31 09:56] LABS: Bacteria Moderate HPF (Negative); Epithelial Cells Few HPF (Negative); RBC 0-2 HPF (0-2)
[2023-10-31 09:57] LABS: C & S Indicated? Yes; Casts Negative LPF (Negative); Crystals Negative HPF (Negative); Mucus Negative (Negative)
[2023-10-31 09:57] LABS: Troponin I < 50 ng/L (< or =60)
[2023-10-31 10:08] LABS: COVID-19 PCR Negative (Negative); Influenza A PCR Negative (Negative); Influenza B PCR Negative (Negative); RSV PCR Negative (Negative)
[2023-10-31 10:10] LABS: Source Nasopharynx
[2023-10-31 10:13] LABS: Procalcitonin < 0.1 ng/mL
--- NOTE | 2023-10-31 10:29 | DI.CT_ITS ---
Exam(s) CT CHEST PE CTA EXAM: CT CHEST PE CTA CLINICAL HISTORY: SOB, cough, tachy, hx of nodules, eval for PE. TECHNIQUE: Imaging Protocol: Axial CT angiography was performed with multi-slice acquisition and mu lti-planar and/or 3D reconstructions. CONTRAST MATERIAL: Intravenous: Omnipaque 350 contrast volume:100 mL COMPARISON: CT CT CHEST LUNG CANCER SCREEN from 07/10/[address] CHEST LUNG CANCER SCREEN from 07/12/[address] ABDOMEN PELVIS W from 07/19/[address] CHEST LUNG CANCER SCREEN from 07/25/2023 FINDINGS: Tracheobronchial tree: Patent where visualized. Pulmonary parenchyma: No consolidation or dominant measurable mass. No architectural distortion. Ther e is a stable 3 mm nodule in the periphery of the left upper lobe (series 7, image 148). There is a stable cross the granuloma in the periphery of the left lower lobe. There are calcified granuloma se en in both lungs. There is a stable 3 mm nodule in the periphery of the right upper lobe (series 7, image 164). There are no new pulmonary nodules. Pulmonary Arteries: No evidence of filling defect to suggest pulmonary emboli. Mediastinum and Roshni: No dominant adenopathy or fluid collection. The esophagus is unremarkable. St able mediastinal lymph nodes. Visualized thyroid gland: Unremarkable. Pleura: No effusion or pneumothorax. Heart: The heart is not dilated. Coronary artery calcifications are present. No pericardial effusion . Aorta: Thoracic aorta non-dilated. No evidence of dissection. Atherosclerotic calcification is presen t. Upper abdomen: Unremarkable. Soft tissues: Unremarkable. Bones: Within normal limits for the patient's age. IMPRESSION: 1. No evidence of pulmonary embolism, thoracic aortic dissection or aneurysm. 2. No acute pulmonary process. RADIATION DOSE DELIVERED: 335.31mGy.cm Total DLP DATA REPOSITORY: All CT scans at this facility are submitted to the National Radiology Data Registry (NRDR) Dose Index Registry (DIR) with the [employer] (A[employer]). RADIATION OPTIMIZATION: All CT scans at this facility use at least one of these dose optimization te chniques: automated exposure control; mA and/or kV adjustment per patient size (includes targeted exa ms where dose is matched to clinical indication); or iterative reconstruction.
[2023-10-31] MEDS: Omnipaque 350 MG/ML 500 ML BTL-Imaging package 100 ML IJ (10:33)
[2023-10-31] MEDS: Normal Saline - Diluent 50 ML VIAL IJ (10:34)
[2023-10-31] MEDS: Normal Saline Flush 10 ML SYR IVP (10:35)
[2023-10-31] MEDS: cefTRIAXone 2 GM/50 ML BAG IVPB (11:19)
[2023-10-31] MEDS: Normal Saline 1,000 ML 1000 ML IV (11:19)
[2023-10-31] MEDS: Acetaminophen 500 MG TAB (11:28)
[2023-10-31 12:34] LABS: Troponin I < 50 ng/L (< or =60)
== END 2023-10-31 12:47 | disposition home or self-care (01) ==
PROVIDERS: Emergency Provider Student in an Organized Health Care Education/Training Program; PCP Family Medicine
DX: N39.0 Urinary tract infection, site not specified (principal); E86.0 Dehydration; I12.9 Hypertensive chronic kidney disease with stage 1 through stage 4 chronic kidney disease, or unspecified chronic kidney disease; N18.2 Chronic kidney disease, stage 2 (mild); J44.9 Chronic obstructive pulmonary disease, unspecified; R91.8 Other nonspecific abnormal finding of lung field; Z11.52 Encounter for screening for COVID-19; F17.210 Nicotine dependence, cigarettes, uncomplicated
CPT/HCPCS: 36410; 36415; 71275; 80053; 82805; 84145; 87040; 87637; 93005; 93308; 96361; 96365; 99285; 81003; 81015; 83605; 83880; 84443; 84484; 85025; 85610; 85730; 87086; 93010; 99284; J0696

== ENCOUNTER 2023-11-04 10:15 | Emergency (ER) | payer MEDICAID, SELFPAY ==
[2023-11-04 10:18] VITALS: BP 140/87; PULSE 104; RESP 18; TEMP 36.9; O2SAT 98
--- NOTE | 2023-11-04 10:23 | W.ED.GENAD ---
Discharge Plan Disposition Patient Disposition: Home Condition: Stable Discharge Details Clinical Impression: Headache Primary Care Provider: Selam Fowler ED Provider: Felix Owens Home Meds and New Rx's Prescriptions: Continued lidocaine [Lidoderm] 5 % adhesive patch,medicated 1 patch topical DAILY Rx Instructions: leave on most painful area for up to 12 hrs aspirin [Adult Aspirin Regimen] 81 mg tablet,delayed release (DR/EC) 81 mg PO DAILY lovastatin 20 mg tablet 20 mg PO QPM benzonatate 100 mg capsule 100 mg PO HS PRN (Reason: cough) Qty: 20 0RF levalbuterol tartrate [Xopenex HFA] 45 mcg/actuation HFA aerosol inhaler 2 puff Inhalation PRN PRN (Reason: URI) Qty: 15 0RF Rx Instructions: 2 puffs every 4-6 hours as needed for cough, sob, or wheeze (DME) Aerochamber MV Spacer See Rx Instructions .Route Qty: 1 0RF Rx Instructions: As directed montelukast [Singulair] 10 mg tablet 10 mg PO DAILY (DME) TENS units Device See Rx Instructions .ROUTE .MEDSUPPLY Qty: 1 Rx Instructions: As directed levomefolate calcium [L-Methylfolate] 15 mg tablet 15 mg PO DAILY loratadine [Claritin] 10 mg tablet 10 mg PO DAILY PRN B-complex with vitamin C Capsule 1 cap PO DAILY acetaminophen [Tylenol Extra Strength] 500 MG tablet 1,000 mg PO Q6H PRN meclizine 12.5 mg tablet 12.5 mg PO Q8H PRN hydrochlorothiazide 25 mg tablet 25 mg PO DAILY Nurtec ODT 75 mg tablet,disintegrating 75 mg PO ONCE PRN (Reason: migraine headache) Qty: 15 3RF Rx Instructions: as a single dose, no more than one dose in 24 hours, no more than 15 doses per month. hydroxyzine HCl 25 mg tablet See Rx Instructions PO QID PRN (Reason: itching) Qty: 30 3RF Rx Instructions: Take 25-50 mg every 6 hours as needed for headaches. lamotrigine 25 mg tablet 25 mg PO HS buspirone 10 mg tablet 10 mg PO TID pantoprazole [Protonix] 40 mg tablet,delayed release (DR/EC) 40 mg PO QHS Qty: 90 tiotropium bromide [Spiriva with HandiHaler] 18 mcg capsule, w/inhalation device 1 cap INHALATION DAILY Patient Comments: INL THE CONTENTS OF 1 C VIA INHALATION DEVICE D fluoxetine [Prozac] 40 mg Capsule 40 mg PO DAILY Stiolto Respimat 2.5-2.5 mcg/actuation mist 2 puff INHALATION DAILY Patient Comments: INHALE TWO PUFFS BY MOUTH EVERY DAY FOR COPD cephalexin 500 mg capsule 500 mg PO QID 7 Days Qty: 28 0RF Discharge Instructions Instructions: Acute Headache (ED), Acute Nausea and Vomiting (ED) Additional Instructions: You were seen in the emergency department for your headache and nausea. Your laboratory workup is reassuring that you are not having any worsening of your known infection. Your abdomen is benign I do not think you need further CT scans today. Your urine shows improvement and continue the cephalexin. Please continue at home dosing of your headache medicines with consistent dosing of Tylenol and ibuprofen as well. We gave you the gamut of headache medications today, the only further analgesics would be opioids. Please try to stay well-hydrated and eat a nourishing diet, please return for any severe increase in headache especially with fevers above 100.4 F, severe increase in abdominal pain, flank pain, dark urine, inability to tolerate p.o. intake, cough or shortness of breath or chest pain. Referrals: Selam Fowler [Primary Care Provider] - Discharge Data Discharge Date/Time-TO BE ENTERED AT DEPARTURE: 11/04/23 12:15 HPI General Date/Time Provider Initiated Documentation: 11/04/23 10:21. HPI Narrative: 58 year-old female presents to ED today by POV/ambulating with her friend with a chief complaint of nausea, headache, vomiting x1, body aches- was recently seen on Saturday (3 days ago) and started on cephalexin for UTI with thorough workup noting no signs of sepsis. Quality described as generalized malaise, poor appetite- had taken ABX on empty stomach x1, R sided headache with migraine history, no radiation to shortness of breath, cough, chest pain, abdominal pain, flank pain, dysuria. Severity is described as moderate. Palliating factors include nothing specific. Provoking factors include nothing specific. Patient not anticoagulated. Related Data Home Medications Medication Instructions Recorded Confirmed acetaminophen 500 mg tablet 1,000 mg PO Q6H PRN 03/21/17 11/04/23 (Tylenol Extra Strength) hydrochlorothiazide 25 mg tablet 25 mg PO DAILY 06/08/19 11/04/23 meclizine 12.5 mg tablet 12.5 mg PO Q8H PRN 06/08/19 11/04/23 tiotropium bromide 18 mcg capsule 1 cap inhalation DAILY 03/16/20 11/04/23 with inhalation device (Spiriva with HandiHaler) lidocaine 5 % topical patch 1 patch topical DAILY 06/15/20 11/04/23 (Lidoderm) TENS units #1 ea 08/01/20 11/04/23 aspirin 81 mg tablet,delayed 81 mg PO DAILY 01/05/21 11/04/23 release (Adult Aspirin Regimen) lovastatin 20 mg tablet 20 mg PO QPM 08/16/21 11/04/23 rimegepant 75 mg disintegrating 75 mg PO ONCE PRN migraine 02/06/22 11/04/23 tablet (Nurtec ODT) headache #15 tabs levomefolate calcium 15 mg tablet 15 mg PO DAILY 03/20/22 11/04/23 (L-Methylfolate) loratadine 10 mg tablet (Claritin) 10 mg PO DAILY PRN 03/20/22 11/04/23 B-complex with vitamin C 1 cap PO DAILY 03/21/22 11/04/23 hydroxyzine HCl 25 mg tablet See Rx Instructions PO QID PRN 05/07/22 11/04/23 itching #30 tabs benzonatate 100 mg capsule 100 mg PO HS PRN cough #20 caps 09/03/22 11/04/23 inhalational spacing device #1 ea 09/03/22 11/04/23 (Aerochamber MV spacer) levalbuterol tartrate 45 2 puff inhalation PRN PRN URI #15 09/03/22 11/04/23 mcg/actuation aerosol inhaler grams (Xopenex HFA) fluoxetine 40 mg capsule (Prozac) 40 mg PO DAILY 11/01/22 11/04/23 buspirone 10 mg tablet 10 mg PO TID 11/14/22 11/04/23 lamotrigine 25 mg tablet 25 mg PO HS 11/14/22 11/04/23 pantoprazole 40 mg tablet,delayed 40 mg PO QHS #90 tab-caps 11/14/22 11/04/23 release (Protonix) montelukast 10 mg tablet 10 mg PO DAILY 07/16/23 11/04/23 (Singulair) cephalexin 500 mg capsule 500 mg PO QID 7 days #28 caps 10/31/23 11/04/23 tiotropium 2.5 mcg-olodaterol 2.5 2 puff inhalation DAILY 10/31/23 11/04/23 mcg/actuation mist for inhalation (Stiolto Respimat) Previous Rx's Medication Instructions Recorded rimegepant 75 mg disintegrating 75 mg PO ONCE PRN migraine 02/06/22 tablet (Nurtec ODT) headache #15 tabs hydroxyzine HCl 25 mg tablet See Rx Instructions PO QID PRN 05/07/22 itching #30 tabs benzonatate 100 mg capsule 100 mg PO HS PRN cough #20 caps 09/03/22 inhalational spacing device #1 ea 09/03/22 (Aerochamber MV spacer) levalbuterol tartrate 45 2 puff inhalation PRN PRN URI #15 09/03/22 mcg/actuation aerosol inhaler grams (Xopenex HFA) cephalexin 500 mg capsule 500 mg PO QID 7 days #28 caps 10/31/23 Allergies Allergy/AdvReac Type Severity Reaction Status Date / Time nicotine Allergy Severe PATCHES-REDNESS Verified 11/04/23 11:40 & SWELLING chlorhexidine Allergy Mild Skin Rash Verified 11/04/23 11:40 adhesive Allergy Skin Rash Verified 11/04/23 11:40 amitriptyline Allergy Other (See Verified 11/04/23 11:40 Comment) doxycycline Allergy Other (See Verified 11/04/23 11:40 Comment) bupropion AdvReac Severe AGITATION Verified 11/04/23 11:40 duloxetine AdvReac Intermediate HEARING Verified 11/04/23 11:40 THINGS hydrocodone AdvReac Intermediate Itching Verified 11/04/23 11:40 pregabalin [From Lyrica] AdvReac Intermediate foggy brain Verified 11/04/23 11:40 trazodone AdvReac Intermediate ANXIETY Verified 11/04/23 11:40 pravastatin AdvReac Mild HEADACHE Verified 11/04/23 11:40 simvastatin AdvReac Mild LEG Verified 11/04/23 11:40 CRAMPS; HEADACHE varenicline AdvReac Mild BEHAVIOR Verified 11/04/23 11:40 CHANGES promethazine AdvReac Unknown ANXIETY Verified 11/04/23 11:40 zolpidem AdvReac Unknown INCREASED Verified 11/04/23 11:40 DEPRESSION General Stated Complaint: GenMedical NICOLAS: 3 Review of Systems All systems reviewed & are unremarkable except as noted in HPI and below Exam Narrative Exam Narrative: GENERAL APPEARANCE: Well-nourished, non-toxic, awake and alert, atraumatic, no acute distress. SKIN: Warm, pink, dry, intact, without rashes/lesions/ulcerations. HEAD: Normocephalic, atraumatic, normal hair distribution for gender/age. EYES: Pupils PERRLA, EOMs intact without nystagmus, normal conjunctiva, no exudates on lids/lashes. ENT: Nares patent, no circumoral cyanosis, no facial swelling NECK: Supple, trachea midline, painless cervical ROM. LUNGS/CHEST: Lungs CTA bilaterally- no rhonchi/rales/wheezes diffusely, non-labored respirations, normal A/P diameter, symmetrical expansion, no chest wall deformity HEART (CV/PV): Regular rate and rhythm without murmur, no peripheral edema, no JVD. ABDOMEN: Soft, non-distended, no guarding, no focal abdominal tenderness, no CVA tenderness to percussion bilaterally. MSK: Normal ROM, no swelling/deformity to bilateral UEs or LEs, moving all extremities without weakness, no cyanosis, spine midline without tenderness, normal curvature. NEURO: Mental Status AAOx4 - alert to person, place, time, events No facial droop, no forehead involvement. Motor: No focal weakness - strength 5/5 in bilateral UEs and LEs, proximal and distal, symmetric. Sensory: sensation intact to light touch globally. Gait normal: patient ambulated without ataxia into ED room. PSYCH: euthymic, cooperative, pleasant, appropriate speech Course Vital Signs Vital signs: Vital Signs Temperature 36.9 C 11/04/23 10:18 Pulse 104 H 11/04/23 10:18 Respiratory Rate 18 11/04/23 10:18 Blood Pressure 140/87 11/04/23 10:18 Pulse Oximetry 98 11/04/23 10:18 Temperature 36.9 C 11/04/23 10:18 Temperature Source Temporal Artery Scan 11/04/23 10:18 Pulse 104 H 11/04/23 10:18 Respiratory Rate 18 11/04/23 10:18 Blood Pressure 140/87 11/04/23 10:18 Blood Pressure Position Sitting 11/04/23 10:18 Pulse Oximetry 98 11/04/23 10:18 Pain Level 7 11/04/23 10:18 Medical Decision Making This dictation utilizes [id number] dictation software and may contain unedited grammatical errors. 58 y/o F presents to ED today with a chief complaint of headache- superficial on R side, non-tender, nausea, poor appetite, generalized malaise. Patient recent started on cephalexin for UTI at visit 3 days ago. Does have a history of migraines, reports vomiting x1. Patient states mild fevers but T-max of 100F. Patient denies new symptoms of URI or focal abdominal pain. Patients' medical history: Stage II CKD, migraine with aura, PTSD, prediabetes, hypertension, history of acute hypoxemic respiratory failure, electrolyte abnormalities, cholecystectomy, GERD, fibromyalgia. Family and social history: noncontributory. Pertinent exam findings / vital signs include neuro intact, lungs CTA, benign abdomen, nontoxic vitals. Differential / pathologies of concern include sepsis, gastroenteritis, migraine, nausea & vomiting, side-effect of ABX treatment, pyelonephritis less likely. Diagnostic studies of: -CBC, CMP, UA, Lactate, Lipase, CRP/ESR. -CBC no anemia, leukocytes 13, unchanged from prior -CMP unremarkable no CAROLNY -Lactate neg -Lipase WNL -CRP/ESR unremarkable Interventions of: -1L D5W, 1g IV APAP, 15mg IV ketorlac, 10mg IV Reglan, 25mg IV Benadryl, 25mg PO sumatriptan, 10mg IV Decadron for migraine/nausea. ED Course/Assessment/Plan: 58-year-old female presents with a headache and nausea, she had recently been treated for UTI with cephalexin and is on day 3 of therapy. She does have fibromyalgia and history, I did give her significant IV medicines for likely migraine as her neuroexam is completely normal. She states that these medicines have not even touched her headache or nausea, I stated that these were all of the medicines that we had except for opiate-based pain relievers. She wished to be discharged home without any interventions of narcotic pain management. She felt comfortable that her labs were improving, I stated stressed strict return criteria for any worsening fevers, focal abdominal pain, intractable nausea and vomiting, visual changes, slurred speech, numbness tingling, chest pain, shortness of breath. Findings not consistent with sepsis, meningismus, intractable nausea or vomiting. Disposition of Headache. Patient verbalized understanding of the plan and return to ED criteria and engaged in shared decision making. Medical Records Medical records reviewed: Yes I reviewed the patient's medical records. Lab Data Lab results reviewed: Yes I reviewed the patient's lab results. Labs: Laboratory Tests Range/Units 11/04/23 11/04/23 10:53 11:00 WBC (4.4-10.8) 10^3/uL 13.71 H RBC (3.93-5.22) 10^6/uL 4.51 Hgb (11.2-15.7) g/dL 14.3 Hct (36.0-46.0) % 42.0 MCV (80-95) fL 93 MCH (27.0-33.0) pg 31.7 MCHC (32.0-36.0) % 34.0 RDW (11.7-14.6) % 12.0 Plt Count (130-400) 10^3/uL 377 MPV (8.0-11.0) fL 9.5 Immature Gran % 0.5 Neutrophils % 67.2 Lymphocytes % 26.5 Monocytes % 4.3 Eosinophils % 1.0 Basophils % 0.5 Nucleated RBC % (0.0-0.3) % 0.0 Absolute Neutrophils (1.2-6.7) 10^3/uL 9.21 H Absolute Lymphocytes (1.2-3.4) 10^3/uL 3.63 H Absolute Monocytes (0.1-0.8) 10^3/uL 0.59 Absolute Eosinophils (0.0-0.7) 10^3/uL 0.14 Absolute Basophils (0.0-0.2) 10^3/uL 0.07 ESR (0-30) mm/hr 19 VBG Lactate (0.6-1.4) mmol/L 1.1 Sodium (136-145) mmol/L 139 Potassium (3.5-5.1) mmol/L 3.4 L Chloride (98-107) mmol/L 99 Carbon Dioxide (21.0-32.0) mmol/L 28.9 Anion Gap (3-11) mmol/L 11.1 H BUN (7-18) mg/dL 13 Creatinine (0.55-1.02) mg/dL 1.0 Est GFR (CKD-EPI 2020) (mL/min/1.73m2) 65.71 Glucose (74-106) mg/dL 124 H Calcium (8.5-10.1) mg/dL 9.4 Magnesium (1.8-2.4) mg/dL 2.0 Total Bilirubin (0.2-1.0) mg/dL 0.3 AST (15-37) U/L 27 ALT (14-59) U/L 55 Alkaline Phosphatase (46-116) U/L 117 H C-Reactive Protein (<or=0.5) mg/dL 0.76 H Total Protein (6.4-8.2) g/dL 7.9 Albumin (3.4-5.0) g/dL 3.9 Lipase (16-77) U/L 30 Procalcitonin ng/mL < 0.1 Urine Color (Yellow) Yellow Urine Clarity (Clear) Clear Urine pH (5-8) 6.0 Ur Specific [place] (1.005-1.025) 1.025 Urine Protein (Neg-Trace) mg/dL Negative Urine Ketones (Negative) mg/dL Trace H Urine Blood (Negative) Trace-intact H Urine Nitrite (Negative) Negative Urine Bilirubin (Negative) Small H Urine Urobilinogen (Up to 0.2) mg/dL 0.2 Ur Leukocyte Esterase (Negative) Negative Urine RBC (0-2) HPF 0-2 Urine WBC (0-5) HPF Negative Ur Epithelial Cells (Negative) HPF Few Urine Crystals (Negative) HPF Negative Urine Bacteria (Negative) HPF Negative Urine Casts (Negative) LPF Negative Urine Mucus (Negative) Moderate Urine Other (Negative) Few Renal Ur Culture Indicated? No Urine Glucose (Negative) mg/dL Negative Quality:SDOH Health Related Social Needs: No Data to Display PFSH All Active Problems (Updated 11/04/23 @ 12:03 by MIL Lockwood) Headache (Acute) Dehydration (Acute) UTI (urinary tract infection) (Acute) Hypokalemia (Acute) Acute hypoxemic respiratory failure (Acute) Aspiration pneumonia (Acute) Pneumonia (Acute) URI (upper respiratory infection) (Acute) Leukocytosis (Acute) Elevated transaminase level (Acute) Nausea vomiting and diarrhea (Acute) Traumatic tear of right rotator cuff (Chronic ~05/2023) Trochanteric bursitis, left hip (Acute) Liver lesion (Acute) Hearing loss (Acute) RUQ pain (Acute) Gall stone (Acute) Jaw pain (Acute) Oral ulceration (Acute) Myalgia (Acute) Sensorineural hearing loss, bilateral (Acute) Periodic limb movement (Acute) Shoulder pain, right (Acute) Hip pain (Acute) Paresthesia (Acute) Left-sided temporomandibular joint pain-dysfunction syndrome (Acute) Bruxism (Acute) Chronic pain (Chronic) Leukocytosis (Acute) Sore throat (Acute) GERD (gastroesophageal reflux disease) (Chronic) Irregular bowel habits (Acute) Chest pain (Acute) Fatigue (Acute) Vasomotor symptoms due to menopause (Acute) Sinusitis (Acute) Pulmonary nodule (Acute) Lymph nodes enlarged (Acute) Elevated transaminase level (Acute) History of prediabetes (Acute) Transient neurological symptoms (Acute) Dizziness (Acute) Seasonal allergies (Acute) Memory loss (Acute) Cough (Acute) Gastritis (Acute ~12/2020) mild Prolonged QT interval (Acute) Cervicalgia (Acute) Microscopic hematuria (Acute) Anxiety (Chronic) Migraine headache without aura (Acute) Chronic headache (Acute) Tremor (Acute) Smoker (Chronic) Shoulder pain, left (Chronic 05/25/14) 05/28 WC Peptic reflux disease (Chronic) 2012 EGD, mild gastritis 2014 [place] ([facility]) patchy gastritis 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, recurrent [facility] [place] pain clinic 2014 Joint pain (Chronic 07/30/14) Hyperlipidemia (Chronic) Fibromyalgia (Chronic 07/30/14) Depression (Chronic 07/30/14) anxiety fatigue COPD (chronic obstructive pulmonary disease) (Chronic 01/06/15) Medical History Stage 2 chronic kidney disease Family history of myocardial infarction (05/25/14) Colon polyps Thyroid nodule Migraine with aura Post traumatic stress disorder (PTSD) Pt. 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 is unaware of this Pre-diabetes Obstructive sleep apnea Hypertension Surgical History Status post breast biopsy History of cholecystectomy (~04/05/22) History of bunionectomy right Hx of rotator cuff surgery bilateral History of tonsillectomy and adenoidectomy History of esophagogastroduodenoscopy (EGD) (~12/2020) History of colonoscopy (~12/2020) Oophrectomy, Left B Hysterectomy, Laproscopic EGD - [facility] [place]-[facility] Biopsy of breast (~2007) neg Bilateral salpingectomy with oophorectomy Family History Mother Essential hypertension Diabetes TYPE 2 Hyperlipidemia Father Heart disease Hyperlipidemia Myocardial infarction Sister Hyperlipidemia Brother No problems noted. Grandfather No problems noted. Grandfather No problems noted. Grandmother Personal history of malignant neoplasm BREAST Grandmother No problems noted. Social History Smoking/Tobacco Use Status: Current every day Tobacco Type: cigarettes Years smoked: 40 Smoking risk assessment performed?: Yes Alcohol Intake: former Drug use: Never Substance use type: does not use Household members: significant other and family Housing: house current occupation: [employer] Do you feel safe at home: Yes (unable to assess privately) Do you feel safe in your relationship?: Yes
[2023-11-04] MEDS: DEXTROSE 5%-WATER 500 ML 1000 ML IV (11:03)
[2023-11-04] MEDS: SUMAtriptan 25 MG TAB PO (11:04)
[2023-11-04] MEDS: Ketorolac 15 MG/ML VIAL IVP (11:05)
[2023-11-04] MEDS: Dexamethasone 10 MG/ML VIAL IVP (11:06)
[2023-11-04] MEDS: diphenhydrAMINE 50 MG/ML VIAL 25 MG IVP (11:06)
[2023-11-04 11:07] LABS: Lactate 1.1 mmol/L (0.6-1.4)
[2023-11-04 11:09] LABS: Abs Immature Grans 0.07 10^3/uL (0.0-0.06); Absolute Basophil Count 0.07 10^3/uL (0.0-0.2); Absolute Eosinophil Count 0.14 10^3/uL (0.0-0.7); Absolute Monocyte Count 0.59 10^3/uL (0.1-0.8); Basophils % 0.5; HGB 14.3 g/dL (11.2-15.7); Immature Grans % 0.5; Lymphocytes % 26.5; MCH 31.7 pg (27.0-33.0); MCV 93 fL (80-95); MPV 9.5 fL (8.0-11.0); Monocytes % 4.3; Neutrophils % 67.2; Platelet Count 377 10^3/uL (130-400); RBC 4.51 10^6/uL (3.93-5.22); RDW-SD 41.3 fL; WBC 13.71 10^3/uL (4.4-10.8)
[2023-11-04] MEDS: ACETAMINOPHEN 1,000 MG/100 ML BTL 400 MG IVPB (11:11)
[2023-11-04 11:13] VITALS: BP 140/87; PULSE 104; RESP 18; TEMP 36.9; O2SAT 98
[2023-11-04 11:13] LABS: Bilirubin Small (Negative); Blood Trace-intact (Negative); Clarity Clear (Clear); Glucose Negative (Negative); Ketones Trace mg/dL (Negative); Leukocyte Esterase Negative (Negative); Nitrite Negative (Negative); Specific Gravity 1.025 (1.005-1.025); Urobilinogen 0.2 mg/dL (Up to 0.2)
[2023-11-04 11:14] LABS: Absolute Lymphocyte Count 3.63 10^3/uL (1.2-3.4); Absolute Neutrophil Count 9.21 10^3/uL (1.2-6.7)
[2023-11-04 11:18] LABS: ESR 19 mm/hr (0-30)
[2023-11-04 11:29] LABS: ALT 55 U/L (14-59); AST 27 U/L (15-37); Albumin 3.9 g/dL (3.4-5.0); Alkaline Phosphatase 117 U/L (46-116); Anion Gap 11.1 mmol/L (3-11); BUN 13 mg/dL (7-18); Bilirubin, Total 0.3 mg/dL (0.2-1.0); C-Reactive Protein 0.76 mg/dL (<or=0.5); CO2 28.9 mmol/L (21.0-32.0); Calcium 9.4 mg/dL (8.5-10.1); Chloride 99 mmol/L (98-107); Estimated GFR 65.71 (mL/min/1.73m2); Glucose 124 mg/dL (74-106); Lipase 30 U/L (16-77); Potassium 3.4 mmol/L (3.5-5.1); Sodium 139 mmol/L (136-145); Total Protein 7.9 g/dL (6.4-8.2)
[2023-11-04 11:34] LABS: Epithelial Cells Few HPF (Negative); RBC 0-2 HPF (0-2); WBC Negative HPF (0-5)
[2023-11-04 11:35] LABS: Bacteria Negative HPF (Negative); C & S Indicated? No; Casts Negative LPF (Negative); Crystals Negative HPF (Negative); Mucus Moderate (Negative); Other Cells Few Renal (Negative)
[2023-11-04] MEDS: Metoclopramide 10 MG/2 ML VIAL IVP (11:46)
[2023-11-04 11:51] VITALS: BP 160/89; PULSE 72; O2SAT 97
[2023-11-04 11:51] LABS: Procalcitonin < 0.1 ng/mL
== END 2023-11-04 12:15 | disposition home or self-care (01) ==
PROVIDERS: Emergency Provider Physician Assistant; PCP Family Medicine
DX: R11.10 Vomiting, unspecified (principal); R51.9 Headache, unspecified; I10 Essential (primary) hypertension; Z79.82 Long term (current) use of aspirin
CPT/HCPCS: 36415; 80053; 83690; 84145; 85652; 96365; 96375; 99284; 81003; 81015; 83605; 83735; 85025; 86140; J0131; J1100; J1200; J1885; J2765

== ENCOUNTER → 2023-11-20 04:44 | Outpatient (CLI) | payer MEDICAID, SELFPAY ==
--- NOTE | 2023-11-20 | DI.US_ITS ---
Exam(s) US ABDOMEN LIMITED EXAM: US ABDOMEN LIMITED CLINICAL HISTORY: CIRRHOSIS OF LIVER,K74.60,HCC SCREENING TECHNIQUE: Ultrasound abdomen performed using standard protocol. US US ABDOMEN from 02/24/2021 US US ABDOMEN LIMITED from 01/30/2022 US US ABDOMEN LIMITED from 03/15/[address] RENAL COLIC WO from 12/04/[address] ABDOMEN PELVIS W from 07/19/[address] CHEST PE CTA from 10/31/2023 FINDINGS: LIVER: Enlarged at 20 cm in length. Increased echogenicity. Coarse echotexture. There is an area o f relatively decreased echogenicity above the level of the gallbladder fossa consistent with an area of fatty sparing. Which was seen on prior examinations. GALLBLADDER: Status post cholecystectomy. BILIARY SYSTEM: No intrahepatic or extrahepatic biliary ductal dilation. Right kidney: Normal size. No evidence of renal calculi. No evidence of hydronephrosis. No renal mas s or cyst identified. PANCREAS: Normal where visualized. ABDOMINAL AORTA AND IVC: Visualized portions normal caliber. ASCITES: None seen. IMPRESSION: Enlarged fatty liver with coarsened echotexture. Area of focal fatty sparing. No suspicious masses. . DATA REPOSITORY:
== END ==
PROVIDERS: PCP Family Medicine; Visit Provider Family Medicine
DX: K74.60 Unspecified cirrhosis of liver (principal)
CPT/HCPCS: 76705

== ENCOUNTER → 2023-12-02 04:53 | Outpatient (CLI) | payer MEDICAID, SELFPAY ==
--- NOTE | 2023-12-02 12:50 | DI.MRI_ITS ---
Exam(s) MR UPPER JOINT RT WO EXAM: MR UPPER JOINT RT WO CLINICAL HISTORY: R SHOULDER PAIN,TRAUMATIC TEAR RT ROTATOR CUFF,S46.011D TECHNIQUE: Multiplanar multisequence MRI of the shoulder was performed. COMPARISON: MR MR UPPER JOINT RT WO from 07/03/2023 FINDINGS: MARROW:There is no evidence of fracture, Hill-Sachs deformity, nor ominous osseous lesions. There has been additional interval surgery since the prior study of 07/03/2023. There is an additional fasten er device-channel now evident in the lateral humeral head, this in addition to the previously present AP orientated channel at the lesser tuberosity level. GLENOHUMERAL JOINT: No prominent joint effusion. Minimal cartilage loss. No osteophytes. There are no degenerative subarticular cysts. No obvious loose intra-articular bodies. ROTATOR CUFF MECHANISM: AC JOINT/ACROMIUM: Mild degenerative changes.. There is no evidence of os acromiale. Supraspinatus: There is no full-thickness tear in the most anterior aspect of the supraspinatus tendo n and there is increased amount of fluid in the overlying subacromial-subdeltoid bursa. There is no retraction of the musculotendinous junction. There is no significant muscle atrophy. Infraspinatus: Some insertional tendinitis but no high-grade tear. No significant muscle atrophy. Teres Minor: Intact. No evidence of tear nor muscle atrophy. Subscapularis/anterior cuff: Intact. No abnormal signal at the level of the multipennate insertional fibers. No significant tear nor atrophy. BICEPS TENDON: Appears intact within the intertubercular groove. No evidence of tear. Tenodesis appears intact LABRUM: No labral tear identified. No evidence of paralabral cyst. IMPRESSION: 1. Compared to the prior MRI scan of 07/03/2023 there has been interval rotator cuff surgery, this in addition to the pre-existing instrumentation. 2. However, on the present study there appears to be an area of full-thickness tearing in the most an terior aspect of the supraspinatus tendon and there is increased fluid in the subacromial-subdeltoid bursa. 3. Other findings as above. DATA REPOSITORY:
== END ==
PROVIDERS: PCP Family Medicine; Visit Provider Student in an Organized Health Care Education/Training Program
DX: M25.511 Pain in right shoulder (principal); Z98.890 Other specified postprocedural states
CPT/HCPCS: 73221

== ENCOUNTER 2024-03-27 15:32 | Outpatient (REF) | payer MEDICAID, SELFPAY ==
[2024-03-27 14:51] LABS: Abs Immature Grans 0.04 10^3/uL (0.0-0.06); Absolute Basophil Count 0.06 10^3/uL (0.0-0.2); Absolute Eosinophil Count 0.14 10^3/uL (0.0-0.7); Absolute Lymphocyte Count 2.65 10^3/uL (1.2-3.4); Absolute Monocyte Count 0.48 10^3/uL (0.1-0.8); Absolute Neutrophil Count 4.87 10^3/uL (1.2-6.7); Basophils % 0.7 %; Eosinophils % 1.7 %; HGB 14.4 g/dL (11.2-15.7); Immature Grans % 0.5 %; Lymphocytes % 32.2 %; MCH 31.5 pg (27.0-33.0); MCHC 33.5 % (32.0-36.0); MCV 94 fL (80-95); MPV 10.9 fL (8.0-11.0); Monocytes % 5.8 %; Neutrophils % 59.1 %; Platelet Count 315 10^3/uL (130-400); RBC 4.57 10^6/uL (3.93-5.22); RDW 11.6 % (11.7-14.6); RDW-SD 39.9 fL; WBC 8.24 10^3/uL (4.4-10.8)
[2024-03-27 15:06] LABS: Iron 51 ug/dL (50-170); Total Iron Binding Capacity 319 ug/dL (250-450); Transferrin Sat 16 % (15-50)
[2024-03-27 15:14] LABS: Hemoglobin A1C 6.2 % (<5.7)
[2024-03-27 15:32] LABS: Ferritin 166 ng/mL (8-252); TSH (W/Ref FT4) 0.96 uIU/mL (0.36-3.74); Vitamin B12 576 pg/mL (193-986)
== END 2024-03-27 15:33 | disposition home or self-care (01) ==
LOC: NCHCN 15:32
PROVIDERS: PCP Family Medicine; Visit Provider Family Medicine
DX: R73.03 Prediabetes (principal); N18.2 Chronic kidney disease, stage 2 (mild); E04.1 Nontoxic single thyroid nodule
CPT/HCPCS: 82607; 82728; 83036; 83540; 83550; 83735; 84443; 85025

== ENCOUNTER 2024-05-01 13:15 | Outpatient (CLI) | payer MEDICAID, SELFPAY ==
--- NOTE | 2024-05-01 | DI.RAD_ITS ---
Exam(s) XR CHEST 2V PA LATERAL EXAM: XR CHEST 2V PA LATERAL CLINICAL HISTORY: PLEURITIC PAIN, R07.81. TECHNIQUE: 2D digital imaging was performed. COMPARISON: CR,XR XR CHEST 2V PA LATERAL from 07/19/2023 FINDINGS: 2 views: Heart size is normal. The mediastinum is not widened. Lungs are clear. No infiltrates nor pleural effusions. Previously present right lower lobe infiltrate which was evident in the posterior basal segment of th e right lower lobe on 07/19/2023 is no longer evident. Again noted is evidence of prior surgery in both shoulders IMPRESSION: No acute pulmonary findings.The right lower lobe infiltrate seen in July 2023 as resolved. No pleural effusions. DATA REPOSITORY: RADIATION DOSE DELIVERED:
--- NOTE | 2024-05-01 | DI.CT_ITS ---
Exam(s) CT HEAD WO EXAM: CT HEAD WO CLINICAL HISTORY: NEW HEADACHE, G44.52. TECHNIQUE: Imaging Protocol: Axial computed tomography images with coronal and sagittal reformatted images were created and reviewed COMPARISON: CT CT HEAD WO from 03/16/2020 FINDINGS: Ventricles and Extra axial spaces: Normal in size and morphology for the patient's age. Hemorrhage: None. Cerebral parenchyma: There is no evidence of an acute territorial infarct. No mass effect is identif ied. There are subtle areas of decreased attenuation scattered in the white matter likely reflecting small vessel ischemic disease. Midline shift: None. Brainstem/Cerebellum: Normal. Calvarium: Normal. Visualized Paranasal sinuses/Mastoids: Clear. Soft Tissues: Unremarkable. IMPRESSION: No acute intracranial process. RADIATION DOSE DELIVERED: 937.45mGy.cm Total DLP DATA REPOSITORY: All CT scans at this facility are submitted to the National Radiology Data Registry (NRDR) Dose Index Registry (DIR) with the [employer] (ACR). RADIATION OPTIMIZATION: All CT scans at this facility use at least one of these dose optimization te chniques: automated exposure control; mA and/or kV adjustment per patient size (includes targeted exa ms where dose is matched to clinical indication); or iterative reconstruction.
== END 2024-05-01 13:35 ==
LOC: DI 13:16
PROVIDERS: PCP Family Medicine; Visit Provider Family Medicine
DX: G44.52 New daily persistent headache (NDPH) (principal); R07.81 Pleurodynia
CPT/HCPCS: 70450; 71046

== ENCOUNTER 2024-05-01 15:12 | Outpatient (REF) | payer MEDICAID, SELFPAY ==
[2024-05-01 17:03] LABS: Anion Gap 10.9 mmol/L (3-11); BUN 13 mg/dL (7-18); CO2 27.1 mmol/L (21.0-32.0); CREATININE 0.9 mg/dL (0.55-1.02); Calcium 9.7 mg/dL (8.5-10.1); Chloride 102 mmol/L (98-107); Estimated GFR 74.57 (mL/min/1.73m2); Glucose 108 mg/dL (74-106); Potassium 4.8 mmol/L (3.5-5.1); Sodium 140 mmol/L (136-145)
[2024-05-01 17:04] LABS: ESR 29 mm/hr (0-30)
== END 2024-05-01 15:13 | disposition home or self-care (01) ==
LOC: NCHCN 15:12
PROVIDERS: PCP Family Medicine; Visit Provider Family Medicine
DX: G44.52 New daily persistent headache (NDPH) (principal); I10 Essential (primary) hypertension
CPT/HCPCS: 80048; 85652

== ENCOUNTER 2024-05-06 08:43 | Emergency (ER) | payer MEDICAID, SELFPAY ==
[2024-05-06] VITALS (33 sets, daily range): BP systolic 73–119; BP diastolic 46–78; PULSE 75–113; RESP 12–26; O2SAT 90–98
--- NOTE | 2024-05-06 08:45 | RT.EKG_ITS ---
APPROVED REPORT Exam: Resting ECG Reason for Exam: Chest Pain Patient Location: E HR:110 bpm ECG Measurements Heart Rate 110 AXIS AK 155 P 49 QRSd 101 QRS 104 QT 375 T 50 QTc 507 Conclusion Sinus tachycardia...rate> 99 Probable left atrial enlargement...P >50mS, <-0.10mV V1 artifact, will repeat
--- NOTE | 2024-05-06 09:00 | RT.EKG_ITS ---
APPROVED REPORT Exam: Resting ECG Reason for Exam: Chest Pain Patient Location: E HR:106 bpm ECG Measurements Heart Rate 106 AXIS OK 160 P 54 QRSd 100 QRS 93 QT 364 T 46 QTc 483 Conclusion Sinus tachycardia...rate> 99
[2024-05-06 09:20] LABS: Abs Immature Grans 0.04 10^3/uL (0.0-0.06); Absolute Basophil Count 0.04 10^3/uL (0.0-0.2); Absolute Eosinophil Count 0.03 10^3/uL (0.0-0.7); Absolute Lymphocyte Count 1.66 10^3/uL (1.2-3.4); Absolute Monocyte Count 0.78 10^3/uL (0.1-0.8); Absolute Neutrophil Count 5.41 10^3/uL (1.2-6.7); Basophils % 0.5 %; Eosinophils % 0.4 %; HCT 42.1 % (36.0-46.0); HGB 13.9 g/dL (11.2-15.7); Immature Grans % 0.5 %; Lymphocytes % 20.9 %; MCH 31.4 pg (27.0-33.0); MCV 95 fL (80-95); MPV 9.6 fL (8.0-11.0); Monocytes % 9.8 %; Neutrophils % 67.9 %; Platelet Count 267 10^3/uL (130-400); RBC 4.42 10^6/uL (3.93-5.22); RDW 12.2 % (11.7-14.6); RDW-SD 42.7 fL; WBC 7.96 10^3/uL (4.4-10.8)
[2024-05-06 09:22] LABS: Lactate 2.4 mmol/L (0.6-1.4)
[2024-05-06 09:41] LABS: ALT 201 U/L (14-59); AST 71 U/L (15-37); Albumin 3.5 g/dL (3.4-5.0); Alkaline Phosphatase 154 U/L (46-116); Anion Gap 12.2 mmol/L (3-11); BUN 13 mg/dL (7-18); Bilirubin, Total 0.36 mg/dL (0.2-1.0); CO2 24.8 mmol/L (21.0-32.0); CREATININE 1.4 mg/dL (0.55-1.02); Calcium 9.3 mg/dL (8.5-10.1); Chloride 100 mmol/L (98-107); Estimated GFR 43.88 (mL/min/1.73m2); Glucose 248 mg/dL (74-106); Lipase 58 U/L (16-77); Magnesium 1.9 mg/dL (1.8-2.4); Potassium 4.1 mmol/L (3.5-5.1); Sodium 137 mmol/L (136-145); Total Protein 7.5 g/dL (6.4-8.2)
[2024-05-06 09:42] LABS: Troponin I < 4 ng/L (<or=51)
[2024-05-06 09:56] LABS: D-Dimer 486 ng/mlFEU (<500)
--- NOTE | 2024-05-06 10:02 | W.ED.GENAD ---
Discharge Plan Disposition Patient Disposition: Home Condition: Stable Discharge Details Clinical Impression: Migraine syndrome Primary Care Provider: Selam Fowler ED Provider: Felix Owens Home Meds and New Rx's Prescriptions: Continued lidocaine [Lidoderm] 5 % adhesive patch,medicated 1 patch topical DAILY Rx Instructions: leave on most painful area for up to 12 hrs aspirin [Adult Aspirin Regimen] 81 mg tablet,delayed release (DR/EC) 81 mg PO DAILY lovastatin 20 mg tablet 20 mg PO QPM levalbuterol tartrate [Xopenex HFA] 45 mcg/actuation HFA aerosol inhaler 2 puff Inhalation PRN PRN (Reason: URI) Qty: 15 0RF Rx Instructions: 2 puffs every 4-6 hours as needed for cough, sob, or wheeze (DME) Aerochamber MV Spacer See Rx Instructions .Route Qty: 1 0RF Rx Instructions: As directed montelukast [Singulair] 10 mg tablet 10 mg PO DAILY azithromycin 250 mg tablet See Rx Instructions PO .COMPLEX Qty: 6 0RF Rx Instructions: For 250 mg dose pack: take 500 mg today (day 1), then 250 mg for 4 days (days 2-5) PO amoxicillin-pot clavulanate 875-125 mg tablet 1 tab PO Q12H Qty: 14 0RF (DME) TENS units Device See Rx Instructions .ROUTE .MEDSUPPLY Qty: 1 Rx Instructions: As directed levomefolate calcium [L-Methylfolate] 15 mg tablet 15 mg PO DAILY loratadine [Claritin] 10 mg tablet 10 mg PO DAILY PRN B-complex with vitamin C Capsule 1 cap PO DAILY acetaminophen [Tylenol Extra Strength] 500 MG tablet 1,000 mg PO Q6H PRN meclizine 12.5 mg tablet 12.5 mg PO Q8H PRN hydrochlorothiazide 25 mg tablet 25 mg PO DAILY Nurtec ODT 75 mg tablet,disintegrating 75 mg PO ONCE PRN (Reason: migraine headache) Qty: 15 3RF Rx Instructions: as a single dose, no more than one dose in 24 hours, no more than 15 doses per month. hydroxyzine HCl 25 mg tablet See Rx Instructions PO QID PRN (Reason: itching) Qty: 30 3RF Rx Instructions: Take 25-50 mg every 6 hours as needed for headaches. lamotrigine 25 mg tablet 25 mg PO HS buspirone 10 mg tablet 10 mg PO TID pantoprazole [Protonix] 40 mg tablet,delayed release (DR/EC) 40 mg PO QHS Qty: 90 tiotropium bromide [Spiriva with HandiHaler] 18 mcg capsule, w/inhalation device 1 cap INHALATION DAILY Patient Comments: INL THE CONTENTS OF 1 C VIA INHALATION DEVICE D fluoxetine [Prozac] 40 mg Capsule 40 mg PO DAILY Stiolto Respimat 2.5-2.5 mcg/actuation mist 2 puff INHALATION DAILY Patient Comments: INHALE TWO PUFFS BY MOUTH EVERY DAY FOR COPD Discharge Instructions Instructions: Migraine in adults, Headache, Adult ED Additional Instructions: You were seen in the emergency department for your unilateral headache consistent with migraine syndrome with almost complete response to headache medications. When you have a headache, please take 1000 mg of Tylenol, 400 mg of ibuprofen, and aggressively drink 3 to 4 glasses of water, try to intake some caffeine. Take 1 Benadryl tablet. Your cardiac workup was negative, there is no blood clot in your lungs, no pneumonia or other abnormality on your chest x-ray and your EKG showed no arrhythmia. Your laboratory workup is not consistent with any significant infection and your tick panel is pending. Please monitor your condition at home and return for any emergent concerns including worsening headache with fever, neck stiffness, chest pain, shortness of breath, intractable nausea or vomiting. Referrals: Selam Fowler [Primary Care Provider] - [facility] General Date/Time Provider Initiated Documentation: 05/06/24 09:01. HPI Narrative: 58 year-old female presents to ED today by POV/ambulating with a chief complaint of R-sided headache, neck pain, chest heaviness, body aches, mild cough with onset noted for a few days. Quality described as generalized malaise, no radiation to shortness of breath, dizziness, syncope, sweating, endorses chills, denies palpitations, denies severe abdominal pain, denies nausea/vomiting, denies weakness/numbness. Severity is described as severe. Palliating factors include nothing specific. Provoking factors include nothing specific. Events leading up to the incident/Associated Symptoms: patient denies respiratory illness, denies neck stiffness, denies known tick bites. Patient not anticoagulated. Related Data Home Medications ?Medication ?Instructions ?Recorded ?Confirmed acetaminophen 500 mg tablet 1,000 mg PO Q6H PRN 03/21/17 04/30/24 (Tylenol Extra Strength) hydrochlorothiazide 25 mg tablet 25 mg PO DAILY 06/08/19 04/30/24 meclizine 12.5 mg tablet 12.5 mg PO Q8H PRN 06/08/19 04/30/24 tiotropium bromide 18 mcg capsule 1 cap inhalation DAILY 03/16/20 04/30/24 with inhalation device (Spiriva with HandiHaler) lidocaine 5 % topical patch 1 patch topical DAILY 06/15/20 04/30/24 (Lidoderm) TENS units #1 ea 08/01/20 04/30/24 aspirin 81 mg tablet,delayed 81 mg PO DAILY 01/05/21 04/30/24 release (Adult Aspirin Regimen) lovastatin 20 mg tablet 20 mg PO QPM 08/16/21 04/30/24 rimegepant 75 mg disintegrating 75 mg PO ONCE PRN migraine 02/06/22 04/30/24 tablet (Nurtec ODT) headache #15 tabs levomefolate calcium 15 mg tablet 15 mg PO DAILY 03/20/22 04/30/24 (L-Methylfolate) loratadine 10 mg tablet (Claritin) 10 mg PO DAILY PRN 03/20/22 04/30/24 B-complex with vitamin C 1 cap PO DAILY 03/21/22 04/30/24 hydroxyzine HCl 25 mg tablet See Rx Instructions PO QID PRN 05/07/22 04/30/24 itching #30 tabs inhalational spacing device #1 ea 09/03/22 04/30/24 (Aerochamber MV spacer) levalbuterol tartrate 45 2 puff inhalation PRN PRN URI #15 09/03/22 04/30/24 mcg/actuation aerosol inhaler grams (Xopenex HFA) fluoxetine 40 mg capsule (Prozac) 40 mg PO DAILY 11/01/22 04/30/24 buspirone 10 mg tablet 10 mg PO TID 11/14/22 04/30/24 lamotrigine 25 mg tablet 25 mg PO HS 11/14/22 04/30/24 pantoprazole 40 mg tablet,delayed 40 mg PO QHS #90 tab-caps 11/14/22 04/30/24 release (Protonix) montelukast 10 mg tablet 10 mg PO DAILY 07/16/23 04/30/24 (Singulair) tiotropium 2.5 mcg-olodaterol 2.5 2 puff inhalation DAILY 10/31/23 04/30/24 mcg/actuation mist for inhalation (Stiolto Respimat) amoxicillin 875 mg-potassium 1 tab PO Q12H #14 tabs 04/22/24 04/22/24 clavulanate 125 mg tablet azithromycin 250 mg tablet See Rx Instructions PO .COMPLEX #6 04/22/24 04/22/24 tabs Previous Rx's ?Medication ?Instructions ?Recorded rimegepant 75 mg disintegrating 75 mg PO ONCE PRN migraine 02/06/22 tablet (Nurtec ODT) headache #15 tabs hydroxyzine HCl 25 mg tablet See Rx Instructions PO QID PRN 05/07/22 itching #30 tabs inhalational spacing device #1 ea 09/03/22 (Aerochamber MV spacer) levalbuterol tartrate 45 2 puff inhalation PRN PRN URI #15 09/03/22 mcg/actuation aerosol inhaler grams (Xopenex HFA) amoxicillin 875 mg-potassium 1 tab PO Q12H #14 tabs 04/22/24 clavulanate 125 mg tablet azithromycin 250 mg tablet See Rx Instructions PO .COMPLEX #6 04/22/24 tabs Allergies Allergy/AdvReac Type Severity Reaction Status Date / Time nicotine Allergy Severe PATCHES-REDNESS Verified 05/06/24 08:58 & SWELLING chlorhexidine Allergy Mild Skin Rash Verified 05/06/24 08:58 adhesive Allergy Skin Rash Verified 05/06/24 08:58 amitriptyline Allergy Other (See Verified 05/06/24 08:58 Comment) doxycycline Allergy Other (See Verified 05/06/24 08:58 Comment) bupropion AdvReac Severe AGITATION Verified 05/06/24 08:58 duloxetine AdvReac Intermediate HEARING Verified 05/06/24 08:58 THINGS hydrocodone AdvReac Intermediate Itching Verified 05/06/24 08:58 pregabalin (From Lyrica) AdvReac Intermediate foggy brain Verified 05/06/24 08:58 trazodone AdvReac Intermediate ANXIETY Verified 05/06/24 08:58 pravastatin AdvReac Mild HEADACHE Verified 05/06/24 08:58 simvastatin AdvReac Mild LEG Verified 05/06/24 08:58 CRAMPS; HEADACHE varenicline AdvReac Mild BEHAVIOR Verified 05/06/24 08:58 CHANGES promethazine AdvReac Unknown ANXIETY Verified 05/06/24 08:58 zolpidem AdvReac Unknown INCREASED Verified 05/06/24 08:58 DEPRESSION General Stated Complaint: Headache NICOLAS: 2 Review of Systems All systems reviewed & are unremarkable except as noted in HPI and below Exam Narrative Exam Narrative: GENERAL APPEARANCE: Well-nourished, non-toxic, awake and alert, atraumatic, no acute distress. SKIN: Warm, pink, dry, intact, without rashes/lesions/ulcerations. HEAD: Normocephalic, atraumatic, normal hair distribution for gender/age. EYES: Normal conjunctiva, no exudates on lids/lashes. ENT: Nares patent, no circumoral cyanosis, no facial swelling NECK: Supple, trachea midline, painless cervical ROM, no nuchal rigidity. LUNGS/CHEST: Lungs CTA bilaterally-no rhonchi/rales/wheezes diffusely, non-labored respirations, normal A/P diameter, symmetrical expansion, no chest wall deformity HEART (CV/PV): Regular rate and rhythm without murmur, no peripheral edema, no JVD. ABDOMEN: Soft, non-distended, no guarding, no tenderness. MSK: Normal ROM, no swelling/deformity to bilateral UEs or LEs, moving all extremities without weakness, no cyanosis, spine midline without tenderness, normal curvature. NEURO: Mental Status AAOx4 - alert to person, place, time, events No facial droop, no forehead involvement. Motor: No focal weakness - strength 5/5 in bilateral UEs and LEs, proximal and distal, symmetric. Sensory: sensation intact to light touch globally. Gait normal: patient ambulated without ataxia into ED room. PSYCH: euthymic, cooperative, pleasant, appropriate speech Course Vital Signs Vital signs: Vital Signs Pulse 113 H 05/06/24 08:46 Respiratory Rate 18 05/06/24 08:46 Blood Pressure 82/65 L 05/06/24 08:46 Pulse Oximetry 98 05/06/24 08:46 Pulse 113 H 05/06/24 08:46 Respiratory Rate 18 05/06/24 08:46 Blood Pressure 82/65 L 05/06/24 08:46 Blood Pressure Position Sitting 05/06/24 08:46 Pulse Oximetry 98 05/06/24 08:46 Oxygen Delivery Method Room Air 05/06/24 08:46 Oxygen Flow Rate 0 05/06/24 08:46 Pain Level 8 05/06/24 08:46 Lab/Test Results Lab/Test Results: Laboratory Tests Range/Units 05/06/24 09:12 WBC (4.4-10.8) 10^3/uL 7.96 RBC (3.93-5.22) 10^6/uL 4.42 Hgb (11.2-15.7) g/dL 13.9 Hct (36.0-46.0) % 42.1 MCV (80-95) fL 95 MCH (27.0-33.0) pg 31.4 MCHC (32.0-36.0) % 33.0 RDW (11.7-14.6) % 12.2 Plt Count (130-400) 10^3/uL 267 MPV (8.0-11.0) fL 9.6 Immature Gran % % 0.5 Neutrophils % % 67.9 Lymphocytes % % 20.9 Monocytes % % 9.8 Eosinophils % % 0.4 Basophils % % 0.5 Nucleated RBC % (0.0-0.3) % 0.0 Absolute Neutrophils (1.2-6.7) 10^3/uL 5.41 Absolute Lymphocytes (1.2-3.4) 10^3/uL 1.66 Absolute Monocytes (0.1-0.8) 10^3/uL 0.78 Absolute Eosinophils (0.0-0.7) 10^3/uL 0.03 Absolute Basophils (0.0-0.2) 10^3/uL 0.04 D-Dimer (<500) ng/mlFEU 486 VBG Lactate (0.6-1.4) mmol/L 2.4 H* Sodium (136-145) mmol/L 137 Potassium (3.5-5.1) mmol/L 4.1 Chloride (98-107) mmol/L 100 Carbon Dioxide (21.0-32.0) mmol/L 24.8 Anion Gap (3-11) mmol/L 12.2 H BUN (7-18) mg/dL 13 Creatinine (0.55-1.02) mg/dL 1.4 H Est GFR (CKD-EPI 2020) (mL/min/1.73m2) 43.88 Glucose (74-106) mg/dL 248 H Calcium (8.5-10.1) mg/dL 9.3 Magnesium (1.8-2.4) mg/dL 1.9 Total Bilirubin (0.2-1.0) mg/dL 0.36 AST (15-37) U/L 71 H ALT (14-59) U/L 201 H Alkaline Phosphatase (46-116) U/L 154 H Troponin I (<or=51) ng/L < 4 Total Protein (6.4-8.2) g/dL 7.5 Albumin (3.4-5.0) g/dL 3.5 Lipase (16-77) U/L 58 Medical Decision Making This dictation utilizes [id number] dictation software and may contain unedited grammatical errors. 58 year-old female presents to ED today by POV/ambulating with a chief complaint of R-sided headache, neck pain, chest heaviness, body aches, mild cough with onset noted for a few days. Quality described as generalized malaise, no radiation to shortness of breath, dizziness, syncope, sweating, endorses chills, denies palpitations, denies severe abdominal pain, denies nausea/vomiting, denies weakness/numbness. Severity is described as severe. Palliating factors include nothing specific. Provoking factors include nothing specific. Events leading up to the incident/Associated Symptoms: patient denies respiratory illness, denies neck stiffness, denies known tick bites. Patients' medical history: Thyroid nodule, migraine, PTSD, GARZA, prediabetes, hypertension, hypokalemia, GERD, chest pain, elevated transaminase fibromyalgia, COPD. Family and social history: Current smoker, denies EtOH use. Pertinent exam findings / vital signs include benign abdomen, benign cardiopulmonary exam, lungs CTA, mildly hypotensive on arrival that resolved with p.o. fluids, tachycardic on arrival that resolved completely. Differential / pathologies of concern include migraine, fibromyalgia, ACS, PE, pneumonia, less likely sepsis, tickborne illness, not meningismus. Diagnostic studies of: -CBC, CMP, D-dimer, lactate, troponin, lipase, magnesium, EKG, chest x-ray, tick panel. -CBC shows no leukocytosis, no anemia, no left shift, no absolute elevated neutrophils -D-dimer negative -CMP shows no actionable abnormality, chronic mildly elevated creatinine, chronically elevated transaminases -Serial troponins negative -Lipase negative -Magnesium within normal limits -Lactate 2.4 but do not suspect sepsis with no leukocytosis -tick panel pending -CXR shows no acute pathology -EKG shows no ischemic changes, normal intervals, no arrhythmia or ectopy, no ST changes or heart block Interventions of: -Empiric migraine treatment with Tylenol, Toradol, Reglan and Benadryl, dexamethasone with complete relief. ED Course/Assessment/Plan: 58-year-old female presents with allover pain, states chest pain, neck pain, head pain, body aches, mild cough, chills without fever. Has history of fibromyalgia and migraine, cardiac rule out shows no evidence of damage to the myocardium with negative troponins and reliable onset, D-dimer is negative do not suspect PE, chest x-ray shows no pneumonia, CBC shows no elevated white count, no left shift, patient has chronic findings on CMP, complete response with migraine medications, tick panel is pending, I stressed strict return criteria for any worsening chest pain despite treatment, shortness of breath on exertion with near syncope, any other emergent concerns but do suspect this is all attributed to migraine syndrome. Findings not consistent with PE, ACS, acute abdominal emergent pathology, actionable electrolyte abnormality, infectious etiology, sepsis, pneumonia. Disposition of Migraine Syndrome. Patient verbalized understanding of the plan and return to ED criteria and engaged in shared decision making. Medical Records Medical records reviewed: Yes I reviewed the patient's medical records. Imaging Data Radiologic Study: Attestation: I personally reviewed and interpreted this imaging study as follows: Imaging: X-Ray Radiologist's impression: EXAM: XR CHEST 2V PA LATERAL CLINICAL HISTORY: cough, chest pain. TECHNIQUE: 2D digital imaging was performed. COMPARISON: CR XR CHEST 2V PA LATERAL from 05/01/2024 FINDINGS: 2 views: Heart size is normal. The mediastinum is not widened. Lungs are clear. No infiltrates nor pleural effusions. IMPRESSION: No acute pulmonary findings. Lab Data Lab results reviewed: Yes I reviewed the patient's lab results. Labs: Laboratory Tests Range/Units 10/23/24 10/23/24 09:12 11:59 WBC (4.4-10.8) 10^3/uL 7.96 RBC (3.93-5.22) 10^6/uL 4.42 Hgb (11.2-15.7) g/dL 13.9 Hct (36.0-46.0) % 42.1 MCV (80-95) fL 95 MCH (27.0-33.0) pg 31.4 MCHC (32.0-36.0) % 33.0 RDW (11.7-14.6) % 12.2 Plt Count (130-400) 10^3/uL 267 MPV (8.0-11.0) fL 9.6 Immature Gran % % 0.5 Neutrophils % % 67.9 Lymphocytes % % 20.9 Monocytes % % 9.8 Eosinophils % % 0.4 Basophils % % 0.5 Nucleated RBC % (0.0-0.3) % 0.0 Absolute Neutrophils (1.2-6.7) 10^3/uL 5.41 Absolute Lymphocytes (1.2-3.4) 10^3/uL 1.66 Absolute Monocytes (0.1-0.8) 10^3/uL 0.78 Absolute Eosinophils (0.0-0.7) 10^3/uL 0.03 Absolute Basophils (0.0-0.2) 10^3/uL 0.04 D-Dimer (<500) ng/mlFEU 486 VBG Lactate (0.6-1.4) mmol/L 2.4 H* Sodium (136-145) mmol/L 137 Potassium (3.5-5.1) mmol/L 4.1 Chloride (98-107) mmol/L 100 Carbon Dioxide (21.0-32.0) mmol/L 24.8 Anion Gap (3-11) mmol/L 12.2 H BUN (7-18) mg/dL 13 Creatinine (0.55-1.02) mg/dL 1.4 H Est GFR (CKD-EPI 2020) (mL/min/1.73m2) 43.88 Glucose (74-106) mg/dL 248 H Calcium (8.5-10.1) mg/dL 9.3 Magnesium (1.8-2.4) mg/dL 1.9 Total Bilirubin (0.2-1.0) mg/dL 0.36 AST (15-37) U/L 71 H ALT (14-59) U/L 201 H Alkaline Phosphatase (46-116) U/L 154 H Troponin I (<or=51) ng/L < 4 < 4 Total Protein (6.4-8.2) g/dL 7.5 Albumin (3.4-5.0) g/dL 3.5 Lipase (16-77) U/L 58 Quality:SDOH Health Related Social Needs: No Data to Display PFSH All Active Problems (Updated 05/06/24 @ 13:18 by MIL Lockwood) Migraine syndrome (Acute) Hypokalemia (Acute) Acute hypoxemic respiratory failure (Acute) Aspiration pneumonia (Acute) Pneumonia (Acute) URI (upper respiratory infection) (Acute) Leukocytosis (Acute) Elevated transaminase level (Acute) Nausea vomiting and diarrhea (Acute) Traumatic tear of right rotator cuff (Chronic ~05/2023) Trochanteric bursitis, left hip (Acute) Liver lesion (Acute) Hearing loss (Acute) RUQ pain (Acute) Gall stone (Acute) Jaw pain (Acute) Oral ulceration (Acute) Myalgia (Acute) Sensorineural hearing loss, bilateral (Acute) Periodic limb movement (Acute) Shoulder pain, right (Acute) Hip pain (Acute) Paresthesia (Acute) Left-sided temporomandibular joint pain-dysfunction syndrome (Acute) Bruxism (Acute) Chronic pain (Chronic) Leukocytosis (Acute) Sore throat (Acute) GERD (gastroesophageal reflux disease) (Chronic) Irregular bowel habits (Acute) Chest pain (Acute) Fatigue (Acute) Vasomotor symptoms due to menopause (Acute) Sinusitis (Acute) Pulmonary nodule (Acute) Lymph nodes enlarged (Acute) Elevated transaminase level (Acute) History of prediabetes (Acute) Transient neurological symptoms (Acute) Dizziness (Acute) Seasonal allergies (Acute) Memory loss (Acute) Cough (Acute) Gastritis (Acute ~12/2020) mild Prolonged QT interval (Acute) Cervicalgia (Acute) Microscopic hematuria (Acute) Anxiety (Chronic) Migraine headache without aura (Acute) Chronic headache (Acute) Tremor (Acute) Smoker (Chronic) Shoulder pain, left (Chronic 05/25/14) 05/28 WC Peptic reflux disease (Chronic) 2012 EGD, mild gastritis 2014 [place] ([facility]) patchy gastritis 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, recurrent [facility] pain [facility] 2014 Joint pain (Chronic 07/30/14) Hyperlipidemia (Chronic) Fibromyalgia (Chronic 07/30/14) Depression (Chronic 07/30/14) anxiety fatigue COPD (chronic obstructive pulmonary disease) (Chronic 01/06/15) Medical History Stage 2 chronic kidney disease Family history of myocardial infarction (05/25/14) Colon polyps Thyroid nodule Migraine with aura Post traumatic stress disorder (PTSD) Pt. 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 is unaware of this Pre-diabetes Obstructive sleep apnea Hypertension Surgical History Status post breast biopsy History of cholecystectomy (~04/05/22) History of bunionectomy right Hx of rotator cuff surgery bilateral History of tonsillectomy and adenoidectomy History of esophagogastroduodenoscopy (EGD) (~12/2020) History of colonoscopy (~12/2020) Oophrectomy, Left B Hysterectomy, Laproscopic EGD - [place] [id number] Biopsy of breast (~2007) neg Bilateral salpingectomy with oophorectomy Family History Mother Essential hypertension Diabetes TYPE 2 Hyperlipidemia Father Heart disease Hyperlipidemia Myocardial infarction Sister Hyperlipidemia Brother No problems noted. Grandfather No problems noted. Grandfather No problems noted. Grandmother Personal history of malignant neoplasm BREAST Grandmother No problems noted. Social History Smoking/Tobacco Use Status: Current every day Tobacco Type: cigarettes Years smoked: 40 Smoking risk assessment performed?: Yes Alcohol Intake: former Drug use: Never Substance use type: does not use Household members: significant other and family Housing: house current occupation: [employer] Do you feel safe at home: Yes (unable to assess privately) Do you feel safe in your relationship?: Yes
[2024-05-06] MEDS: Dexamethasone 10 MG/ML VIAL 6 MG IVP (10:30)
[2024-05-06] MEDS: Metoclopramide 10 MG/2 ML VIAL 5 MG IVP (10:30)
[2024-05-06] MEDS: ACETAMINOPHEN 1,000 MG/100 ML BTL 400 MG IVPB (10:30)
[2024-05-06] MEDS: Ketorolac 15 MG/ML VIAL IVP (10:30)
[2024-05-06] MEDS: diphenhydrAMINE 50 MG/ML VIAL 25 MG IVP (10:30)
--- NOTE | 2024-05-06 10:30 | DI.RAD_ITS ---
Exam(s) XR CHEST 2V PA LATERAL EXAM: XR CHEST 2V PA LATERAL CLINICAL HISTORY: cough, chest pain. TECHNIQUE: 2D digital imaging was performed. COMPARISON: CR XR CHEST 2V PA LATERAL from 05/01/2024 FINDINGS: 2 views: Heart size is normal. The mediastinum is not widened. Lungs are clear. No infiltrates nor pleural effusions. IMPRESSION: No acute pulmonary findings. DATA REPOSITORY: RADIATION DOSE DELIVERED:
[2024-05-06 12:52] LABS: Troponin I < 4 ng/L (<or=51)
[2024-05-07 09:14] LABS: Lyme Ab w Rflx to Lyme Confirm Negative (Negative)
[2024-05-08 23:05] LABS: Anaplasma phagocytophilum Negative (Negative); B. miyamotoi PCR Negative (Negative); Babesia divergens/MO-1 Negative (Negative); Babesia duncani Negative (Negative); Babesia microti Negative (Negative); Ehrlichia chaffeensis Negative (Negative); Ehrlichia ewingii/canis Negative (Negative); Ehrlichia muris eauclairensis Negative (Negative)
== END 2024-05-06 13:37 | disposition home or self-care (01) ==
PROVIDERS: Emergency Provider Physician Assistant; PCP Family Medicine
DX: G43.809 Other migraine, not intractable, without status migrainosus (principal); I10 Essential (primary) hypertension; Z79.82 Long term (current) use of aspirin; Z90.49 Acquired absence of other specified parts of digestive tract
CPT/HCPCS: 80053; 83690; 87798; 93005; 96365; 96366; 96375; 99285; 71046; 83605; 83735; 84484; 85025; 85379; 86618; 93010; 99284; J0131; J1100; J1200; J1885; J2765

== ENCOUNTER 2024-05-10 08:25 | Emergency (ER) | payer MEDICAID, SELFPAY ==
[2024-05-10 08:28] VITALS: BP 155/95; PULSE 104; RESP 18; TEMP 36.6; O2SAT 98
--- NOTE | 2024-05-10 08:30 | DI.CT_ITS ---
Exam(s) CT ABDOMEN PELVIS W EXAM: CT ABDOMEN PELVIS W CLINICAL HISTORY: epigastric abd pain. TECHNIQUE: Imaging Protocol: Axial computed tomography images with coronal and sagittal reformatted images were created and reviewed CONTRAST MATERIAL: Intravenous: Omnipaque-350 100cc Oral: None COMPARISON: CT CT CHEST PE CTA from 10/31/2023 FINDINGS: VISUALIZED LUNG BASES: No nodules nor pleural effusions evident. ABDOMEN: There is no ascites. LIVER: Liver is quite hypodense implying steatosis. There are no discrete focal hepatic lesions iden tified. No dilated intrahepatic ducts. GALLBLADDER/BILIARY: The gallbladder surgically absent. CBD is not dilated. PANCREAS: No evidence of pancreatic mass nor dilatation of the pancreatic duct. SPLEEN: Spleen is not enlarged. No obvious intrasplenic lesions. Splenic and portal veins are paten t. ADRENALS: There are no significant adrenal masses. KIDNEYS:No cysts evident. No solid renal masses. No calculi nor hydronephrosis.. ABDOMINAL AORTA: Abdominal aorta is calcified and exhibits significant atherosclerotic disease throug hout its length but the abdominal aorta is not dilated. Similar findings are seen in the common andrez c arteries. Also in the bilateral femoral arteries. LYMPH NODES:There is no retroperitoneal nor paraaortic adenopathy. ABDOMINAL WALL: No evidence of significant anterior abdominal wall nor inguinal hernia. GI: There is no evidence of bowel obstruction, free air, nor abscess. There is a fat halo sign evident throughout a significant part of the colon. Also involves the sigmo id. PELVIS: GI: The appendix is surgically absent.There are few uncomplicated sigmoid diverticuli. No diverticul itis evident. LYMPH NODES: There is no intrapelvic nor inguinal adenopathy. REPRODUCTIVE: Uterus is surgically absent. There are no abnormal adnexal masses. No free fluid in t he pelvis. URINARY BLADDER: No calculi nor obvious masses evident OSSEOUS: No fractures and no significant osseous lesions. IMPRESSION: 1. There is evidence of previous cholecystectomy, appendectomy, and hysterectomy. There is no eviden ce of bowel obstruction, free air, nor abscess. 2. Hepatic steatosis noted. No focal hepatic lesions evident. 3. There is a fat halo sign throughout the colon evident. Correlation with any prior history of infl ammatory bowel disease such as ulcerative colitis is recommended. This finding can sometimes be norm al and not associated with significant pathology. 4. Heavily calcified atherosclerotic abdominal aorta and iliac arteries. No aneurysms. RADIATION DOSE DELIVERED: 374.14mGy.cm Total DLP DATA REPOSITORY: All CT scans at this facility are submitted to the National Radiology Data Registry (NRDR) Dose Index Registry (DIR) with the [employer] ([employer]). RADIATION OPTIMIZATION: All CT scans at this facility use at least one of these dose optimization te chniques: automated exposure control; mA and/or kV adjustment per patient size (includes targeted exa ms where dose is matched to clinical indication); or iterative reconstruction.
--- NOTE | 2024-05-10 08:30 | RT.EKG_ITS ---
APPROVED REPORT Exam: Resting ECG Reason for Exam: epigastric pain Patient Location: E HR:88 bpm ECG Measurements Heart Rate 88 AXIS OH 159 P 48 QRSd 95 QRS 83 QT 387 T 39 QTc 469 Conclusion Sinus rhythm 88 normal axis no stemi
[2024-05-10 08:34] VITALS: BP 155/95; PULSE 104; RESP 18; TEMP 36.6; O2SAT 98
--- NOTE | 2024-05-10 08:45 | W.ED.GENAD ---
Discharge Plan Disposition Patient Disposition: Home Discharge Details Clinical Impression: Abdominal pain Primary Care Provider: Selam Fowler ED Provider: Jason Houston Home Meds and New Rx's Prescriptions: No Action lidocaine [Lidoderm] 5 % adhesive patch,medicated 1 patch topical DAILY Rx Instructions: leave on most painful area for up to 12 hrs aspirin [Adult Aspirin Regimen] 81 mg tablet,delayed release (DR/EC) 81 mg PO DAILY lovastatin 20 mg tablet 20 mg PO QPM levalbuterol tartrate [Xopenex HFA] 45 mcg/actuation HFA aerosol inhaler 2 puff Inhalation PRN PRN (Reason: URI) Qty: 15 0RF Rx Instructions: 2 puffs every 4-6 hours as needed for cough, sob, or wheeze (DME) Aerochamber MV Spacer See Rx Instructions .Route Qty: 1 0RF Rx Instructions: As directed montelukast [Singulair] 10 mg tablet 10 mg PO DAILY (DME) TENS units Device See Rx Instructions .ROUTE .MEDSUPPLY Qty: 1 Rx Instructions: As directed levomefolate calcium [L-Methylfolate] 15 mg tablet 15 mg PO DAILY loratadine [Claritin] 10 mg tablet 10 mg PO DAILY PRN B-complex with vitamin C Capsule 1 cap PO DAILY acetaminophen [Tylenol Extra Strength] 500 MG tablet 1,000 mg PO Q6H PRN meclizine 12.5 mg tablet 12.5 mg PO Q8H PRN hydrochlorothiazide 25 mg tablet 25 mg PO DAILY Nurtec ODT 75 mg tablet,disintegrating 75 mg PO ONCE PRN (Reason: migraine headache) Qty: 15 3RF Rx Instructions: as a single dose, no more than one dose in 24 hours, no more than 15 doses per month. hydroxyzine HCl 25 mg tablet See Rx Instructions PO QID PRN (Reason: itching) Qty: 30 3RF Rx Instructions: Take 25-50 mg every 6 hours as needed for headaches. lamotrigine 25 mg tablet 25 mg PO HS buspirone 10 mg tablet 10 mg PO TID pantoprazole [Protonix] 40 mg tablet,delayed release (DR/EC) 40 mg PO QHS Qty: 90 tiotropium bromide [Spiriva with HandiHaler] 18 mcg capsule, w/inhalation device 1 cap INHALATION DAILY Patient Comments: INL THE CONTENTS OF 1 C VIA INHALATION DEVICE D fluoxetine [Prozac] 40 mg Capsule 40 mg PO DAILY Stiolto Respimat 2.5-2.5 mcg/actuation mist 2 puff INHALATION DAILY Patient Comments: INHALE TWO PUFFS BY MOUTH EVERY DAY FOR COPD Discharge Instructions Instructions: Abdominal Pain, Adult ED Additional Instructions: please continue pantoprazole 40mg daily follow up with your PCP if you continue to have symptoms you likely have a stomach virus with your epigastric symptoms and your increased stools. follow clear liquid diet and advance as tolerated HPI General Date/Time Provider Initiated Documentation: 05/10/24 08:30. Limitations to Documentation: no limitations. Information obtained by: patient and old records reviewed. HPI Narrative: 58-year-old female with past medical history of tobacco abuse, GERD, COPD, fibromyalgia presents for evaluation of epigastric abdominal pain. She reports that severe, constant. It radiates from the top of her abdomen around to her back. She states that this has been ongoing for quite some time. Though it is noted that she was in the emergency department 4 days ago and did not mention this severe abdominal pain. She was also evaluated in urgent care on the and did not mention this abdominal pain. She cannot further specify when the pain actually started or how long it has been ongoing. She states is worsened by any food or drink. She states that she is unable to eat much. She vomited yesterday but otherwise does not vomit. She is taking Tums without relief. She reports 3-4 soft bowel movements per day. Denies any fever. Related Data Home Medications ?Medication ?Instructions ?Recorded ?Confirmed acetaminophen 500 mg tablet 1,000 mg PO Q6H PRN 03/21/17 05/10/24 (Tylenol Extra Strength) hydrochlorothiazide 25 mg tablet 25 mg PO DAILY 06/08/19 05/10/24 meclizine 12.5 mg tablet 12.5 mg PO Q8H PRN 06/08/19 05/10/24 tiotropium bromide 18 mcg capsule 1 cap inhalation DAILY 03/16/20 05/10/24 with inhalation device (Spiriva with HandiHaler) lidocaine 5 % topical patch 1 patch topical DAILY 06/15/20 05/10/24 (Lidoderm) TENS units #1 ea 08/01/20 05/10/24 aspirin 81 mg tablet,delayed 81 mg PO DAILY 01/05/21 05/10/24 release (Adult Aspirin Regimen) lovastatin 20 mg tablet 20 mg PO QPM 08/16/21 05/10/24 rimegepant 75 mg disintegrating 75 mg PO ONCE PRN migraine 02/06/22 05/10/24 tablet (Nurtec ODT) headache #15 tabs levomefolate calcium 15 mg tablet 15 mg PO DAILY 03/20/22 05/10/24 (L-Methylfolate) loratadine 10 mg tablet (Claritin) 10 mg PO DAILY PRN 03/20/22 05/10/24 B-complex with vitamin C 1 cap PO DAILY 03/21/22 05/10/24 hydroxyzine HCl 25 mg tablet See Rx Instructions PO QID PRN 05/07/22 05/10/24 itching #30 tabs inhalational spacing device #1 ea 09/03/22 05/10/24 (Aerochamber MV spacer) levalbuterol tartrate 45 2 puff inhalation PRN PRN URI #15 09/03/22 05/10/24 mcg/actuation aerosol inhaler grams (Xopenex HFA) fluoxetine 40 mg capsule (Prozac) 40 mg PO DAILY 11/01/22 05/10/24 buspirone 10 mg tablet 10 mg PO TID 11/14/22 05/10/24 lamotrigine 25 mg tablet 25 mg PO HS 11/14/22 05/10/24 pantoprazole 40 mg tablet,delayed 40 mg PO QHS #90 tab-caps 11/14/22 05/10/24 release (Protonix) montelukast 10 mg tablet 10 mg PO DAILY 07/16/23 05/10/24 (Singulair) tiotropium 2.5 mcg-olodaterol 2.5 2 puff inhalation DAILY 10/31/23 05/10/24 mcg/actuation mist for inhalation (Stiolto Respimat) Previous Rx's ?Medication ?Instructions ?Recorded rimegepant 75 mg disintegrating 75 mg PO ONCE PRN migraine 02/06/22 tablet (Nurtec ODT) headache #15 tabs hydroxyzine HCl 25 mg tablet See Rx Instructions PO QID PRN 05/07/22 itching #30 tabs inhalational spacing device #1 ea 09/03/22 (Aerochamber MV spacer) levalbuterol tartrate 45 2 puff inhalation PRN PRN URI #15 09/03/22 mcg/actuation aerosol inhaler grams (Xopenex HFA) Allergies Allergy/AdvReac Type Severity Reaction Status Date / Time nicotine Allergy Severe PATCHES-REDNESS Verified 05/10/24 08:32 & SWELLING chlorhexidine Allergy Mild Skin Rash Verified 05/10/24 08:32 adhesive Allergy Skin Rash Verified 05/10/24 08:32 amitriptyline Allergy Other (See Verified 05/10/24 08:32 Comment) doxycycline Allergy Other (See Verified 05/10/24 08:32 Comment) bupropion AdvReac Severe AGITATION Verified 05/10/24 08:32 duloxetine AdvReac Intermediate HEARING Verified 05/10/24 08:32 THINGS hydrocodone AdvReac Intermediate Itching Verified 05/10/24 08:32 pregabalin (From Lyrica) AdvReac Intermediate foggy brain Verified 05/10/24 08:32 trazodone AdvReac Intermediate ANXIETY Verified 05/10/24 08:32 pravastatin AdvReac Mild HEADACHE Verified 05/10/24 08:32 simvastatin AdvReac Mild LEG Verified 05/10/24 08:32 CRAMPS; HEADACHE varenicline AdvReac Mild BEHAVIOR Verified 05/10/24 08:32 CHANGES promethazine AdvReac Unknown ANXIETY Verified 05/10/24 08:32 zolpidem AdvReac Unknown INCREASED Verified 05/10/24 08:32 DEPRESSION General Stated Complaint: Abd Prob NICOLAS: 3 Exam Narrative Exam Narrative: Review of Systems: All systems reviewed & are unremarkable except as noted in HPI and below Well-developed, appears uncomfortable NCAT RRR Unlabored respiratory effort mild distension, epigastric tenderness no rebound Extremities w/o edema no focal neurologic deficits Course Vital Signs Vital signs: Vital Signs Temperature 36.6 C 05/10/24 08:28 Pulse 104 H 05/10/24 08:28 Respiratory Rate 18 05/10/24 08:28 Blood Pressure 155/95 H 05/10/24 08:28 Pulse Oximetry 98 05/10/24 08:28 Temperature 36.6 C 05/10/24 08:34 Temperature Source Oral 05/10/24 08:34 Pulse 104 H 05/10/24 08:34 Respiratory Rate 18 05/10/24 08:34 Respiratory Effort Normal, Non-Labored 05/10/24 08:34 Blood Pressure 155/95 H 05/10/24 08:34 Blood Pressure Position Sitting 05/10/24 08:34 Pulse Oximetry 98 05/10/24 08:34 Oxygen Delivery Method Room Air 05/10/24 08:34 Oxygen Flow Rate 0 05/10/24 08:34 Medical Decision Making Emergent evaluation of epigastric abdominal pain. Unclear onset but per the patient has been going on for some time. Initial differential includes pancreatitis, ACS. Patient reports prior history of cholecystectomy. She was in the emergency department a few days ago and lab work from that time was reviewed. She did not have a leukocytosis or anemia. She did have a mild elevation in her LFT. Her lipase was normal at that time and her cardiac enzyme as well as less than 4. She had a chest x-ray at that time but no additional imaging. Will repeat lab work and get CT imaging of the abdomen to evaluate for acute intra-abdominal etiology of her severe pain. Give medications for symptom relief and reassess. EKG reviewed and independently interpreted: Sinus 88 normal axis no acute ischemic changes. Lab work reviewed. There is no leukocytosis or anemia. Electrolytes are without significant derangement. The creatinine that was previously elevated has returned down to baseline. Her slightly elevated LFTs are trending down from previously and her lipase is not elevated. Her CT scan report was reviewed and there is no acute intra-abdominal process. Her is at bedside and says there is something going around their house and that this has been ongoing for quite some time and that he has been begging her to come to the hospital for evaluation, but the patient was here 3 days ago did not really mention anything about abdominal pain. She was given a dose of droperidol to help with ongoing symptoms. I feel that these are likely some viral related gastritis and increased stool output. Recommend clear diet and advance as tolerated. Continue Protonix at home. Follow-up closely with PCP. Return precautions advised. Quality:SDOH Health Related Social Needs: No Data to Display PFSH All Active Problems (Updated 05/10/24 @ 10:32 by Jason Houston MD) Abdominal pain (Acute) Migraine syndrome (Acute) Hypokalemia (Acute) Acute hypoxemic respiratory failure (Acute) Aspiration pneumonia (Acute) Pneumonia (Acute) URI (upper respiratory infection) (Acute) Leukocytosis (Acute) Elevated transaminase level (Acute) Nausea vomiting and diarrhea (Acute) Traumatic tear of right rotator cuff (Chronic ~05/2023) Trochanteric bursitis, left hip (Acute) Liver lesion (Acute) Hearing loss (Acute) RUQ pain (Acute) Gall stone (Acute) Jaw pain (Acute) Oral ulceration (Acute) Myalgia (Acute) Sensorineural hearing loss, bilateral (Acute) Periodic limb movement (Acute) Shoulder pain, right (Acute) Hip pain (Acute) Paresthesia (Acute) Left-sided temporomandibular joint pain-dysfunction syndrome (Acute) Bruxism (Acute) Chronic pain (Chronic) Leukocytosis (Acute) Sore throat (Acute) GERD (gastroesophageal reflux disease) (Chronic) Irregular bowel habits (Acute) Chest pain (Acute) Fatigue (Acute) Vasomotor symptoms due to menopause (Acute) Sinusitis (Acute) Pulmonary nodule (Acute) Lymph nodes enlarged (Acute) Elevated transaminase level (Acute) History of prediabetes (Acute) Transient neurological symptoms (Acute) Dizziness (Acute) Seasonal allergies (Acute) Memory loss (Acute) Cough (Acute) Gastritis (Acute ~12/2020) mild Prolonged QT interval (Acute) Cervicalgia (Acute) Microscopic hematuria (Acute) Anxiety (Chronic) Migraine headache without aura (Acute) Chronic headache (Acute) Tremor (Acute) Smoker (Chronic) Shoulder pain, left (Chronic 05/25/14) 05/28 WC Peptic reflux disease (Chronic) 2011 EGD, mild gastritis 2013 [place]) patchy gastritis 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, recurrent [facility] [place] [facility] [place] Joint pain (Chronic 07/30/14) Hyperlipidemia (Chronic) Fibromyalgia (Chronic 07/30/14) Depression (Chronic 07/30/14) anxiety fatigue COPD (chronic obstructive pulmonary disease) (Chronic 01/06/15) Medical History Stage 2 chronic kidney disease Family history of myocardial infarction (05/25/14) Colon polyps Thyroid nodule Migraine with aura Post traumatic stress disorder (PTSD) Pt. 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 is unaware of this Pre-diabetes Obstructive sleep apnea Hypertension Surgical History Status post breast biopsy History of cholecystectomy (~04/05/22) History of bunionectomy right Hx of rotator cuff surgery bilateral History of tonsillectomy and adenoidectomy History of esophagogastroduodenoscopy (EGD) (~12/2020) History of colonoscopy (~12/2020) Oophrectomy, Left B Hysterectomy, Laproscopic EGD - [facility] [place] 2014-[facility] Biopsy of breast (~2007) neg Bilateral salpingectomy with oophorectomy Family History Mother Essential hypertension Diabetes TYPE 2 Hyperlipidemia Father Heart disease Hyperlipidemia Myocardial infarction Sister Hyperlipidemia Brother No problems noted. Grandfather No problems noted. Grandfather No problems noted. Grandmother Personal history of malignant neoplasm BREAST Grandmother No problems noted. 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
[2024-05-10 08:53] LABS: Abs Immature Grans 0.02 10^3/uL (0.0-0.06); Absolute Basophil Count 0.03 10^3/uL (0.0-0.2); Absolute Eosinophil Count 0.08 10^3/uL (0.0-0.7); Absolute Lymphocyte Count 2.71 10^3/uL (1.2-3.4); Absolute Monocyte Count 0.44 10^3/uL (0.1-0.8); Absolute Neutrophil Count 4.34 10^3/uL (1.2-6.7); Basophils % 0.4 %; HCT 43.3 % (36.0-46.0); HGB 14.8 g/dL (11.2-15.7); Immature Grans % 0.3 %; Lymphocytes % 35.6 %; MCH 31.6 pg (27.0-33.0); MCHC 34.2 % (32.0-36.0); MCV 92 fL (80-95); MPV 9.8 fL (8.0-11.0); Monocytes % 5.8 %; Neutrophils % 56.9 %; Platelet Count 274 10^3/uL (130-400); RBC 4.69 10^6/uL (3.93-5.22); RDW 11.9 % (11.7-14.6); RDW-SD 40.4 fL; WBC 7.62 10^3/uL (4.4-10.8)
[2024-05-10] MEDS: Normal Saline - Diluent 50 ML VIAL IJ (09:01)
[2024-05-10] MEDS: Omnipaque 350 MG/ML 100 ML BTL IJ (09:03)
[2024-05-10 09:09] LABS: ALT 103 U/L (14-59); AST 32 U/L (15-37); Albumin 3.7 g/dL (3.4-5.0); Alkaline Phosphatase 137 U/L (46-116); Anion Gap 9.4 mmol/L (3-11); BUN 14 mg/dL (7-18); Bilirubin, Total 0.68 mg/dL (0.2-1.0); CO2 29.6 mmol/L (21.0-32.0); Calcium 9.7 mg/dL (8.5-10.1); Chloride 99 mmol/L (98-107); Estimated GFR 65.71 (mL/min/1.73m2); Glucose 170 mg/dL (74-106); Magnesium 1.8 mg/dL (1.8-2.4); Potassium 4.1 mmol/L (3.5-5.1); Sodium 138 mmol/L (136-145); Total Protein 7.9 g/dL (6.4-8.2)
[2024-05-10 09:12] LABS: Lipase 72 U/L (16-77); Troponin I < 4 ng/L (<or=51)
[2024-05-10] MEDS: FAMOTIDINE 20 MG in Normal Saline 100 ML 400 MG IVPB (09:13)
[2024-05-10] MEDS: Ondansetron 4 MG/2 ML VIAL IVP (09:14)
--- NOTE | 2024-05-10 09:25 | DI.VRAD_ITS ---
PROCEDURE INFORMATION: Exam: CT Abdomen And Pelvis With Contrast Exam date and time: 05/10/2024 9:04 AM Age: 58 years old Clinical indication: Abdominal pain; Prior surgery; Surgery date: 6+ months; Surgery type: Cholecystectomy hysterectomy TECHNIQUE: Imaging protocol: Computed tomography of the abdomen and pelvis with contrast. Contrast material: OMNIPAQUE 350; Contrast volume: 85 ml; Contrast route: INTRAVENOUS (IV); COMPARISON: CT ABDOMEN PELVIS W 07/19/2023 7:54 PM FINDINGS: Liver: Normal. No mass. Gallbladder and biliary ducts: Cholecystectomy Pancreas: Normal. No ductal dilation. Spleen: Normal. No splenomegaly. Adrenal glands: Normal. No mass. Kidneys and ureters: There is no evidence of renal or ureteral calcifications. Stomach and bowel: Unremarkable. No obstruction. No mucosal thickening.. The colon is decompressed Appendix: No evidence of appendicitis. Intraperitoneal space: Unremarkable. No free air. No significant fluid collection. Vasculature: Unremarkable. No abdominal aortic aneurysm. Lymph nodes: Unremarkable. No enlarged lymph nodes. Urinary bladder: Unremarkable as visualized. Reproductive: Surgical resection of the uterus Bones/joints: Unremarkable. No acute fracture. Soft tissues: Unremarkable. IMPRESSION: No acute process Dictated and Authenticated by: Tonia Silva MD. Ordering:[facility] Rosemarie Rose MD
[2024-05-10] MEDS: Droperidol 5 MG/2 ML VIAL 2.5 MG IVP (09:55)
[2024-05-10 10:21] LABS: Bilirubin Negative (Negative); Blood Trace-intact (Negative); Clarity Sl Cloudy (Clear); Glucose Negative (Negative); Ketones Negative (Negative); Leukocyte Esterase Negative (Negative); Nitrite Negative (Negative); Specific Gravity <= 1.005 (1.005-1.025); Urobilinogen 0.2 mg/dL (Up to 0.2)
[2024-05-10 10:28] LABS: Bacteria Rare HPF (Negative); C & S Indicated? No; Casts Negative LPF (Negative); Crystals Negative HPF (Negative); Epithelial Cells Rare HPF (Negative); Mucus Negative (Negative); WBC 0-2 HPF (0-5)
[2024-05-10 10:45] VITALS: BP 147/61; PULSE 75; RESP 16; TEMP 36.8; O2SAT 99
== END 2024-05-10 10:52 | disposition home or self-care (01) ==
PROVIDERS: Emergency Provider Emergency Medicine; PCP Family Medicine
DX: R10.11 Right upper quadrant pain (principal); R10.12 Left upper quadrant pain
CPT/HCPCS: 80053; 83690; 93005; 96365; 96375; 99285; 74177; 81003; 81015; 83735; 84484; 85025; 93010; 99284; J1790; J2405; J3490

== ENCOUNTER 2024-06-15 17:01 | Outpatient (REF) | payer MEDICAID, SELFPAY ==
[2024-06-15 16:55] LABS: ALT 38 U/L (14-59); AST 18 U/L (15-37); Albumin 4.4 g/dL (3.4-5.0); Alkaline Phosphatase 105 U/L (46-116); Anion Gap 11.4 mmol/L (3-11); BUN 12 mg/dL (7-18); Bilirubin, Total 0.36 mg/dL (0.2-1.0); CO2 27.6 mmol/L (21.0-32.0); CREATININE 0.9 mg/dL (0.55-1.02); Calcium 10.2 mg/dL (8.5-10.1); Chloride 100 mmol/L (98-107); Cholesterol 272 mg/dL (<200); Estimated GFR 74.57 (mL/min/1.73m2); Glucose 97 mg/dL (74-106); HDL Cholesterol 46 mg/dL (40-60); Potassium 4.4 mmol/L (3.5-5.1); Sodium 139 mmol/L (136-145); Total Protein 8.1 g/dL (6.4-8.2); Triglyceride 475 mg/dL (<150)
[2024-06-15 17:14] LABS: LDL CHOLESTEROL 125 mg/dL (<100)
== END 2024-06-15 17:02 | disposition home or self-care (01) ==
LOC: NCHCN 17:01
PROVIDERS: PCP Family Medicine; Visit Provider Family Medicine
DX: I10 Essential (primary) hypertension (principal); E78.5 Hyperlipidemia, unspecified
CPT/HCPCS: 80053; 80061; 83721

== ENCOUNTER 2024-08-18 10:57 | Outpatient (REF) | payer MEDICAID, SELFPAY ==
[2024-08-18 14:53] LABS: Anion Gap 6.9 mmol/L (3-11); BUN 9 mg/dL (7-18); CO2 30.1 mmol/L (21.0-32.0); Calcium 9.5 mg/dL (8.5-10.1); Chloride 103 mmol/L (98-107); Glucose 115 mg/dL (74-106); Potassium 4.5 mmol/L (3.5-5.1); Sodium 140 mmol/L (136-145)
== END 2024-08-18 10:58 | disposition home or self-care (01) ==
LOC: NCHCN 10:57
PROVIDERS: PCP Family Medicine; Visit Provider Family Medicine
DX: I10 Essential (primary) hypertension (principal)
CPT/HCPCS: 80048

== ENCOUNTER 2024-08-26 02:41 | Outpatient (CLI) | payer MEDICAID, SELFPAY ==
--- NOTE | 2024-08-26 | DI.CTLCSR_ITS ---
Exam(s) CT CHEST LUNG CANCER SCREEN EXAM: CT CHEST LUNG CANCER SCREEN CLINICAL HISTORY: F17.210 Nicotine dependence, cigarettes, uncomplicated TECHNIQUE: Imaging Protocol: Axial computed tomography images with coronal and sagittal reformatted images were created and reviewed. Low dose screening protocol. COMPARISON: CT CT CHEST PE CTA from 10/31/2023 FINDINGS: Tracheobronchial tree: No bronchiectasis or mucus plugging. Mediastinum and Roshni: No dominant adenopathy or fluid collection. Pulmonary parenchyma: No consolidation or dominant measurable mass. Mild apical emphysematous changes and scarring. No significant interstitial changes. Lung Nodules: Scattered calcified granulomas bilaterally stable tiny nodules in the left and right up per lobes. Pleura: No effusion. No pneumothorax. Heart: The heart is not dilated. [id number] coronary artery calcifications are seen. No pericar dial effusion. Aorta: Thoracic aorta non-dilated. Upper abdomen: Unremarkable. Bones: Unremarkable for age. Soft Tissues: Unremarkable. IMPRESSION: No suspicious pulmonary nodules. Lung RADS Cat 2 - Benign Appearance / Behavior: Nodules with a very low likelihood of becoming a clin ically active cancer due to size or lack of growth Lung-RADS 1.0 CATEGORIES: Category 0 - Prior chest CT exam(s) being located for comparison. Category 1 - Annual screening in 12 months. No nodules or definitely benign nodules. Category 2 - Annual screening in 12 months. Benign appearance. Nodules with low likelihood of becomin g active cancer. Category 3 - 6-month follow-up. Probably benign. Short-term follow-up suggested. Nodules with low lik elihood of becoming active cancer. Category 4A - 3-month follow-up and CT/PET if >8 mm in size. Suspicious finding. Findings which requi re additional testing. Category 4B - Findings which require additional testing and tissue sampling. Category 4X - Category 3 or 4 nodules with additional features or imaging findings that increases the suspicion of malignancy. Modifier S- Potentially clinically significant findings (non lung cancer) RADIATION DOSE DELIVERED: !Error Total DLP DATA REPOSITORY: All CT scans at this facility are submitted to the National Radiology Data Registry (NRDR) Dose Index Registry (DIR) with the [employer] (ACR). RADIATION OPTIMIZATION: All CT scans at this facility use at least one of these dose optimization te chniques: automated exposure control; mA and/or kV adjustment per patient size (includes targeted exa ms where dose is matched to clinical indication); or iterative reconstruction.
== END 2024-08-26 03:01 ==
LOC: DI 02:41
PROVIDERS: PCP Family Medicine; Visit Provider Family Medicine
DX: Z12.2 Encounter for screening for malignant neoplasm of respiratory organs (principal); F17.210 Nicotine dependence, cigarettes, uncomplicated
CPT/HCPCS: 71271

== ENCOUNTER 2024-10-02 00:09 | Outpatient (CLI) | payer MEDICAID, SELFPAY ==
--- NOTE | 2024-10-02 06:30 | DI.MRI_ITS ---
Exam(s) MR UPPER JOINT RT WO EXAM: MR UPPER JOINT RT WO CLINICAL HISTORY: ? RTC TEAR,TRAUMATIC TEAR RT ROTATOR CUFF,[id number]. TECHNIQUE: Multiplanar multisequence MRI was performed. COMPARISON: None. FINDINGS: Exam is limited by motion. BONES: There is no fracture or contusion pattern. Metallic artifact noted in humeral head. Two add itional none metallic anchors are noted in the humeral head. Spurring at the tip of the acromion. JOINTS:The acromioclavicular joint shows mild degenerative changes. The glenohumeral joint is normal. TENDONS: Supraspinatus: Abnormal thickening and high signal. Infraspinatus: Mild thickening. Mild edema. Subscapularis: Unremarkable. Teres Minor: Unremarkable. Biceps and [place]: Unremarkable. MUSCLES: Unremarkable. GLENOID LABRUM: Unremarkable on this noncontrast examination. SOFT TISSUES: Unremarkable. BURSAE: Subacromial and subdeltoid bursae shows a moderate amount of fluid. . There is fluid in the subcoracoid bursa. IMPRESSION: Postsurgical changes. Thickening and abnormal areas of high signal in the supraspinatus tendon consistent with tendinosis w ith superimposed multifocal areas of tearing. DATA REPOSITORY:
== END 2024-10-02 00:29 ==
LOC: DI 00:09
PROVIDERS: PCP Family Medicine; Visit Provider Student in an Organized Health Care Education/Training Program
DX: S46.011D Strain of muscle(s) and tendon(s) of the rotator cuff of right shoulder, subsequent encounter (principal); X58.XXXD Exposure to other specified factors, subsequent encounter
CPT/HCPCS: 73221

== ENCOUNTER 2024-11-19 14:22 | Outpatient (CLI) | payer MEDICAID, SELFPAY ==
[2024-11-19 14:23] LABS: HCT 40.3 % (36.0-46.0); HGB 13.6 g/dL (11.2-15.7); MCH 31.3 pg (27.0-33.0); MCHC 33.7 % (32.0-36.0); MCV 93 fL (80-95); MPV 9.6 fL (8.0-11.0); Platelet Count 340 10^3/uL (130-400); RBC 4.35 10^6/uL (3.93-5.22); RDW 12.2 % (11.7-14.6); RDW-SD 41.4 fL; WBC 14.91 10^3/uL (4.4-10.8)
[2024-11-19 14:38] LABS: INR 0.9 (0.9-1.1); PTT Activated 25.4 sec (20.6-30.2); Prothrombin Time 9.5 sec (9.1-11.1)
[2024-11-19 15:15] LABS: ALT 92 U/L (14-59); AST 36 U/L (15-37); Albumin 3.9 g/dL (3.4-5.0); Alkaline Phosphatase 119 U/L (46-116); Anion Gap 9.2 mmol/L (3-11); BUN 14 mg/dL (7-18); Bilirubin, Total 0.4 mg/dL (0.2-1.0); CO2 27.8 mmol/L (21.0-32.0); CREATININE 1.2 mg/dL (0.55-1.02); Calcium 9.4 mg/dL (8.5-10.1); Chloride 103 mmol/L (98-107); Estimated GFR 52.47 (mL/min/1.73m2); Glucose 142 mg/dL (74-106); Potassium 3.8 mmol/L (3.5-5.1); Sodium 140 mmol/L (136-145); Total Protein 7.3 g/dL (6.4-8.2)
[2024-11-19 18:07] LABS: Bilirubin Negative (Negative); Blood Negative (Negative); Clarity Clear (Clear); Glucose Negative (Negative); Ketones Negative (Negative); Leukocyte Esterase Negative (Negative); Nitrite Negative (Negative); Urobilinogen 0.2 mg/dL (Up to 0.2)
== END 2024-11-19 14:23 | disposition home or self-care (01) ==
LOC: LBO 14:22
PROVIDERS: PCP Family Medicine; Visit Provider Family Medicine
DX: Z01.818 Encounter for other preprocedural examination (principal)
CPT/HCPCS: 36415; 80053; 85027; 81003; 85610; 85730

== ENCOUNTER 2025-01-26 16:47 | Outpatient (REF) | payer BC, SELFPAY ==
[2025-01-26 16:23] LABS: ALT 74 U/L (14-59); AST 40 U/L (15-37); Albumin 3.9 g/dL (3.4-5.0); Alkaline Phosphatase 135 U/L (46-116); Anion Gap 11.9 mmol/L (3-11); BUN 12 mg/dL (7-18); Bilirubin, Total 0.4 mg/dL (0.2-1.0); CO2 26.1 mmol/L (21.0-32.0); Calcium 9.6 mg/dL (8.5-10.1); Chloride 103 mmol/L (98-107); Estimated GFR 85.35 (mL/min/1.73m2); Glucose 207 mg/dL (74-106); Potassium 4.3 mmol/L (3.5-5.1); Sodium 141 mmol/L (136-145); Total Protein 7.2 g/dL (6.4-8.2)
== END 2025-01-26 16:48 | disposition home or self-care (01) ==
LOC: NCHCN 16:47
PROVIDERS: PCP Family Medicine; Visit Provider Family Medicine
DX: N18.2 Chronic kidney disease, stage 2 (mild) (principal)
CPT/HCPCS: 80053

== ENCOUNTER 2025-05-27 12:22 | Outpatient (REF) | payer BC, SELFPAY ==
[2025-05-27 15:01] LABS: Glucose Negative (Negative)
[2025-05-27 15:13] LABS: INR 0.9 (0.9-1.1); PTT Activated 26.9 sec (20.6-30.2); Prothrombin Time 9.5 sec (9.1-11.1)
[2025-05-27 15:22] LABS: RBC 0-2 HPF (0-2); WBC 0-2 HPF (0-5)
[2025-05-27 15:23] LABS: C & S Indicated? No
[2025-05-27 16:00] LABS: HCT 40.9 % (36.0-46.0); HGB 13.6 g/dL (11.2-15.7); MCH 31.5 pg (27.0-33.0); MCHC 33.3 % (32.0-36.0); MCV 95 fL (80-95); MPV 10.3 fL (8.0-11.0); Platelet Count 371 10^3/uL (130-400); RBC 4.32 10^6/uL (3.93-5.22); RDW 12.0 % (11.7-14.6); RDW-SD 42.5 fL; WBC 10.83 10^3/uL (4.4-10.8)
[2025-05-27 17:51] LABS: Hemoglobin A1C 5.8 % (<5.7)
[2025-05-27 18:13] LABS: ALT 64 U/L (10-49); AST 27 U/L (<34); Albumin 4.6 g/dL (3.4-5.0); Alkaline Phosphatase 110 U/L (46-116); Anion Gap 10.5 mmol/L (3-11); BUN 17 mg/dL (9-23); Bilirubin, Total 0.50 mg/dL (0.2-1.2); CO2 27.5 mmol/L (20.0-31.0); Calcium 9.6 mg/dL (8.3-10.6); Chloride 102 mmol/L (98-107); Glucose 97 mg/dL (74-106); Potassium 4.2 mmol/L (3.5-5.1); Sodium 140 mmol/L (136-145); Total Protein 6.9 g/dL (5.7-8.2)
== END 2025-05-27 12:23 | disposition home or self-care (01) ==
LOC: NCHCN 12:22
PROVIDERS: PCP Family Medicine; Visit Provider Family Medicine
DX: Z01.818 Encounter for other preprocedural examination (principal); R31.9 Hematuria, unspecified
CPT/HCPCS: 80053; 85027; 81003; 81015; 83036; 85610; 85730

== ENCOUNTER 2025-06-25 15:38 | Emergency (ER) | payer BC, SELFPAY ==
[2025-06-25] VITALS (24 sets, daily range): BP systolic 84–154; BP diastolic 47–95; PULSE 72–98; RESP 20; TEMP 36.1; O2SAT 93–99
--- NOTE | 2025-06-25 16:00 | RT.EKG_ITS ---
APPROVED REPORT Exam: Resting ECG Reason for Exam: weakness Patient Location: E HR:89 bpm ECG Measurements Heart Rate 89 AXIS IA 168 P 64 QRSd 103 QRS 115 QT 419 T 89 QTc 510 Conclusion Sinus rhythm...normal P axis, V-rate 60- 99 Probable right ventricular hypertrophy...prominent R or R' w/ RAD or NEGIN No STEMI
[2025-06-25] MEDS: Lactated Ringers 1,000 ML 1000 ML IV (16:22)
[2025-06-25] MEDS: Metoclopramide 10 MG/2 ML VIAL 5 MG IVP (16:22)
[2025-06-25 16:33] LABS: BE (Venous) 2 mmol/L (-2-3); HCO3 (Venous) 27 mmol/L (23-28); O2 Sat (Venous) 84 %; TCO2 (Venous) 25 mmol/L (24-29); pCO2 (Venous) 45 mmHg (41-51); pO2 (Venous) 48 mmHg
[2025-06-25 16:36] LABS: Abs Immature Grans 0.11 10^3/uL (0.0-0.06); HCT 37.6 % (36.0-46.0); HGB 12.5 g/dL (11.2-15.7); Immature Grans % 0.8 %; MCH 31.2 pg (27.0-33.0); MCHC 33.2 % (32.0-36.0); MCV 94 fL (80-95); MPV 8.9 fL (8.0-11.0); Platelet Count 488 10^3/uL (130-400); RBC 4.01 10^6/uL (3.93-5.22); RDW 12.1 % (11.7-14.6); RDW-SD 41.9 fL; WBC 13.16 10^3/uL (4.4-10.8)
[2025-06-25 17:05] LABS: COVID-19 PCR Negative (Negative); RSV PCR Negative (Negative)
[2025-06-25 19:24] LABS: Glucose Negative (Negative)
[2025-06-25 19:27] LABS: Lipase 22 U/L (<53); Magnesium 2.0 mg/dL (1.6-2.6)
[2025-06-25 19:35] LABS: ALT 25 U/L (10-49); AST 20 U/L (<34); Albumin 4.3 g/dL (3.2-5.0); Alkaline Phosphatase 100 U/L (46-116); BUN 23 mg/dL (9-23); Bilirubin, Total 0.5 mg/dL (0.2-1.2); CO2 24.6 mmol/L (20.0-31.0); Calcium 9.1 mg/dL (8.3-10.6); Glucose 144 mg/dL (74-106); Total Protein 7.0 g/dL (5.7-8.2)
--- NOTE | 2025-06-25 19:45 | W.ED.GENAD ---
Discharge Plan Disposition Patient Disposition: Against Medical Advice Condition: Stable Discharge Details Clinical Impression: Nausea & vomiting Primary Care Provider: Selam Fowler ED Provider: Casandra Pugh Home Meds and New Rx's Prescriptions: Continued lidocaine [Lidoderm] 5 % adhesive patch,medicated 1 patch topical DAILY Rx Instructions: leave on most painful area for up to 12 hrs aspirin [Adult Aspirin Regimen] 81 mg tablet,delayed release (DR/EC) 81 mg PO DAILY lovastatin 20 mg tablet 20 mg PO QPM levalbuterol tartrate [Xopenex HFA] 45 mcg/actuation HFA aerosol inhaler 2 puff Inhalation PRN PRN (Reason: URI) Qty: 15 0RF Rx Instructions: 2 puffs every 4-6 hours as needed for cough, sob, or wheeze (DME) Aerochamber MV Spacer See Rx Instructions .Route Qty: 1 0RF Rx Instructions: As directed (DME) TENS units Device See Rx Instructions .ROUTE .MEDSUPPLY Qty: 1 Rx Instructions: As directed loratadine [Claritin] 10 mg tablet 10 mg PO DAILY PRN losartan 50 mg tablet 50 mg PO DAILY losartan 25 mg tablet 25 mg PO DAILY acetaminophen [Tylenol Extra Strength] 500 MG tablet 1,000 mg PO Q6H PRN meclizine 12.5 mg tablet 12.5 mg PO Q8H PRN hydrochlorothiazide 25 mg tablet 25 mg PO DAILY Nurtec ODT 75 mg tablet,disintegrating 75 mg PO ONCE PRN (Reason: migraine headache) Qty: 15 3RF Rx Instructions: as a single dose, no more than one dose in 24 hours, no more than 15 doses per month. hydroxyzine HCl 25 mg tablet See Rx Instructions PO QID PRN (Reason: itching) Qty: 30 3RF Rx Instructions: Take 25-50 mg every 6 hours as needed for headaches. lamotrigine 25 mg tablet 25 mg PO HS buspirone 10 mg tablet 10 mg PO TID pantoprazole [Protonix] 40 mg tablet,delayed release (DR/EC) 40 mg PO QHS Qty: 90 fluoxetine [Prozac] 40 mg Capsule 40 mg PO DAILY Stiolto Respimat 2.5-2.5 mcg/actuation mist 2 puff INHALATION DAILY Patient Comments: INHALE TWO PUFFS BY MOUTH EVERY DAY FOR COPD baclofen 10 mg tablet 10 mg PO DAILY Discharge Instructions Additional Instructions: You are leaving against medical recommendation as we would like to evaluate your chemistry panel which includes your glucose and electrolytes which have been low before Unfortunately there was a delay secondary to our analyzer, we will notify you if there are any critical labs, you may also call back in the next 1 to 2 hours to check-in regarding your labs if you would like Clear liquid diet including popsicles, broth This may be a viral syndrome, unfortunately without your labs it is difficult to fully assess once causing her symptoms but I do recommend calling her PCP on Saturday or return to the emergency department if you are not feeling any improvement in the next 24 hours, or should your symptoms Stand Alone Forms: Portal Information Referrals: Selam Fowler [Primary Care Provider, Medicine] HPI General Date/Time Provider Initiated Documentation: 06/25/25 15:39. HPI Narrative: This 59-year-old female presents with nausea and vomiting which started abruptly this morning. She denies any spoiled food consumption. She has vomited multiple times.. Denies any diarrhea. Denies fever or chills or abdominal pain. Denies any chest pain or shortness of breath. [id number] diabetic status post lumbar spine surgery at [facility]. Had her follow-up yesterday and states that her postoperative assessment was reassuring. She denies any current back pain or fever. She denies any known sick contacts. Related Data Home Medications ?Medication ?Instructions ?Recorded ?Confirmed acetaminophen 500 mg tablet 1,000 mg PO Q6H PRN 03/21/17 06/25/25 (Tylenol Extra Strength) hydrochlorothiazide 25 mg tablet 25 mg PO DAILY 06/08/19 06/25/25 meclizine 12.5 mg tablet 12.5 mg PO Q8H PRN 06/08/19 06/25/25 lidocaine 5 % topical patch 1 patch topical DAILY 06/15/20 06/25/25 (Lidoderm) TENS units #1 ea 08/01/20 06/25/25 aspirin 81 mg tablet,delayed 81 mg PO DAILY 01/05/21 06/25/25 release (Adult Aspirin Regimen) lovastatin 20 mg tablet 20 mg PO QPM 08/16/21 06/25/25 rimegepant 75 mg disintegrating 75 mg PO ONCE PRN migraine 02/06/22 06/25/25 tablet (Nurtec ODT) headache #15 tabs loratadine 10 mg tablet (Claritin) 10 mg PO DAILY PRN 03/20/22 06/25/25 hydroxyzine HCl 25 mg tablet See Rx Instructions PO QID PRN 05/07/22 06/25/25 itching #30 tabs inhalational spacing device #1 ea 09/03/22 06/25/25 (Aerochamber MV spacer) levalbuterol tartrate 45 2 puff inhalation PRN PRN URI #15 09/03/22 06/25/25 mcg/actuation aerosol inhaler grams (Xopenex HFA) fluoxetine 40 mg capsule (Prozac) 40 mg PO DAILY 11/01/22 06/25/25 buspirone 10 mg tablet 10 mg PO TID 11/14/22 06/25/25 lamotrigine 25 mg tablet 25 mg PO HS 11/14/22 06/25/25 pantoprazole 40 mg tablet,delayed 40 mg PO QHS #90 tab-caps 11/14/22 06/25/25 release (Protonix) tiotropium 2.5 mcg-olodaterol 2.5 2 puff inhalation DAILY 10/31/23 06/25/25 mcg/actuation mist for inhalation (Stiolto Respimat) losartan 25 mg tablet 25 mg PO DAILY 09/15/24 06/25/25 losartan 50 mg tablet 50 mg PO DAILY 09/15/24 06/25/25 baclofen 10 mg tablet 10 mg PO DAILY 06/25/25 06/25/25 Previous Rx's ?Medication ?Instructions ?Recorded rimegepant 75 mg disintegrating 75 mg PO ONCE PRN migraine 02/06/22 tablet (Nurtec ODT) headache #15 tabs hydroxyzine HCl 25 mg tablet See Rx Instructions PO QID PRN 05/07/22 itching #30 tabs inhalational spacing device #1 ea 09/03/22 (Aerochamber MV spacer) levalbuterol tartrate 45 2 puff inhalation PRN PRN URI #15 09/03/22 mcg/actuation aerosol inhaler grams (Xopenex HFA) Allergies Allergy/AdvReac Type Severity Reaction Status Date / Time nicotine Allergy Severe PATCHES-REDNESS Verified 06/25/25 15:50 & SWELLING chlorhexidine Allergy Mild Skin Rash Verified 06/25/25 15:50 adhesive Allergy Skin Rash Verified 06/25/25 15:50 amitriptyline Allergy Other (See Verified 06/25/25 15:50 Comment) doxycycline Allergy Other (See Verified 06/25/25 15:50 Comment) bupropion AdvReac Severe AGITATION Verified 06/25/25 15:50 duloxetine AdvReac Intermediate HEARING Verified 06/25/25 15:50 THINGS hydrocodone AdvReac Intermediate Itching Verified 06/25/25 15:50 pregabalin (From Lyrica) AdvReac Intermediate foggy brain Verified 06/25/25 15:50 trazodone AdvReac Intermediate ANXIETY Verified 06/25/25 15:50 pravastatin AdvReac Mild HEADACHE Verified 06/25/25 15:50 simvastatin AdvReac Mild LEG Verified 06/25/25 15:50 CRAMPS; HEADACHE varenicline AdvReac Mild BEHAVIOR Verified 06/25/25 15:50 CHANGES promethazine AdvReac Unknown ANXIETY Verified 06/25/25 15:50 zolpidem AdvReac Unknown INCREASED Verified 06/25/25 15:50 DEPRESSION General Stated Complaint: Nausea/Vomit/Diar NICOLAS: 3 Exam Narrative Exam Narrative: Alert and oriented 59-year-old female in no acute distress, no tenderness on abdominal assessment, moist membranes cardiac rate rhythm regular lungs clear to auscultation postoperative incision site on lumbar spine well appearance, no dehiscence no erythema neurovascularly intact Course Vital Signs Vital signs: Vital Signs Temperature 36.1 C L 06/25/25 15:42 Pulse 96 H 06/25/25 15:42 Respiratory Rate 20 06/25/25 15:42 Blood Pressure 139/94 H 06/25/25 15:42 Pulse Oximetry 98 06/25/25 15:42 Temperature 36.1 C L 06/25/25 15:48 Temperature Source Tympanic 06/25/25 15:48 Pulse 96 H 06/25/25 15:48 Respiratory Rate 20 06/25/25 15:48 Blood Pressure 139/94 H 06/25/25 15:48 Blood Pressure Position Supine 06/25/25 15:48 Pulse Oximetry 98 06/25/25 15:48 Oxygen Delivery Method Room Air 06/25/25 15:48 Oxygen Flow Rate 0 06/25/25 15:48 Lab/Test Results Lab/Test Results: Laboratory Tests Range/Units 06/25/25 06/25/25 06/25/25 16:14 16:27 19:13 WBC (4.4-10.8) 10^3/uL 13.16 H RBC (3.93-5.22) 10^6/uL 4.01 Hgb (11.2-15.7) g/dL 12.5 Hct (36.0-46.0) % 37.6 MCV (80-95) fL 94 MCH (27.0-33.0) pg 31.2 MCHC (32.0-36.0) % 33.2 RDW (11.7-14.6) % 12.1 Plt Count (130-400) 10^3/uL 488 H MPV (8.0-11.0) fL 8.9 Immature Gran % % 0.8 Neutrophils % % 72.1 Lymphocytes % % 19.1 Monocytes % % 5.2 Eosinophils % % 2.2 Basophils % % 0.6 Nucleated RBC % (0.0-0.3) % 0.0 Absolute Neutrophils (1.2-6.7) 10^3/uL 9.49 H Absolute Lymphocytes (1.2-3.4) 10^3/uL 2.51 Absolute Monocytes (0.1-0.8) 10^3/uL 0.68 Absolute Eosinophils (0.0-0.7) 10^3/uL 0.29 Absolute Basophils (0.0-0.2) 10^3/uL 0.08 VBG pH (7.31-7.41) 7.39 VBG pCO2 (41-51) mmHg 45 VBG pO2 mmHg 48 VBG HCO3 (23-28) mmol/L 27 VBG Total CO2 (24-29) mmol/L 25 VBG O2 Saturation % 84 VBG Base Excess (-2-3) mmol/L 2 Carbon Dioxide (20.0-31.0) mmol/L 24.6 BUN (9-23) mg/dL 23 Creatinine (0.55-1.02) mg/dL 0.89 Est GFR (CKD-EPI 2020) (mL/min/1.73m2) 64.93 Glucose (74-106) mg/dL 144 H Calcium (8.3-10.6) mg/dL 9.1 Magnesium (1.6-2.6) mg/dL 2.0 Total Bilirubin (0.2-1.2) mg/dL 0.5 AST (<34) U/L 20 ALT (10-49) U/L 25 Alkaline Phosphatase (46-116) U/L 100 Total Protein (5.7-8.2) g/dL 7.0 Albumin (3.2-5.0) g/dL 4.3 Lipase (<53) U/L 22 Urine Color (Yellow) Yellow Urine Clarity (Clear) Clear Urine pH (5-8) 6.5 Ur Specific [place] (1.005-1.025) 1.020 Urine Protein (Neg-Trace) mg/dL Negative Urine Ketones (Negative) mg/dL Negative Urine Blood (Negative) Negative Urine Nitrite (Negative) Negative Urine Bilirubin (Negative) Negative Urine Urobilinogen (Up to 0.2) mg/dL 0.2 Ur Leukocyte Esterase (Negative) Negative Urine Glucose (Negative) mg/dL Negative COVID-19 Source Nasopharynx SARS-CoV-2 (PCR) (Negative) Negative Influenza Type A (PCR) (Negative) Negative Influenza Type B (PCR) (Negative) Negative RSV (PCR) (Negative) Negative Medical Decision Making Results: CBC does not show acute abnormality aside from mild leukocytosis at 13,000, unfortunately chemistry, VBG are delayed secondary to malfunction of her analyzer Assessment and plan: Patient presenting with nausea vomiting, she was given fluids and Reglan IV and is feeling marked improvement, she is able to tolerate p.o. Chemistry panel and UA are not returned. She is requesting to leave as she feels improvement and she does not want to wait for the labs to result. She is fully alert, oriented, decisional capacity and her is in the room they both understand that there is a risk associated with electrolyte abnormalities as her QTc is slightly prolonged, they are still requesting to leave as she feels improvement. I did relay I would notify the patient if there are any critical abnormalities. Alert and oriented of decisional capacity recheck in 24 hours encouraged return precautions reviewed aware she is leaving against medical recommendation with risk of progressing dehydration, electrolyte abnormalities, and even [facility] All Active Problems (Updated 06/25/25 @ 19:15 by MIL Gloria) Nausea & vomiting (Acute) Hypokalemia (Acute) Acute hypoxemic respiratory failure (Acute) Aspiration pneumonia (Acute) Pneumonia (Acute) URI (upper respiratory infection) (Acute) Leukocytosis (Acute) Elevated transaminase level (Acute) Nausea vomiting and diarrhea (Acute) Traumatic tear of right rotator cuff (Chronic ~05/2023) Trochanteric bursitis, left hip (Acute) Liver lesion (Acute) Hearing loss (Acute) RUQ pain (Acute) Gall stone (Acute) Jaw pain (Acute) Oral ulceration (Acute) Myalgia (Acute) Sensorineural hearing loss, bilateral (Acute) Periodic limb movement (Acute) Shoulder pain, right (Acute) Hip pain (Acute) Paresthesia (Acute) Left-sided temporomandibular joint pain-dysfunction syndrome (Acute) Bruxism (Acute) Chronic pain (Chronic) Leukocytosis (Acute) Sore throat (Acute) GERD (gastroesophageal reflux disease) (Chronic) Irregular bowel habits (Acute) Chest pain (Acute) Fatigue (Acute) Vasomotor symptoms due to menopause (Acute) Sinusitis (Acute) Pulmonary nodule (Acute) Lymph nodes enlarged (Acute) Elevated transaminase level (Acute) History of prediabetes (Acute) Transient neurological symptoms (Acute) Dizziness (Acute) Seasonal allergies (Acute) Memory loss (Acute) Cough (Acute) Gastritis (Acute ~12/2020) mild Prolonged QT interval (Acute) Cervicalgia (Acute) Microscopic hematuria (Acute) Anxiety (Chronic) Migraine headache without aura (Acute) Chronic headache (Acute) Tremor (Acute) Smoker (Chronic) Shoulder pain, left (Chronic 05/25/14) 05/28 WC Peptic reflux disease (Chronic) 2012 EGD, mild gastritis 2014 [place]) patchy gastritis 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 is unaware of this Pre-diabetes Obstructive sleep apnea Hypertension Surgical History Status post breast biopsy History of cholecystectomy (~04/05/22) History of bunionectomy right Hx of rotator cuff surgery bilateral History of tonsillectomy and adenoidectomy History of esophagogastroduodenoscopy (EGD) (~12/2020) History of colonoscopy (~12/2020) Oophrectomy, Left B [place], [place] [facility] [place] Biopsy of breast (~2007) neg Bilateral salpingectomy with oophorectomy Family History Mother Essential hypertension Diabetes TYPE 2 Hyperlipidemia Father Heart disease Hyperlipidemia Myocardial infarction Sister Hyperlipidemia Brother No problems noted. Grandfather No problems noted. Grandfather No problems noted. Grandmother Personal history of malignant neoplasm BREAST Grandmother No problems noted. 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
[2025-06-25 19:52] LABS: Anion Gap 10.4 mmol/L (3-11); Chloride 105 mmol/L (98-107); Potassium 4.0 mmol/L (3.5-5.1); Sodium 140 mmol/L (136-145)
== END 2025-06-25 19:20 | disposition left against medical advice (07) ==
PROVIDERS: Emergency Provider Physician Assistant; PCP Family Medicine
DX: R11.2 Nausea with vomiting, unspecified (principal); I12.9 Hypertensive chronic kidney disease with stage 1 through stage 4 chronic kidney disease, or unspecified chronic kidney disease; N18.2 Chronic kidney disease, stage 2 (mild); F17.210 Nicotine dependence, cigarettes, uncomplicated; Z79.82 Long term (current) use of aspirin
CPT/HCPCS: 80053; 82805; 83690; 87637; 93005; 96374; 99284; 81003; 83735; 85025; 93010; J2765